=== PATIENT | male | born 1945 | race Caucasian/White ===

== ENCOUNTER 2022-12-17 12:59 | Day surgery (SDC) | payer MEDICARE ==
[2022-12-17 13:38] LABS: Mean Platelet Volume 7.9; Platelet Count 197 k/uL (150-450)
[2022-12-17 13:55] LABS: INR 1.1 (<1.2); Prothrombin Time 11.9 sec (9.0-12.0)
[2022-12-17 13:56] VITALS: RESP 20; TEMP 97.7
[2022-12-17] MEDS: ALBUMIN HUMAN 25% 50 ML in EMPTY BAG 1 BAG IVPB SCH ×4 (15:06→15:55)
[2022-12-17 16:14] VITALS: BP 133/64; PULSE 96
--- NOTE | 2022-12-17 16:33 | US ---
EXAMINATION TYPE: US paracentesis abd w/image DATE OF EXAM: 12/17/2022 CLINICAL HISTORY: Ascites The procedure was discussed with the patient. The risks, complications, benefits, and alternatives we re discussed and any questions were answered. Informed consent was obtained. The patient was placed s upine on the ultrasound table and prepped and draped in the usual sterile fashion. All elements of maximal barrier technique were utilized. Ultrasound was used to kaitlin an appropriate s ite in the right lower quadrant. Access to the ascites was obtained with a paracentesis catheter. Approximately 12 liters of straw-colored fluid was removed. The patient was stable throughout the pro cedure and remained stable upon discharge from Department of Radiology. IMPRESSION: Successful therapeutic paracentesis under ultrasound guidance.
== END 2022-12-17 16:39 | disposition home or self-care (01) ==
LOC: RADPROMAIN 12:59
PROVIDERS: ATTEND Internal Medicine Gastroenterology
DX: R18.8 Other ascites (principal)
CPT/HCPCS: 82565; 85049; 85610; 36415; 49083; P9047

== ENCOUNTER 2023-07-14 15:12 | Inpatient (IN) | payer OTHER, MEDICARE ==
[2023-07-14 16:24] LABS: Basophils % (A) 0 %; Eosinophils # (A) 0.2 k/uL (0-0.7); Eosinophils % (A) 3 %; HCT 38.7 % (39.0-53.0); HGB 12.8 gm/dL (13.0-17.5); Lymphocytes # (A) 0.9 k/uL (1.0-4.8); Lymphocytes % (A) 13 %; MCH 29.4 pg (25.0-35.0); MCV 89.1 fL (80.0-100.0); Mean Platelet Volume 8.1; Monocytes # (A) 0.5 k/uL (0-1.0); Monocytes % (A) 7 %; Neutrophils # (A) 5.5 k/uL (1.3-7.7); Neutrophils % (A) 75 %; Platelet Count 179 k/uL (150-450); RBC 4.35 m/uL (4.30-5.90); RDW 12.9 % (11.5-15.5); WBC 7.3 k/uL (3.8-10.6)
[2023-07-14 16:35] LABS: INR 1.1 (<1.2); Prothrombin Time 11.2 sec (9.0-12.0)
[2023-07-14 16:41] LABS: ALT 14 U/L (4-49); AST 23 U/L (17-59); African American GFR (CKD) 55 (>60 ml/min/1.73 sqM); Albumin 3.7 g/dL (3.5-5.0); Alkaline Phosphatase 107 U/L (38-126); Amylase 62 U/L (30-110); Anion Gap 6 mmol/L; Blood Urea Nitrogen 23 mg/dL (9-20); Calcium 9.9 mg/dL (8.4-10.2); Carbon Dioxide 25 mmol/L (22-30); Chloride 98 mmol/L (98-107); Glucose 109 mg/dL (74-99); Lipase 43 U/L (23-300); Non-African American GFR(CKD) 48 (>60 ml/min/1.73 sqM); Potassium 4.4 mmol/L (3.5-5.1); Sodium 129 mmol/L (137-145); Total Bilirubin 0.9 mg/dL (0.2-1.3); Total Protein 7.7 g/dL (6.3-8.2)
--- NOTE | 2023-07-14 16:51 | XR ---
EXAMINATION TYPE: XR KUB DATE OF EXAM: 07/14/2023 COMPARISON: NONE HISTORY: Pain TECHNIQUE: Single supine KUB image of the abdomen is obtained FINDINGS: Small bowel demonstrates no evidence for dilatation or air fluid levels. Gas and fecal material is seen in non-distended colon. No convincing evidence for pneumoperitoneum. No unusual calcifications. The lung bases are clear. The osseous structures are intact. IMPRESSION: 1. Overall nonobstructive bowel gas pattern.
[2023-07-14 16:56] LABS: Appearance,Urine Clear (Clear); Bilirubin,Urine Negative (Negative); Blood,Urine Small (Negative); Color,Urine Colorless; Glucose,Urine (UA) Negative (Negative); Hyaline Casts,Urine 3 /lpf (0-2); Ketones,Urine Negative (Negative); Leukocyte Esterase,Urine Negative (Negative); Mucus,Urine Rare /hpf; Nitrite,Urine Negative (Negative); Protein,Urine Negative (Negative); Specific Gravity,Urine 1.005 (1.001-1.035); Urobilinogen,Urine <2.0 mg/dL (<2.0)
--- NOTE | 2023-07-14 17:24 | ED ---
General Adult HPI - General Chief complaint: Abdominal Pain Stated complaint: infection in stomach Time Seen by Provider: 07/14/23 17:05 Source: patient, family, RN notes reviewed Mode of arrival: wheelchair Limitations: no limitations - History of Present Illness Initial comments: Patient is a pleasant 78-year-old male presenting to the emergency Department with several complaints. Patient does have some dyspnea on the past couple of days. Patient has had increased abdominal distention over the past one week with some mild discomfort. Patient does have history of cirrhosis with previous paracentesis. Patient is scheduled for paracentesis in 8 days. Patient did notice some redness to the skin of the abdomen today. Patient has a 10 pound we ight gain in the last week. - Related Data Home Medications Medication Instructions Recorded Confirmed Ergocalciferol [Vitamin D2 (1250 1,250 mcg PO WEEKLY 12/05/22 01/19/23 Mcg = 82439 Iu)] Furosemide [Lasix] 40 mg PO DAILY 12/05/22 01/19/23 HYDROcodone/APAP 5-325MG [[place] 1 tab PO Q4HR PRN 12/05/22 01/27/23 5-325] Metoprolol Tartrate [Lopressor] 25 mg PO BID 12/05/22 01/19/23 Rivaroxaban [Xarelto] 20 mg PO DAILY 12/05/22 01/27/23 Spironolactone [Aldactone] 100 mg PO DAILY 12/05/22 01/19/23 Cholecalciferol [Vitamin D3 (25 1,000 mcg PO DAILY 12/17/22 01/19/23 Mcg = 1000 Iu)] Cyanocobalamin [Vitamin B-12] 1 tablet PO DAILY 12/17/22 01/19/23 [place] 500 mg PO DAILY 12/17/22 01/19/23 Multivit-Min/FA/Lycopen/Lutein 1 tablet PO DAILY 12/17/22 01/19/23 [Centrum Silver Men Tablet] Turmeric/Turmeric Root Extract 500 mg PO DAILY 12/17/22 01/19/23 [Turmeric 450-50 mg Capsule] Vitamin E 180 mg PO DAILY 12/17/22 01/19/23 Zinc Gluconate [Zinc] 50 mg PO DAILY 12/17/22 01/19/23 Magnesium Oxide [Magnesium] 500 mg PO DAILY 01/19/23 01/19/23 Allergies Allergy/AdvReac Type Severity Reaction Status Date / Time cephalexin [From Keflex] Allergy Rash/Hives Verified 01/27/23 13:19 Iodinated Contrast Media Allergy Vomiting Verified 01/27/23 13:19 Review of Systems ROS Statement: Those systems with pertinent positive or pertinent negative responses have been documented in the HPI. ROS Other: All systems not noted in ROS Statement are negative. Constitutional: Denies: fever Eyes: Denies: eye pain ENT: Denies: ear pain Respiratory: Reports: as per HPI, dyspnea Cardiovascular: Denies: chest pain Endocrine: Reports: fatigue Gastrointestinal: Reports: as per HPI Musculoskeletal: Denies: back pain Skin: Reports: as per HPI Past Medical History Past Medical History: Atrial Fibrillation, Liver Disease Additional Past Medical History / Comment(s): exposed to agent orange History of Any Multi-Drug Resistant Organisms: None Reported Past Surgical History: Hernia Repair Additional Past Surgical History / Comment(s): paracentesis, hernia, scrotal nix rgery, eye implants Past Anesthesia/Blood Transfusion Reactions: No Reported Reaction Past Psychological History: Anxiety, Panic Disorder, PTSD Smoking Status: Current every day smoker Past Alcohol Use History: None Reported Past Drug Use History: Marijuana - Past Family History Father Family Medical History: Myocardial Infarction ([place]) General Exam Limitations: no limitations General appearance: alert, in no apparent distress Head exam: Present: normocephalic Eye exam: Present: normal appearance Neck exam: Present: normal inspection Respiratory exam: Present: rales Cardiovascular Exam: Present: irregular rhythm GI/Abdominal exam: Present: distended Extremities exam: Present: normal inspection Neurological exam: Present: alert Psychiatric exam: Present: normal affect, normal mood Skin exam: Present: erythema (Mild erythema left lower abdomen) Course Vital Signs 07/14/23 07/14/23 15:29 17:53 Temperature 98 F Pulse Rate 79 83 Respiratory 20 18 Rate Blood Pressure 107/70 138/78 O2 Sat by Pulse 95 98 Oximetry EKG Findings - EKG Results: EKG: interpreted by PATTID (Low QRS voltage), normal axis, normal ST/T EKG shows: atrial fibrillation Medical Decision Making - Medical Decision Making Was pt. sent in by a medical professional or institution (, PA, MUFFLE OPERATOR, urgent care, hospital, or long term...) When possible be specific @ -No Did you speak to anyone other than the patient for history (EMS, parent, family, police, friend...)? What history was obtained from this source @ - is present and helps provide history including history of cirrhosis Did you review nursing and triage notes (agree or disagree)? Why? @ -I reviewed and agree with nursing and triage notes Were old charts reviewed (outside hosp., previous admission, EMS record, old EKG, old radiological studies, urgent care reports/EKG's, long term records)? Report findings @ -No old charts were reviewed Differential Diagnosis (chest pain, altered mental status, abdominal pain women, abdominal pain men, vaginal bleeding, weakness, fever, dyspnea, syncope, headache, dizziness, GI bleed, back pain, seizure, CVA, palpatations, mental health, musculoskeletal)? @ -Differential Dyspnea: Coronary syndrome, arrhythmia, tamponade, asthma, COPD, pulmonary embolism, pneumonia, pneumothorax, pulmonary effusion, anaphylaxis, diabetic ketoacidosis, flailed chest, pulmonary contusion, diaphragmatic rupture, anemia, neuromuscular, this is not meant to be an all-inclusive list. EKG interpreted by me (3pts min.). @ -As above X-rays interpreted by me (1pt min.). @ -Chest x-ray shows possible early infiltrate right lower CT interpreted by me (1pt min.). @ -None done U/S interpreted by me (1pt. min.). @ -None done What testing was considered but not performed or refused? (CT, X-rays, U/S, labs)? Why? @ -None What meds were considered but not given or refused? Why? @ -None Did you discuss the management of the patient with other professionals (professionals i.e. Dr., PA, MUFFLE OPERATOR, lab, RT, psych nurse, transition social worker, sanitary landfill supervisor, teacher, ict help desk officer, caseworker)? Give summary @ -Case was discussed with practitioner Ligia Tyler, who will admit covering for Dr. Hannah, who admits for Dr. Soriano. Was smoking cessation discussed for >3mins.? @ -No Was critical care preformed (if so, how long)? @ -No Were there social determinants of health that impacted care today? How? (Homelessness, low income, unemployed, alcoholism, drug addiction, transpor tation, low edu. Level, literacy, decrease access to med. care, usp, rehab)? @ -No Was there de-escalation of care discussed even if they declined (Discuss DNR or withdrawal of care, Hospice)? DNR status @ -No What co-morbidities impacted this encounter? (DM, HTN, Smoking, COPD, CAD, Cancer, CVA, ARF, Chemo, Hep., AIDS, mental health diagnosis, sleep apnea, morbid obesity)? @ -None Was patient admitted / discharged? Hospital course, mention meds given and route, prescriptions, significant lab abnormalities, going to OR and other pertinent info. @ -Patient reevaluated. Patient and family updated. Patient will be admitted for interventional radiology consult for paracentesis as well as antibiotics for cellulitis and questionable pneumonia Undiagnosed new problem with uncertain prognosis? @ -No Drug Therapy requiring intensive monitoring for toxicity (Heparin, Nitro, Insulin, Cardizem)? @ -No Were any procedures done? @ -No Diagnosis/symptom? @ -Ascites, cellulitis abdomen Acute, or Chronic, or Acute on Chronic? @ -Acute on chronic, acute Uncomplicated (without systemic symptoms) or Complicated (systemic symptoms)? @ -default Side effects of treatment? @ -No Exacerbation, Progression, or Severe Exacerbation? @ -No Poses a threat to life or bodily function? How? (Chest pain, [place], MA, pneumonia, PE, COPD, DKA, ARF, appy, cholecystitis, CVA, Diverticulitis, Homicidal, Suicidal, threat to staff... and all critical care pts) @ -No - Lab Data Result diagrams: 07/14/23 16:03 07/14/23 16:03 Lab Results 07/14/23 07/14/23 07/14/23 Range/Units 15:33 16:03 16:03 WBC 7.3 (3.8-10.6) k/uL RBC 4.35 (4.30-5.90) m/uL Hgb 12.8 L (13.0-17.5) gm/dL Hct 38.7 L (39.0-53.0) % MCV 89.1 (80.0-100.0) fL MCH 29.4 (25.0-35.0) pg MCHC 33.0 (31.0-37.0) g/dL RDW 12.9 (11.5-15.5) % Plt Count 179 (150-450) k/uL MPV 8.1 Neutrophils % 75 % Lymphocytes % 13 % Monocytes % 7 % Eosinophils % 3 % Basophils % 0 % Neutrophils # 5.5 (1.3-7.7) k/uL Lymphocytes # 0.9 L (1.0-4.8) k/uL Monocytes # 0.5 (0-1.0) k/uL Eosinophils # 0.2 (0-0.7) k/uL Basophils # 0.0 (0-0.2) k/uL PT 11.2 (9.0-12.0) sec INR 1.1 (<1.2) APTT 30.0 (22.0-30.0) sec Sodium (137-145) mmol/L Potassium (3.5-5.1) mmol/L Chloride (98-107) mmol/L Carbon Dioxide (22-30) mmol/L Anion Gap mmol/L BUN (9-20) mg/dL Creatinine (0.66-1.25) mg/dL Est GFR (CKD-EPI)AfAm (>60 ml/min/1.73 sqM) Est GFR (CKD-EPI)NonAf (>60 ml/min/1.73 sqM) Glucose (74-99) mg/dL Calcium (8.4-10.2) mg/dL Total Bilirubin (0.2-1.3) mg/dL AST (17-59) U/L ALT (4-49) U/L Alkaline Phosphatase (38-126) U/L Ammonia (<30) umol/L Troponin I (0.000-0.034) ng/mL Total Protein (6.3-8.2) g/dL Albumin (3.5-5.0) g/dL Amylase (30-110) U/L Lipase (23-300) U/L Urine Color Colorless Urine Appearance Clear (Clear) Urine pH 6.0 (5.0-8.0) Ur Specific Arnold 1.005 (1.001-1.035) Urine Protein Negative (Negative) Urine Glucose (UA) Negative (Negative) Urine Ketones Negative (Negative) Urine Blood Small H (Negative) Urine Nitrite Negative (Negative) Urine Bilirubin Negative (Negative) Urine Urobilinogen <2.0 (<2.0) mg/dL Ur Leukocyte Esterase Negative (Negative) Hyaline Casts 3 H (0-2) /lpf Urine Mucus Rare H (None) /hpf 07/14/23 07/14/23 07/14/23 Range/Units 16:03 16:03 16:03 WBC (3.8-10.6) k/uL RBC (4.30-5.90) m/uL Hgb (13.0-17.5) gm/dL Hct (39.0-53.0) % MCV (80.0-100.0) fL MCH (25.0-35.0) pg MCHC (31.0-37.0) g/dL RDW (11.5-15.5) % Plt Count (150-450) k/uL MPV Neutrophils % % Lymphocytes % % Monocytes % % Eosinophils % % Basophils % % Neutrophils # (1.3-7.7) k/uL Lymphocytes # (1.0-4.8) k/uL Monocytes # (0-1.0) k/uL Eosinophils # (0-0.7) k/uL Basophils # (0-0.2) k/uL PT (9.0-12.0) sec INR (<1.2) APTT (22.0-30.0) sec Sodium 129 L (137-145) mmol/L Potassium 4.4 (3.5-5.1) mmol/L Chloride 98 (98-107) mmol/L Carbon Dioxide 25 (22-30) mmol/L Anion Gap 6 mmol/L BUN 23 H (9-20) mg/dL Creatinine 1.42 H (0.66-1.25) mg/dL Est GFR (CKD-EPI)AfAm 55 (>60 ml/min/1.73 sqM) Est GFR (CKD-EPI)NonAf 48 (>60 ml/min/1.73 sqM) Glucose 109 H (74-99) mg/dL Calcium 9.9 (8.4-10.2) mg/dL Total Bilirubin 0.9 (0.2-1.3) mg/dL AST 23 (17-59) U/L ALT 14 (4-49) U/L Alkaline Phosphatase 107 (38-126) U/L Ammonia 22 (<30) umol/L Troponin I <0.012 (0.000-0.034) ng/mL Total Protein 7.7 (6.3-8.2) g/dL Albumin 3.7 (3.5-5.0) g/dL Amylase 62 (30-110) U/L Lipase 43 (23-300) U/L Urine Color Urine Appearance (Clear) Urine pH (5.0-8.0) Ur Specific Arnold (1.001-1.035) Urine Protein (Negative) Urine Glucose (UA) (Negative) Urine Ketones (Negative) Urine Blood (Negative) Urine Nitrite (Negative) Urine Bilirubin (Negative) Urine Urobilinogen (<2.0) mg/dL Ur Leukocyte Esterase (Negative) Hyaline Casts (0-2) /lpf Urine Mucus (None) /hpf Disposition Clinical Impression: Ascites, Abdominal wall cellulitis Disposition: ADMITTED IP TO THIS HOSP Is patient prescribed a controlled substance at d/c from ED?: No Referrals: Kelechi Soriano DO [Primary Care Provider] - 1-2 days Time of Disposition: 19:05
--- NOTE | 2023-07-14 18:26 | XR ---
EXAMINATION TYPE: XR chest 2V DATE OF EXAM: 07/14/2023 COMPARISON: NONE HISTORY: Chest pain TECHNIQUE: Frontal and lateral views of the chest are obtained. FINDINGS: Mildly increased density right lung base may reflect developing infiltrate. Correlate clinically. No evidence for pneumothorax. No pleural effusion. The cardiac silhouette size is within normal limits. The osseous structures are grossly intact. IMPRESSION: 1. Mildly increased density right lung base may reflect developing infiltrate. Correlate clinically.
[2023-07-14] MEDS ORDERED: LEVOFLOXACIN 750MG-D5W PMX 750 MG in DEXTROSE/WATER 1 150ML.BAG IVPB STA (19:07)
[2023-07-14] MEDS ORDERED: PNEUMONIA PROTOCOL UTILIZED 1 EACH MISC PO PRN (19:07)
[2023-07-14] MEDS: METOPROLOL TARTRATE 25 MG TAB PO SCH (21:29)
[2023-07-14] MEDS: HYDROcodone/APAP 10-325MG 1 EACH TAB PO PRN (22:35)
[2023-07-15] MEDS: METOPROLOL TARTRATE 25 MG TAB PO SCH ×2 (08:22→21:10)
[2023-07-15] MEDS: HYDROcodone/APAP 10-325MG 1 EACH TAB PO PRN ×2 (08:22→19:53)
[2023-07-15] MEDS: CYANOCOBALAMIN 500 MCG TAB PO SCH (09:29)
[2023-07-15] MEDS: FUROSEMIDE 40 MG TAB PO SCH (09:29)
[2023-07-15] MEDS: MAGNESIUM OXIDE 400 MG TAB PO SCH (09:29)
[2023-07-15] MEDS: ZINC SULFATE 220 MG CAP PO SCH (09:29)
[2023-07-15] MEDS: CHOLECALCIFEROL 25 MCG (1000 IU) TABLET PO SCH (09:29)
[2023-07-15] MEDS: SPIRONOLACTONE 25 MG TAB PO SCH (09:29)
[2023-07-15] MEDS: MULTIVITAMINS, THERA 1 EACH TAB PO SCH (09:30)
--- NOTE | 2023-07-15 09:56 | XR ---
EXAMINATION TYPE: XR chest 2V DATE OF EXAM: 07/15/2023 COMPARISON: 07/14/2023 INDICATION: Pneumonia TECHNIQUE: Frontal and lateral views of the chest are obtained. FINDINGS: The heart size is normal. The pulmonary vasculature is normal. The lungs are clear. IMPRESSION: 1. No acute pulmonary process.
[2023-07-15] MEDS ORDERED: NALOXONE 0.4 MG/ML 1 ML VIAL IV PRN (12:56)
[2023-07-15] MEDS ORDERED: ACETAMINOPHEN TAB 325 MG TAB PO PRN (12:56)
[2023-07-15] MEDS ORDERED: ONDANSETRON 4 MG/2 ML VIAL IVP PRN (12:56)
--- NOTE | 2023-07-15 13:04 | P.HPIM ---
History of Present Illness H&P Date: 07/15/23 Chief Complaint: Abdominal distention * 78-year-old gentleman with past medical history significant for atrial fibrillation, liver disease with ascites, obesity, presenting to the emergency department with complaints of abdominal distention, erythema on anterior abdominal wall * Workup initiated in ER included serum chemistry which showed sodium of 129, creatinine 1.42. Liver profile within normal limits. Ammonia, troponin, amylase , lipase within normal limits * Urinalysis is obtained negative for urinary tract infection * X-ray abdomen ordered negative for obstruction, normal bowel gas pattern noted * Chest x-ray negative for intrathoracic process * Patient noted to have worsening ascites for which paracentesis is ordered * Patient to be admitted to medical floor for optimization of care and potential discharge within the next 24-48 hours REVIEW OF SYSTEMS: Shortness of breath, abdominal distention, erythema CONSTITUTIONAL: No fever, no malaise, no fatigue. HEENT: No recent visual problems or hearing problems. Denied any sore throat. CARDIOVASCULAR: No chest pain, orthopnea, PND, no palpitations, no syncope. PULMONARY: No shortness of breath, no cough, no hemoptysis. GASTROINTESTINAL: No diarrhea, no nausea, no vomiting, no abdominal pain. NEUROLOGICAL: No headaches, no weakness, no numbness. HEMATOLOGICAL: Denies any bleeding or petechiae. GENITOURINARY: Denies any burning micturition, frequency, or urgency. MUSCULOSKELETAL/RHEUMATOLOGICAL: Denies any joint pain, swelling, or any muscle pain. ENDOCRINE: Denies any polyuria or polydipsia. The rest of the 14-point review of systems is negative. PHYSICAL EXAMINATION: GENERAL: The patient is alert and oriented x3, Well developed, well nourished. Obese HEENT: Pupils are round and equally reacting to light. EOMI. CARDIOVASCULAR: S1 and S2 present. No murmurs, rubs, or gallops. Bilateral lower extremity edema PULMONARY: Chest is clear to auscultation, no wheezing or crackles. ABDOMEN: Soft, distended, MUSCULOSKELETAL: No joint swelling or deformity. EXTREMITIES: No cyanosis, clubbing, or pedal edema. NEUROLOGICAL: Gross neurological examination did not reveal any focal deficits. SKIN: Erythema anterior abdominal wall, skin marked Past Medical History Past Medical History: Atrial Fibrillation, Liver Disease, Pneumonia Additional Past Medical History / Comment(s): exposed to agent orange, ascites. 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 Smoking Status: Current every day smoker Past Alcohol Use History: None Reported Additional Past Alcohol Use History / Comment(s): refused smoking education, quit drinking 8 years ago (2014 approx) Past Drug Use History: Marijuana - Past Family History Father Family Medical History: Myocardial Infarction ([place]) Medications and Allergies Home Medications Medication Instructions Recorded Confirmed Type Ergocalciferol [Vitamin D2 (1250 1,250 mcg PO CELESTIN 12/05/22 07/14/23 History Mcg = 66888 Iu)] Furosemide [Lasix] 40 mg PO DAILY 12/05/22 07/14/23 History Metoprolol Tartrate [Lopressor] 25 mg PO BID 12/05/22 07/14/23 History Rivaroxaban [Xarelto] 20 mg PO HS 12/05/22 07/14/23 History Spironolactone [Aldactone] 100 mg PO DAILY 12/05/22 07/14/23 History Cholecalciferol [Vitamin D3 (25 25 mcg PO DAILY 12/17/22 07/14/23 History Mcg = 1000 Iu)] Cyanocobalamin [Vitamin B-12] 1,000 mcg PO DAILY 12/17/22 07/14/23 History Multivit-Min/FA/Lycopen/Lutein 1 tablet PO DAILY 12/17/22 07/14/23 History [Centrum Silver Men Tablet] Zinc Gluconate [Zinc] 50 mg PO DAILY 12/17/22 07/14/23 History Magnesium Oxide [Magnesium] 500 mg PO DAILY 01/19/23 07/14/23 History HYDROcodone/APAP 10-325MG [[place] 1 tab PO QID@06,12,18,00 07/14/23 07/14/23 History 10-325] Turmeric Root Extract [Turmeric] 500 mg PO DAILY 07/14/23 07/14/23 History Allergies Allergy/AdvReac Type Severity Reaction Status Date / Time cephalexin [From Keflex] Allergy Rash/Hives Verified 07/14/23 19:38 Iodinated Contrast Media Allergy Vomiting Verified 07/14/23 19:38 Physical Exam Vitals: Vital Signs Temp Pulse Pulse Resp BP BP Pulse Ox 07/15/23 08:52 92 L 07/15/23 07:17 98.6 F 71 19 99/67 97 07/15/23 02:00 97.6 F 75 16 106/61 94 L 07/14/23 20:00 98.3 F 81 16 112/70 95 07/14/23 17:53 83 18 138/78 98 07/14/23 15:29 98 F 79 20 107/70 95 FiO2 07/15/23 08:52 21 07/15/23 07:17 07/15/23 02:00 07/14/23 20:00 07/14/23 17:53 07/14/23 15:29 Intake and Output 07/14/23 07/15/23 07/15/23 22:59 06:59 14:59 Other: Voiding Method Toilet # Voids 2 Weight 121.563 kg Results CBC & Chem 7: 07/14/23 16:03 07/14/23 16:03 Labs: Abnormal Lab Results - Last 24 Hours (Table) 07/14/23 07/14/23 07/14/23 Range/Units 15:33 16:03 16:03 Hgb 12.8 L (13.0-17.5) gm/dL Hct 38.7 L (39.0-53.0) % Lymphocytes # 0.9 L (1.0-4.8) k/uL Sodium 129 L (137-145) mmol/L BUN 23 H (9-20) mg/dL Creatinine 1.42 H (0.66-1.25) mg/dL Glucose 109 H (74-99) mg/dL Urine Blood Small H (Negative) Hyaline Casts 3 H (0-2) /lpf Urine Mucus Rare H (None) /hpf Thrombosis Risk Factor Assmnt - DVT/VTE Prophylaxis DVT/VTE Prophylaxis: Mechanical Prophylaxis ordered - Choose All That Apply Any of the Below Risk Factors Present?: Yes Each Factor Represents 1 point: Obesity (BMI >25) Other Risk Factors: Yes Each Risk Factor Represents 3 Points: Age 75 years or older Other congenital or acquired thrombophilia - If yes, enter type in comment: No Thrombosis Risk Factor Assessment Total Risk Factor Score: 4 Thrombosis Risk Factor Assessment Level: Moderate Risk Assessment and Plan Assessment: Assessment and plan * Decompensated liver disease with ascites * Acute panniculitis * History of atrial fibrillation * Chronic kidney disease stage IIIa * In regards to decompensated liver disease continue patient on Lasix and Aldactone. Paracentesis is ordered * In regards to acute panniculitis in the abdominal wall continue patient on doxycycline to complete 5 day course * In regards to history of atrial fibrillation, continue telemetry monitoring, continue metoprolol. Resolved on hold and anticipation of paracentesis * In regards to chronic kidney disease continue to monitor renal profile while on Lasix and Aldactone * CODE STATUS is full code * DVT prophylaxis address. Resume was a lot of post paracentesis, SCDs while in bed
[2023-07-15] MEDS: ALBUMIN HUMAN 25% 50 ML in EMPTY BAG 1 BAG IVPB SCH ×2 (15:27→16:23)
[2023-07-15] MEDS: DOXYCYCLINE 100 MG CAP PO SCH ×2 (16:25→21:10)
[2023-07-16] MEDS: HYDROcodone/APAP 10-325MG 1 EACH TAB PO PRN ×2 (06:51→18:09)
[2023-07-16] MEDS: MULTIVITAMINS, THERA 1 EACH TAB PO SCH (08:04)
[2023-07-16] MEDS: CHOLECALCIFEROL 25 MCG (1000 IU) TABLET PO SCH (08:04)
[2023-07-16] MEDS: METOPROLOL TARTRATE 25 MG TAB PO SCH ×2 (08:04→22:45)
[2023-07-16] MEDS: ZINC SULFATE 220 MG CAP PO SCH (08:04)
[2023-07-16] MEDS: CYANOCOBALAMIN 500 MCG TAB PO SCH (08:04)
[2023-07-16] MEDS: DOXYCYCLINE 100 MG CAP PO SCH (08:04)
[2023-07-16] MEDS: MAGNESIUM OXIDE 400 MG TAB PO SCH (08:04)
--- NOTE | 2023-07-16 08:29 | US ---
Ultrasound-guided paracentesis. DATE OF EXAM: 07/15/2023 CLINICAL HISTORY: Ascites The procedure was discussed with the patient. The risks, complications, benefits, and alternatives we re discussed and any questions were answered. Informed consent was obtained. The patient was placed s upine on the ultrasound table and prepped and draped in the usual sterile fashion. All elements of maximal barrier technique were utilized. Under ultrasound guidance, access into the right lower quadrant was obtained, via the paracentesis catheter system and direct ultrasound guidanc e. Approximately 3.5 liters of straw-colored fluid was removed. The patient was stable throughout the pr ocedure and remained stable upon discharge from Department of Radiology. IMPRESSION: Successful paracentesis under ultrasound guidance.
[2023-07-16] MEDS: FUROSEMIDE 40 MG TAB PO SCH (10:16)
[2023-07-16] MEDS: SPIRONOLACTONE 25 MG TAB PO SCH (10:16)
[2023-07-16 13:01] LABS: INR 1.01 sec (0.93-1.11); Prothrombin Time 11.4 sec (9.9-11.9)
--- NOTE | 2023-07-16 13:26 | P.PN ---
Subjective * 78-year-old gentleman with past medical history significant for atrial fibrillation, liver disease with ascites, obesity, presenting to the emergency department with complaints of abdominal distention, erythema on anterior abdominal wall * Workup initiated in ER included serum chemistry which showed sodium of 129, creatinine 1.42. Liver profile within normal limits. Ammonia, troponin, amylase , lipase within normal limits * Urinalysis is obtained negative for urinary tract infection * X-ray abdomen ordered negative for obstruction, normal bowel gas pattern noted * Chest x-ray negative for intrathoracic process * Patient noted to have worsening ascites for which paracentesis is ordered * Patient to be admitted to medical floor for optimization of care and potential discharge within the next 24-48 hours 07/16/2023 This is a pleasant 78 years old male who presents with redness of his abdominal wall suspicious for cellulitis. Also he has history of scrotal surgery and removal with Dr. Godfrey many years ago and there is a lot of scar tissue, he was instructed to follow up with [facility] but patient could not. Patient was noticed with redness of his abdominal WOUND To the hospital. Also he has history of cirrhosis and he follows up with Dr. Mancuso as an outpatient He status post paracentesis and 3.5 L of yellow fluid was taken out. A shunt today feels better. His WITH NO DIFFICULTY. BLOOD PRESSURE IS LOW NORMAL, CREATININE IS STABLE AT 1.4. SODIUM IS 129. CHEST X-RAYS NEGATIVE FOR ACUTE PROCESS AND KUB SHOWING NON-OBSTRUCTIVE BOWEL PATTERN. PATIENT IS CURRENTLY ON DOXYCYCLINE AND ORAL DOSE Objective - Vital Signs Vital signs: Vital Signs Temp 98.9 F 07/16/23 07:20 Pulse 83 07/16/23 07:35 Resp 17 07/16/23 07:35 BP 99/68 07/16/23 07:20 Pulse Ox 95 07/16/23 07:20 FiO2 21 07/15/23 08:52 Intake & Output 07/15/23 07/16/23 07/16/23 18:59 06:59 18:59 Other: Voiding Method Toilet Toilet # Voids 2 2 - Exam GENERAL: The patient is alert and oriented x3, not in any acute distress. obese HEENT: Pupils are round and equally reacting to light. EOMI. No scleral icterus. No conjunctival pallor. Normocephalic, atraumatic. No pharyngeal erythema. No thyromegaly. CARDIOVASCULAR: S1 and S2 present. No murmurs, rubs, or gallops. PULMONARY: Chest is clear to auscultation, no wheezing , no crackles. -ABDOMEN: Soft, nontender, nondistended, normoactive bowel sounds. No palpable organomegaly. Redness left lower site of the abdomen up to the umbilicus extending into the left groin and left scrotal area, there is a lot of scar tissue with small, no discharge MUSCULOSKELETAL: No joint swelling or deformity. EXTREMITIES: No cyanosis, clubbing, or pedal edema. NEUROLOGICAL: Gross neurological examination did not reveal any focal deficits. SKIN: No rashes. no petechiae. - Labs CBC & Chem 7: 07/14/23 16:03 07/14/23 16:03 Labs: Microbiology - Last 24 Hours (Table) 07/14/23 21:55 Blood Culture - Preliminary Blood 07/14/23 21:55 Blood Culture - Preliminary Blood Assessment and Plan Assessment: * Decompensated liver disease with ascites, status post paracentesis 3.5 L removed ON 07/15 * Acute abdominal wall cellulitis and scrotal cellulitis with evidence of scar tissue and small ulcer was then have inch in diameter with no purulent discharge * Chronic atrial fibrillation * Chronic kidney disease stage IIIa * morbid obesity, BMI is 40.7
[2023-07-16] MEDS ORDERED: VANCOMYCIN IV PER PHARMACY 1 EACH MISC MISCELLANE PRN (13:36)
[2023-07-16 14:37] LABS: Basophils # (A) 0.04 X 10*3/uL (0.00-0.10); Basophils % (A) 0.5 %; Eosinophils # (A) 0.24 X 10*3/uL (0.04-0.35); Eosinophils % (A) 3.3 %; HCT 39.5 % (39.6-50.0); HGB 12.3 d/dL (13.0-17.0); Lymphocytes # (A) 1.15 X 10*3/uL (0.90-5.00); Lymphocytes % (A) 15.8 %; MCH 28.4 pg (27.0-32.0); MCHC 31.1 d/dL (32.0-37.0); MCV 91.2 FL (80.0-97.0); Monocytes # (A) 0.71 X 10*3/uL (0.20-1.00); Monocytes % (A) 9.7 %; NRBC Per 100 WBC 0 X 10*3/uL (0.00-0.01); Neutrophils # (A) 5.06 X 10*3/uL (1.80-7.70); Neutrophils % (A) 69.5 %; Platelet Count 201 X 10*3/uL (140-440); RBC 4.33 X 10*6/uL (4.40-5.60); RDW 12.9 % (11.5-14.5); WBC 7.29 X 10*3/uL (4.50-10.00)
[2023-07-16] MEDS ORDERED: VANCOMYCIN 2,500 MG in SODIUM CHLORIDE 0.9% 500 ML 500 ML IVPB ONE (15:00)
[2023-07-16] MEDS: NICOTINE 21MG/24HR PATCH TRANSDERM SCH (16:32)
--- NOTE | 2023-07-16 17:09 | P.GSCN ---
History of Present Illness Consult date: 07/16/23 Reason for Consult: Scrotal infection Requesting physician: Bo E Sheet History of present illness: The patient is a 78-year-old white male with ascites, which requires periodic paracentesis. Earlier today, he underwent ultrasound-guided paracentesis. 3.5 L of fluid was drained. He is now experiencing minimal drainage from the puncture site. erythema of the abdominal wall has been noted. He is receiving IV antibiotics. The patient has a history of scrotal infections. He has undergone incision and drainage in the past by Dr. Amaral, who advised him to undergo resection of the involved tissue with skin grafting. The patient states that he is unable to travel to [facility] because of PTSD. Review of Systems - Constitutional Denies chills, Denies fever - Respiratory Reports dyspnea Past Medical History Past Medical History: Atrial Fibrillation, Liver Disease, Pneumonia Additional Past Medical History / Comment(s): exposed to agent orange, ascites. 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 Smoking Status: Current every day smoker Past Alcohol Use History: None Reported Additional Past Alcohol Use History / Comment(s): refused smoking education, quit drinking 8 years ago (2014 approx) Past Drug Use History: Marijuana - Past Family History Father Family Medical History: Myocardial Infarction ([place]) Medications and Allergies Home Medications Medication Instructions Recorded Confirmed Type Ergocalciferol [Vitamin D2 (1250 1,250 mcg PO CELESTIN 12/05/22 07/14/23 History Mcg = 26698 Iu)] Furosemide [Lasix] 40 mg PO DAILY 12/05/22 07/14/23 History Metoprolol Tartrate [Lopressor] 25 mg PO BID 12/05/22 07/14/23 History Rivaroxaban [Xarelto] 20 mg PO HS 12/05/22 07/14/23 History Spironolactone [Aldactone] 100 mg PO DAILY 12/05/22 07/14/23 History Cholecalciferol [Vitamin D3 (25 25 mcg PO DAILY 12/17/22 07/14/23 History Mcg = 1000 Iu)] Cyanocobalamin [Vitamin B-12] 1,000 mcg PO DAILY 12/17/22 07/14/23 History Multivit-Min/FA/Lycopen/Lutein 1 tablet PO DAILY 12/17/22 07/14/23 History [Centrum Silver Men Tablet] Zinc Gluconate [Zinc] 50 mg PO DAILY 12/17/22 07/14/23 History Magnesium Oxide [Magnesium] 500 mg PO DAILY 01/19/23 07/14/23 History HYDROcodone/APAP 10-325MG [[place] 1 tab PO QID@06,12,18,00 07/14/23 07/14/23 History 10-325] Turmeric Root Extract [Turmeric] 500 mg PO DAILY 07/14/23 07/14/23 History Allergies Allergy/AdvReac Type Severity Reaction Status Date / Time cephalexin [From Keflex] Allergy Rash/Hives Verified 07/14/23 19:38 Iodinated Contrast Media Allergy Vomiting Verified 07/14/23 19:38 Surgical - Exam Vital Signs Temp Pulse Resp BP Pulse Ox 98 F 79 20 107/70 95 07/14/23 15:29 07/14/23 15:29 07/14/23 15:29 07/14/23 15:29 07/14/23 15:29 - General well developed, well nourished, no distress - Respiratory normal respiratory effort - Abdomen Soft, non-tender, non-distended. Mild erythema of the left lower quadrant abdominal skin is noted, though this is not suspicious for cellulitis. No fluctuance, no crepitus, no drainage. - Genitourinary Normal phallus, normal urethral meatus. The right testicle is palpably normal. 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 Significant scarring of the left hemiscrotum is noted, with what appears to be multiple sinuses. There are no areas of fluc tuance or drainage. There is no evidence of scrotal cellulitis. - Psychiatric oriented to time, oriented to person, oriented to place, speech is normal, memory intact Results - Labs 07/16/23 04:48 07/14/23 16:03 Abnormal Lab Results - Last 24 Hours (Table) 07/16/23 Range/Units 04:48 RBC 4.33 L (4.40-5.60) X 10*6/uL Hgb 12.3 L (13.0-17.0) d/dL Hct 39.5 L (39.6-50.0) % MCHC 31.1 L (32.0-37.0) d/dL Microbiology - Last 24 Hours (Table) 07/14/23 21:55 Blood Culture - Preliminary Blood 07/14/23 21:55 Blood Culture - Preliminary Blood Assessment and Plan (1) Hydradenitis Current Visit: Yes Status: Acute Code(s): L73.2 - HIDRADENITIS SUPPURATIVA SNOMED Code(s): 56987057 Plan: I see no need for intervention at this time. I explained to the patient that resection of the scrotal skin with skin grafting would be the optimal mode of therapy. He states that he does not wish to undergo any surgical procedures. I explained to him that he is at risk of future scrotal infections, which can be managed with antibiotics and/or incision and drainage. Time with Patient: Greater than 30
[2023-07-16] MEDS: PROMETHAZINE 25 MG TAB PO PRN (18:03)
[2023-07-16] MEDS ORDERED: LEVOFLOXACIN 750 MG TAB PO SCH (21:00)
--- NOTE | 2023-07-16 21:32 | P.CONS ---
History of Present Illness - Reason for Consult Consult date: 07/16/23 - History of Present Illness Patient is a 78-year-old male with a past medical history significant for atrial fibrillation pneumonia history of PTSD anxiety panic disorder and cirrhosis of the liver requiring paracentesis patient presented to the hospital with increasing abdominal distention over the last 1 week and noticed to having increasing erythema especially to the left lower abdominal wall area patient d enies significant pain open wound he did have slight drainage from his right lower abdominal wall previous paracentesis site patient denies high-grade fever or any chills and no fever has been recorded during his hospital stay patient did have a normal white count BUN/creatinine has been mildly elevated liver enzymes are normal amylase lipase was normal urine is negative patient did have a chest x-ray mild increased density right lung base reflect developing infiltrate patient did have a thoracentesis with removal of 3.5 L of straw of fluid this morning with increasing erythema to the abdominal wall and patient also noticed to have a some drainage from his scrotal area on previous infectious disease consultation patient also has recurrent cyst formation to the scrotal area from the patient been complaining of some bloodstained drainage and did have multiple resection in the past currently has been complaining of mostly bloodstained drainage no purulent material, patient is currently on doxycycline infectious he was consulted for further management of antibiotic therapy Past Medical History Past Medical History: Atrial Fibrillation, Liver Disease, Pneumonia Additional Past Medical History / Comment(s): exposed to agent orange, ascites. 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 Smoking Status: Current every day smoker Past Alcohol Use History: None Reported Additional Past Alcohol Use History / Comment(s): refused smoking education, quit drinking 8 years ago (2014 approx) Past Drug Use History: Marijuana - Past Family History Father Family Medical History: Myocardial Infarction ([place]) Medications and Allergies Home Medications Medication Instructions Recorded Confirmed Type Ergocalciferol [Vitamin D2 (1250 1,250 mcg PO CELESTIN 12/05/22 07/14/23 History Mcg = 20116 Iu)] Furosemide [Lasix] 40 mg PO DAILY 12/05/22 07/14/23 History Metoprolol Tartrate [Lopressor] 25 mg PO BID 12/05/22 07/14/23 History Rivaroxaban [Xarelto] 20 mg PO HS 12/05/22 07/14/23 History Spironolactone [Aldactone] 100 mg PO DAILY 12/05/22 07/14/23 History Cholecalciferol [Vitamin D3 (25 25 mcg PO DAILY 12/17/22 07/14/23 History Mcg = 1000 Iu)] Cyanocobalamin [Vitamin B-12] 1,000 mcg PO DAILY 12/17/22 07/14/23 History Multivit-Min/FA/Lycopen/Lutein 1 tablet PO DAILY 12/17/22 07/14/23 History [Centrum Silver Men Tablet] Zinc Gluconate [Zinc] 50 mg PO DAILY 12/17/22 07/14/23 History Magnesium Oxide [Magnesium] 500 mg PO DAILY 01/19/23 07/14/23 History HYDROcodone/APAP 10-325MG [[place] 1 tab PO QID@06,12,18,00 07/14/23 07/14/23 History 10-325] Turmeric Root Extract [Turmeric] 500 mg PO DAILY 07/14/23 07/14/23 History Allergies Allergy/AdvReac Type Severity Reaction Status Date / Time cephalexin [From Keflex] Allergy Rash/Hives Verified 07/14/23 19:38 Iodinated Contrast Media Allergy Vomiting Verified 07/14/23 19:38 Physical Exam Vitals: Vital Signs Temp Pulse Resp BP Pulse Ox 07/16/23 07:35 83 17 07/16/23 07:20 98.9 F 83 17 99/68 95 07/16/23 00:49 98.0 F 74 16 115/73 99 07/15/23 19:35 98.5 F 87 16 108/70 97 07/15/23 15:52 71 20 104/81 97 07/15/23 15:37 67 99/46 96 07/15/23 15:22 67 96/46 96 07/15/23 15:07 77 127/64 97 07/15/23 14:45 78 20 122/68 97 07/15/23 14:39 96.7 F L 67 20 106/66 97 Intake and Output 07/15/23 07/16/23 07/16/23 22:59 06:59 14:59 Other: Voiding Method Toilet Toilet # Voids 2 2 Results CBC & Chem 7: 07/16/23 04:48 07/14/23 16:03 Labs: Microbiology - Last 24 Hours (Table) 07/14/23 21:55 Blood Culture - Preliminary Blood 07/14/23 21:55 Blood Culture - Preliminary Blood Assessment and Plan Plan: 1patient presented hospital with increasing abdominal wall erythema concerning for cellulitis likely from gram-positive skin lars in this patient who did have a history of of ascites secondary to his cirrhosis and did have a paracentesis. 2patient did have a multiple areas of drainage from his scrotal area but no significant erythema question of hidradenitis 3-cephalexin advised to limit the number of antibiotics safe to use 4-discontinue doxycycline 5-vancomycin pharmacy to dose with a target trough of 15 while watching kidney function and Vanco trough closely. We will follow on clinical condition and cultures to further adjust medication if needed Thank you for this consultation we will follow the patient along with you Dictation was produced using [employer] dictation software. please excuse any grammatical, word or spelling errors. Time with Patient: Greater than 30
[2023-07-17] MEDS: PROMETHAZINE 25 MG TAB PO PRN (01:48)
[2023-07-17] MEDS: HYDROcodone/APAP 10-325MG 1 EACH TAB PO PRN ×2 (01:49→09:11)
[2023-07-17] MEDS: MULTIVITAMINS, THERA 1 EACH TAB PO SCH (08:56)
[2023-07-17] MEDS: SPIRONOLACTONE 25 MG TAB PO SCH (08:56)
[2023-07-17] MEDS: MAGNESIUM OXIDE 400 MG TAB PO SCH (08:56)
[2023-07-17] MEDS: CYANOCOBALAMIN 500 MCG TAB PO SCH (08:56)
[2023-07-17] MEDS: METOPROLOL TARTRATE 25 MG TAB PO SCH (08:56)
[2023-07-17] MEDS: CHOLECALCIFEROL 25 MCG (1000 IU) TABLET PO SCH (08:56)
[2023-07-17] MEDS: FUROSEMIDE 40 MG TAB PO SCH (08:56)
[2023-07-17] MEDS: ZINC SULFATE 220 MG CAP PO SCH (08:56)
[2023-07-17] MEDS: NICOTINE 21MG/24HR PATCH TRANSDERM SCH (08:56)
[2023-07-17 10:11] LABS: African American GFR (CKD) 46 (>60 ml/min/1.73 sqM); Anion Gap 4 mmol/L; Blood Urea Nitrogen 22 mg/dL (9-20); Calcium 9.5 mg/dL (8.4-10.2); Carbon Dioxide 31 mmol/L (22-30); Chloride 97 mmol/L (98-107); Glucose 98 mg/dL (74-99); Non-African American GFR(CKD) 40 (>60 ml/min/1.73 sqM); Potassium 4.3 mmol/L (3.5-5.1); Sodium 132 mmol/L (137-145)
[2023-07-17] MEDS ORDERED: VANCOMYCIN 2,250 MG in SODIUM CHLORIDE 0.9% 500 ML 500 ML IVPB SCH (12:00)
[2023-07-17 13:34] VITALS: BP 115/68; PULSE 67; RESP 17; TEMP 98.7
--- NOTE | 2023-07-17 14:13 | P.PN ---
Subjective * 78-year-old gentleman with past medical history significant for atrial fibrillation, liver disease with ascites, obesity, presenting to the emergency department with complaints of abdominal distention, erythema on anterior abdominal wall * Workup initiated in ER included serum chemistry which showed sodium of 129, creatinine 1.42. Liver profile within normal limits. Ammonia, troponin, amylase , lipase within normal limits * Urinalysis is obtained negative for urinary tract infection * X-ray abdomen ordered negative for obstruction, normal bowel gas pattern noted * Chest x-ray negative for intrathoracic process * Patient noted to have worsening ascites for which paracentesis is ordered * Patient to be admitted to medical floor for optimization of care and potential discharge within the next 24-48 hours 07/16/2023 This is a pleasant 78 years old male who presents with redness of his abdominal wall suspicious for cellulitis. Also he has history of scrotal surgery and removal with Dr. Godfrey many years ago and there is a lot of scar tissue, he was instructed to follow up with [place] but patient could not. Patient was noticed with redness of his abdominal WOUND To the hospital. Also he has history of cirrhosis and he follows up with Dr. Mancuso as an outpatient He status post paracentesis and 3.5 L of yellow fluid was taken out. A shunt today feels better. His WITH NO DIFFICULTY. BLOOD PRESSURE IS LOW NORMAL, CREATININE IS STABLE AT 1.4. SODIUM IS 129. CHEST X-RAYS NEGATIVE FOR ACUTE PROCESS AND KUB SHOWING NON-OBSTRUCTIVE BOWEL PATTERN. PATIENT IS CURRENTLY ON DOXYCYCLINE AND ORAL DOSE 07/17/2023 Patient cellulitis of the abdominal wall and scrubbed, gloved groin is improving slowly and gradually, still there is purulent discharge Patient still needs IV antibiotics Urology team input is appreciated, no surgical intervention and follow-up as an outpatient, patient like to follow-up with his PCP. Infectious disease team on the case Possible discharge in 24-48 hours if he keeps improving Objective - Vital Signs Vital signs: Vital Signs Temp 98.7 F 07/17/23 13:34 Pulse 67 07/17/23 13:34 Resp 17 07/17/23 13:34 BP 115/68 07/17/23 13:34 Pulse Ox 96 07/17/23 13:34 FiO2 21 07/15/23 08:52 Intake & Output 07/16/23 07/17/23 07/17/23 18:59 06:59 18:59 Other: Voiding Method Toilet Toilet Toilet # Voids 4 2 - Exam GENERAL: The patient is alert and oriented x3, not in any acute distress. obese HEENT: Pupils are round and equally reacting to light. EOMI. No scleral icterus. No conjunctival pallor. Normocephalic, atraumatic. No pharyngeal erythema. No t hyromegaly. CARDIOVASCULAR: S1 and S2 present. No murmurs, rubs, or gallops. PULMONARY: Chest is clear to auscultation, no wheezing , no crackles. -ABDOMEN: Soft, nontender, nondistended, normoactive bowel sounds. No palpable organomegaly. Redness left lower site of the abdomen up to the umbilicus extending into the left groin and left scrotal area, there is a lot of scar tissue with small, no discharge MUSCULOSKELETAL: No joint swelling or deformity. EXTREMITIES: No cyanosis, clubbing, or pedal edema. NEUROLOGICAL: Gross neurological examination did not reveal any focal deficits. SKIN: No rashes. no petechiae. - Labs CBC & Chem 7: 07/16/23 04:48 07/17/23 07:31 Labs: Abnormal Lab Results - Last 24 Hours (Table) 07/16/23 07/17/23 Range/Units 04:48 07:31 RBC 4.33 L (4.40-5.60) X 10*6/uL Hgb 12.3 L (13.0-17.0) d/dL Hct 39.5 L (39.6-50.0) % MCHC 31.1 L (32.0-37.0) d/dL Sodium 132 L (137-145) mmol/L Chloride 97 L (98-107) mmol/L Carbon Dioxide 31 H (22-30) mmol/L BUN 22 H (9-20) mg/dL Creatinine 1.63 H (0.66-1.25) mg/dL Microbiology - Last 24 Hours (Table) 07/14/23 21:55 Blood Culture - Preliminary Blood 07/14/23 21:55 Blood Culture - Preliminary Blood Assessment and Plan Assessment: * Decompensated liver disease with ascites, status post paracentesis 3.5 L removed ON 07/15 * Acute abdominal wall cellulitis and scrotal cellulitis with evidence of scar tissue and small ulcer was then have inch in diameter with no purulent discharge * Chronic atrial fibrillation * Chronic kidney disease stage IIIa * morbid obesity, BMI is 40.7 Plan: Patient has extensive cellulitis of the abdominal wall and still requires intravenous antibiotic with IV vancomycin Is improving slowly and gradually we will reassess tomorrow for possible discharge, we will discuss the case with infectious disease team Urologist recommended no surgical intervention but he is at high risk of infection as this time. Labs and medication were reviewed.. Continue same treatment. Continue with symptomatic treatment. Resume home medication. Monitor labs and vitals. DVT and GI prophylaxis. Further recommendations as per clinical course of the shelbie ent DVT prophylaxis: Subcutaneous heparin GI Prophylaxis: Pepcid Prognosis is guarded
[2023-07-17] MEDS ORDERED: FAMOTIDINE 20 MG/2 ML VIAL IV SCH (21:00)
[2023-07-17] MEDS ORDERED: HEPARIN SODIUM,PORCINE 5,000 UNIT/ML 1 ML VIAL SQ SCH (21:00)
--- NOTE | 2023-07-17 21:45 | P.DS ---
Providers Date of admission: 07/14/23 19:07 Attending physician: Solange Hannah Consults: 07/16/23 08:30 Consult Physician Routine Consulting Provider: Enrique Fairbanks Consult Reason/Comments: scrotal skin infection with scan tissue ( pt) Do you want consulting provider notified?: Yes Consult Physician Routine Consulting Provider: John Ledesma Consult Reason/Comments: abd and scrotal cellulitis Do you want consulting provider notified?: Yes Primary care physician: Kele[facility] Hospital Course: Diagnoses: Decompensated liver disease with ascites, status post paracentesis 3.5 L removed ON 07/15 Acute abdominal wall cellulitis and scrotal cellulitis with evidence of scar tissue and small ulcer was then have inch in diameter with no purulent discharge. Improved with antibiotic Nicotine dependence Chronic atrial fibrillation Chronic kidney disease stage IIIa morbid obesity, BMI is 40.7 Hospital course: 78-year-old gentleman with past medical history significant for atrial fibrillation, liver disease with ascites, obesity, presenting to the emergency department with complaints of abdominal distention, erythema on anterior abdominal wall. Patient is a known case of cirrhosis and he follow-up with Dr. Carl. He had ascites on admission and is status post paracentesis 13.5 L of yellow fluid was removed. Also patient has history of unilateral orchiectomy with a lot of scar tissue in the scrotal area with evidence of open wound about less than inch in diameter with extensive cellulitis on admission extended up from the scrotum to the left groin to the abdominal wall mainly on the left side up to the umbilicus. Infectious disease consult was obtained and patient was started on IV vancomycin. Patient tolerated well and his cellulitis significantly improved to day almost by 50%. Patient denies fever. No other symptoms. Patient was adamant to go home today. Patient stated that if his to be discharged to his going to leave ama. i discussed the case with infectious disease team given his improvement and dr. ledesma recommended to discharge the patient on doxycycline 7 day Patient has no other symptoms. Patient was cleared for discharge by ID team urologist evaluated the patient and recommended no surgical intervention currently and follow-up outpatient for possible excision of scar tissue and the skin graft however patient is not interested understand the treatment as he likes to follow up only locally, urologist recommended the patient to follow-up with tertiary care center like and [place] which patient does not prefer to. Risks and benefits are explained for the patient in details and he verbalized understanding and acceptance Problems and management plan were discussed with the patient and he verbalized understanding and acceptance Patient was found stable and can be discharged home in guarded prognosis however he needs follow-up as an outpatient. Patient was instructed to follow up with PCP Dr. Soriano within one week and patient agrees Patient was instructed to follow up with urologist Dr. Fairbanks and infectious disease doctor site in one week and he agrees. Also patient instructed to follow up with his utilization coordinator Dr. Carl and 3- 4 weeks after discharge and he agrees as well Physical exam -Gen: patient is a AAOx3, no distress. Morbidly obese CVS: S1-S2, RRR, no murmur Lungs: B/L CTA, no wheezing -Abdomen: soft, no distention, no tenderness, positive bowel sounds. Redness left lower site of the abdomen up to the umbilicus extending into the left groin and left scrotal area, there is a lot of scar tissue with small, no discharge, improving Extremity: no leg edema or induration Time spent more than 35 minutes Patient Condition at Discharge: Fair Plan - Discharge Summary Discharge Rx Participant: Yes New Discharge Prescriptions: New Doxycycline [Vibramycin] 100 mg PO BID 7 Days #14 capsule Continue Rivaroxaban [Xarelto] 20 mg PO HS Furosemide [Lasix] 40 mg PO DAILY Multivit-Min/FA/Lycopen/Lutein [Centrum Silver Men Tablet] 1 tablet PO DAILY HYDROcodone/APAP 10-325MG [[place] 10-325] 1 tab PO QID@06,12,18,00 Spironolactone [Aldactone] 100 mg PO DAILY Ergocalciferol [Vitamin D2 (1250 Mcg = 34135 Iu)] 1,250 mcg PO CELESTIN Metoprolol Tartrate [Lopressor] 25 mg PO BID Zinc Gluconate [Zinc] 50 mg PO DAILY Cyanocobalamin [Vitamin B-12] 1,000 mcg PO DAILY Cholecalciferol [Vitamin D3 (25 Mcg = 1000 Iu)] 25 mcg PO DAILY Magnesium Oxide [Magnesium] 500 mg PO DAILY Turmeric Root Extract [Turmeric] 500 mg PO DAILY Discharge Medication List Ergocalciferol [Vitamin D2 (1250 Mcg = 97331 Iu)] 1,250 mcg PO CELESTIN 12/05/22 [History] Furosemide [Lasix] 40 mg PO DAILY 12/05/22 [History] Metoprolol Tartrate [Lopressor] 25 mg PO BID 12/05/22 [History] Rivaroxaban [Xarelto] 20 mg PO HS 12/05/22 [History] Spironolactone [Aldactone] 100 mg PO DAILY 12/05/22 [History] Cholecalciferol [Vitamin D3 (25 Mcg = 1000 Iu)] 25 mcg PO DAILY 12/17/22 [History] Cyanocobalamin [Vitamin B-12] 1,000 mcg PO DAILY 12/17/22 [History] Multivit-Min/FA/Lycopen/Lutein [Centrum Silver Men Tablet] 1 tablet PO DAILY 12/17/22 [History] Zinc Gluconate [Zinc] 50 mg PO DAILY 12/17/22 [History] Magnesium Oxide [Magnesium] 500 mg PO DAILY 01/19/23 [History] HYDROcodone/APAP 10-325MG [[place] 10-325] 1 tab PO QID@06,12,18,00 07/14/23 [History] Turmeric Root Extract [Turmeric] 500 mg PO DAILY 07/14/23 [History] Doxycycline [Vibramycin] 100 mg PO BID 7 Days #14 capsule 07/17/23 [Rx] Follow up Appointment(s)/Referral(s): Enrique Fairbanks MD [STAFF PHYSICIAN] - 07/23/23 10:00 am Ina Mancuso MD [STAFF PHYSICIAN] - 08/18/23 4:45 pm (Patient will be added to the cancelation list.) Kelechi Soriano DO [Primary Care Provider] - 1-2 days (Office stated they will call patient with follow-up appointment time and date. Patient is on a cancelation list.) John Ledesma MD [STAFF PHYSICIAN] - 07/22/23 3:00 pm Patient Instructions/Handouts: Cellulitis (ED), Ascites (DC) Activity/Diet/Wound Care/Special Instructions: heart healthy diet activity is restricted till you see your doctor Discharge Disposition: HOME SELF-CARE
[2023-07-18 16:04] LABS: ALT 11 U/L (10-49); AST 19 U/L (14-35); Albumin 3.4 d/dL (3.8-4.9); Albumin/Globulin Ratio 1.13 Ratio (1.60-3.17); Alkaline Phosphatase 104 U/L (41-126); BUN/Creat Ratio 13.06 Ratio (12.00-20.00); Blood Urea Nitrogen 20.9 mg/dL (9.0-27.0); Calcium 9.6 mg/dL (8.7-10.3); Carbon Dioxide 24.4 mmol/L (21.6-31.8); Chloride 98 mmol/L (96-109); Glucose 93 mg/dL (70-110); Potassium 4.6 mmol/L (3.5-5.5); Sodium 132 mmol/L (135-145); Total Protein 6.4 d/dL (6.2-8.2)
== END 2023-07-17 15:22 | disposition home or self-care (01) | DRG 433 ==
LOC: EC 15:12 → OBSVTOIN 19:07 → 4SSUR 19:07 → UNDODISOB 07-17 15:22
PROVIDERS: ADMIT Internal Medicine; ATTEND Internal Medicine
PROC: 0W9G3ZZ Drainage of Peritoneal Cavity, Percutaneous Approach (ICD-10-PCS; principal; 2023-07-15)
DX: K74.60 Unspecified cirrhosis of liver (principal); I48.20 Chronic atrial fibrillation, unspecified; L03.311 Cellulitis of abdominal wall; R18.8 Other ascites; Z68.41 Body mass index [BMI] 40.0-44.9, adult; E66.01 Morbid (severe) obesity due to excess calories; F41.0 Panic disorder [episodic paroxysmal anxiety]; F43.10 Post-traumatic stress disorder, unspecified; I12.9 Hypertensive chronic kidney disease with stage 1 through stage 4 chronic kidney disease, or unspecified chronic kidney disease; L73.2 Hidradenitis suppurativa; M79.3 Panniculitis, unspecified; N18.31 Chronic kidney disease, stage 3a; N49.2 Inflammatory disorders of scrotum; Z79.01 Long term (current) use of anticoagulants; Z79.899 Other long term (current) drug therapy; Z82.49 Family history of ischemic heart disease and other diseases of the circulatory system; Z28.310 Unvaccinated for COVID-19; Z28.21 Immunization not carried out because of patient refusal; Z60.2 Problems related to living alone; Z88.1 Allergy status to other antibiotic agents; Z91.041 Radiographic dye allergy status; Z53.20 Procedure and treatment not carried out because of patient's decision for unspecified reasons; Z57.4 Occupational exposure to toxic agents in agriculture; Z87.01 Personal history of pneumonia (recurrent)
CPT/HCPCS: 36415; 49083; 71046; 74018; 80048; 80053; 81001; 82140; 82150; 83605; 83690; 84145; 84484; 85025; 85610; 85730; 87040; 87449; 93005; 94760; 96365; 96366; 99285

== ENCOUNTER → 2023-08-13 | Outpatient (CLI) | payer MEDICARE ==
--- NOTE | 2023-08-13 09:31 | US ---
EXAMINATION TYPE: US liver DATE OF EXAM: 08/13/2023 COMPARISON: NONE CLINICAL INDICATION: Male, 78 years old with history of K70.30 ALCOHOLIC CIRRHOSIS; known cirrhosis TECHNIQUE: Multiple sonographic images of the right upper quadrant are obtained. FINDINGS: EXAM MEASUREMENTS: Liver Length: 16.5 cm Gallbladder Wall: 0.5 cm CBD: 0.6 cm Right Kidney: 10.9 x 5.0 x 6.1 cm Pancreas: portions seen appear wnl Liver: heterogeneous and nodular Gallbladder: thickened wall with multiple stones Evidence for sonographic Gonsalez's sign: no CBD: wnl Right Kidney: There appears to be a parapelvic cyst measuring 4.4 x 5.8 x 5.1cm IMPRESSION: 1. Cirrhosis with moderate to large amount of ascites. 2. Cholelithiasis. 3. Right renal cyst.
== END | disposition home or self-care (01) ==
LOC: RADUSWWP 08:46
PROVIDERS: ATTEND Internal Medicine Gastroenterology
DX: K70.30 Alcoholic cirrhosis of liver without ascites (principal)
CPT/HCPCS: 76705

== ENCOUNTER 2023-10-30 14:08 | Emergency (ER) | payer MEDICARE ==
--- NOTE | 2023-10-30 14:51 | ED ---
General Adult HPI - General Chief complaint: Shortness of Breath Stated complaint: swollen legs abnormal weight gain Time Seen by Provider: 10/30/23 14:25 Source: patient, family, RN notes reviewed Mode of arrival: wheelchair Limitations: no limitations - History of Present Illness Initial comments: Patient is a pleasant 78-year-old male presenting to the emergency department concern for abdominal distention. Symptoms have progressed over the past few weeks. Set up paracentesis on Thursday however concerned symptoms are getting worse. Patient does have some associated dyspnea. Patient does have some leg edema as well. Patient has gained approximately 30 pounds in the past 3 weeks. Patient does have history of cirrhosis and previous paracentesis. Patient states he has had some leakage from the abdomen. - Related Data Home Medications Medication Instructions Recorded Confirmed Ergocalciferol [Vitamin D2 (1250 1,250 mcg PO CELESTIN 12/05/22 10/30/23 Mcg = 14665 Iu)] Furosemide [Lasix] 40 mg PO DAILY 12/05/22 10/30/23 Rivaroxaban [Xarelto] 20 mg PO HS 12/05/22 10/30/23 Spironolactone [Aldactone] 100 mg PO DAILY 12/05/22 10/30/23 Cholecalciferol [Vitamin D3 (25 25 mcg PO DAILY 12/17/22 10/30/23 Mcg = 1000 Iu)] Cyanocobalamin [Vitamin B-12] 1,000 mcg PO DAILY 12/17/22 10/30/23 Mv-Min/Folic/K1/Lycopen/Lutein 1 tablet PO DAILY 12/17/22 10/30/23 [Centrum Silver Men Tablet] Zinc Gluconate [Zinc] 50 mg PO DAILY 12/17/22 10/30/23 Magnesium Oxide [Magnesium] 500 mg PO DAILY 01/19/23 10/30/23 HYDROcodone/APAP 10-325MG [[place] 1 tab PO TID 07/14/23 10/30/23 10-325] Turmeric Root Extract [Turmeric] 500 mg PO DAILY 07/14/23 10/30/23 ALPRAZolam [Xanax] 1 mg PO BID PRN 10/30/23 10/30/23 Metoprolol Succinate (ER) [Toprol 25 mg PO DAILY 10/30/23 10/30/23 Xl] traMADol HCL 50 mg PO Q6H PRN 10/30/23 10/30/23 Allergies Allergy/AdvReac Type Severity Reaction Status Date / Time cephalexin [From Keflex] Allergy Rash/Hives Verified 10/30/23 16:25 Iodinated Contrast Media Allergy Vomiting Verified 10/30/23 16:25 Review of Systems ROS Statement: Those systems with pertinent positive or pertinent negative responses have been documented in the HPI. ROS Other: All systems not noted in ROS Statement are negative. Constitutional: Denies: fever Eyes: Denies: eye pain ENT: Denies: ear pain Respiratory: Reports: as per HPI, dyspnea Cardiovascular: Reports: edema. Denies: chest pain Endocrine: Reports: fatigue Gastrointestinal: Reports: as per HPI Past Medical History Past Medical History: Atrial Fibrillation, Liver Disease, Pneumonia Additional Past Medical History / Comment(s): exposed to agent orange, ascites. History of Any Multi-Drug Resistant Organisms: None Reported Past Surgical History: Hernia Repair Additional Past Surgical History / Comment(s): paracentesis, hernia, scrotal surgery, eye implants, liver biopsy Past Anesthesia/Blood Transfusion Reactions: No Reported Reaction Past Psychological History: Anxiety, Panic Disorder, PTSD Smoking Status: Current every day smoker Past Alcohol Use History: None Reported Past Drug Use History: Marijuana - Past Family History Father Family Medical History: Myocardial Infarction ([place]) General Exam Limitations: no limitations General appearance: alert, in no apparent distress Head exam: Present: normocephalic Eye exam: Present: normal appearance Neck exam: Present: normal inspection Respiratory exam: Present: normal lung sounds bilaterally Cardiovascular Exam: Present: regular rate, irregular rhythm GI/Abdominal exam: Present: distended. Absent: tenderness Extremities exam: Present: pedal edema. Absent: calf tenderness Neurological exam: Present: alert Psychiatric exam: Present: normal affect, normal mood Skin exam: Present: normal color Course Vital Signs 10/30/23 10/30/23 10/30/23 14:19 14:37 14:38 Temperature 98.1 F 98.1 F Pulse Rate 90 81 Respiratory 16 18 18 Rate Blood Pressure 126/64 126/72 O2 Sat by Pulse 97 96 Oximetry 10/30/23 10/30/23 10/30/23 15:00 16:00 16:30 Temperature Pulse Rate 79 93 67 Respiratory 16 20 12 Rate Blood Pressure 126/72 89/66 89/66 O2 Sat by Pulse 94 L 97 97 Oximetry EKG Findings - EKG Results: EKG: interpreted by ERMD (Septal Q waves.), normal axis, normal ST/T EKG shows: atrial fibrillation Medical Decision Making - Medical Decision Making Was pt. sent in by a medical professional or institution (, [facility], COLUMNIST/COMMENTATOR, urgent care, hospital, or penitentiary...) When possible be specific @ -No Did you speak to anyone other than the patient for history (EMS, parent, family, police, friend...)? What history was obtained from this source @ -Son is present and helps provide history Did you review nursing and triage notes (agree or disagree)? Why? @ -I reviewed and agree with nursing and triage notes Were old charts reviewed (outside hosp., previous admission, EMS record, old EKG, old radiological studies, urgent care reports/EKG's, penitentiary records)? Report findings @ -No old charts were reviewed Differential Diagnosis (chest pain, altered mental status, abdominal pain women, abdominal pain men, vaginal bleeding, weakness, fever, dyspnea, syncope, headache, dizziness, GI bleed, back pain, seizure, CVA, palpatations, mental health, musculoskeletal)? @ -Differential Abdominal Pain Men: Appendicitis, cholecystitis, diverticulosis, ischemic bowel, pancreatitis, hepatitis, UTI, gastroenteritis, AAA, incarcerated hernia, bowel obstruction, constipation, inflammatory bowel, hepatitis, peptic ulcer disease, splenic infarction, perforated viscus, testicular torsion, this is not meant to be an all-inclusive list EKG interpreted by me (3pts min.). @ -As above X-rays interpreted by me (1pt min.). @ -Chest x-ray shows possible atelectasis versus very early infiltrates CT interpreted by me (1pt min.). @ -None done U/S interpreted by me (1pt. min.). @ -None done What testing was considered but not performed or refused? (CT, X-rays, U/S, labs)? Why? @ -None What meds were considered but not given or refused? Why? @ -None Did you discuss the management of the patient with other professionals (professionals i.e. [facility] Celestin, COLUMNIST/COMMENTATOR, lab, RT, psych nurse, high school social studies teacher, high school auto repair teacher, teacher, animal control officer, outsole caser)? Give summary @ -I did discuss case earlier with interventional radiology nurse who states there is nobody available to perform paracentesis until Thursday. Patient does have Thursday morning paracentesis arty scheduled. Was smoking cessation discussed for >3mins.? @ -No Was critical care preformed (if so, how long)? @ -No Were there social determinants of health that impacted care today? How? (Homelessness, low income, unemployed, alcoholism, drug addiction, transportation, low edu. Level, literacy, decrease access to med. care, residential, rehab)? @ -No Was there de-escalation of care discussed even if they declined (Discuss DNR or withdrawal of care, Hospice)? DNR status @ -No What co-morbidities impacted this encounter? (DM, HTN, Smoking, COPD, CAD, Cancer, CVA, ARF, Chemo, Hep., AIDS, mental health diagnosis, sleep apnea, morbid obesity)? @ -None Was patient admitted / discharged? Hospital course, mention meds given and route, prescriptions, significant lab abnormalities, going to OR and other pertinent info. @ -Patient could benefit from paracentesis however we do not have the ability to do that through either interventional radiology or gastroenterology. Patient will like to be discharge and make his appointment on Thursday. I do feel comfortable with this. Patient will return if worsening symptoms or dyspnea. Patient will be covered with antibiotics for questionable chest x-ray changes. Undiagnosed new problem with uncertain prognosis? @ -No Drug Therapy requiring intensive monitoring for toxicity (Heparin, Nitro, Insulin, Cardizem)? @ -No Were any procedures done? @ -No Diagnosis/symptom? @ -Ascites Acute, or Chronic, or Acute on Chronic? @ -Acute on chronic Uncomplicated (without systemic symptoms) or Complicated (systemic symptoms)? @ -default Side effects of treatment? @ -No Exacerbation, Progression, or Severe Exacerbation? @ -No Poses a threat to life or bodily function? How? (Chest pain, [place], [place], pneumonia, PE, COPD, DKA, ARF, appy, cholecystitis, CVA, Diverticulitis, Homicidal, Suicidal, threat to staff... and all critical care pts) @ -No - Lab Data Result diagrams: 10/30/23 15:10 10/30/23 15:10 Lab Results 10/30/23 10/30/23 10/30/23 Range/Units 15:10 15:10 15:10 WBC 9.9 (3.8-10.6) k/uL RBC 4.20 L (4.30-5.90) m/uL Hgb 11.4 L (13.0-17.5) gm/dL Hct 35.3 L (39.0-53.0) % MCV 84.2 (80.0-100.0) fL MCH 27.3 (25.0-35.0) pg MCHC 32.4 (31.0-37.0) g/dL RDW 13.7 (11.5-15.5) % Plt Count 254 (150-450) k/uL MPV 7.6 Neutrophils % 84 % Lymphocytes % 7 % Monocytes % 6 % Eosinophils % 2 % Basophils % 0 % Neutrophils # 8.3 H (1.3-7.7) k/uL Lymphocytes # 0.7 L (1.0-4.8) k/uL Monocytes # 0.6 (0-1.0) k/uL Eosinophils # 0.2 (0-0.7) k/uL Basophils # 0.0 (0-0.2) k/uL PT 12.2 (10.0-12.5) sec INR 1.1 (<1.2) APTT 29.5 (22.0-30.0) sec Sodium 130 L (137-145) mmol/L Potassium 4.5 (3.5-5.1) mmol/L Chloride 93 L (98-107) mmol/L Carbon Dioxide 27 (22-30) mmol/L Anion Gap 10 mmol/L BUN 29 H (9-20) mg/dL Creatinine 2.13 H (0.66-1.25) mg/dL Est GFR (CKD-EPI)AfAm 34 (>60 ml/min/1.73 sqM) Est GFR (CKD-EPI)NonAf 29 (>60 ml/min/1.73 sqM) Glucose 101 H (74-99) mg/dL Calcium 9.9 (8.4-10.2) mg/dL Total Bilirubin 0.9 (0.2-1.3) mg/dL AST 27 (17-59) U/L ALT 13 (4-49) U/L Alkaline Phosphatase 119 (38-126) U/L Total Protein 6.5 (6.3-8.2) g/dL Albumin 3.1 L (3.5-5.0) g/dL Amylase 48 (30-110) U/L Lipase 47 (23-300) U/L Disposition Clinical Impression: Ascites Disposition: HOME SELF-CARE Condition: Stable Instructions (If sedation given, give patient instructions): Ascites (ED) Additional Instructions: Please follow-up for your paracentesis Thursday as scheduled. Please hold your Xarelto 24 hours prior to this. Return for difficulty in breathing, increased swelling, fever, worsening symptoms or any other concerns. Please also follow- up with your doctor Thursday. Is patient prescribed a controlled substance at d/c from ED?: No Referrals: Kelechi Soriano DO [Primary Care Provider] - 1-2 days Time of Disposition: 17:01
[2023-10-30 15:24] LABS: Basophils % (A) 0 %; Eosinophils # (A) 0.2 k/uL (0-0.7); Eosinophils % (A) 2 %; HCT 35.3 % (39.0-53.0); HGB 11.4 gm/dL (13.0-17.5); Lymphocytes # (A) 0.7 k/uL (1.0-4.8); Lymphocytes % (A) 7 %; MCH 27.3 pg (25.0-35.0); MCHC 32.4 g/dL (31.0-37.0); MCV 84.2 fL (80.0-100.0); Mean Platelet Volume 7.6; Monocytes # (A) 0.6 k/uL (0-1.0); Monocytes % (A) 6 %; Neutrophils # (A) 8.3 k/uL (1.3-7.7); Neutrophils % (A) 84 %; Platelet Count 254 k/uL (150-450); RDW 13.7 % (11.5-15.5); WBC 9.9 k/uL (3.8-10.6)
[2023-10-30 15:34] LABS: INR 1.1 (<1.2); Partial Thromboplastin Time 29.5 sec (22.0-30.0); Prothrombin Time 12.2 sec (10.0-12.5)
[2023-10-30 15:35] LABS: ALT 13 U/L (4-49); AST 27 U/L (17-59); African American GFR (CKD) 34 (>60 ml/min/1.73 sqM); Albumin 3.1 g/dL (3.5-5.0); Alkaline Phosphatase 119 U/L (38-126); Amylase 48 U/L (30-110); Anion Gap 10 mmol/L; Blood Urea Nitrogen 29 mg/dL (9-20); Calcium 9.9 mg/dL (8.4-10.2); Carbon Dioxide 27 mmol/L (22-30); Chloride 93 mmol/L (98-107); Glucose 101 mg/dL (74-99); Lipase 47 U/L (23-300); Non-African American GFR(CKD) 29 (>60 ml/min/1.73 sqM); Potassium 4.5 mmol/L (3.5-5.1); Sodium 130 mmol/L (137-145); Total Bilirubin 0.9 mg/dL (0.2-1.3); Total Protein 6.5 g/dL (6.3-8.2)
--- NOTE | 2023-10-30 16:00 | XR ---
EXAMINATION TYPE: XR chest 2V DATE OF EXAM: 10/30/2023 COMPARISON: 07/15/2023 HISTORY: 78-year-old male swollen legs, abdominal pain TECHNIQUE: PA and lateral views FINDINGS: Heart normal size. Aorta and pulmonary vascularity are within normal limits. There is some mild right basilar and left basilar opacity. No other consolidation or pleural effusion. DISH throughout the mi d and lower thoracic spine. IMPRESSION: Some patchy right and left basilar opacity likely represent atelectasis or early infiltrate. Correlat e with symptoms.
[2023-10-30 17:21] VITALS: BP 107/63; PULSE 81; RESP 24; TEMP 98.3
== END 2023-10-30 17:37 | disposition home or self-care (01) ==
LOC: EC 14:08
DX: R18.8 Other ascites (principal); I48.91 Unspecified atrial fibrillation; F41.9 Anxiety disorder, unspecified; F17.200 Nicotine dependence, unspecified, uncomplicated; F12.90 Cannabis use, unspecified, uncomplicated; Z79.899 Other long term (current) drug therapy; Z91.041 Radiographic dye allergy status; Z88.1 Allergy status to other antibiotic agents; Z79.01 Long term (current) use of anticoagulants
CPT/HCPCS: 36415; 71046; 80053; 82150; 83690; 85025; 85610; 85730; 99285

== ENCOUNTER 2023-11-02 09:10 | Day surgery (SDC) | payer MEDICARE ==
[2023-11-02] MEDS: ALBUMIN HUMAN 25% 50 ML in EMPTY BAG 1 BAG IVPB SCH ×4 (10:15→11:11)
[2023-11-02 11:02] VITALS: RESP 18; TEMP 98.4
--- NOTE | 2023-11-02 11:36 | US ---
Ultrasound-guided paracentesis. DATE OF EXAM: 11/02/2023 CLINICAL HISTORY: Ascites The procedure was discussed with the patient. The risks, complications, benefits, and alternatives we re discussed and any questions were answered. Informed consent was obtained. The patient was placed s upine on the ultrasound table and prepped and draped in the usual sterile fashion. All elements of maximal barrier technique were utilized. Under ultrasound guidance, access into the right lower quadrant was obtained, via the paracentesis catheter system and direct ultrasound guidanc e. Approximately 12 liters of straw-colored fluid was removed. The patient was stable throughout the pro cedure and remained stable upon discharge from Department of Radiology. IMPRESSION: Successful paracentesis under ultrasound guidance.
[2023-11-02 12:43] VITALS: BP 107/56; PULSE 74
== END 2023-11-02 12:20 | disposition home or self-care (01) ==
LOC: RADPROMAIN 09:10
PROVIDERS: ATTEND Internal Medicine Gastroenterology
DX: R18.8 Other ascites (principal)
CPT/HCPCS: 49083; P9047

== ENCOUNTER 2023-11-27 09:01 | Day surgery (SDC) | payer MEDICARE ==
[2023-11-27 09:31] VITALS: RESP 16; TEMP 97.9
[2023-11-27 09:34] LABS: Mean Platelet Volume 7.5; Platelet Count 252 k/uL (150-450)
[2023-11-27 09:45] LABS: Prothrombin Time 11.2 sec (10.0-12.5)
[2023-11-27 09:48] LABS: African American GFR (CKD) 32 (>60 ml/min/1.73 sqM); Non-African American GFR(CKD) 27 (>60 ml/min/1.73 sqM)
[2023-11-27] MEDS: ALBUMIN HUMAN 25% 50 ML in EMPTY BAG 1 BAG IVPB SCH ×4 (10:20→11:04)
[2023-11-27 11:57] VITALS: BP 113/73; PULSE 70
--- NOTE | 2023-11-27 12:51 | US ---
EXAMINATION TYPE: US paracentesis abd w/image DATE OF EXAM: 11/27/2023 10:41 AM CLINICAL INDICATION:Male, 78 years old with history of R18.8 OTHER ASCITES; COMPARISON: 11/02/2023 ATTENDING: Dr. Dante Sharma PROCEDURE: Informed consent was obtained. The risks of the procedure were extensively explained incl uding risk of damage to surrounding bowel with perforation and need for additional procedures. Proced ure was performed in the ultrasound procedure suite. Ultrasound imaging of the abdomen demonstrate as citic fluid. An appropriate access site was localized to the right lower abdomen. Timeout was taken p er protocol. The skin was prepped and draped in the usual sterile fashion and then locally anesthetiz ed with 1% lidocaine. The peritoneal cavity was then accessed via a 5-Faroese one-step needle/cathete r. Approximately 96749 cc of clear straw-colored fluid was obtained. Postprocedural imaging of the abdomen demonstrate a minimal amount of abdominal fluid. Patient tolerated procedure well without immediate complication. Hemostasis at the procedural site w as obtained with a sterile bandage placed. The patient was monitored in the holding area following th e procedure and was subsequently discharged in stable condition. IMPRESSION: Ultrasound guided paracentesis, with approximately 45394 cc of clear straw-colored fluid drained. No immediate complications were evident.
== END 2023-11-27 12:00 | disposition home or self-care (01) ==
LOC: RADPROMAIN 09:01
PROVIDERS: ATTEND Internal Medicine Gastroenterology
DX: R18.8 Other ascites (principal)
CPT/HCPCS: 82565; 85049; 85610; 36415; 49083; P9047

== ENCOUNTER 2023-12-11 09:01 | Day surgery (SDC) | payer MEDICARE ==
[~2023-12-11 09:01] MED LIST: ALBUMIN HUMAN 25% 50 ML in EMPTY BAG 1 BAG IVPB SCH
[2023-12-11 09:53] LABS: Mean Platelet Volume 7.4; Platelet Count 226 k/uL (150-450)
[2023-12-11 10:03] LABS: African American GFR (CKD) 40 (>60 ml/min/1.73 sqM); Non-African American GFR(CKD) 34 (>60 ml/min/1.73 sqM)
[2023-12-11] MEDS: ALBUMIN HUMAN 25% 50 ML in EMPTY BAG 1 BAG IVPB SCH ×4 (10:07→11:00)
[2023-12-11 10:30] VITALS: RESP 16; TEMP 98
--- NOTE | 2023-12-11 11:57 | US ---
Ultrasound-guided paracentesis. DATE OF EXAM: 12/11/2023 CLINICAL HISTORY: Ascites The procedure was discussed with the patient. The risks, complications, benefits, and alternatives we re discussed and any questions were answered. Informed consent was obtained. The patient was placed s upine on the ultrasound table and prepped and draped in the usual sterile fashion. All elements of maximal barrier technique were utilized. Under ultrasound guidance, access into the right lower quadrant was obtained, via the paracentesis catheter system and direct ultrasound guidanc e. Approximately 8 liters of straw-colored fluid was removed. The patient was stable throughout the proc edure and remained stable upon discharge from Department of Radiology. IMPRESSION: Successful paracentesis under ultrasound guidance.
[2023-12-11 12:57] VITALS: BP 141/81; PULSE 77
== END 2023-12-11 12:00 | disposition home or self-care (01) ==
LOC: RADPROMAIN 09:01
PROVIDERS: ATTEND Internal Medicine Gastroenterology
DX: R18.8 Other ascites (principal)
CPT/HCPCS: 82565; 85049; 85610; 36415; 49083; P9047

== ENCOUNTER 2023-12-24 13:01 | Day surgery (SDC) | payer MEDICARE ==
[2023-12-24 13:33] LABS: Mean Platelet Volume 7.4; Platelet Count 247 k/uL (150-450)
[2023-12-24 13:36] VITALS: TEMP 98.2
[2023-12-24 13:42] LABS: Prothrombin Time 11.2 sec (10.0-12.5)
[2023-12-24 13:43] LABS: African American GFR (CKD) 45 (>60 ml/min/1.73 sqM); Non-African American GFR(CKD) 39 (>60 ml/min/1.73 sqM)
[2023-12-24] MEDS: ALBUMIN HUMAN 25% 50 ML in EMPTY BAG 1 BAG IVPB SCH ×3 (14:05→14:43)
[2023-12-24 14:43] VITALS: RESP 18
[2023-12-24 15:49] VITALS: BP 111/70; PULSE 80
--- NOTE | 2023-12-25 13:16 | US ---
EXAMINATION TYPE: US paracentesis abd w/image DATE OF EXAM: 12/24/2023 2:17 PM CLINICAL INDICATION:Male, 78 years old with history of R18.8 OTHER ASCITES; COMPARISON: 12/11/2023 ATTENDING: Dr. Dante Sharma PROCEDURE: Informed consent was obtained. The risks of the procedure were extensively explained incl uding risk of damage to surrounding bowel with perforation and need for additional procedures. Proced ure was performed in the ultrasound procedure suite. Ultrasound imaging of the abdomen demonstrate as citic fluid. An appropriate access site was localized to the right lower abdomen. Timeout was taken p er protocol. The skin was prepped and draped in the usual sterile fashion and then locally anesthetiz ed with 1% lidocaine. The peritoneal cavity was then accessed via a 5-Tamazight one-step needle/cathete r. Approximately 8450 cc fluid was obtained. Postprocedural imaging of the abdomen demonstrate a mi nimal amount of abdominal fluid. Patient tolerated procedure well without immediate complication. Hemostasis at the procedural site w as obtained with a sterile bandage placed. The patient was monitored in the holding area following th e procedure and was subsequently discharged in stable condition. IMPRESSION: Ultrasound guided paracentesis, with approximately 8450 cc fluid drained. No immediate complication s were evident.
== END 2023-12-24 15:00 | disposition home or self-care (01) ==
LOC: RADPROMAIN 13:01
PROVIDERS: ATTEND Internal Medicine Gastroenterology
DX: R18.8 Other ascites (principal)
CPT/HCPCS: 82565; 85049; 85610; 36415; 49083; P9047

== ENCOUNTER 2024-01-07 12:31 | Day surgery (SDC) | payer MEDICARE ==
[2024-01-07 13:06] LABS: INR 1.1 (<1.2); Prothrombin Time 11.7 sec (10.0-12.5)
[2024-01-07 13:09] LABS: Mean Platelet Volume 7.8; Platelet Count 250 k/uL (150-450)
[2024-01-07 13:13] LABS: African American GFR (CKD) 51 (>60 ml/min/1.73 sqM); Non-African American GFR(CKD) 44 (>60 ml/min/1.73 sqM)
[2024-01-07] MEDS: ALBUMIN HUMAN 25% 50 ML in EMPTY BAG 1 BAG IVPB SCH (13:51)
[2024-01-07 14:01] VITALS: TEMP 98
[2024-01-07 15:04] VITALS: RESP 16
[2024-01-07 15:35] VITALS: BP 134/81; PULSE 88
--- NOTE | 2024-01-11 09:14 | US ---
EXAMINATION TYPE: US paracentesis abd w/image DATE OF EXAM: 01/07/2024 2:50 PM CLINICAL INDICATION:Male, 78 years old with history of R18.8 OTHER ASCITES; COMPARISON: 620 ATTENDING: Dr. Dante Sharma PROCEDURE: Informed consent was obtained. The risks of the procedure were extensively explained incl uding risk of damage to surrounding bowel with perforation and need for additional procedures. Proced ure was performed in the ultrasound procedure suite. Ultrasound imaging of the abdomen demonstrate as citic fluid. An appropriate access site was localized to the right lower abdomen. Timeout was taken p er protocol. The skin was prepped and draped in the usual sterile fashion and then locally anesthetiz ed with 1% lidocaine. The peritoneal cavity was then accessed via a 5-Sami one-step needle/cathete r. Approximately 8000 cc of clear straw-colored fluid was obtained. Postprocedural imaging of the ab domen demonstrate a minimal amount of abdominal fluid. Patient tolerated procedure well without immediate complication. Hemostasis at the procedural site w as obtained with a sterile bandage placed. The patient was monitored in the holding area following th e procedure and was subsequently discharged in stable condition. IMPRESSION: Ultrasound guided paracentesis, with approximately 8000 cc of clear straw-colored fluid drained. No immediate complications were evident.
== END 2024-01-07 15:29 | disposition home or self-care (01) ==
LOC: RADPROMAIN 12:31
PROVIDERS: ATTEND Internal Medicine Gastroenterology
DX: R18.8 Other ascites (principal)
CPT/HCPCS: 82565; 85049; 85610; 36415; 49083; P9047

== ENCOUNTER 2024-01-21 12:25 | Day surgery (SDC) | payer MEDICARE ==
[2024-01-21 13:01] LABS: Mean Platelet Volume 7.7; Platelet Count 228 k/uL (150-450)
[2024-01-21 13:19] VITALS: RESP 20; TEMP 97.5
[2024-01-21 13:19] LABS: Prothrombin Time 11.2 sec (10.0-12.5)
[2024-01-21 13:22] LABS: African American GFR (CKD) 46 (>60 ml/min/1.73 sqM); Non-African American GFR(CKD) 40 (>60 ml/min/1.73 sqM)
[2024-01-21] MEDS: ALBUMIN HUMAN 25% 50 ML in EMPTY BAG 1 BAG IVPB SCH (13:53)
[2024-01-21 14:58] VITALS: PULSE 92
[2024-01-21 16:02] VITALS: BP 102/54
--- NOTE | 2024-01-22 11:16 | US ---
EXAMINATION TYPE: US paracentesis abd w/image DATE OF EXAM: 01/21/2024 2:24 PM CLINICAL INDICATION:Male, 78 years old with history of R18.8; COMPARISON: 01/07/2024 ATTENDING: Dr. Dante Sharma PROCEDURE: Informed consent was obtained. The risks of the procedure were extensively explained incl uding risk of damage to surrounding bowel with perforation and need for additional procedures. Proced ure was performed in the ultrasound procedure suite. Ultrasound imaging of the abdomen demonstrate as citic fluid. An appropriate access site was localized to the right lower abdomen. Timeout was taken p er protocol. The skin was prepped and draped in the usual sterile fashion and then locally anesthetiz ed with 1% lidocaine. The peritoneal cavity was then accessed via a 5-Colombian one-step needle/cathete r. Approximately 42960 cc of clear straw-colored fluid was obtained. Postprocedural imaging of the a bdomen demonstrate a minimal amount of abdominal fluid. Patient tolerated procedure well without immediate complication. Hemostasis at the procedural site w as obtained with a sterile bandage placed. The patient was monitored in the holding area following th e procedure and was subsequently discharged in stable condition. IMPRESSION: Ultrasound guided paracentesis, with approximately 54554 cc of clear straw-colored fluid drained. No immediate complications were evident.
== END 2024-01-21 15:15 | disposition home or self-care (01) ==
LOC: RADPROMAIN 12:25
PROVIDERS: ATTEND Internal Medicine Gastroenterology
DX: R18.8 Other ascites (principal); Z91.041 Radiographic dye allergy status; Z88.1 Allergy status to other antibiotic agents; Z79.899 Other long term (current) drug therapy
CPT/HCPCS: 82565; 85049; 85610; 36415; 49083; P9047

== ENCOUNTER 2024-02-04 12:58 | Day surgery (SDC) | payer MEDICARE ==
[2024-02-04 13:28] LABS: Mean Platelet Volume 7.7; Platelet Count 265 k/uL (150-450)
[2024-02-04 13:35] LABS: African American GFR (CKD) 41 (>60 ml/min/1.73 sqM); Non-African American GFR(CKD) 35 (>60 ml/min/1.73 sqM)
[2024-02-04 13:38] LABS: Prothrombin Time 11.2 sec (10.0-12.5)
[2024-02-04] MEDS: ALBUMIN HUMAN 25% 50 ML in EMPTY BAG 1 BAG IVPB SCH (13:50)
[2024-02-04 14:03] VITALS: TEMP 98.8
[2024-02-04 14:40] VITALS: RESP 16
[2024-02-04 15:16] VITALS: BP 120/84; PULSE 85
--- NOTE | 2024-02-05 13:38 | US ---
EXAMINATION TYPE: US paracentesis abd w/image DATE OF EXAM: 02/04/2024 2:05 PM CLINICAL INDICATION:Male, 78 years old with history of R18.8; COMPARISON: 01/21/2024 ATTENDING: Dr. Dante Sharma PROCEDURE: Informed consent was obtained. The risks of the procedure were extensively explained incl uding risk of damage to surrounding bowel with perforation and need for additional procedures. Proced ure was performed in the ultrasound procedure suite. Ultrasound imaging of the abdomen demonstrate as citic fluid. An appropriate access site was localized to the right lower abdomen. Timeout was taken p er protocol. The skin was prepped and draped in the usual sterile fashion and then locally anesthetiz ed with 1% lidocaine. The peritoneal cavity was then accessed via a 5-Egyptian one-step needle/cathete r. Approximately 7500 cc of clear straw-colored fluid was obtained. Postprocedural imaging of the a bdomen demonstrate a minimal amount of abdominal fluid. Patient tolerated procedure well without immediate complication. Hemostasis at the procedural site w as obtained with a sterile bandage placed. The patient was monitored in the holding area following th e procedure and was subsequently discharged in stable condition. IMPRESSION: Ultrasound guided paracentesis, with approximately 7500 cc of clear straw-colored fluid drained. No immediate complications were evident.
== END 2024-02-04 15:00 | disposition home or self-care (01) ==
LOC: RADPROMAIN 12:58
PROVIDERS: ATTEND Internal Medicine Gastroenterology
DX: R18.8 Other ascites (principal)
CPT/HCPCS: 82565; 85049; 85610; 36415; 49083; P9047

== ENCOUNTER 2024-02-16 12:58 | Day surgery (SDC) | payer MEDICARE ==
[2024-02-16 13:31] LABS: HCT 33.4 % (39.0-53.0); HGB 10.5 gm/dL (13.0-17.5); Hypochromasia Slight; MCH 26.7 pg (25.0-35.0); MCHC 31.5 g/dL (31.0-37.0); MCV 84.8 fL (80.0-100.0); Mean Platelet Volume 7.4; Platelet Count 254 k/uL (150-450); RBC 3.94 m/uL (4.30-5.90); RDW 15.1 % (11.5-15.5); WBC 8.4 k/uL (3.8-10.6)
[2024-02-16 13:41] LABS: ALT 14 U/L (4-49); AST 23 U/L (17-59); African American GFR (CKD) 36 (>60 ml/min/1.73 sqM); Albumin 2.9 g/dL (3.5-5.0); Alkaline Phosphatase 127 U/L (38-126); Anion Gap 8 mmol/L; Blood Urea Nitrogen 32 mg/dL (9-20); Calcium 9.8 mg/dL (8.4-10.2); Carbon Dioxide 22 mmol/L (22-30); Chloride 100 mmol/L (98-107); Glucose 117 mg/dL (74-99); INR 0.9 (<1.2); Non-African American GFR(CKD) 31 (>60 ml/min/1.73 sqM); Potassium 4.2 mmol/L (3.5-5.1); Prothrombin Time 10.5 sec (10.0-12.5); Sodium 130 mmol/L (137-145); Total Bilirubin 0.7 mg/dL (0.2-1.3); Total Protein 6.1 g/dL (6.3-8.2)
[2024-02-16] MEDS: ALBUMIN HUMAN 25% 50 ML in EMPTY BAG 1 BAG IVPB SCH (14:07)
[2024-02-16 14:16] VITALS: TEMP 98.5
[2024-02-16 16:03] VITALS: BP 101/43; PULSE 88; RESP 12
--- NOTE | 2024-02-17 08:10 | US ---
Ultrasound-guided paracentesis. DATE OF EXAM: 02/16/2024 CLINICAL HISTORY: Ascites The procedure was discussed with the patient. The risks, complications, benefits, and alternatives we re discussed and any questions were answered. Informed consent was obtained. The patient was placed s upine on the ultrasound table and prepped and draped in the usual sterile fashion. All elements of maximal barrier technique were utilized. Under ultrasound guidance, access into the right lower quadrant was obtained, via the paracentesis catheter system and direct ultrasound guidanc e. Approximately 7.5 liters of straw-colored fluid was removed. The patient was stable throughout the pr ocedure and remained stable upon discharge from Department of Radiology. IMPRESSION: Successful paracentesis under ultrasound guidance.
== END 2024-02-16 15:45 | disposition home or self-care (01) ==
LOC: RADPROMAIN 12:58
PROVIDERS: ATTEND Internal Medicine Gastroenterology
DX: R18.8 Other ascites (principal)
CPT/HCPCS: 80053; 85027; 85610; 82105; 36415; 49083; P9047

== ENCOUNTER 2024-03-03 12:59 | Day surgery (SDC) | payer MEDICARE ==
[2024-03-03 13:25] LABS: Mean Platelet Volume 7.7; Platelet Count 246 k/uL (150-450)
[2024-03-03 13:35] LABS: INR 1.1 (<1.2); Prothrombin Time 11.9 sec (10.0-12.5)
[2024-03-03 13:39] VITALS: TEMP 98.4
[2024-03-03 13:41] LABS: African American GFR (CKD) 29 (>60 ml/min/1.73 sqM); Non-African American GFR(CKD) 26 (>60 ml/min/1.73 sqM)
[2024-03-03] MEDS: ALBUMIN HUMAN 25% 50 ML in EMPTY BAG 1 BAG IVPB SCH (14:05)
[2024-03-03 15:43] VITALS: BP 107/53; PULSE 76; RESP 16
--- NOTE | 2024-03-04 08:11 | US ---
Ultrasound-guided paracentesis. DATE OF EXAM: 03/03/2024 CLINICAL HISTORY: Ascites The procedure was discussed with the patient. The risks, complications, benefits, and alternatives we re discussed and any questions were answered. Informed consent was obtained. The patient was placed s upine on the ultrasound table and prepped and draped in the usual sterile fashion. All elements of maximal barrier technique were utilized. Under ultrasound guidance, access into the right lower quadrant was obtained, via the paracentesis catheter system and direct ultrasound guidanc e. Approximately 13 liters of straw-colored fluid was removed. The patient was stable throughout the pro cedure and remained stable upon discharge from Department of Radiology. IMPRESSION: Successful paracentesis under ultrasound guidance.
== END 2024-03-03 15:31 | disposition home or self-care (01) ==
LOC: RADPROMAIN 12:59
PROVIDERS: ATTEND Internal Medicine Gastroenterology
DX: R18.8 Other ascites (principal)
CPT/HCPCS: 82565; 85049; 85610; 36415; 49083; P9047

== ENCOUNTER 2024-03-17 12:55 | Day surgery (SDC) | payer MEDICARE ==
[2024-03-17 13:31] LABS: African American GFR (CKD) 35 (>60 ml/min/1.73 sqM); Mean Platelet Volume 8.1; Non-African American GFR(CKD) 31 (>60 ml/min/1.73 sqM); Platelet Count 259 k/uL (150-450)
[2024-03-17 13:36] LABS: INR 1.1 (<1.2); Prothrombin Time 11.8 sec (10.0-12.5)
[2024-03-17] MEDS: ALBUMIN HUMAN 25% 50 ML in EMPTY BAG 1 BAG IVPB SCH (14:50)
[2024-03-17 15:29] VITALS: TEMP 98
--- NOTE | 2024-03-17 16:05 | US ---
EXAMINATION TYPE: US paracentesis abd w/image DATE OF EXAM: 03/17/2024 CLINICAL HISTORY: 78-year-old male R18.8, other ascites, routine outpatient paracentesis. The procedure was discussed with the patient. The risks, complications, benefits, and alternatives we re discussed and any questions were answered. Informed consent was obtained. The patient was placed s upine on the ultrasound table and prepped and draped in the usual sterile fashion. All elements of maximal barrier technique were utilized. Ultrasound was utilized to determine the precise skin entry site along the right lower quadrant/left flank. A 6 Greenlandic safety centesis catheter and trocar technique was utilized to access the ascites collectio n. Approximately 11 liters of clear, straw-colored fluid was removed. Catheter was removed, hemostasis obtained, and a dressing placed. The patient was stable throughout the procedure and remained stable upon discharge from Department of Radiology. IMPRESSION: Successful therapeutic paracentesis under ultrasound guidance. 11 L of fluid removed.
[2024-03-17 16:53] VITALS: BP 116/65; PULSE 84; RESP 16
== END 2024-03-17 16:00 | disposition home or self-care (01) ==
LOC: RADPROMAIN 12:55
PROVIDERS: ATTEND Internal Medicine Gastroenterology
DX: R18.8 Other ascites (principal)
CPT/HCPCS: 82565; 85049; 85610; 36415; 49083; P9047

== ENCOUNTER 2024-03-31 13:08 | Day surgery (SDC) | payer MEDICARE ==
[2024-03-31 13:29] LABS: Mean Platelet Volume 7.7; Platelet Count 265 k/uL (150-450)
[2024-03-31 13:35] LABS: INR 1.1 (<1.2); Prothrombin Time 12.1 sec (10.0-12.5)
[2024-03-31 13:46] LABS: African American GFR (CKD) 30 (>60 ml/min/1.73 sqM); Non-African American GFR(CKD) 26 (>60 ml/min/1.73 sqM)
[2024-03-31] MEDS: ALBUMIN HUMAN 25% 50 ML in EMPTY BAG 1 BAG IVPB SCH (14:00)
[2024-03-31 14:26] VITALS: TEMP 98.3
[2024-03-31 15:10] VITALS: BP 116/74; PULSE 72
[2024-03-31 15:11] VITALS: RESP 16
--- NOTE | 2024-04-01 07:52 | US ---
Ultrasound-guided paracentesis. DATE OF EXAM: 03/31/2024 CLINICAL HISTORY: Ascites The procedure was discussed with the patient. The risks, complications, benefits, and alternatives we re discussed and any questions were answered. Informed consent was obtained. The patient was placed s upine on the ultrasound table and prepped and draped in the usual sterile fashion. All elements of maximal barrier technique were utilized. Under ultrasound guidance, access into the right lower quadrant was obtained, via the paracentesis catheter system and direct ultrasound guidanc e. Approximately 11 liters of straw-colored fluid was removed. The patient was stable throughout the pro cedure and remained stable upon discharge from Department of Radiology. IMPRESSION: Successful paracentesis under ultrasound guidance.
== END 2024-03-31 15:15 | disposition home or self-care (01) ==
LOC: RADPROMAIN 13:08
PROVIDERS: ATTEND Internal Medicine Gastroenterology
DX: R18.8 Other ascites (principal)
CPT/HCPCS: 82565; 85049; 85610; 36415; 49083; P9047

== ENCOUNTER 2024-04-28 12:28 | Day surgery (SDC) | payer MEDICARE ==
[2024-04-28 12:59] LABS: Mean Platelet Volume 7.6; Platelet Count 261 k/uL (150-450)
[2024-04-28 13:01] VITALS: TEMP 98.5
[2024-04-28 13:09] LABS: Prothrombin Time 10.7 sec (10.0-12.5)
[2024-04-28 13:15] LABS: African American GFR (CKD) 34 (>60 ml/min/1.73 sqM); Non-African American GFR(CKD) 30 (>60 ml/min/1.73 sqM)
[2024-04-28] MEDS: ALBUMIN HUMAN 25% 50 ML in EMPTY BAG 1 BAG IVPB SCH (13:22)
[2024-04-28 13:53] VITALS: RESP 16
[2024-04-28 15:41] VITALS: BP 139/67; PULSE 90
--- NOTE | 2024-05-03 09:23 | US ---
EXAMINATION TYPE: US paracentesis abd w/image DATE OF EXAM: 04/28/2024 1:45 PM CLINICAL INDICATION:Male, 78 years old with history of R18.8 OTHER ASCITES; COMPARISON: 03/31/2024 ATTENDING: Dr. Dante Sharma PROCEDURE: Informed consent was obtained. The risks of the procedure were extensively explained incl uding risk of damage to surrounding bowel with perforation and need for additional procedures. Proced ure was performed in the ultrasound procedure suite. Ultrasound imaging of the abdomen demonstrate as citic fluid. An appropriate access site was localized to the right lower abdomen. Timeout was taken p er protocol. The skin was prepped and draped in the usual sterile fashion and then locally anesthetiz ed with 1% lidocaine. The peritoneal cavity was then accessed via a 5-Kiswahili one-step needle/cathete r. Approximately 40223 cc of clear straw-colored fluid was obtained. Postprocedural imaging of the abdomen demonstrate a minimal amount of abdominal fluid. Patient tolerated procedure well without immediate complication. Hemostasis at the procedural site w as obtained with a sterile bandage placed. The patient was monitored in the holding area following th e procedure and was subsequently discharged in stable condition. IMPRESSION: Ultrasound guided paracentesis, with approximately 59883 cc of clear straw-colored fluid drained. No immediate complications were evident.
== END 2024-04-28 15:25 | disposition home or self-care (01) ==
LOC: RADPROMAIN 12:28
PROVIDERS: ATTEND Internal Medicine Gastroenterology
DX: R18.8 Other ascites (principal)
CPT/HCPCS: 82565; 85049; 85610; 36415; 49083; P9047

== ENCOUNTER 2024-05-12 12:37 | Day surgery (SDC) | payer MEDICARE ==
[2024-05-12 13:11] LABS: Mean Platelet Volume 7.5; Platelet Count 261 k/uL (150-450)
[2024-05-12 13:14] VITALS: TEMP 98
[2024-05-12 13:34] LABS: INR 1.1 (<1.2); Prothrombin Time 11.5 sec (10.0-12.5)
[2024-05-12] MEDS: ALBUMIN HUMAN 25% 50 ML in EMPTY BAG 1 BAG IVPB SCH (13:37)
[2024-05-12 13:39] LABS: African American GFR (CKD) 47 (>60 ml/min/1.73 sqM); Non-African American GFR(CKD) 40 (>60 ml/min/1.73 sqM)
[2024-05-12 14:35] VITALS: BP 122/58
[2024-05-12 15:54] VITALS: PULSE 82; RESP 16
--- NOTE | 2024-05-13 14:02 | US ---
EXAMINATION TYPE: US paracentesis abd w/image DATE OF EXAM: 05/12/2024 2:09 PM CLINICAL INDICATION:Male, 78 years old with history of R18.8 ascities; COMPARISON: 04/28/2024 ATTENDING: Dr. Dante Sharma PROCEDURE: Informed consent was obtained. The risks of the procedure were extensively explained incl uding risk of damage to surrounding bowel with perforation and need for additional procedures. Proced ure was performed in the ultrasound procedure suite. Ultrasound imaging of the abdomen demonstrate as citic fluid. An appropriate access site was localized to the right lower abdomen. Timeout was taken p er protocol. The skin was prepped and draped in the usual sterile fashion and then locally anesthetiz ed with 1% lidocaine. The peritoneal cavity was then accessed via a 5-Bulgarian one-step needle/cathete r. Approximately 73168 cc of clear straw-colored fluid was obtained. Postprocedural imaging of the abdomen demonstrate a minimal amount of abdominal fluid. Patient tolerated procedure well without immediate complication. Hemostasis at the procedural site w as obtained with a sterile bandage placed. The patient was monitored in the holding area following th e procedure and was subsequently discharged in stable condition. IMPRESSION: Ultrasound guided paracentesis, with approximately 05690 cc of clear straw-colored fluid drained. No immediate complications were evident.
== END 2024-05-12 15:30 | disposition home or self-care (01) ==
LOC: RADPROMAIN 12:37
PROVIDERS: ATTEND Internal Medicine Gastroenterology
DX: R18.8 Other ascites (principal)
CPT/HCPCS: 82565; 85049; 85610; 36415; 49083; P9047

== ENCOUNTER 2024-05-19 12:30 | Day surgery (SDC) | payer MEDICARE ==
[2024-05-19 12:55] VITALS: RESP 12; TEMP 98.2
[2024-05-19 13:03] LABS: Mean Platelet Volume 7.8; Platelet Count 267 k/uL (150-450)
[2024-05-19 13:11] LABS: INR 1.1 (<1.2); Prothrombin Time 11.6 sec (10.0-12.5)
[2024-05-19 13:41] LABS: African American GFR (CKD) 45 (>60 ml/min/1.73 sqM); Non-African American GFR(CKD) 39 (>60 ml/min/1.73 sqM)
[2024-05-19] MEDS: ALBUMIN HUMAN 25% 50 ML in EMPTY BAG 1 BAG IVPB SCH (13:51)
[2024-05-19 14:53] VITALS: BP 132/62; PULSE 85
--- NOTE | 2024-05-20 10:28 | US ---
EXAMINATION TYPE: US paracentesis abd w/image DATE OF EXAM: 05/19/2024 2:11 PM CLINICAL INDICATION:Male, 78 years old with history of R18.8 OTHER ASCITES; COMPARISON: 05/12/2024 ATTENDING: Dr. Dante Sharma PROCEDURE: Informed consent was obtained. The risks of the procedure were extensively explained incl uding risk of damage to surrounding bowel with perforation and need for additional procedures. Proced ure was performed in the ultrasound procedure suite. Ultrasound imaging of the abdomen demonstrate as citic fluid. An appropriate access site was localized to the right lower abdomen. Timeout was taken p er protocol. The skin was prepped and draped in the usual sterile fashion and then locally anesthetiz ed with 1% lidocaine. The peritoneal cavity was then accessed via a 5-Mauritian one-step needle/cathete r. Approximately 28311 cc of clear straw-colored fluid was obtained. Postprocedural imaging of the abdomen demonstrate a minimal amount of abdominal fluid. Patient tolerated procedure well without immediate complication. Hemostasis at the procedural site w as obtained with a sterile bandage placed. The patient was monitored in the holding area following th e procedure and was subsequently discharged in stable condition. IMPRESSION: Ultrasound guided paracentesis, with approximately 40351 cc of clear straw-colored fluid drained. No immediate complications were evident.
== END 2024-05-19 14:54 | disposition home or self-care (01) ==
LOC: RADPROMAIN 12:30
PROVIDERS: ATTEND Internal Medicine Gastroenterology
DX: R18.8 Other ascites (principal)
CPT/HCPCS: 82565; 85049; 85610; 49083; P9047

== ENCOUNTER 2024-05-25 12:26 | Day surgery (SDC) | payer MEDICARE ==
[2024-05-25 13:01] VITALS: RESP 12; TEMP 98.2
[2024-05-25 13:07] LABS: Mean Platelet Volume 7.3; Platelet Count 281 k/uL (150-450)
[2024-05-25 13:12] LABS: INR 1.1 (<1.2); Prothrombin Time 11.5 sec (10.0-12.5)
[2024-05-25 13:21] LABS: African American GFR (CKD) 41 (>60 ml/min/1.73 sqM); Non-African American GFR(CKD) 36 (>60 ml/min/1.73 sqM)
[2024-05-25] MEDS: ALBUMIN HUMAN 25% 50 ML in EMPTY BAG 1 BAG IVPB SCH (13:49)
[2024-05-25 14:57] VITALS: BP 117/56; PULSE 82
--- NOTE | 2024-05-27 07:39 | US ---
Ultrasound-guided paracentesis. DATE OF EXAM: 05/25/2024 CLINICAL HISTORY: Ascites The procedure was discussed with the patient. The risks, complications, benefits, and alternatives we re discussed and any questions were answered. Informed consent was obtained. The patient was placed s upine on the ultrasound table and prepped and draped in the usual sterile fashion. All elements of maximal barrier technique were utilized. Under ultrasound guidance, access into the right lower quadrant was obtained, via the paracentesis catheter system and direct ultrasound guidanc e. Approximately 10.4 liters of straw-colored fluid was removed. The patient was stable throughout the p rocedure and remained stable upon discharge from Department of Radiology. IMPRESSION: Successful paracentesis under ultrasound guidance.
== END 2024-05-25 15:05 | disposition home or self-care (01) ==
LOC: RADPROMAIN 12:26
PROVIDERS: ATTEND Internal Medicine Gastroenterology
DX: R18.8 Other ascites (principal)
CPT/HCPCS: 82565; 85049; 85610; 36415; 49083; P9047

== ENCOUNTER 2024-06-02 12:29 | Day surgery (SDC) | payer MEDICARE ==
[2024-06-02 13:06] VITALS: RESP 12
[2024-06-02] MEDS: ALBUMIN HUMAN 25% 50 ML in EMPTY BAG 1 BAG IVPB SCH (13:36)
[2024-06-02 13:39] LABS: ALT 15 U/L (4-49); African American GFR (CKD) 56 (>60 ml/min/1.73 sqM); Albumin 2.9 g/dL (3.5-5.0); Anion Gap 3 mmol/L; Blood Urea Nitrogen 27 mg/dL (9-20); Calcium 8.7 mg/dL (8.4-10.2); Carbon Dioxide 24 mmol/L (22-30); Chloride 101 mmol/L (98-107); Glucose 98 mg/dL (74-99); Non-African American GFR(CKD) 48 (>60 ml/min/1.73 sqM); Sodium 128 mmol/L (137-145); Total Bilirubin 1.3 mg/dL (0.2-1.3); Total Protein 5.7 g/dL (6.3-8.2)
[2024-06-02 13:41] LABS: AST 39 U/L (17-59); Alkaline Phosphatase 140 U/L (38-126); Potassium 5.1 mmol/L (3.5-5.1)
[2024-06-02 13:46] LABS: Anisocytosis Slight; HCT 30.2 % (39.0-53.0); HGB 9.1 gm/dL (13.0-17.5); Hypochromasia Marked; MCH 23.7 pg (25.0-35.0); Mean Platelet Volume 7.7; Platelet Count 263 k/uL (150-450); RBC 3.82 m/uL (4.30-5.90); RDW 16.2 % (11.5-15.5); WBC 9.6 k/uL (3.8-10.6)
[2024-06-02 14:13] LABS: INR 1.1 (<1.2); Prothrombin Time 11.6 sec (10.0-12.5)
[2024-06-02 14:41] VITALS: BP 129/62; PULSE 93
[2024-06-02 14:50] LABS: Eosinophils # (M) 0.29 k/uL (0-0.7); Lymphocytes # (M) 0.67 k/uL (1.0-4.8); Monocytes # (M) 1.15 k/uL (0-1.0); Neutrophils # (M) 7.49 k/uL (1.3-7.7); Neutrophils % (M) 78 %; Nucleated Red Blood Cells 0 /100 WBC (0-0); Total Cells Counted 100
--- NOTE | 2024-06-02 21:51 | US ---
EXAMINATION TYPE: US liver DATE OF EXAM: 06/02/2024 COMPARISON: US 08/13/2023 CLINICAL INDICATION: Male, 78 years old with history of K70.30ALCOHOLIC CIRRHOSIS OF L; Cirrhosis, hx gallstones, renal cyst. TECHNIQUE: Multiple sonographic images of the right upper quadrant are obtained. FINDINGS: EXAM MEASUREMENTS: Liver Length: 16.2 cm Gallbladder Wall: 0.50 cm CBD: 0.47 cm Right Kidney: 12.1 x 5.2 x 5.9 cm EXHAUSTER NOTES: Limited due to gas and patient body habitus. Pancreas: Not well seen. Liver: Appears very heterogeneous with increased echogenicity. Gallbladder: Hyperechoic foci with posterior shadowing seen within: 2.2 x 2.3 x 1.1 cm. Wall hira ears thickened. Evidence for sonographic Gonsalez's sign: No CBD: Appears wnl Right Kidney: Complex area seen lower pole: 4.0 x 4.2 x 4.8 cm. 2 Anechoic areas seen, larger measures: 4.8 x 5.2 x 4.4 cm. Kidney tissue appears heterogeneous. IMPRESSION: 1. Cholelithiasis. Some gallbladder wall thickening is present. Consider cholecystitis. 2. Complex cysts right kidney. Follow-up recommended.
--- NOTE | 2024-06-03 10:48 | US ---
EXAMINATION TYPE: US paracentesis abd w/image DATE OF EXAM: 06/02/2024 1:36 PM CLINICAL INDICATION:Male, 78 years old with history of R18.8 OTHER ASCITES; COMPARISON: Last paracentesis ATTENDING: Dr. Dante Sharma PROCEDURE: Informed consent was obtained. The risks of the procedure were extensively explained incl uding risk of damage to surrounding bowel with perforation and need for additional procedures. Proced ure was performed in the ultrasound procedure suite. Ultrasound imaging of the abdomen demonstrate as citic fluid. An appropriate access site was localized to the right lower abdomen. Timeout was taken p er protocol. The skin was prepped and draped in the usual sterile fashion and then locally anesthetiz ed with 1% lidocaine. The peritoneal cavity was then accessed via a 5-Faroese one-step needle/cathete r. Approximately 64386 cc of clear straw-colored fluid was obtained. Postprocedural imaging of the a bdomen demonstrate a minimal amount of abdominal fluid. Patient tolerated procedure well without immediate complication. Hemostasis at the procedural site w as obtained with a sterile bandage placed. The patient was monitored in the holding area following th e procedure and was subsequently discharged in stable condition. IMPRESSION: Ultrasound guided paracentesis, with approximately 89525 cc of clear straw-colored fluid drained. No immediate complications were evident.
== END 2024-06-02 15:00 | disposition home or self-care (01) ==
LOC: RADPROMAIN 12:29
PROVIDERS: ATTEND Internal Medicine Gastroenterology
DX: K70.31 Alcoholic cirrhosis of liver with ascites (principal)
CPT/HCPCS: 80053; 85025; 85610; 82105; 36415; 49083; 76705; P9047

== ENCOUNTER 2024-06-09 12:46 | Day surgery (SDC) | payer MEDICARE ==
[2024-06-09] MEDS: ALBUMIN HUMAN 25% 50 ML in EMPTY BAG 1 BAG IVPB SCH (14:06)
[2024-06-09 14:25] VITALS: RESP 24
--- NOTE | 2024-06-09 15:44 | US ---
EXAMINATION TYPE: US paracentesis abd w/image DATE OF EXAM: 06/09/2024 CLINICAL HISTORY: 79-year-old male R18.8, other ascites The procedure was discussed with the patient. The risks, complications, benefits, and alternatives we re discussed and any questions were answered. Informed consent was obtained. The patient was placed s upine on the ultrasound table and prepped and draped in the usual sterile fashion. All elements of maximal barrier technique were utilized. Ultrasound was utilized to determine the precise skin entry site along the right lower quadrant/right flank. A 5 Malawian One-Step catheter and trocar technique was utilized to access the ascites collection under direct ultrasound guidance. Approximately 7.9 liters of clear, straw-colored fluid was removed. Catheter was removed, hemostasis obtained, and a dressing placed. The patient was stable throughout the procedure and remained stable upon discharge from Department of Radiology. IMPRESSION: Successful therapeutic paracentesis under ultrasound guidance. 7.9 L of fluid removed.
[2024-06-09 15:49] VITALS: BP 122/58; PULSE 90
== END 2024-06-09 15:20 | disposition home or self-care (01) ==
LOC: RADPROMAIN 12:46
PROVIDERS: ATTEND Internal Medicine Gastroenterology
DX: R18.8 Other ascites (principal)
CPT/HCPCS: 36415; 49083; P9047

== ENCOUNTER 2024-06-16 12:36 | Day surgery (SDC) | payer MEDICARE ==
[2024-06-16] MEDS: ALBUMIN HUMAN 25% 50 ML in EMPTY BAG 1 BAG IVPB SCH (13:45)
[2024-06-16 13:51] VITALS: RESP 18; TEMP 98
[2024-06-16 14:50] VITALS: BP 124/68; PULSE 88
--- NOTE | 2024-06-16 14:56 | US ---
Ultrasound-guided paracentesis. DATE OF EXAM: 06/16/2024 CLINICAL HISTORY: Ascites The procedure was discussed with the patient. The risks, complications, benefits, and alternatives we re discussed and any questions were answered. Informed consent was obtained. The patient was placed s upine on the ultrasound table and prepped and draped in the usual sterile fashion. All elements of maximal barrier technique were utilized. Under ultrasound guidance, access into the right lower quadrant was obtained, via the paracentesis catheter system and direct ultrasound guidanc e. Approximately 8.9 liters of straw-colored fluid was removed. The patient was stable throughout the pr ocedure and remained stable upon discharge from Department of Radiology. IMPRESSION: Successful paracentesis under ultrasound guidance.
== END 2024-06-16 14:55 | disposition home or self-care (01) ==
LOC: RADPROMAIN 12:36
PROVIDERS: ATTEND Internal Medicine Gastroenterology
DX: R18.8 Other ascites (principal)
CPT/HCPCS: 49083; P9047

== ENCOUNTER 2024-06-23 12:32 | Day surgery (SDC) | payer MEDICARE ==
[2024-06-23 13:05] LABS: Mean Platelet Volume 7.6; Platelet Count 255 k/uL (150-450)
[2024-06-23 13:13] LABS: African American GFR (CKD) 55 (>60 ml/min/1.73 sqM); Non-African American GFR(CKD) 48 (>60 ml/min/1.73 sqM)
[2024-06-23] MEDS: ALBUMIN HUMAN 25% 50 ML in EMPTY BAG 1 BAG IVPB SCH (14:10)
[2024-06-23 14:15] VITALS: RESP 18; TEMP 98.1
[2024-06-23 15:20] VITALS: BP 129/77; PULSE 77
--- NOTE | 2024-06-23 16:02 | US ---
EXAMINATION TYPE: US paracentesis abd w/image DATE OF EXAM: 06/23/2024 2:07 PM CLINICAL INDICATION:Male, 79 years old with history of R18.8 OTHER ASCITES; COMPARISON: 06/16/2024 ATTENDING: Dr. Dante Sharma PROCEDURE: Informed consent was obtained. The risks of the procedure were extensively explained incl uding risk of damage to surrounding bowel with perforation and need for additional procedures. Proced ure was performed in the ultrasound procedure suite. Ultrasound imaging of the abdomen demonstrate as citic fluid. An appropriate access site was localized to the right lower abdomen. Timeout was taken p er protocol. The skin was prepped and draped in the usual sterile fashion and then locally anesthetiz ed with 1% lidocaine. The peritoneal cavity was then accessed via a 5-Serbian one-step needle/cathete r. Approximately 4200 cc of clear straw-colored fluid was obtained. Postprocedural imaging of the a bdomen demonstrate a minimal amount of abdominal fluid. Patient tolerated procedure well without immediate complication. Hemostasis at the procedural site w as obtained with a sterile bandage placed. The patient was monitored in the holding area following th e procedure and was subsequently discharged in stable condition. IMPRESSION: Ultrasound guided paracentesis, with approximately 4200 cc of clear straw-colored fluid drained. No immediate complications were evident.
== END 2024-06-23 15:10 | disposition home or self-care (01) ==
LOC: RADPROMAIN 12:32
PROVIDERS: ATTEND Internal Medicine Gastroenterology
DX: R18.8 Other ascites (principal)
CPT/HCPCS: 82565; 85049; 85610; 49083; P9047

== ENCOUNTER → 2024-06-30 | Day surgery (SDC) | payer MEDICARE ==
[~2024-06-30] MED LIST changes: +ALBUMIN HUMAN 25% (12.5gm) 50 ML VIAL ONE; -ALBUMIN HUMAN 25% 50 ML in EMPTY BAG 1 BAG IVPB SCH
--- NOTE | 2024-08-10 12:22 | US ---
EXAMINATION TYPE: US paracentesis abd w/image DATE OF EXAM: 08/03/2024 CLINICAL HISTORY: 79-year-old male referred for routine paracentesis for ascites The procedure was discussed with the patient. The risks, complications, benefits, and alternatives we re discussed and any questions were answered. Informed consent was obtained. The patient was placed s upine on the ultrasound table and prepped and draped in the usual sterile fashion. All elements of maximal barrier technique were utilized. Under ultrasound guidance, access into the right lower quadrant was obtained, via the 5 Czech one-step catheter system and direct ultrasound gu idance. Approximately 5.6 liters of straw-colored fluid was removed. The patient was stable throughout the pr ocedure and remained stable upon discharge from Department of Radiology. IMPRESSION: Successful therapeutic paracentesis under ultrasound guidance. 5.6 L of fluid removed. [facility], , 08/10/2024 12:19 PM
== END ==
LOC: RADPROMAIN 12:15
PROVIDERS: ATTEND Internal Medicine Gastroenterology
DX: R18.8 Other ascites (principal)
CPT/HCPCS: 49083; 82565; 85049; 85610

== ENCOUNTER → 2024-07-07 | Day surgery (SDC) | payer MEDICARE ==
--- NOTE | 2024-08-09 16:24 | US ---
Patient: Magen Rincon Ordering Physician: Unknown, Unknown ID: [id number] Phone, Pager: Phone: N/A Pager: N/A : [phone] Age/Gender: 79Y, N/A Primary Location: N/A Procedure: US paracentesis abd w/image Study Date: 07/07/2024 1:42:00 PM EXAMINATION TYPE: US paracentesis abd w/image DATE OF EXAM: 07/18/2024 10:13 AM CLINICAL INDICATION: Ascites COMPARISON: 07/07/2024 ATTENDING: Dr. Dante Sharma PROCEDURE: Informed consent was obtained. The risks of the procedure were extensively explained incl uding risk of damage to surrounding bowel with perforation and need for additional procedures. Proced ure was performed in the ultrasound procedure suite. Ultrasound imaging of the abdomen demonstrate as citic fluid. An appropriate access site was localized to the right lower abdomen. Timeout was taken p er protocol. The skin was prepped and draped in the usual sterile fashion and then locally anesthetiz ed with 1% lidocaine. The peritoneal cavity was then accessed via a 5-Sierra Leonean one-step needle/cathete r. Approximately 5600 cc of clear straw-colored fluid was obtained. Postprocedural imaging of the ab domen demonstrate a minimal amount of abdominal fluid. Patient tolerated procedure well without immediate complication. Hemostasis at the procedural site w as obtained with a sterile bandage placed. The patient was monitored in the holding area following th e procedure and was subsequently discharged in stable condition. IMPRESSION: Ultrasound guided paracentesis, with approximately 5600 cc of clear straw-colored fluid drained. No i mmediate complications were evident.
== END ==
LOC: RADPROMAIN 12:00
PROVIDERS: ATTEND Internal Medicine Gastroenterology
DX: R18.8 Other ascites (principal); Z88.1 Allergy status to other antibiotic agents; Z88.8 Allergy status to other drugs, medicaments and biological substances; F17.200 Nicotine dependence, unspecified, uncomplicated; Z79.01 Long term (current) use of anticoagulants; Z79.899 Other long term (current) drug therapy
CPT/HCPCS: 49083

== ENCOUNTER → 2024-07-14 | Day surgery (SDC) | payer MEDICARE ==
[~2024-07-14] MED LIST changes: +GLUCAGON 1 MG/ML VIAL ONE
--- NOTE | 2024-08-10 15:41 | US ---
Patient: Magen Rincon Ordering Physician: Unknown, Unknown ID: [id number] Phone, Pager: Phone: N/A Pager: N/A : [phone] Age/Gender: 79Y, N/A Primary Location: N/A Procedure: US paracentesis abd w/image Study Date: 07/14/2024 1:10:00 PM Order #: N/A Reason: N/A EXAMINATION TYPE: US paracentesis abd w/image DATE OF EXAM: 07/14/2024 CLINICAL HISTORY: 79-year-old male with liver disease, weekly paracentesis. The procedure was discussed with the patient. The risks, complications, benefits, and alternatives we re discussed and any questions were answered. Informed consent was obtained. The patient was placed s upine on the ultrasound table and prepped and draped in the usual sterile fashion. All elements of maximal barrier technique were utilized. Ultrasound was utilized to determine the precise skin entry site along the right lower quadrant/right flank. Utilizing trocar technique and a 6 Serbian safety centesis catheter system, access into the ascites co llection was obtained. Approximately 5.4 liters of clear, straw-colored fluid was removed. Catheter was removed, hemostasis obtained, and a dressing placed. The patient was stable throughout the procedure and remained stable upon discharge from Department of Radiology. IMPRESSION: Successful therapeutic paracentesis under ultrasound guidance. 5.4 L of fluid removed.
== END ==
LOC: RADPROMAIN 11:45
PROVIDERS: ATTEND Internal Medicine Gastroenterology
DX: R18.8 Other ascites (principal)
CPT/HCPCS: 49083

== ENCOUNTER 2024-07-21 11:50 | Day surgery (SDC) | payer MEDICARE ==
[2024-07-21 12:32] LABS: Mean Platelet Volume 7.4; Platelet Count 283 k/uL (150-450)
[2024-07-21 12:45] LABS: Prothrombin Time 11.3 sec (10.0-12.5)
[2024-07-21 12:54] VITALS: RESP 16; TEMP 98
[2024-07-21] MEDS: ALBUMIN HUMAN 25% 50 ML in EMPTY BAG 1 BAG IVPB SCH (13:04)
[2024-07-21 13:21] LABS: African American GFR (CKD) 39 (>60 ml/min/1.73 sqM); Non-African American GFR(CKD) 34 (>60 ml/min/1.73 sqM)
[2024-07-21 14:12] VITALS: BP 121/59; PULSE 76
--- NOTE | 2024-07-21 14:18 | US ---
EXAMINATION TYPE: US paracentesis abd w/image DATE OF EXAM: 07/21/2024 12:59 PM CLINICAL INDICATION:Male, 79 years old with history of R18.8 OTHER ASCITES; COMPARISON: 06/30/2024 ATTENDING: Dr. Dante Sharma PROCEDURE: Informed consent was obtained. The risks of the procedure were extensively explained incl uding risk of damage to surrounding bowel with perforation and need for additional procedures. Proced ure was performed in the ultrasound procedure suite. Ultrasound imaging of the abdomen demonstrate as citic fluid. An appropriate access site was localized to the right lower abdomen. Timeout was taken p er protocol. The skin was prepped and draped in the usual sterile fashion and then locally anesthetiz ed with 1% lidocaine. The peritoneal cavity was then accessed via a 5-Monegasque one-step needle/cathete r. Approximately 5100 cc of clear straw-colored fluid was obtained. Postprocedural imaging of the ab domen demonstrate a minimal amount of abdominal fluid. Patient tolerated procedure well without immediate complication. Hemostasis at the procedural site w as obtained with a sterile bandage placed. The patient was monitored in the holding area following th e procedure and was subsequently discharged in stable condition. IMPRESSION: Ultrasound guided paracentesis, with approximately 5100 cc of clear straw-colored fluid drained. No immediate complications were evident.
== END 2024-07-21 14:17 | disposition home or self-care (01) ==
LOC: RADPROMAIN 11:50
PROVIDERS: ATTEND Internal Medicine Gastroenterology
DX: R18.8 Other ascites (principal)

== ENCOUNTER 2024-07-28 12:28 | Day surgery (SDC) | payer MEDICARE ==
[2024-07-28 13:13] LABS: Mean Platelet Volume 6.7; Platelet Count 292 k/uL (150-450)
[2024-07-28 13:18] VITALS: RESP 16; TEMP 98.3
[2024-07-28 13:23] LABS: Prothrombin Time 11.2 sec (10.0-12.5)
[2024-07-28] MEDS: ALBUMIN HUMAN 25% 50 ML in EMPTY BAG 1 BAG IVPB SCH (13:29)
[2024-07-28 13:34] LABS: African American GFR (CKD) 42 (>60 ml/min/1.73 sqM); Non-African American GFR(CKD) 36 (>60 ml/min/1.73 sqM)
[2024-07-28 14:08] VITALS: PULSE 84
--- NOTE | 2024-07-28 14:47 | US ---
Ultrasound-guided paracentesis. DATE OF EXAM: 07/28/2024 CLINICAL HISTORY: Ascites The procedure was discussed with the patient. The risks, complications, benefits, and alternatives we re discussed and any questions were answered. Informed consent was obtained. The patient was placed s upine on the ultrasound table and prepped and draped in the usual sterile fashion. All elements of maximal barrier technique were utilized. Under ultrasound guidance, access into the right lower quadrant was obtained, via the paracentesis catheter system and direct ultrasound guidanc e. Approximately 7.2 liters of straw-colored fluid was removed. The patient was stable throughout the pr ocedure and remained stable upon discharge from Department of Radiology. IMPRESSION: Successful paracentesis under ultrasound guidance.
[2024-07-28 15:04] VITALS: BP 121/66
== END 2024-07-28 14:45 | disposition home or self-care (01) ==
LOC: RADPROMAIN 12:28
PROVIDERS: ATTEND Internal Medicine Gastroenterology
DX: R18.8 Other ascites (principal)
CPT/HCPCS: 36415; 49083; 82565; 85049; 85610

== ENCOUNTER 2024-08-04 12:41 | Day surgery (SDC) | payer MEDICARE ==
[2024-08-04 13:20] LABS: Mean Platelet Volume 6.5; Platelet Count 303 k/uL (150-450)
[2024-08-04 13:29] LABS: African American GFR (CKD) 42 (>60 ml/min/1.73 sqM); Non-African American GFR(CKD) 36 (>60 ml/min/1.73 sqM)
[2024-08-04 13:32] LABS: Prothrombin Time 10.8 sec (10.0-12.5)
[2024-08-04] MEDS: ALBUMIN HUMAN 25% 50 ML in EMPTY BAG 1 BAG IVPB SCH (13:37)
[2024-08-04 13:41] VITALS: TEMP 97.6
[2024-08-04 14:12] VITALS: RESP 16
[2024-08-04 15:17] VITALS: BP 121/67; PULSE 88
--- NOTE | 2024-08-04 16:41 | US ---
EXAMINATION TYPE: US paracentesis abd w/image DATE OF EXAM: 08/04/2024 CLINICAL HISTORY: 79-year-old male R18.8, other ascites, weekly paracentesis The procedure was discussed with the patient. The risks, complications, benefits, and alternatives we re discussed and any questions were answered. Informed consent was obtained. The patient was placed s upine on the ultrasound table and prepped and draped in the usual sterile fashion. All elements of maximal barrier technique were utilized. Ultrasound was utilized to determine the precise skin entry site along the right lower quadrant. Utilizing trocar technique, a 6 Guyanese safety centesis catheter system was used to access the ascites collection following ultrasound direction. Approximately 7.6 liters of slightly opaque yellow-colored fluid was removed. Catheter was removed, hemostasis obtained, and a dressing placed. The patient was stable throughout the procedure and remained stable upon discharge from Department of Radiology. IMPRESSION: Successful therapeutic paracentesis under ultrasound guidance. 7.6 L of fluid removed.
== END 2024-08-04 15:20 | disposition home or self-care (01) ==
LOC: RADPROMAIN 12:41
PROVIDERS: ATTEND Internal Medicine Gastroenterology
DX: R18.8 Other ascites (principal)
CPT/HCPCS: 36415; 49083; 82565; 85049; 85610

== ENCOUNTER 2024-08-11 12:27 | Day surgery (SDC) | payer MEDICARE ==
[2024-08-11 13:31] LABS: Mean Platelet Volume 6.6; Platelet Count 265 k/uL (150-450)
[2024-08-11] MEDS: ALBUMIN HUMAN 25% 50 ML in EMPTY BAG 1 BAG IVPB SCH (13:40)
[2024-08-11 13:42] LABS: Prothrombin Time 10.6 sec (10.0-12.5)
[2024-08-11 13:56] LABS: African American GFR (CKD) 42 (>60 ml/min/1.73 sqM); Non-African American GFR(CKD) 36 (>60 ml/min/1.73 sqM)
[2024-08-11 13:57] VITALS: RESP 16; TEMP 97.7
[2024-08-11 14:54] VITALS: BP 121/57; PULSE 70
--- NOTE | 2024-08-12 11:06 | US ---
EXAMINATION TYPE: US paracentesis abd w/image DATE OF EXAM: 08/11/2024 1:37 PM CLINICAL INDICATION:Male, 79 years old with history of R18.8 OTHER ASCITES; COMPARISON: 08/04/2024 ATTENDING: Dr. Dante Sharma PROCEDURE: Informed consent was obtained. The risks of the procedure were extensively explained incl uding risk of damage to surrounding bowel with perforation and need for additional procedures. Proced ure was performed in the ultrasound procedure suite. Ultrasound imaging of the abdomen demonstrate as citic fluid. An appropriate access site was localized to the right lower abdomen. Timeout was taken p er protocol. The skin was prepped and draped in the usual sterile fashion and then locally anesthetiz ed with 1% lidocaine. The peritoneal cavity was then accessed via a 5-Czech one-step needle/cathete r. Approximately 6300 cc of clear straw-colored fluid was obtained. Postprocedural imaging of the ab domen demonstrate a minimal amount of abdominal fluid. Patient tolerated procedure well without immediate complication. Hemostasis at the procedural site w as obtained with a sterile bandage placed. The patient was monitored in the holding area following th e procedure and was subsequently discharged in stable condition. IMPRESSION: Ultrasound guided paracentesis, with approximately 6300 cc of clear straw-colored fluid drained. No i mmediate complications were evident. [facility], , 08/12/2024 11:04 AM
== END 2024-08-11 14:49 | disposition home or self-care (01) ==
LOC: RADPROMAIN 12:27
PROVIDERS: ATTEND Internal Medicine Gastroenterology
DX: R18.8 Other ascites
CPT/HCPCS: 36415; 49083; 82565; 85049; 85610

== ENCOUNTER 2024-08-18 12:26 | Day surgery (SDC) | payer MEDICARE ==
[2024-08-18 13:10] LABS: Mean Platelet Volume 6.7; Platelet Count 275 k/uL (150-450)
[2024-08-18 13:14] VITALS: TEMP 98.4
[2024-08-18 13:18] LABS: African American GFR (CKD) 44 (>60 ml/min/1.73 sqM); Non-African American GFR(CKD) 38 (>60 ml/min/1.73 sqM)
[2024-08-18 13:20] LABS: Prothrombin Time 11.4 sec (10.0-12.5)
[2024-08-18] MEDS: ALBUMIN HUMAN 25% 50 ML in EMPTY BAG 1 BAG IVPB SCH (13:45)
[2024-08-18 13:51] VITALS: RESP 16
[2024-08-18] MEDS: ALBUMIN HUMAN 25% 50 ML in EMPTY BAG 1 BAG IVPB ONE (14:20)
[2024-08-18 15:09] VITALS: BP 121/57; PULSE 89
--- NOTE | 2024-08-18 15:19 | US ---
Ultrasound-guided paracentesis. DATE OF EXAM: 08/18/2024 CLINICAL HISTORY: Ascites The procedure was discussed with the patient. The risks, complications, benefits, and alternatives we re discussed and any questions were answered. Informed consent was obtained. The patient was placed s upine on the ultrasound table and prepped and draped in the usual sterile fashion. All elements of maximal barrier technique were utilized. Under ultrasound guidance, access into the right lower quadrant was obtained, via the paracentesis catheter system and direct ultrasound guidanc e. Approximately 7.8 liters of straw-colored fluid was removed. The patient was stable throughout the pr ocedure and remained stable upon discharge from Department of Radiology. IMPRESSION: Successful paracentesis under ultrasound guidance. [facility], , 08/18/2024 3:16 PM
== END 2024-08-18 15:11 | disposition home or self-care (01) ==
LOC: RADPROMAIN 12:26
PROVIDERS: ATTEND Internal Medicine Gastroenterology
DX: R18.8 Other ascites (principal)
CPT/HCPCS: 36415; 49083; 82565; 85049; 85610

== ENCOUNTER → 2024-08-25 | Day surgery (SDC) | payer MEDICARE ==
[2024-08-25 12:49] VITALS: RESP 12; TEMP 98.5
[2024-08-25 13:03] LABS: Mean Platelet Volume 7.3; Platelet Count 278 k/uL (150-450)
[2024-08-25 13:06] LABS: African American GFR (CKD) 42 (>60 ml/min/1.73 sqM); Non-African American GFR(CKD) 36 (>60 ml/min/1.73 sqM)
[2024-08-25 13:16] LABS: Prothrombin Time 10.7 sec (10.0-12.5)
[2024-08-25] MEDS: ALBUMIN HUMAN 25% 50 ML in EMPTY BAG 1 BAG IVPB SCH (13:26)
[2024-08-25 14:05] VITALS: BP 123/60; PULSE 87
--- NOTE | 2024-08-30 09:32 | US ---
EXAMINATION TYPE: US paracentesis abd w/image DATE OF EXAM: 08/25/2024 1:38 PM CLINICAL INDICATION:Male, 79 years old with history of R18.8 OTHER ASCITES; COMPARISON: prior paracentesis. ATTENDING: Dr. Dante Sharma PROCEDURE: Informed consent was obtained. The risks of the procedure were extensively explained incl uding risk of damage to surrounding bowel with perforation and need for additional procedures. Proced ure was performed in the ultrasound procedure suite. Ultrasound imaging of the abdomen demonstrate as citic fluid. An appropriate access site was localized to the right lower abdomen. Timeout was taken p er protocol. The skin was prepped and draped in the usual sterile fashion and then locally anesthetiz ed with 1% lidocaine. The peritoneal cavity was then accessed via a 5-Occitan one-step needle/cathete r. Approximately 7200 cc of clear straw-colored fluid was obtained. Postprocedural imaging of the a bdomen demonstrate a minimal amount of abdominal fluid. Patient tolerated procedure well without immediate complication. Hemostasis at the procedural site w as obtained with a sterile bandage placed. The patient was monitored in the holding area following th e procedure and was subsequently discharged in stable condition. IMPRESSION: Ultrasound guided paracentesis, with approximately 7200 cc of clear straw-colored fluid drained. No immediate complications were evident. [facility], , 08/30/2024 9:30 AM
== END ==
LOC: RADPROMAIN 12:29
PROVIDERS: ATTEND Internal Medicine Gastroenterology
DX: R18.8 Other ascites (principal)
CPT/HCPCS: 49083; 82565; 85049; 85610

== ENCOUNTER 2024-09-01 12:30 | Day surgery (SDC) | payer MEDICARE ==
[2024-09-01 13:11] VITALS: TEMP 98
[2024-09-01 13:12] LABS: Mean Platelet Volume 7.3; Platelet Count 274 k/uL (150-450)
[2024-09-01 13:25] LABS: African American GFR (CKD) 39 (>60 ml/min/1.73 sqM); Non-African American GFR(CKD) 34 (>60 ml/min/1.73 sqM)
[2024-09-01 13:26] LABS: INR 1.1 (<1.2); Prothrombin Time 11.5 sec (10.0-12.5)
[2024-09-01] MEDS: ALBUMIN HUMAN 25% 50 ML in EMPTY BAG 1 BAG IVPB SCH (13:53)
[2024-09-01 14:08] VITALS: RESP 18
[2024-09-01 14:39] VITALS: BP 115/60; PULSE 90
--- NOTE | 2024-09-01 15:59 | US ---
EXAMINATION TYPE: US paracentesis abd w/image DATE OF EXAM: 09/01/2024 CLINICAL HISTORY: 79-year-old male R18.8, other ascites, here for routine weekly paracentesis. The procedure was discussed with the patient. The risks, complications, benefits, and alternatives we re discussed and any questions were answered. Informed consent was obtained. The patient was placed s upine on the ultrasound table and prepped and draped in the usual sterile fashion. All elements of maximal barrier technique were utilized. Ultrasound was utilized to determine the precise skin entry site along the right lower quadrant. Utilizing trocar technique and a 6 Frisian safety Gamma Basicsesis catheter system, access to the ascites flui d was obtained. Approximately 7.1 liters of clear, straw-colored fluid was removed. Catheter was removed, hemostasis obtained, and a dressing placed. The patient was stable throughout the procedure and remained stable upon discharge from Department of Radiology. IMPRESSION: Successful therapeutic paracentesis under ultrasound guidance. 7.1 L of fluid removed. [facility], , 09/01/2024 3:57 PM
== END 2024-09-01 15:00 | disposition home or self-care (01) ==
LOC: RADPROMAIN 12:30
PROVIDERS: ATTEND Internal Medicine Gastroenterology
DX: R18.8 Other ascites (principal)
CPT/HCPCS: 36415; 49083; 82565; 85049; 85610

== ENCOUNTER 2024-09-08 12:29 | Day surgery (SDC) | payer MEDICARE ==
[2024-09-08 13:09] LABS: Mean Platelet Volume 7.4; Platelet Count 223 k/uL (150-450)
[2024-09-08 13:16] LABS: Prothrombin Time 11.1 sec (10.0-12.5)
[2024-09-08 13:21] VITALS: RESP 16; TEMP 98.4
[2024-09-08 13:32] LABS: African American GFR (CKD) 42 (>60 ml/min/1.73 sqM); Non-African American GFR(CKD) 37 (>60 ml/min/1.73 sqM)
[2024-09-08] MEDS: ALBUMIN HUMAN 25% 50 ML in EMPTY BAG 1 BAG IVPB SCH (13:51)
[2024-09-08 14:00] VITALS: PULSE 89
[2024-09-08 14:33] VITALS: BP 120/56
--- NOTE | 2024-09-08 15:09 | US ---
Ultrasound-guided paracentesis. DATE OF EXAM: 09/08/2024 CLINICAL HISTORY: Ascites The procedure was discussed with the patient. The risks, complications, benefits, and alternatives we re discussed and any questions were answered. Informed consent was obtained. The patient was placed s upine on the ultrasound table and prepped and draped in the usual sterile fashion. All elements of maximal barrier technique were utilized. Under ultrasound guidance, access into the right lower quadrant was obtained, via the paracentesis catheter system and direct ultrasound guidanc e. Approximately 6.5 liters of straw-colored fluid was removed. The patient was stable throughout the pr ocedure and remained stable upon discharge from Department of Radiology. IMPRESSION: Successful paracentesis under ultrasound guidance. [facility], , 09/08/2024 3:06 PM
== END 2024-09-08 14:40 | disposition home or self-care (01) ==
LOC: RADPROMAIN 12:29
PROVIDERS: ATTEND Internal Medicine Gastroenterology
DX: R18.8 Other ascites (principal)
CPT/HCPCS: 36415; 49083; 82565; 85049; 85610

== ENCOUNTER 2024-09-12 20:09 | Inpatient (IN) | payer MEDICARE ==
--- NOTE | 2024-09-12 21:43 | ED ---
Skin/Abscess/FB HPI - General Chief complaint: Skin/Abscess/Foreign Body Stated complaint: Throat Swollen Time Seen by Provider: 09/12/24 21:43 Source: patient, RN notes reviewed Mode of arrival: wheelchair Limitations: no limitations - History of Present Illness Initial comments: 79-year-old male presented to the ER with a chief complaint of throat pain and a wound. Patient states for the past 4 days he has been having a sore throat and a burning sensation on a wound to left testicular area. Patient was seen by PCP and started on doxycycline this was approximately 4 days ago. He states there have been a wound there for "a while". Patient also mentions he has noticed bilateral peripheral edema since Thursday or of last week. He does have a history of liver failure and undergoes weekly paracentesis. His last paracentesis was on 09-08-2024. Patient denies any chest pain or shortness of breath. He does report orthopnea as he sleeps in a recliner. No history of heart failure. He does admit to occasionally using home oxygen. Denies any current chest pain, shortness of breath, fevers or chills, nausea, vomiting or urinary complaints. - Related Data Home Medications Medication Instructions Recorded Confirmed Ergocalciferol [Vitamin D2 (1250 1,250 mcg PO WEEKLY 12/05/22 09/08/24 Mcg = 57090 Iu)] Furosemide [Lasix] 40 mg PO PC-LUNCH 12/05/22 09/08/24 Rivaroxaban [Xarelto] 20 mg PO HS 12/05/22 09/08/24 Spironolactone [Aldactone] 100 mg PO DAILY 12/05/22 09/08/24 Cholecalciferol [Vitamin D3 (25 25 mcg PO PC-LUNCH 12/17/22 09/08/24 Mcg = 1000 Iu)] Cyanocobalamin [Vitamin B-12] 1,000 mcg PO DAILY 12/17/22 09/08/24 Mv-Min/Folic/K1/Lycopen/Lutein 1 tablet PO DAILY 12/17/22 09/08/24 [Centrum Silver Men Tablet] Zinc Gluconate [Zinc] 50 mg PO DAILY 12/17/22 09/08/24 Magnesium Oxide [Magnesium] 500 mg PO DAILY 01/19/23 09/08/24 Turmeric Root Extract [Turmeric] 500 mg PO DAILY 07/14/23 09/08/24 Metoprolol Succinate (ER) [Toprol 25 mg PO PC-LUNCH 10/30/23 09/08/24 Xl] HYDROcodone/APAP 10-325MG [[place] 10 - 325 mg PO Q8HR PRN 01/21/24 09/08/24 10-325] Morphine Sulfate [Morphine Sulfate 15 mg PO BID PRN 07/21/24 09/08/24 ER] Potassium Gluconate [Potassium 600 mg PO DAILY 09/08/24 09/08/24 (2.5 MEQ = 600 MG)] Allergies Allergy/AdvReac Type Severity Reaction Status Date / Time cephalexin [From Keflex] Allergy Rash/Hives Verified 09/12/24 20:13 Iodinated Contrast Media Allergy Vomiting Verified 09/12/24 20:13 Review of Systems ROS Statement: Those systems with pertinent positive or pertinent negative responses have been documented in the HPI. ROS Other: All systems not noted in ROS Statement are negative. Past Medical History Past Medical History: Atrial Fibrillation, Liver Disease, Pneumonia Additional Past Medical History / Comment(s): morbid obese, exposed to agent orange, ascites, back pain, large volume pracentesis weekly History of Any Multi-Drug Resistant Organisms: None Reported Past Surgical History: Hernia Repair Additional Past Surgical History / Comment(s): multi large volume paracentesis, hernia, scrotal surgery, eye implants, liver biopsy, rt shoulder injection for pain Past Anesthesia/Blood Transfusion Reactions: No Reported Reaction Past Psychological History: Anxiety, Panic Disorder, PTSD Smoking Status: Current every day smoker Past Alcohol Use History: None Reported Past Drug Use History: Marijuana - Past Family History Father Family Medical History: Myocardial Infarction (SC) General Exam - General Exam Comments Initial Comments: Visual Physical Exam Vital signs reviewed General: Well-appearing, nontoxic, no acute distress. Head: Normocephalic, atraumatic Eyes: PERRLA, EOMI ENT: Airway patent Chest: Nonlabored breathing Skin: No visual rash, normal skin tone Neuro: Alert and oriented 3 Musculoskeletal: No gross abnormalities Limitations: no limitations General appearance: alert, in no apparent distress ENT exam: Present: mucous membranes moist, TM's normal bilaterally, other (White patches to bilateral tonsils. Thick white plaque to tongue) Neck exam: Present: normal inspection. Absent: tenderness, meningismus, lymphadenopathy Respiratory exam: Present: normal lung sounds bilaterally. Absent: respiratory distress, wheezes, rales, rhonchi, stridor Cardiovascular Exam: Present: regular rate, normal rhythm, normal heart sounds. Absent: systolic murmur, diastolic murmur, rubs, gallop, clicks GI/Abdominal exam: Present: soft, distended, normal bowel sounds exam: Present: circumcision, other (Multiple wounds to area of left testicle. There is a white plaque noted as well. No penile discharge or testicular tenderness.) Extremities exam: Present: normal inspection, full ROM, normal capillary refill, other (2+ pretibial pitting edema bilaterally.). Absent: tenderness, pedal edema, joint swelling, calf tenderness Neurological exam: Present: alert, oriented X3, CN II-XII intact Skin exam: Present: warm, dry, intact, normal color. Absent: rash Course Vital Signs 09/12/24 20:11 Temperature 98.8 F Pulse Rate 107 H Respiratory 18 Rate Blood Pressure 161/88 O2 Sat by Pulse 99 Oximetry - Reevaluation(s) Reevaluation #1: 09/12/24 23:49 [facility] Medical Decision Making - Medical Decision Making I performed the quick note portion of this chart. Electronically signed by Cornelia Anderson PA-C Was pt. sent in by a medical professional or institution ([facility], [employer] PAINTER, urgent care, hospital, or assisted...) When possible be specific @ -No Did you speak to anyone other than the patient for history (EMS, parent, family, police, friend...)? What history was obtained from this source @ -No Did you review nursing and triage notes (agree or disagree)? Why? @ -I reviewed and agree with nursing and triage notes Were old charts reviewed (outside hosp., previous admission, EMS record, old EKG, old radiological studies, urgent care reports/EKG's, assisted records)? Report findings @ -No old charts were reviewed Differential Diagnosis (chest pain, altered mental status, abdominal pain women, abdominal pain men, vaginal bleeding, weakness, fever, dyspnea, syncope, hea dache, dizziness, GI bleed, back pain, seizure, CVA, palpatations, mental health, musculoskeletal)? @ -Differential Dyspnea: Coronary syndrome, arrhythmia, tamponade, asthma, COPD, pulmonary embolism, pneumonia, pneumothorax, pulmonary effusion, anaphylaxis, diabetic ketoacidosis, flailed chest, pulmonary contusion, diaphragmatic rupture, anemia, neuromuscular, this is not meant to be an all-inc lusive list. EKG interpreted by me (3pts min.). @ -As above X-rays interpreted by me (1pt min.). @ -CXR interpreted me showing cardiomegaly. No acute pleural effusion, consolidation or pneumothorax. CT interpreted by me (1pt min.). @ -None done U/S interpreted by me (1pt. min.). @ -None done What testing was considered but not performed or refused? (CT, X-rays, U/S, labs)? Why? @ -None What meds were considered but not given or refused? Why? @ -None Did you discuss the management of the patient with other professionals (professionals i.e. , PA, ST[employer]ED GLASS PAINTER, lab, RT, psych nurse, psychiatric social worker supervisor, rv detailer, teacher, geospatial program management officer, shelter case manager)? Give summary @ -Yes, case discussed with [facility] for admission. Was smoking cessation discussed for >3mins.? @ -No Was critical care preformed (if so, how long)? @ -No Were there social determinants of health that impacted care today? How? (Homelessness, low income, unemployed, alcoholism, drug addiction, transportation, low edu. Level, literacy, decrease access to med. care, fdc, rehab)? @ -No Was there de-escalation of care discussed even if they declined (Discuss DNR or withdrawal of care, Hospice)? DNR status @ -No What co-morbidities impacted this encounter? (DM, HTN, Smoking, COPD, CAD, Cancer, CVA, ARF, Chemo, Hep., AIDS, mental health diagnosis, sleep apnea, morbid obesity)? @ -Atrial fibrillation, liver failure, chronic kidney disease. Was patient admitted / discharged? Hospital course, mention meds given and route, prescriptions, significant lab abnormalities, going to OR and other pertinent info. @ -Admitted. 79-year-old male presented to the ER with a chief complaint of scrotal wound and peripheral edema. Patient undergoes paracentesis weekly by Dr. Mancuso due to liver failure. He states since he has noticed increase in swelling to his bilateral lower extremities. History and physical exam completed. Vitals upon examination remarkable for temperature 98.8, heart rate 107, respiratory 18, blood pressure 161/88, oxygen saturation 99% on room air. Exam remarkable for 2+ pretibial pitting edema bilaterally. Throat with white plaque to bilateral tonsils and tongue. There is also a wound to left scrotal area with white drainage present. Findings concerning of ana infection patient given Diflucan. Due to peripheral edema laboratory studies will be obtained, patient is agreeable. Laboratory studies showing a microcytic hypochromic anemia hemoglobin is 7.8. (Hemoglobin 9.1 on 06-02-2024). Hyponatremic at 125, potassium 5.7, chloride 99, carbon dioxide 20. GFR 34 with a creatinine 1.85 BUN of 49. BNP 653. Urinalysis unimpressive. Viral swabs and strep negative. Chest x-ray showing cardiomegaly with no evidence of pulmonary vascular congestion or other abnormality. Admission considered and discussed with [facility], Dr. Schultz due to hyponatremia. Patient is agreeable. Patient admitted in stable condition for further evaluation and treatment. Case discussed with ED attending, Dr. Myers. Undiagnosed new problem with uncertain prognosis? @ -No Drug Therapy requiring intensive monitoring for toxicity (Heparin, Nitro, Insulin, Cardizem)? @ -No Were any procedures done? @ -No Diagnosis/symptom? @ -Hyponatremia/liver failure/thrush Acute, or Chronic, or Acute on Chronic? @ -Acute Uncomplicated (without systemic symptoms) or Complicated (systemic symptoms)? @ -Complicated Side effects of treatment? @ -No Exacerbation, Progression, or Severe Exacerbation? @ -No Poses a threat to life or bodily function? How? (Chest pain, USA, SC, pneumonia, PE, COPD, DKA, ARF, appy, cholecystitis, CVA, Diverticulitis, Homicidal, Suicidal, threat to staff... and all critical care pts) @ -Yes, liver failure - Lab Data Result diagrams: 09/12/24 22:10 09/12/24 22:10 Lab Results 09/12/24 09/12/24 09/12/24 Range/Units 22:10 22:10 22:10 WBC 9.5 (3.8-10.6) k/uL RBC 3.74 L (4.30-5.90) m/uL Hgb 7.8 L (13.0-17.5) gm/dL Hct 26.9 L (39.0-53.0) % MCV 71.9 L (80.0-100.0) fL MCH 20.9 L (25.0-35.0) pg MCHC 29.0 L (31.0-37.0) g/dL RDW 15.3 (11.5-15.5) % Plt Count 244 (150-450) k/uL MPV 6.7 Neutrophils % 82 % Lymphocytes % 6 % Monocytes % 5 % Eosinophils % 3 % Basophils % 0 % Neutrophils # 7.8 H (1.3-7.7) k/uL Lymphocytes # 0.6 L (1.0-4.8) k/uL Monocytes # 0.5 (0-1.0) k/uL Eosinophils # 0.3 (0-0.7) k/uL Basophils # 0.0 (0-0.2) k/uL Hypochromasia Marked Microcytosis Moderate Sodium 125 L (137-145) mmol/L Potassium 5.7 H (3.5-5.1) mmol/L Chloride 99 (98-107) mmol/L Carbon Dioxide 20 L (22-30) mmol/L Anion Gap 6 mmol/L BUN 49 H (9-20) mg/dL Creatinine 1.85 H (0.66-1.25) mg/dL Est GFR (CKD-EPI)AfAm 40 (>60 ml/min/1.73 sqM) Est GFR (CKD-EPI)NonAf 34 (>60 ml/min/1.73 sqM) Glucose 103 H (74-99) mg/dL Calcium 8.6 (8.4-10.2) mg/dL Total Bilirubin 0.9 (0.2-1.3) mg/dL AST 55 (17-59) U/L ALT 16 (4-49) U/L Alkaline Phosphatase 133 H (38-126) U/L NT-Pro-B Natriuret Pep 653 pg/mL Total Protein 6.6 (6.3-8.2) g/dL Albumin 3.6 (3.5-5.0) g/dL Urine Color Urine Appearance (Clear) Urine pH (5.0-8.0) Ur Specific [place] (1.001-1.035) Urine Protein (Negative) Urine Glucose (UA) (Negative) Urine Ketones (Negative) Urine Blood (Negative) Urine Nitrite (Negative) Urine Bilirubin (Negative) Urine Urobilinogen (<2.0) mg/dL Ur Leukocyte Esterase (Negative) Urine RBC (0-5) /hpf Urine WBC (0-5) /hpf Influenza Type A (PCR) (Not Detectd) Influenza Type B (PCR) (Not Detectd) RSV (PCR) (Not Detectd) SARS-CoV-2 (PCR) (Not Detectd) Group A Strep (PCR) NOT DETECTED (Not Detectd) 09/12/24 09/12/24 Range/Units 22:10 22:28 WBC (3.8-10.6) k/uL RBC (4.30-5.90) m/uL Hgb (13.0-17.5) gm/dL Hct (39.0-53.0) % MCV (80.0-100.0) fL MCH (25.0-35.0) pg MCHC (31.0-37.0) g/dL RDW (11.5-15.5) % Plt Count (150-450) k/uL MPV Neutrophils % % Lymphocytes % % Monocytes % % Eosinophils % % Basophils % % Neutrophils # (1.3-7.7) k/uL Lymphocytes # (1.0-4.8) k/uL Monocytes # (0-1.0) k/uL Eosinophils # (0-0.7) k/uL Basophils # (0-0.2) k/uL Hypochromasia Microcytosis Sodium (137-145) mmol/L Potassium (3.5-5.1) mmol/L Chloride (98-107) mmol/L Carbon Dioxide (22-30) mmol/L Anion Gap mmol/L BUN (9-20) mg/dL Creatinine (0.66-1.25) mg/dL Est GFR (CKD-EPI)AfAm (>60 ml/min/1.73 sqM) Est GFR (CKD-EPI)NonAf (>60 ml/min/1.73 sqM) Glucose (74-99) mg/dL Calcium (8.4-10.2) mg/dL Total Bilirubin (0.2-1.3) mg/dL AST (17-59) U/L ALT (4-49) U/L Alkaline Phosphatase (38-126) U/L NT-Pro-B Natriuret Pep pg/mL Total Protein (6.3-8.2) g/dL Albumin (3.5-5.0) g/dL Urine Color Colorless Urine Appearance Clear (Clear) Urine pH 6.5 (5.0-8.0) Ur Specific [place] 1.008 (1.001-1.035) Urine Protein Negative (Negative) Urine Glucose (UA) Negative (Negative) Urine Ketones Negative (Negative) Urine Blood Negative (Negative) Urine Nitrite Negative (Negative) Urine Bilirubin Negative (Negative) Urine Urobilinogen <2.0 (<2.0) mg/dL Ur Leukocyte Esterase Trace H (Negative) Urine RBC 1 (0-5) /hpf Urine WBC 2 (0-5) /hpf Influenza Type A (PCR) Not Detected (Not Detectd) Influenza Type B (PCR) Not Detected (Not Detectd) RSV (PCR) Not Detected (Not Detectd) SARS-CoV-2 (PCR) Not Detected (Not Detectd) Group A Strep (PCR) (Not Detectd) - EKG Data -: EKG Interpreted by Sc EKG Comments: EKG taken at 22: 36 showing atrial fibrillation. No acute ST segment or T wave abnormalities. Ventricular 94, QRS duration 87, QT/QTc 328/379. - Radiology Data Radiology results: report reviewed, image reviewed Disposition Clinical Impression: Hyponatremia, Thrush, Liver failure Disposition: ADMITTED IP TO THIS HOSP Condition: Stable Referrals: Kelechi Soriano DO [Primary Care Provider] - 1-2 days Time of Disposition: 00:05
[2024-09-12 22:47] LABS: Basophils % (A) 0 %; Eosinophils # (A) 0.3 k/uL (0-0.7); Eosinophils % (A) 3 %; HCT 26.9 % (39.0-53.0); HGB 7.8 gm/dL (13.0-17.5); Hypochromasia Marked; Lymphocytes # (A) 0.6 k/uL (1.0-4.8); Lymphocytes % (A) 6 %; MCH 20.9 pg (25.0-35.0); MCV 71.9 fL (80.0-100.0); Mean Platelet Volume 6.7; Microcytosis Moderate; Monocytes # (A) 0.5 k/uL (0-1.0); Monocytes % (A) 5 %; Neutrophils # (A) 7.8 k/uL (1.3-7.7); Neutrophils % (A) 82 %; Platelet Count 244 k/uL (150-450); RBC 3.74 m/uL (4.30-5.90); RDW 15.3 % (11.5-15.5); WBC 9.5 k/uL (3.8-10.6)
[2024-09-12 22:48] LABS: Appearance,Urine Clear (Clear); Bilirubin,Urine Negative (Negative); Blood,Urine Negative (Negative); Color,Urine Colorless; Glucose,Urine (UA) Negative (Negative); Ketones,Urine Negative (Negative); Leukocyte Esterase,Urine Trace (Negative); Nitrite,Urine Negative (Negative); PH, Urine 6.5 (5.0-8.0); Protein,Urine Negative (Negative); RBC,Urine 1 /hpf (0-5); Specific Gravity,Urine 1.008 (1.001-1.035); Urobilinogen,Urine <2.0 mg/dL (<2.0); WBC,Urine 2 /hpf (0-5)
--- NOTE | 2024-09-12 22:50 | XR ---
EXAMINATION TYPE: XR chest 2V DATE OF EXAM: 09/12/2024 COMPARISON: Chest x-ray October 30, 2023 HISTORY: Peripheral edema. Swelling in legs. TECHNIQUE: Frontal and lateral views of the chest are obtained. FINDINGS: There is no focal air space opacity, pleural effusion, or pneumothorax seen. Mild cardiome charles redemonstrated. Chronic Deformity right proximal humerus is noted. IMPRESSION: Mild cardiomegaly without acute pulmonary process. [facility], , 09/12/2024 10:48 PM
[2024-09-12 23:04] LABS: ALT 16 U/L (4-49); AST 55 U/L (17-59); African American GFR (CKD) 40 (>60 ml/min/1.73 sqM); Albumin 3.6 g/dL (3.5-5.0); Alkaline Phosphatase 133 U/L (38-126); Anion Gap 6 mmol/L; Blood Urea Nitrogen 49 mg/dL (9-20); Calcium 8.6 mg/dL (8.4-10.2); Carbon Dioxide 20 mmol/L (22-30); Chloride 99 mmol/L (98-107); Glucose 103 mg/dL (74-99); Non-African American GFR(CKD) 34 (>60 ml/min/1.73 sqM); Potassium 5.7 mmol/L (3.5-5.1); Sodium 125 mmol/L (137-145); Total Bilirubin 0.9 mg/dL (0.2-1.3); Total Protein 6.6 g/dL (6.3-8.2)
[2024-09-12 23:13] LABS: NT-Pro-B-Type Natriuretic Pept 653 pg/mL
[2024-09-13] MEDS ORDERED: NALOXONE 0.4 MG/ML 1 ML VIAL IV PRN (00:01)
[2024-09-13] MEDS: FLUCONAZOLE 150 MG TAB PO STA (00:43)
[2024-09-13] MEDS: HYDROcodone/APAP 10-325MG 1 EACH TAB PO ONE (00:44)
[2024-09-13] MEDS: FUROSEMIDE 10 MG/ML 10 ML VIAL IV STA (02:01)
[2024-09-13 03:37] LABS: Basophils % (A) 0 %; Eosinophils # (A) 0.4 k/uL (0-0.7); Eosinophils % (A) 5 %; HGB 7.6 gm/dL (13.0-17.5); Hypochromasia Marked; Lymphocytes # (A) 0.6 k/uL (1.0-4.8); Lymphocytes % (A) 7 %; MCV 74.9 fL (80.0-100.0); Microcytosis Slight; Monocytes # (A) 0.5 k/uL (0-1.0); Monocytes % (A) 6 %; Neutrophils % (A) 78 %; Platelet Count 232 k/uL (150-450); RBC 3.61 m/uL (4.30-5.90); RDW 15.3 % (11.5-15.5); WBC 8.9 k/uL (3.8-10.6)
[2024-09-13 03:50] LABS: ALT 14 U/L (4-49); AST 34 U/L (17-59); African American GFR (CKD) 35 (>60 ml/min/1.73 sqM); Albumin 3.3 g/dL (3.5-5.0); Albumin/Globulin Ratio 1.2; Alkaline Phosphatase 111 U/L (38-126); Anion Gap 1 mmol/L; Blood Urea Nitrogen 48 mg/dL (9-20); Calcium 8.5 mg/dL (8.4-10.2); Carbon Dioxide 26 mmol/L (22-30); Chloride 99 mmol/L (98-107); Globulin 2.8 g/dL; Glucose 135 mg/dL (74-99); Non-African American GFR(CKD) 30 (>60 ml/min/1.73 sqM); Potassium 5.2 mmol/L (3.5-5.1); Sodium 126 mmol/L (137-145); Total Protein 6.1 g/dL (6.3-8.2)
[2024-09-13] MEDS: HYDROcodone/APAP 5-325MG 1 EACH TAB PO PRN (04:42)
[2024-09-13 07:28] VITALS: RESP 17
[2024-09-13 09:48] LABS: BUN/Creat Ratio 21.76 Ratio (12.00-20.00); Blood Urea Nitrogen 45.7 mg/dL (9.0-27.0); Calcium 8.6 mg/dL (8.7-10.3); Carbon Dioxide 20.8 mmol/L (21.6-31.8); Chloride 92 mmol/L (96-109); Glucose 96 mg/dL (70-110); Potassium 5.4 mmol/L (3.5-5.5); Sodium 126 mmol/L (135-145)
[2024-09-13] MEDS ORDERED: IPRATROPIUM-ALBUTEROL 3 ML NEB INHALATION PRN (11:37)
[2024-09-13] MEDS: SPIRONOLACTONE 25 MG TAB PO SCH (11:51)
[2024-09-13] MEDS: FUROSEMIDE 40 MG TAB PO SCH (11:51)
[2024-09-13] MEDS: MORPHINE SULFATE ER 15 MG TABLET PO SCH (11:51)
[2024-09-13 13:05] VITALS: BP 101/53; PULSE 97; TEMP 98.1
[2024-09-13] MEDS: NYSTATIN 100,000 UNIT/ML SUSP 500,000 UNIT/5 ML CUP PO SCH (17:16)
[2024-09-13] MEDS: RIVAROXABAN 15 MG TAB PO SCH (17:16)
[2024-09-13] MEDS: NYSTATIN 100,000 UNIT/GM POWD 15 GM TOPICAL SCH (17:16)
[2024-09-13] MEDS ORDERED: BUDESONIDE 0.5 MG/2 ML NEBU INHALATION SCH (20:00)
[2024-09-13] MEDS ORDERED: METOPROLOL SUCCINATE (ER) 25 MG TAB.ER.24H PO SCH (21:00)
[2024-09-14] MEDS ORDERED: POTASSIUM CHLORIDE ER 10 MEQ TAB.ER.PRT PO SCH (09:00)
[2024-09-14] MEDS ORDERED: MAGNESIUM OXIDE 400 MG TAB PO SCH (09:00)
[2024-09-14] MEDS ORDERED: CYANOCOBALAMIN 500 MCG TAB PO SCH (09:00)
[2024-09-18] MEDS ORDERED: ERGOCALCIFEROL 1,250 MCG (50,000 IU) CAPSULE PO SCH (09:00)
--- NOTE | 2024-09-23 23:51 | P.HPIM ---
History of Present Illness H&P Date: 09/13/24 Chief Complaint: Throat pain Patient is a 79-year-old male with a past medical history of atrial fibrillation on anticoagulation with Xarelto, alcohol liver cirrhosis and recurrent ascites, currently everyday smoker and marijuana use and also history of anxiety/panic disorder/PTSD presents to ER with complaints of throat pain. Patient states about 4 days ago patient started having sore throat and burning sensation on the wound to the left testicular region. Patient was seen by his primary care physician and started on doxycycline which he has been taking for the past 4 days. Patient states that he also notices bilateral lower extremity edema since last week. Patient undergoes weekly paracentesis due to liver cirrhosis. Last paracentesis was 09/08/2024. Otherwise patient denied any complaints of chest pain or shortness of breath. Patient usually sleeps in an recliner. Does have chronic orthopnea. History of chronic CHF. Currently not on home oxygen at home. Denied any fever or chills. No recent illnesses. Chest x-ray showed mild cardiomegaly without acute pulmonary process. EKG showed atrial fibrillation with low QRS voltage Laboratory data showed WBC 9.1 hemoglobin 7.8 MCV 71.9 platelets 244 sodium 125 potassium 5.7 chloride 99 bicarb is 20 BUN 49 and creatinine 1.85 and blood sugar 103 liver US showed alk phos 133 and proBNP 653 urinalysis is negative for infection Strep throat, influenza AB RSV and COVID-19 PCR not detected. Review of Systems Constitutional: Patient denies any fever or chills . No generalized weakness or weight loss. Throat soreness. Abdomen: Patient denied nausea vomiting and diarrhea and abdominal pain. Cardiovascular: Patient denies any chest pain or short of breath no palpitations . Respiratory: patient denied any cough or sputum production. No shortness of breath Neurologic: Patient denied any numbness or tingling. no headache. Musculoskeletal: Patient denies any complaints of joint swelling or deformity. Skin: Negative Psychiatric: Negative Endocrine: No heat or cold intolerance. No recent weight gain. Genitourinary: No dysuria or hematuria. All other 14 point ROS negative except the above Past Medical History Past Medical History: Atrial Fibrillation, Liver Disease, Pneumonia Additional Past Medical History / Comment(s): morbid obese, exposed to agent orange, ascites, back pain, large volume pracentesis weekly History of Any Multi-Drug Resistant Organisms: None Reported Past Surgical History: Hernia Repair Additional Past Surgical History / Comment(s): multi large volume paracentesis, hernia, scrotal surgery, eye implants, liver biopsy, rt shoulder injection for pain Past Anesthesia/Blood Transfusion Reactions: No Reported Reaction Past Psychological History: Anxiety, Panic Disorder, PTSD Additional Psychological History / Comment(s): war vet Smoking Status: Current every day smoker Past Alcohol Use History: None Reported Additional Past Alcohol Use History / Comment(s): refused smoking education 1ppd, quit drinking 8 years ago (2014 approx) Past Drug Use History: Marijuana Additional Drug Use History / Comment(s): CBD OIL - Past Family History Father Family Medical History: Myocardial Infarction (MA) Medications and Allergies Home Medications Medication Instructions Recorded Confirmed Type Ergocalciferol [Vitamin D2 (1250 1,250 mcg PO CELESTIN 12/05/22 09/22/24 History Mcg = 36875 Iu)] Furosemide [Lasix] 40 mg PO DAILY 12/05/22 09/22/24 History Rivaroxaban [Xarelto] 20 mg PO HS 12/05/22 09/22/24 History Spironolactone [Aldactone] 100 mg PO DAILY 12/05/22 09/22/24 History Cyanocobalamin [Vitamin B-12] 1,000 mcg PO DAILY 12/17/22 09/22/24 History Mv-Min/Folic/K1/Lycopen/Lutein 1 tablet PO DAILY 12/17/22 09/22/24 History [Centrum Silver Men Tablet] Zinc Gluconate [Zinc] 50 mg PO DAILY 12/17/22 09/22/24 History Magnesium Oxide [Magnesium] 500 mg PO DAILY 01/19/23 09/22/24 History Turmeric Root Extract [Turmeric] 500 mg PO DAILY 07/14/23 09/22/24 History Metoprolol Succinate (ER) [Toprol 25 mg PO BID 10/30/23 09/22/24 History Xl] HYDROcodone/APAP 10-325MG [[place] 1 tab PO BID PRN 01/21/24 09/22/24 History 10-325] Morphine Sulfate [Morphine Sulfate 15 mg PO BID 07/21/24 09/22/24 History ER] Allergies Allergy/AdvReac Type Severity Reaction Status Date / Time cephalexin [From Keflex] Allergy Rash/Hives Verified 09/22/24 15:00 Iodinated Contrast Media Allergy Vomiting Verified 09/22/24 15:00 Physical Exam Vitals: Vital Signs Temp Pulse Pulse Resp BP BP Pulse Ox 09/13/24 09:30 93 17 09/13/24 07:01 98.2 F 93 17 107/73 97 09/13/24 05:07 91 20 09/13/24 02:49 97.6 F 91 20 104/66 98 09/13/24 02:00 104 H 20 124/71 98 09/13/24 00:56 114/67 09/12/24 20:11 98.8 F 107 H 18 161/88 99 Intake and Output 09/12/24 09/13/24 09/13/24 22:59 06:59 14:59 Intake Total 540 Balance 540 Intake: Oral 540 Other: # Voids 1 Weight 113.398 kg 113.398 kg PHYSICAL EXAMINATION: Patient is lying in the bed comfortably, no acute distress, awake alert and oriented, obese.. HEENT: Normocephalic. Neck is supple. Pupils reactive. Nostrils clear. Oral cavity is moist. Neck reveals no JVD, carotid bruits, or thyromegaly. CHEST EXAMINATION: Trachea is central. Symmetrical expansion. Bibasilar diminished sounds otherwise lung bone clear to auscultation and percussion. CARDIAC: Normal S1, S2 with no gallops. No murmurs ABDOMEN: Soft. Bowel sounds present. Abdominal is distended with ascites.. No organomegaly. No abdominal bruits. Extremities: Bilateral lower extremity trace edema. No clubbing or cyanosis Neurologically awake, alert, oriented x3 with well-coordinated movements. No focal deficits noted Skin: No rash or skin lesions except as noted.. Psychiatric: Coperative. Nonsuicidal Musculoskeletal: No joint swelling or deformity. Normal range of motion. Results CBC & Chem 7: 09/13/24 02:42 09/13/24 05:54 Labs: Abnormal Lab Results - Last 24 Hours (Table) 09/12/24 09/12/24 09/12/24 Range/Units 22:10 22:10 22:28 RBC 3.74 L (4.30-5.90) m/uL Hgb 7.8 L (13.0-17.5) gm/dL Hct 26.9 L (39.0-53.0) % MCV 71.9 L (80.0-100.0) fL MCH 20.9 L (25.0-35.0) pg MCHC 29.0 L (31.0-37.0) g/dL Neutrophils # 7.8 H (1.3-7.7) k/uL Lymphocytes # 0.6 L (1.0-4.8) k/uL Sodium 125 L (137-145) mmol/L Potassium 5.7 H (3.5-5.1) mmol/L Chloride (96-109) mmol/L Carbon Dioxide 20 L (22-30) mmol/L Anion Gap (4.00-12.00) mmol/L BUN 49 H (9-20) mg/dL Creatinine 1.85 H (0.66-1.25) mg/dL Est GFR (CKD-EPI) (>=60) BUN/Creatinine Ratio (12.00-20.00) Ratio Glucose 103 H (74-99) mg/dL Calcium (8.7-10.3) mg/dL Alkaline Phosphatase 133 H (38-126) U/L Total Protein (6.3-8.2) g/dL Albumin (3.5-5.0) g/dL Ur Leukocyte Esterase Trace H (Negative) 09/13/24 09/13/24 09/13/24 Range/Units 02:42 02:42 05:54 RBC 3.61 L (4.30-5.90) m/uL Hgb 7.6 L (13.0-17.5) gm/dL Hct 27.0 L (39.0-53.0) % MCV 74.9 L (80.0-100.0) fL MCH 21.0 L (25.0-35.0) pg MCHC 28.0 L (31.0-37.0) g/dL Neutrophils # (1.3-7.7) k/uL Lymphocytes # 0.6 L (1.0-4.8) k/uL Sodium 126 L 126 L (137-145) mmol/L Potassium 5.2 H (3.5-5.1) mmol/L Chloride 92 L (96-109) mmol/L Carbon Dioxide 20.8 L (22-30) mmol/L Anion Gap 13.20 H (4.00-12.00) mmol/L BUN 48 H 45.7 H (9-20) mg/dL Creatinine 2.06 H 2.1 H (0.66-1.25) mg/dL Est GFR (CKD-EPI) 32 L (>=60) BUN/Creatinine Ratio 21.76 H (12.00-20.00) Ratio Glucose 135 H (74-99) mg/dL Calcium 8.6 L (8.7-10.3) mg/dL Alkaline Phosphatase (38-126) U/L Total Protein 6.1 L (6.3-8.2) g/dL Albumin 3.3 L (3.5-5.0) g/dL Ur Leukocyte Esterase (Negative) Thrombosis Risk Factor Assmnt - DVT/VTE Prophylaxis DVT/VTE Prophylaxis: Pharmacologic Prophylaxis ordered - Choose All That Apply Any of the Below Risk Factors Present?: Yes Each Factor Represents 1 point: Obesity (BMI >25), Swollen legs (current) Each Risk Factor Represents 3 Points: Age 75 years or older Thrombosis Risk Factor Assessment Total Risk Factor Score: 5 Thrombosis Risk Factor Assessment Level: High Risk Assessment and Plan Assessment: Throat pain respiratory oral thrush. Patient was given a dose of Diflucan in the ER improved now Recurrent ascites due to liver cirrhosis History of alcohol abuse Hyponatremia due to chronic liver disease Hyperkalemia 5.7 admission improved now Chronic kidney disease stage III with baseline creatinine level around 1.7 Ongoing nicotine addiction Chronic atrial fibrillation on anticoagulation with Xarelto Anxiety/panic disorder/PTSD History of alcohol abuse and marijuana use Plan: Patient will be continued on Lasix and spironolactone. Also continue with Xarelto. Ultrasound-guided paracentesis was ordered. Continue with home medications and pain management and follow-up closely. Patient will be continued on Diflucan for possible oral thrush. Prognosis guarded with mult imedical problems and comorbid conditions. Time with Patient: Greater than 30
--- NOTE | 2024-09-23 23:52 | P.DS ---
Providers Date of admission: 09/13/24 00:18 Expected date of discharge: 09/13/24 Attending physician: Bo Schultz MD [facility]: Discharge diagnosis Throat pain respiratory oral thrush. Patient was given a dose of Diflucan in the ER improved now Recurrent ascites due to liver cirrhosis History of alcohol abuse Hyponatremia due to chronic liver disease Hyperkalemia 5.7 admission improved now Chronic kidney disease stage III with baseline creatinine level around 1.7 Ongoing nicotine addiction Chronic atrial fibrillation on anticoagulation with Xarelto Anxiety/panic disorder/PTSD History of alcohol abuse and marijuana use Hospital course Patient is a 79-year-old male with a past medical history of atrial fibrillation on anticoagulation with Xarelto, alcohol liver cirrhosis and recurrent ascites, currently everyday smoker and marijuana use and also history of anxiety/panic disorder/PTSD presents to ER with complaints of throat pain. Patient states about 4 days ago patient started having sore throat and burning sensation on the wound to the left testicular region. Patient was seen by his primary care physician and started on doxycycline which he has been taking for the past 4 days. Patient states that he also notices bilateral lower extremity edema since last week. Patient undergoes weekly paracentesis due to liver cirrhosis. Last paracentesis was 09/08/2024. Otherwise patient denied any complaints of chest pain or shortness of breath. Patient usually sleeps in an recliner. Does have chronic orthopnea. History of chronic CHF. Currently not on home oxygen at home. Denied any fever or chills. No recent illnesses. Chest x-ray showed mild cardiomegaly without acute pulmonary process. EKG showed atrial fibrillation with low QRS voltage Laboratory data showed WBC 9.1 hemoglobin 7.8 MCV 71.9 platelets 244 sodium 125 potassium 5.7 chloride 99 bicarb is 20 BUN 49 and creatinine 1.85 and blood sugar 103 liver US showed alk phos 133 and proBNP 653 urinalysis is negative for infection Strep throat, influenza AB RSV and COVID-19 PCR not detected. Patient was continued on Lasix and spironolactone. Also continue with Xarelto. Ultrasound-guided paracentesis was ordered. Continue with home medications and pain management and follow-up closely. Patient will be continued on Diflucan for possible oral thrush. Prognosis guarded with multimedical problems and comorbid conditions. Patient left AMA. Patient Condition at Discharge: Stable Plan - Discharge Summary New Discharge Prescriptions: No Action Rivaroxaban [Xarelto] 20 mg PO HS Furosemide [Lasix] 40 mg PO DAILY Mv-Min/Folic/K1/Lycopen/Lutein [Centrum Silver Men Tablet] 1 tablet PO DAILY Spironolactone [Aldactone] 100 mg PO DAILY Ergocalciferol [Vitamin D2 (1250 Mcg = 11578 Iu)] 1,250 mcg PO CELESTIN Zinc Gluconate [Zinc] 50 mg PO DAILY Cyanocobalamin [Vitamin B-12] 1,000 mcg PO DAILY Magnesium Oxide [Magnesium] 500 mg PO DAILY Turmeric Root Extract [Turmeric] 500 mg PO DAILY Metoprolol Succinate (ER) [Toprol Xl] 25 mg PO BID HYDROcodone/APAP 10-325MG [[place] 10-325] 1 tab PO BID PRN PRN Reason: Breakthrough Pain Morphine Sulfate [Morphine Sulfate ER] 15 mg PO BID Discharge Medication List Ergocalciferol [Vitamin D2 (1250 Mcg = 81828 Iu)] 1,250 mcg PO CELESTIN 12/05/22 [History] Furosemide [Lasix] 40 mg PO DAILY 12/05/22 [History] Rivaroxaban [Xarelto] 20 mg PO HS 12/05/22 [History] Spironolactone [Aldactone] 100 mg PO DAILY 12/05/22 [History] Cyanocobalamin [Vitamin B-12] 1,000 mcg PO DAILY 12/17/22 [History] Mv-Min/Folic/K1/Lycopen/Lutein [Centrum Silver Men Tablet] 1 tablet PO DAILY 12/17/22 [History] Zinc Gluconate [Zinc] 50 mg PO DAILY 12/17/22 [History] Magnesium Oxide [Magnesium] 500 mg PO DAILY 01/19/23 [History] Turmeric Root Extract [Turmeric] 500 mg PO DAILY 07/14/23 [History] Metoprolol Succinate (ER) [Toprol Xl] 25 mg PO BID 10/30/23 [History] HYDROcodone/APAP 10-325MG [[place] 10-325] 1 tab PO BID PRN 01/21/24 [History] Morphine Sulfate [Morphine Sulfate ER] 15 mg PO BID 07/21/24 [History] Follow up Appointment(s)/Referral(s): Kelechi Soriano DO [Primary Care Provider] - 1-2 days Activity/Diet/Wound Care/Special Instructions: Patient requires a wheelchair to complete his ADLs which cannot be done with a walker or cane due to weakness caused by liver disease. Patient is able to self propel. Discharge Disposition: LEFT AGAINST MEDICAL ADVICE
== END 2024-09-13 17:43 | disposition left against medical advice (07) | DRG 641 ==
LOC: EC 20:09 → 4SSUR 09-13 00:18
PROVIDERS: ADMIT Internal Medicine; ATTEND Internal Medicine
DX: E87.1 Hypo-osmolality and hyponatremia (principal); B37.0 Candidal stomatitis; R18.8 Other ascites; I48.20 Chronic atrial fibrillation, unspecified; K72.90 Hepatic failure, unspecified without coma; K74.60 Unspecified cirrhosis of liver; N18.30 Chronic kidney disease, stage 3 unspecified; I50.9 Heart failure, unspecified; E87.5 Hyperkalemia; F17.200 Nicotine dependence, unspecified, uncomplicated; F41.0 Panic disorder [episodic paroxysmal anxiety]; F43.10 Post-traumatic stress disorder, unspecified; F41.9 Anxiety disorder, unspecified; Z79.01 Long term (current) use of anticoagulants; Z79.899 Other long term (current) drug therapy
CPT/HCPCS: 36415; 71046; 80048; 80053; 81001; 83880; 85025; 87636; 87651; 93005; 96374; 99285

== ENCOUNTER 2024-09-15 12:36 | Day surgery (SDC) | payer MEDICARE ==
[2024-09-15 13:28] VITALS: RESP 16; TEMP 97.8
[2024-09-15 13:36] LABS: Platelet Count 256 k/uL (150-450)
[2024-09-15 13:59] LABS: INR 1.1 (<1.2); Prothrombin Time 12.2 sec (10.0-12.5)
[2024-09-15] MEDS: ALBUMIN HUMAN 25% 50 ML in EMPTY BAG 1 BAG IVPB SCH (13:59)
[2024-09-15 14:34] VITALS: BP 108/67; PULSE 88
[2024-09-15 14:35] LABS: African American GFR (CKD) 34 (>60 ml/min/1.73 sqM); Non-African American GFR(CKD) 29 (>60 ml/min/1.73 sqM)
--- NOTE | 2024-09-15 15:35 | US ---
EXAMINATION TYPE: US paracentesis abd w/image DATE OF EXAM: 09/15/2024 CLINICAL HISTORY: 79-year-old male R18.8, other ascites, referred for routine paracentesis The procedure was discussed with the patient. The risks, complications, benefits, and alternatives we re discussed and any questions were answered. Informed consent was obtained. The patient was placed s upine on the ultrasound table and prepped and draped in the usual sterile fashion. All elements of maximal barrier technique were utilized. Ultrasound was utilized to determine the precise skin entry site along the right lower quadrant. A 5 Maltese One-Step catheter and trocar technique was utilized to access the ascites collection under direct ultrasound guidance. Approximately 4.8 liters of clear, straw-colored fluid was removed. Catheter was removed, hemostasis obtained, and a dressing placed. The patient was stable throughout the procedure and remained stable upon discharge from Department of Radiology. IMPRESSION: Successful therapeutic paracentesis under ultrasound guidance. 4.8 L of fluid removed. [facility], , 09/15/2024 3:22 PM
== END 2024-09-15 14:45 | disposition home or self-care (01) ==
LOC: RADPROMAIN 12:36
PROVIDERS: ATTEND Internal Medicine Gastroenterology
DX: R18.8 Other ascites (principal)
CPT/HCPCS: 82565; 85049; 85610; 36415; 49083; P9047

== ENCOUNTER 2024-09-22 12:31 | Day surgery (SDC) | payer MEDICARE ==
[2024-09-22 13:33] VITALS: RESP 16; TEMP 97.7
[2024-09-22 13:34] LABS: African American GFR (CKD) 39 (>60 ml/min/1.73 sqM); Non-African American GFR(CKD) 34 (>60 ml/min/1.73 sqM)
[2024-09-22 13:37] LABS: INR 1.1 (<1.2); Prothrombin Time 11.9 sec (10.0-12.5)
[2024-09-22 13:38] LABS: Mean Platelet Volume 7.4; Platelet Count 279 k/uL (150-450)
[2024-09-22] MEDS: ALBUMIN HUMAN 25% 50 ML in EMPTY BAG 1 BAG IVPB SCH (13:55)
[2024-09-22 13:58] VITALS: BP 123/54; PULSE 90
--- NOTE | 2024-09-22 15:28 | US ---
EXAMINATION TYPE: US paracentesis abd w/image DATE OF EXAM: 09/22/2024 1:53 PM COMPARISON: prior paracentesis. CLINICAL INDICATION:Male, 79 years old with history of OTHER ASCITES; , ascites ATTENDING: Dr. Dante Sharma PROCEDURE: Informed consent was obtained. The risks of the procedure were extensively explained incl uding risk of damage to surrounding bowel with perforation and need for additional procedures. Proced ure was performed in the ultrasound procedure suite. Ultrasound imaging of the abdomen demonstrate as citic fluid. An appropriate access site was localized to the right lower abdomen. Timeout was taken p er protocol. The skin was prepped and draped in the usual sterile fashion and then locally anesthetiz ed with 1% lidocaine. The peritoneal cavity was then accessed via a 5-Wolof one-step needle/cathete r. Approximately 4000 cc of clear straw-colored fluid was obtained. Postprocedural imaging of the a bdomen demonstrate a minimal amount of abdominal fluid. Patient tolerated procedure well without immediate complication. Hemostasis at the procedural site w as obtained with a sterile bandage placed. The patient was monitored in the holding area following th e procedure and was subsequently discharged in stable condition. IMPRESSION: Ultrasound guided paracentesis, with approximately 4000 cc of clear straw-colored fluid drained. No immediate complications were evident. [facility], , 09/22/2024 3:26 PM
== END 2024-09-22 14:30 | disposition home or self-care (01) ==
LOC: RADPROMAIN 12:31
PROVIDERS: ATTEND Internal Medicine Gastroenterology
DX: R18.8 Other ascites (principal)
CPT/HCPCS: 82565; 85049; 85610; 36415; 49083; P9047

== ENCOUNTER 2024-10-06 13:10 | Day surgery (SDC) | payer MEDICARE ==
[2024-10-06 13:49] LABS: Mean Platelet Volume 6.5; Platelet Count 241 k/uL (150-450)
[2024-10-06 13:56] LABS: Prothrombin Time 11.2 sec (10.0-12.5)
[2024-10-06] MEDS: ALBUMIN HUMAN 25% 50 ML in EMPTY BAG 1 BAG IVPB SCH (14:11)
[2024-10-06 14:17] VITALS: RESP 18; TEMP 98.3
[2024-10-06 14:19] LABS: African American GFR (CKD) 34 (>60 ml/min/1.73 sqM); Non-African American GFR(CKD) 30 (>60 ml/min/1.73 sqM)
[2024-10-06 15:19] VITALS: BP 119/54; PULSE 98
--- NOTE | 2024-10-06 15:30 | US ---
EXAMINATION TYPE: US paracentesis abd w/image DATE OF EXAM: 10/06/2024 1:54 PM COMPARISON: prior paracentesis. CLINICAL INDICATION:Male, 79 years old with history of R18.8; , ascites ATTENDING: Dr. Dante Sharma PROCEDURE: Informed consent was obtained. The risks of the procedure were extensively explained incl uding risk of damage to surrounding bowel with perforation and need for additional procedures. Proced ure was performed in the ultrasound procedure suite. Ultrasound imaging of the abdomen demonstrate as citic fluid. An appropriate access site was localized to the right lower abdomen. Timeout was taken p er protocol. The skin was prepped and draped in the usual sterile fashion and then locally anesthetiz ed with 1% lidocaine. The peritoneal cavity was then accessed via a 5-[place] one-step needle/cathete r. Approximately 7600 mL of clear straw-colored fluid was obtained. Postprocedural imaging of the a bdomen demonstrate a minimal amount of abdominal fluid. Patient tolerated procedure well without immediate complication. Hemostasis at the procedural site w as obtained with a sterile bandage placed. The patient was monitored in the holding area following th e procedure and was subsequently discharged in stable condition. IMPRESSION: Ultrasound guided paracentesis, with approximately 7600 mL of clear straw-colored fluid drained. No immediate complications were evident. [facility], , 10/06/2024 3:27 PM
== END 2024-10-06 15:19 | disposition home or self-care (01) ==
LOC: RADPROMAIN 13:10
PROVIDERS: ATTEND Internal Medicine Gastroenterology
DX: R18.8 Other ascites (principal)
CPT/HCPCS: 82565; 85049; 85610; 49083; P9047

== ENCOUNTER 2024-10-13 13:11 | Day surgery (SDC) | payer MEDICARE ==
[2024-10-13 13:47] LABS: Anisocytosis Slight; Basophils % (A) 0 %; Eosinophils # (A) 0.2 k/uL (0-0.7); Eosinophils % (A) 2 %; HCT 22.3 % (39.0-53.0); Hypochromasia Marked; Lymphocytes # (A) 0.4 k/uL (1.0-4.8); Lymphocytes % (A) 5 %; MCH 20.3 pg (25.0-35.0); MCHC 28.9 g/dL (31.0-37.0); MCV 70.3 fL (80.0-100.0); Mean Platelet Volume 6.7; Microcytosis Moderate; Monocytes # (A) 0.5 k/uL (0-1.0); Monocytes % (A) 6 %; Neutrophils # (A) 6.5 k/uL (1.3-7.7); Neutrophils % (A) 84 %; Platelet Count 251 k/uL (150-450); Poikilocytosis Slight; RBC 3.18 m/uL (4.30-5.90); RDW 16.6 % (11.5-15.5); WBC 7.7 k/uL (3.8-10.6)
[2024-10-13 13:56] LABS: INR 1.1 (<1.2); Prothrombin Time 12.3 sec (10.0-12.5)
[2024-10-13 14:07] LABS: HGB 6.4 gm/dL (13.0-17.5)
[2024-10-13 14:09] LABS: ALT 12 U/L (4-49); AST 20 U/L (17-59); African American GFR (CKD) 33 (>60 ml/min/1.73 sqM); Albumin 3.2 g/dL (3.5-5.0); Alkaline Phosphatase 114 U/L (38-126); Anion Gap 6 mmol/L; Blood Urea Nitrogen 44 mg/dL (9-20); Calcium 8.7 mg/dL (8.4-10.2); Carbon Dioxide 21 mmol/L (22-30); Chloride 98 mmol/L (98-107); Glucose 119 mg/dL (74-99); Non-African American GFR(CKD) 28 (>60 ml/min/1.73 sqM); Potassium 5.7 mmol/L (3.5-5.1); Sodium 125 mmol/L (137-145); Total Protein 6.2 g/dL (6.3-8.2)
[2024-10-13 15:05] VITALS: BP 145/61; PULSE 72; RESP 18; TEMP 98.1
[2024-10-13] MEDS: ALBUMIN HUMAN 25% 50 ML in EMPTY BAG 1 BAG IVPB SCH (15:33)
--- NOTE | 2024-10-13 15:44 | US ---
EXAMINATION TYPE: US abdominal ultrasound for ascites discontinued paracentesis DATE OF EXAM: 10/13/2024 2:21 PM COMPARISON: prior paracentesis. CLINICAL INDICATION:Male, 79 years old with history of R18.8 OTHER ASCITES; , ascites ATTENDING: Dr. Dante Sharma PROCEDURE/findings: Informed consent was obtained. The risks of the procedure were extensively expla ined including risk of damage to surrounding bowel with perforation and need for additional procedure s. Patient's hemoglobin was noted to be low in procedure was canceled. There is moderate amount of as cites throughout the abdomen. IMPRESSION: Canceled paracentesis due to low hemoglobin. Moderate ascites. [facility], , 10/13/2024 3:42 PM
== END 2024-10-13 14:40 ==
LOC: RADPROMAIN 13:11
PROVIDERS: ATTEND Internal Medicine Gastroenterology
DX: Z53.8 Procedure and treatment not carried out for other reasons (principal); R18.8 Other ascites
CPT/HCPCS: 36415; 76705; 80053; 85025; 85610

== ENCOUNTER 2024-10-13 14:34 | Inpatient (IN) | payer MEDICARE ==
--- NOTE | 2024-10-13 14:55 | ED ---
Recheck HPI - General Chief Complaint: Recheck/Abnormal Lab/Rx Stated Complaint: weakness,abn labs Time Seen by Provider: 10/13/24 14:55 Source: patient, RN notes reviewed, old records reviewed Mode of arrival: wheelchair Limitations: no limitations - History of Present Illness Initial Comments: This is a 79-year-old male to the ER for evaluation today. Patient presents today for evaluation regards to abnormal outpatient lab testing low hemoglobin. Patient does have significant ascites and cirrhosis and was sent to the ER after paracentesis for evaluation of low hemoglobin MD Complaint: abnormal lab (Low hemoglobin) -: unknown Returns Today for: Called Because of Abnormal Lab/Test Symptoms Since Prior Visit: no new symptoms Context: called for abnormal lab result Associated Symptoms: none - Related Data Home Medications Medication Instructions Recorded Confirmed Ergocalciferol [Vitamin D2 (1250 1,250 mcg PO WEEKLY 12/05/22 10/13/24 Mcg = [id number] Iu)] Furosemide [Lasix] 40 mg PO DAILY 12/05/22 10/13/24 Rivaroxaban [Xarelto] 20 mg PO HS 12/05/22 10/13/24 Cyanocobalamin [Vitamin B-12] 1,000 mcg PO DAILY 12/17/22 10/13/24 Mv-Min/Folic/K1/Lycopen/Lutein 1 tablet PO DAILY 12/17/22 10/13/24 [Centrum Silver Men Tablet] Zinc Gluconate [Zinc] 50 mg PO DAILY 12/17/22 10/13/24 Magnesium Oxide [Magnesium] 500 mg PO DAILY 01/19/23 10/13/24 Turmeric Root Extract [Turmeric] 500 mg PO DAILY 07/14/23 10/13/24 Metoprolol Succinate (ER) [Toprol 25 mg PO BID 10/30/23 10/13/24 XL] HYDROcodone/APAP 10-325MG [[place] 1 tab PO BID@0000,0600 01/21/24 10/13/24 10-325] Morphine Sulfate [Morphine Sulfate 15 mg PO BID@1200,1800 07/21/24 10/13/24 ER] ALPRAZolam [Xanax] 0.5 - 1 mg PO BID PRN 10/06/24 10/13/24 Albuterol Sulfate [Albuterol 1 - 2 puff PO RT-Q4H PRN 10/13/24 10/13/24 Sulfate Hfa] Budesonide [Pulmicort] 0.5 mg INHALATION RT-BID 10/13/24 10/13/24 Fluticasone/Umeclidin/Vilanter 1 puff INHALATION RT-DAILY 10/13/24 10/13/24 [Trelegy Ellipta 100-62.5-25] Ipratropium-Albuterol Nebulize 3 ml INHALATION RT-TID 10/13/24 10/13/24 [Duoneb 0.5 mg-3 mg/3 ml Soln] Previous Rx's Medication Instructions Recorded Doxycycline [Vibramycin] 100 mg PO BID 7 Days #14 capsule 10/19/24 Allergies Allergy/AdvReac Type Severity Reaction Status Date / Time cephalexin [From Keflex] Allergy Rash/Hives Verified 10/13/24 16:45 Iodinated Contrast Media Allergy Vomiting Verified 10/13/24 16:45 Review of Systems ROS Statement: Those systems with pertinent positive or pertinent negative responses have been documented in the HPI. ROS Other: All systems not noted in ROS Statement are negative. Past Medical History Past Medical History: Atrial Fibrillation, Liver Disease, Pneumonia Additional Past Medical History / Comment(s): morbid obese, exposed to agent orange, ascites, back pain, large volume pracentesis weekly History of Any Multi-Drug Resistant Organisms: None Reported Past Surgical History: Hernia Repair Additional Past Surgical History / Comment(s): multi large volume paracentesis, hernia, scrotal surgery, eye implants, liver biopsy, rt shoulder injection for pain Past Anesthesia/Blood Transfusion Reactions: No Reported Reaction Past Psychological History: Anxiety, Panic Disorder, PTSD Smoking Status: Current every day smoker Past Alcohol Use History: None Reported Past Drug Use History: Marijuana - Past Family History Father Family Medical History: Myocardial Infarction (NC) General Exam Limitations: no limitations General appearance: alert, in no apparent distress Head exam: Present: atraumatic, normocephalic, normal inspection Eye exam: Present: normal appearance, PERRL, EOMI. Absent: scleral icterus, conjunctival injection, periorbital swelling ENT exam: Present: normal exam, mucous membranes moist Neck exam: Present: normal inspection. Absent: tenderness, meningismus, lymphadenopathy Respiratory exam: Present: normal lung sounds bilaterally. Absent: respiratory distress, wheezes, rales, rhonchi, stridor Cardiovascular Exam: Present: regular rate, normal rhythm, normal heart sounds. Absent: systolic murmur, diastolic murmur, rubs, gallop, clicks GI/Abdominal exam: Present: soft, normal bowel sounds. Absent: distended, tenderness, guarding, rebound, rigid Extremities exam: Present: normal inspection, full ROM, normal capillary refill. Absent: tenderness, pedal edema, joint swelling, calf tenderness Back exam: Present: normal inspection Neurological exam: Present: alert, oriented X3, CN II-XII intact Psychiatric exam: Present: normal affect, normal mood Skin exam: Present: warm, dry, intact, normal color. Absent: rash Course Vital Signs 10/13/24 10/13/24 10/13/24 14:45 15:13 18:40 Temperature 98.4 F 98.3 F 97.7 F Pulse Rate 113 H 105 H 112 H Pulse Rate [ Pulse Oximetery ] Respiratory 20 16 18 Rate Blood Pressure 88/46 137/68 111/86 Blood Pressure [Right Arm] O2 Sat by Pulse 100 99 97 Oximetry 10/13/24 10/13/24 10/13/24 18:47 19:01 19:21 Temperature 98.1 F 98.0 F 97.6 F Pulse Rate 106 H 101 H 63 Pulse Rate [ Pulse Oximetery ] Respiratory 18 18 18 Rate Blood Pressure 110/49 103/50 117/61 Blood Pressure [Right Arm] O2 Sat by Pulse 98 99 Oximetry 10/13/24 10/13/24 10/14/24 21:01 22:50 00:36 Temperature Pulse Rate 91 99 86 Pulse Rate [ Pulse Oximetery ] Respiratory 16 16 18 Rate Blood Pressure 120/58 114/59 109/61 Blood Pressure [Right Arm] O2 Sat by Pulse 97 98 97 Oximetry 10/14/24 10/14/24 10/14/24 02:22 03:31 06:38 Temperature Pulse Rate 98 92 103 H Pulse Rate [ Pulse Oximetery ] Respiratory 16 18 16 Rate Blood Pressure 107/65 140/67 110/57 Blood Pressure [Right Arm] O2 Sat by Pulse 99 98 96 Oximetry 10/14/24 10/14/24 10/14/24 07:30 11:25 11:43 Temperature Pulse Rate 98 Pulse Rate [ 93 98 Pulse Oximetery ] Respiratory 20 18 18 Rate Blood Pressure 129/82 Blood Pressure 131/64 125/60 [Right Arm] O2 Sat by Pulse 97 95 93 L Oximetry 10/14/24 10/14/24 10/14/24 12:05 13:37 17:28 Temperature Pulse Rate 99 97 Pulse Rate [ 101 H Pulse Oximetery ] Respiratory 18 18 18 Rate Blood Pressure 129/60 120/54 Blood Pressure 126/64 [Right Arm] O2 Sat by Pulse 93 L 97 98 Oximetry - Reevaluation(s) Reevaluation #1: 10/13/24 17:49 Medical records reviewed Reevaluation #2: 10/13/24 17:49 Patient has no change in symptoms will be given transfusion here in the ER Reevaluation #3: 10/13/24 17:50 Patient informed of results and questions answered Reevaluation #4: Was pt. sent in by a medical professional or institution ([facility] Celestin, RESIDENTIAL SUBCONTRACTOR, urgent care, hospital, or correction...) When possible be specific @ -no Did you speak to anyone other than the patient for history (EMS, parent, family, police, friend...)? What history was obtained from this source @ -no Did you review nursing and triage notes (agree or disagree)? Why? @ -agree Are old charts reviewed (outside hosp., previous admission, EMS record, old EKG, old radiological studies, urgent care reports/EKG's, correction records)? Report findings @ -yes Differential Diagnosis (chest pain, altered mental status, abdominal pain women, abdominal pain men, vaginal bleeding, weakness, fever, dyspnea, syncope, headache, dizziness, GI bleed, back pain, seizure, CVA, palpatations, mental health, musculoskeletal)? @ -prior EKG interpreted by me (3pts min.). @ -yes X-rays interpreted by me (1pt min.). @ -no CT interpreted by me (1pt min.). @ -no U/S interpreted by me (1pt. min.). @ -no What testing was considered but not performed or refused? (CT, X-rays, U/S, labs)? Why? @ -none What meds were considered but not given or refused? Why? @ -none Did you discuss the management of the patient with other professionals (professionals i.e. , [facility], RESIDENTIAL SUBCONTRACTOR, lab, RT, psych nurse, social worker aide, target worker, teacher, investigation officer, caseworker protective services)? Give summary @ -no Was smoking cessation discussed for >3mins.? @ -no Was critical care preformed (if so, how long)? @ -no Were there social determinants of health that impacted care today? How? (Homelessness, low income, unemployed, alcoholism, drug addiction, transportation, low edu. Level, literacy, decrease access to med. care, residential, rehab)? @ -none Was there de-escalation of care discussed even if they declined (Discuss DNR or withdrawal of care, Hospice)? DNR status @ -no What co-morbidities impacted this encounter? (DM, HTN, Smoking, COPD, CAD, Cancer, CVA, ARF, Chemo, Hep., AIDS, mental health diagnosis, sleep apnea, morbid obesity)? @ -none Was patient admitted / discharged? Hospital course, mention meds given and route, prescriptions, significant lab abnormalities, going to OR and other pertinent info. @ - 79 male to ER with likely acute GI bleed causing anemia. Patient will admit for transfusion and evaluation Admit Undiagnosed new problem with uncertain prognosis? @ -no Drug Therapy requiring intensive monitoring for toxicity (Heparin, Nitro, Insulin, Cardizem)? @ -no Were any procedures done? @ -no Diagnosis/symptom? @ -GI bleed anemia significant Acute, or Chronic, or Acute on Chronic? @ -Acute Uncomplicated (without systemic symptoms) or Complicated (systemic symptoms)? @ -Complicated Side effects of treatment? @ -no Exacerbation, Progression, or Severe Exacerbation? @ -exacerbation Poses a threat to life or bodily function? How? (Chest pain, [place], NC, pneumonia, PE, COPD, DKA, ARF, appy, cholecystitis, CVA, Diverticulitis, Homicidal, Suicidal, threat to staff... and all critical care pts) @ -yes extremes of age Reevaluation #5: differential GI Bleed: Esophageal varices, aortoenteric fistula, Viridiana-Villatoro, gastritis, peptic ulcer disease, diverticulosis, inflammatory bowel disease, hemorrhoids, fissure, colitis, malignancy, Meckel's diverticulum, this is not meant to be an all- inclusive list. - Consultations Consultation #1: Spoke with [facility] who agrees to admit this patient Medical Decision Making - Medical Decision Making 79 male to ER with likely acute GI bleed causing anemia. Patient will admit for transfusion and evaluation - Lab Data Result diagrams: 10/19/24 06:06 10/19/24 06:06 Lab Results 10/13/24 10/13/24 10/13/24 Range/Units 15:45 15:54 15:57 WBC 7.7 (3.8-10.6) k/uL RBC 3.17 L (4.30-5.90) m/uL Hgb 6.5 L* (13.0-17.5) gm/dL Hct 22.0 L (39.0-53.0) % MCV 69.4 L (80.0-100.0) fL MCH 20.4 L (25.0-35.0) pg MCHC 29.5 L (31.0-37.0) g/dL RDW 16.6 H (11.5-15.5) % Plt Count 233 (150-450) k/uL MPV 6.4 Neutrophils % 85 % Lymphocytes % 5 % Monocytes % 6 % Eosinophils % 2 % Basophils % 0 % Neutrophils # 6.5 (1.3-7.7) k/uL Lymphocytes # 0.4 L (1.0-4.8) k/uL Monocytes # 0.4 (0-1.0) k/uL Eosinophils # 0.2 (0-0.7) k/uL Basophils # 0.0 (0-0.2) k/uL Manual Slide Review Performed Polychromasia Present Hypochromasia Marked Poikilocytosis Slight Anisocytosis Slight Microcytosis Marked Ovalocytes Present Stomatocytes Present PT (10.0-12.5) sec INR (<1.2) APTT (22.0-30.0) sec Sodium (137-145) mmol/L Potassium (3.5-5.1) mmol/L Chloride (98-107) mmol/L Carbon Dioxide (22-30) mmol/L Anion Gap mmol/L BUN (9-20) mg/dL Creatinine (0.66-1.25) mg/dL Est GFR (CKD-EPI)AfAm (>60 ml/min/1.73 sqM) Est GFR (CKD-EPI)NonAf (>60 ml/min/1.73 sqM) Glucose (74-99) mg/dL Plasma Lactic Acid Lisandro (0.7-2.0) mmol/L Calcium (8.4-10.2) mg/dL Phosphorus (2.5-4.5) mg/dL Magnesium (1.6-2.3) mg/dL Total Bilirubin (0.2-1.3) mg/dL AST (17-59) U/L ALT (4-49) U/L Alkaline Phosphatase (38-126) U/L Ammonia (<30) umol/L Troponin I (0.000-0.034) ng/mL NT-Pro-B Natriuret Pep pg/mL Total Protein (6.3-8.2) g/dL Albumin (3.5-5.0) g/dL Serum Alcohol mg/dL Blood Type A Positive Blood Type Confirm A Positive Blood Type Recheck No Previous Record Bld Type Recheck Status CABO Indicated Antibody Screen NEGATIVE Crossmatch See Detail Spec Expiration Date 10/16/2024 - 234410/13/24 10/13/24 10/13/24 Range/Units 15:57 15:57 15:57 WBC (3.8-10.6) k/uL RBC (4.30-5.90) m/uL Hgb (13.0-17.5) gm/dL Hct (39.0-53.0) % MCV (80.0-100.0) fL MCH (25.0-35.0) pg MCHC (31.0-37.0) g/dL RDW (11.5-15.5) % Plt Count (150-450) k/uL MPV Neutrophils % % Lymphocytes % % Monocytes % % Eosinophils % % Basophils % % Neutrophils # (1.3-7.7) k/uL Lymphocytes # (1.0-4.8) k/uL Monocytes # (0-1.0) k/uL Eosinophils # (0-0.7) k/uL Basophils # (0-0.2) k/uL Manual Slide Review Polychromasia Hypochromasia Poikilocytosis Anisocytosis Microcytosis Ovalocytes Stomatocytes PT 12.2 (10.0-12.5) sec INR 1.1 (<1.2) APTT 23.3 (22.0-30.0) sec Sodium 125 L (137-145) mmol/L Potassium 5.8 H (3.5-5.1) mmol/L Chloride 97 L (98-107) mmol/L Carbon Dioxide 20 L (22-30) mmol/L Anion Gap 8 mmol/L BUN 45 H (9-20) mg/dL Creatinine 2.12 H (0.66-1.25) mg/dL Est GFR (CKD-EPI)AfAm 34 (>60 ml/min/1.73 sqM) Est GFR (CKD-EPI)NonAf 29 (>60 ml/min/1.73 sqM) Glucose 112 H (74-99) mg/dL Plasma Lactic Acid Lisandro 1.2 (0.7-2.0) mmol/L Calcium 8.7 (8.4-10.2) mg/dL Phosphorus 4.4 (2.5-4.5) mg/dL Magnesium 1.9 (1.6-2.3) mg/dL Total Bilirubin 1.1 (0.2-1.3) mg/dL AST 33 (17-59) U/L ALT 13 (4-49) U/L Alkaline Phosphatase 109 (38-126) U/L Ammonia 24 (<30) umol/L Troponin I (0.000-0.034) ng/mL NT-Pro-B Natriuret Pep 828 pg/mL Total Protein 6.1 L (6.3-8.2) g/dL Albumin 3.2 L (3.5-5.0) g/dL Serum Alcohol <10 mg/dL Blood Type Blood Type Confirm Blood Type Recheck Bld Type Recheck Status Antibody Screen Crossmatch Spec Expiration Date 10/13/24 Range/Units 15:57 WBC (3.8-10.6) k/uL RBC (4.30-5.90) m/uL Hgb (13.0-17.5) gm/dL Hct (39.0-53.0) % MCV (80.0-100.0) fL MCH (25.0-35.0) pg MCHC (31.0-37.0) g/dL RDW (11.5-15.5) % Plt Count (150-450) k/uL MPV Neutrophils % % Lymphocytes % % Monocytes % % Eosinophils % % Basophils % % Neutrophils # (1.3-7.7) k/uL Lymphocytes # (1.0-4.8) k/uL Monocytes # (0-1.0) k/uL Eosinophils # (0-0.7) k/uL Basophils # (0-0.2) k/uL Manual Slide Review Polychromasia Hypochromasia Poikilocytosis Anisocytosis Microcytosis Ovalocytes Stomatocytes PT (10.0-12.5) sec INR (<1.2) APTT (22.0-30.0) sec Sodium (137-145) mmol/L Potassium (3.5-5.1) mmol/L Chloride (98-107) mmol/L Carbon Dioxide (22-30) mmol/L Anion Gap mmol/L BUN (9-20) mg/dL Creatinine (0.66-1.25) mg/dL Est GFR (CKD-EPI)AfAm (>60 ml/min/1.73 sqM) Est GFR (CKD-EPI)NonAf (>60 ml/min/1.73 sqM) Glucose (74-99) mg/dL Plasma Lactic Acid Lisandro (0.7-2.0) mmol/L Calcium (8.4-10.2) mg/dL Phosphorus (2.5-4.5) mg/dL Magnesium (1.6-2.3) mg/dL Total Bilirubin (0.2-1.3) mg/dL AST (17-59) U/L ALT (4-49) U/L Alkaline Phosphatase (38-126) U/L Ammonia (<30) umol/L Troponin I <0.012 (0.000-0.034) ng/mL NT-Pro-B Natriuret Pep pg/mL Total Protein (6.3-8.2) g/dL Albumin (3.5-5.0) g/dL Serum Alcohol mg/dL Blood Type Blood Type Confirm Blood Type Recheck Bld Type Recheck Status Antibody Screen Crossmatch Spec Expiration Date - EKG Data -: EKG Interpreted by Me (EKG is A-fib 97 QRS 89 QTc 364) Disposition Clinical Impression: Ascites, Hyponatremia, Weakness, Anemia Disposition: ADMITTED IP TO THIS [facility] Condition: Serious Is patient prescribed a controlled substance at d/c from ED?: No Time of Disposition: 17:00
[2024-10-13] MEDS: SODIUM CHLORIDE 0.9% 1,000 ML IV STA (16:07)
[2024-10-13 16:09] LABS: Anisocytosis Slight; Basophils % (A) 0 %; Eosinophils # (A) 0.2 k/uL (0-0.7); Eosinophils % (A) 2 %; Hypochromasia Marked; Lymphocytes # (A) 0.4 k/uL (1.0-4.8); Lymphocytes % (A) 5 %; MCH 20.4 pg (25.0-35.0); MCHC 29.5 g/dL (31.0-37.0); MCV 69.4 fL (80.0-100.0); Mean Platelet Volume 6.4; Microcytosis Marked; Monocytes # (A) 0.4 k/uL (0-1.0); Monocytes % (A) 6 %; Neutrophils # (A) 6.5 k/uL (1.3-7.7); Neutrophils % (A) 85 %; Platelet Count 233 k/uL (150-450); Poikilocytosis Slight; RBC 3.17 m/uL (4.30-5.90); RDW 16.6 % (11.5-15.5); WBC 7.7 k/uL (3.8-10.6)
[2024-10-13 16:17] LABS: HGB 6.5 gm/dL (13.0-17.5); INR 1.1 (<1.2); Partial Thromboplastin Time 23.3 sec (22.0-30.0); Prothrombin Time 12.2 sec (10.0-12.5)
[2024-10-13 16:42] LABS: Lactic Acid, Venous 1.2 mmol/L (0.7-2.0)
[2024-10-13 16:45] LABS: ALT 13 U/L (4-49); AST 33 U/L (17-59); African American GFR (CKD) 34 (>60 ml/min/1.73 sqM); Albumin 3.2 g/dL (3.5-5.0); Alcohol <10 mg/dL; Alkaline Phosphatase 109 U/L (38-126); Anion Gap 8 mmol/L; Blood Urea Nitrogen 45 mg/dL (9-20); Calcium 8.7 mg/dL (8.4-10.2); Carbon Dioxide 20 mmol/L (22-30); Chloride 97 mmol/L (98-107); Glucose 112 mg/dL (74-99); Magnesium 1.9 mg/dL (1.6-2.3); Non-African American GFR(CKD) 29 (>60 ml/min/1.73 sqM); Phosphorus 4.4 mg/dL (2.5-4.5); Potassium 5.8 mmol/L (3.5-5.1); Sodium 125 mmol/L (137-145); Total Bilirubin 1.1 mg/dL (0.2-1.3); Total Protein 6.1 g/dL (6.3-8.2)
[2024-10-13 16:52] LABS: NT-Pro-B-Type Natriuretic Pept 828 pg/mL
[2024-10-13 17:07] LABS: Polychromasia Present
[2024-10-13] MEDS ORDERED: NALOXONE 0.4 MG/ML 1 ML VIAL IV PRN (17:09)
[2024-10-13] MEDS ORDERED: ONDANSETRON 4 MG/2 ML VIAL IVP PRN (17:09)
[2024-10-13 17:13] LABS: Stomatocytes Present
[2024-10-13 17:14] LABS: Ovalocytes Present
[2024-10-13] MEDS: SODIUM CHLORIDE 0.9% 1,000 ML IV SCH (17:25)
[2024-10-13] MEDS: LORazepam 1 MG TAB PO STA (19:45)
[2024-10-14 07:49] LABS: ALT 12 U/L (4-49); AST 28 U/L (17-59); African American GFR (CKD) 33 (>60 ml/min/1.73 sqM); Albumin 3.3 g/dL (3.5-5.0); Alkaline Phosphatase 102 U/L (38-126); Anion Gap 6 mmol/L; Blood Urea Nitrogen 43 mg/dL (9-20); Calcium 8.8 mg/dL (8.4-10.2); Carbon Dioxide 23 mmol/L (22-30); Chloride 96 mmol/L (98-107); Glucose 94 mg/dL (74-99); Non-African American GFR(CKD) 29 (>60 ml/min/1.73 sqM); Phosphorus 4.5 mg/dL (2.5-4.5); Potassium 5.7 mmol/L (3.5-5.1); Sodium 125 mmol/L (137-145); Total Bilirubin 1.6 mg/dL (0.2-1.3); Total Protein 6.2 g/dL (6.3-8.2)
[2024-10-14 08:16] LABS: Anisocytosis Slight; Basophils % (A) 0 %; Eosinophils # (A) 0.4 k/uL (0-0.7); Eosinophils % (A) 5 %; HCT 24.4 % (39.0-53.0); HGB 7.3 gm/dL (13.0-17.5); Hypochromasia Marked; Lymphocytes # (A) 0.6 k/uL (1.0-4.8); Lymphocytes % (A) 9 %; MCH 21.2 pg (25.0-35.0); MCV 70.6 fL (80.0-100.0); Mean Platelet Volume 7.7; Microcytosis Marked; Monocytes # (A) 0.5 k/uL (0-1.0); Monocytes % (A) 7 %; Neutrophils # (A) 5.5 k/uL (1.3-7.7); Neutrophils % (A) 76 %; Platelet Count 229 k/uL (150-450); Poikilocytosis Moderate; RBC 3.46 m/uL (4.30-5.90); RDW 17.4 % (11.5-15.5); WBC 7.2 k/uL (3.8-10.6)
[2024-10-14] MEDS: PANTOPRAZOLE 40 MG/10 ML VIAL IV SCH (08:51)
--- NOTE | 2024-10-14 10:25 | P.CONS ---
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 Patient also has history of atrial fibrillation on Xarelto last taken 2 to 3 days ago, and morbid obesity. Yesterday he presented for his scheduled out patient paracentesis which he usually gets every 2 weeks and he was noted to have a hemoglobin of 6.5. He was told to come to the emergency department. He is maintained on Aldactone 100 mg daily and Lasix 40 mg daily. States he missed those for 2 to 3 days duration as well and has increased lower extremity swelling. He did have an ultrasound of the abdomen yesterday as an outpatient and did show moderate ascites. He denies any blood in his stool or black stool. He received 1 unit of blood with a repeat hemoglobin today of 7.3. He has a microcytic anemia with elevated BUN and creatinine. Gastroenterology was consulted for anemia. Review of Systems REVIEW OF SYSTEMS: CARDIOPULMONARY: No chest pain or shortness of breath. Gastrointestinal: No abdominal pain. Positive abdominal distention, gets paracentesis every 2 weeks. No nausea or vomiting. No hematemesis, coffee- ground emesis. No rectal bleeding, or melena. GENITOURINARY: No dysuria or hematuria. MUSCULOSKELETAL: Reports normal range of motion. SKIN: No rashes. No jaundice. Lower extremity swelling. ENDOCRINE: No chills, fevers. No excessive weight gain or loss. No polydipsia or polyuria. PSYCHIATRIC: Unremarkable. NEUROLOGY: No change in mental status. Denies dizziness, headache. ENT: Vision unremarkable. CONSTITUTIONAL: No recent weight loss. No fever, chills, night sweats. Past Medical History Past Medical History: Atrial Fibrillation, Liver Disease, Pneumonia Additional Past Medical History / Comment(s): morbid obese, exposed to agent orange, ascites, back pain, large volume pracentesis weekly History of Any Multi-Drug Resistant Organisms: None Reported Past Surgical History: Hernia Repair Additional Past Surgical History / Comment(s): multi large volume paracentesis, hernia, scrotal surgery, eye implants, liver biopsy, rt shoulder injection for pain Past Anesthesia/Blood Transfusion Reactions: No Reported Reaction Past Psychological History: Anxiety, Panic Disorder, PTSD Smoking Status: Current every day smoker Past Alcohol Use History: None Reported Past Drug Use History: Marijuana - Past Family History Father Family Medical History: Myocardial Infarction ([place]) Medications and Allergies Home Medications Medication Instructions Recorded Confirmed Type Ergocalciferol [Vitamin D2 (1250 1,250 mcg PO WEEKLY 12/05/22 10/13/24 History Mcg = 00407 Iu)] Furosemide [Lasix] 40 mg PO DAILY 12/05/22 10/13/24 History Rivaroxaban [Xarelto] 20 mg PO HS 12/05/22 10/13/24 History Spironolactone [Aldactone] 100 mg PO DAILY 12/05/22 10/13/24 History Cyanocobalamin [Vitamin B-12] 1,000 mcg PO DAILY 12/17/22 10/13/24 History Mv-Min/Folic/K1/Lycopen/Lutein 1 tablet PO DAILY 12/17/22 10/13/24 History [Centrum Silver Men Tablet] Zinc Gluconate [Zinc] 50 mg PO DAILY 12/17/22 10/13/24 History Magnesium Oxide [Magnesium] 500 mg PO DAILY 01/19/23 10/13/24 History Turmeric Root Extract [Turmeric] 500 mg PO DAILY 07/14/23 10/13/24 History Metoprolol Succinate (ER) [Toprol 25 mg PO BID 10/30/23 10/13/24 History Xl] HYDROcodone/APAP 10-325MG [[place] 1 tab PO BID@0000,0600 01/21/24 10/13/24 History 10-325] Morphine Sulfate [Morphine Sulfate 15 mg PO BID@1200,1800 07/21/24 10/13/24 History ER] ALPRAZolam [Xanax] 0.5 - 1 mg PO BID PRN 10/06/24 10/13/24 History Albuterol Sulfate [Albuterol 1 - 2 puff PO RT-Q4H PRN 10/13/24 10/13/24 History Sulfate Hfa] Budesonide [Pulmicort] 0.5 mg INHALATION RT-BID 10/13/24 10/13/24 History Fluticasone/Umeclidin/Vilanter 1 puff INHALATION RT-DAILY 10/13/24 10/13/24 History [Trelegy Ellipta 100-62.5-25] Ipratropium-Albuterol Nebulize 3 ml INHALATION RT-TID 10/13/24 10/13/24 History [Duoneb 0.5 mg-3 mg/3 ml Soln] Allergies Allergy/AdvReac Type Severity Reaction Status Date / Time cephalexin [From Keflex] Allergy Rash/Hives Verified 10/13/24 16:45 Iodinated Contrast Media Allergy Vomiting Verified 10/13/24 16:45 Physical Exam Vitals: Vital Signs Temp Pulse Resp BP Pulse Ox 10/14/24 07:30 98 20 129/82 97 10/14/24 06:38 103 H 16 110/57 96 10/14/24 03:31 92 18 140/67 98 10/14/24 02:22 98 16 107/65 99 10/14/24 00:36 86 18 109/61 97 10/13/24 22:50 99 16 114/59 98 10/13/24 21:01 91 16 120/58 97 10/13/24 19:21 97.6 F 63 18 117/61 10/13/24 19:01 98.0 F 101 H 18 103/50 99 10/13/24 18:47 98.1 F 106 H 18 110/49 98 10/13/24 18:40 97.7 F 112 H 18 111/86 97 10/13/24 15:13 98.3 F 105 H 16 137/68 99 10/13/24 14:45 98.4 F 113 H 20 88/46 100 Intake and Output 10/13/24 10/14/24 10/14/24 22:59 06:59 14:59 Intake Total 290 Balance 290 Intake: Blood Product 290 Rc As-1 Unit 290 [id number] General appearance: The patient is alert, oriented, appears in no acute distress. HET: Head is normocephalic and atraumatic. Conjunctiva pink. Sclera anicteric. Neck: Supple without lymphadenopathy. Trachea midline. Heart: Regular. Lungs: Equal expansion, normal respiratory effort. Abdomen: Soft, nontender, nondistended.. Morbidly obese. Skin: No rashes. No jaundice. Extremities: Normal skin color and turgor. Lower extremity edema. Neurological: No focal deficits. Alert and oriented x3. Results CBC & Chem 7: 10/14/24 07:00 10/14/24 07:00 Labs: Abnormal Lab Results - Last 24 Hours (Table) 10/13/24 10/13/24 10/13/24 Range/Units 15:45 15:57 15:57 RBC 3.17 L (4.30-5.90) m/uL Hgb 6.5 L* (13.0-17.5) gm/dL Hct 22.0 L (39.0-53.0) % MCV 69.4 L (80.0-100.0) fL MCH 20.4 L (25.0-35.0) pg MCHC 29.5 L (31.0-37.0) g/dL RDW 16.6 H (11.5-15.5) % Lymphocytes # 0.4 L (1.0-4.8) k/uL Sodium 125 L (137-145) mmol/L Potassium 5.8 H (3.5-5.1) mmol/L Chloride 97 L (98-107) mmol/L Carbon Dioxide 20 L (22-30) mmol/L BUN 45 H (9-20) mg/dL Creatinine 2.12 H (0.66-1.25) mg/dL Glucose 112 H (74-99) mg/dL Total Bilirubin (0.2-1.3) mg/dL Total Protein 6.1 L (6.3-8.2) g/dL Albumin 3.2 L (3.5-5.0) g/dL Crossmatch See Detail 10/14/24 Range/Units 07:00 RBC (4.30-5.90) m/uL Hgb (13.0-17.5) gm/dL Hct (39.0-53.0) % MCV (80.0-100.0) fL MCH (25.0-35.0) pg MCHC (31.0-37.0) g/dL RDW (11.5-15.5) % Lymphocytes # (1.0-4.8) k/uL Sodium 125 L (137-145) mmol/L Potassium 5.7 H (3.5-5.1) mmol/L Chloride 96 L (98-107) mmol/L Carbon Dioxide (22-30) mmol/L BUN 43 H (9-20) mg/dL Creatinine 2.13 H (0.66-1.25) mg/dL Glucose (74-99) mg/dL Total Bilirubin 1.6 H (0.2-1.3) mg/dL Total Protein 6.2 L (6.3-8.2) g/dL Albumin 3.3 L (3.5-5.0) g/dL Crossmatch Assessment and Plan (1) Microcytic anemia Narrative/Plan: 79-year-old male known to gastroenterology diagnosed with 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 Presented for his paracentesis and was found to be anemic. Patient is on Xarelto for atrial fibrillation although he has not taken any of his meds for last 2-3's days duration because he was not feeling well. No history of prior GI bleed. It has been discussed in the office that we recommend upper and lower endoscopy however patient has declined. Recommend at this time to proceed with both upper and lower endoscopy for evaluation of anemia. Possible etiologies include gastritis, esophagitis, peptic ulcer disease, esophageal varices, AVM or other possible etiologies. Patient is hesitant but tentatively agrees at this time. Hold anticoagulation. Current Visit: Yes Status: Acute Code(s): D50.9 - IRON DEFICIENCY ANEMIA, UNSPECIFIED SNOMED Code(s): 450800750 (2) Cirrhosis of liver with ascites Current Visit: Yes Status: Acute Code(s): K74.60 - UNSPECIFIED CIRRHOSIS OF LIVER; R18.8 - OTHER ASCITES SNOMED Code(s): 82931496 (3) Atrial fibrillation Current Visit: Yes Status: Acute Code(s): I48.91 - UNSPECIFIED ATRIAL FIBRILLATION SNOMED Code(s): 25890096 Plan: 1. Continue symptomatic and supportive care 2. Continue diuretics as ordered 3. Hold anticoagulation 4. Protonix 40 mg daily for GI prophylaxis 5. Patient may have clear liquid diet, n.p.o. after midnight 6. Will plan for EGD and colonoscopy tomorrow. Procedure discussed with patient including risks and benefits. Patient is agreeable to proceed. Further recommendations to follow. 7. Rest of medical management per primary medical team Thank you for allowing us to participate in the care of the patient, the GI service will sign off, gastroenterology will not be available at the hospital this weekend and through next week. If further evaluation by gastroenterology is required the patient will need transfer as per the primary team's discretion. Dr. Nava Mancuso I agree with the dictator's note, documented as a scribe by Clarissa Frye.
--- NOTE | 2024-10-14 12:25 | US ---
EXAMINATION TYPE: US paracentesis abd w/image DATE OF EXAM: 10/14/2024 11:35 AM COMPARISON: prior paracentesis. CLINICAL INDICATION:Male, 79 years old with history of see IR consult for ordering information; , asc ites ATTENDING: Dr. Dante Sharma PROCEDURE: Informed consent was obtained. The risks of the procedure were extensively explained incl uding risk of damage to surrounding bowel with perforation and need for additional procedures. Proced ure was performed in the ultrasound procedure suite. Ultrasound imaging of the abdomen demonstrate as citic fluid. An appropriate access site was localized to the right lower abdomen. Timeout was taken p er protocol. The skin was prepped and draped in the usual sterile fashion and then locally anesthetiz ed with 1% lidocaine. The peritoneal cavity was then accessed via a 5-[place] one-step needle/cathete r. Approximately 4300 mL of clear straw-colored fluid was obtained. Postprocedural imaging of the a bdomen demonstrate a minimal amount of abdominal fluid. Patient tolerated procedure well without immediate complication. Hemostasis at the procedural site w as obtained with a sterile bandage placed. The patient was monitored in the holding area following th e procedure. IMPRESSION: Ultrasound guided paracentesis, with approximately 4300 mL of clear straw-colored fluid drained. No immediate complications were evident. [facility], , 10/14/2024 12:22 PM
[2024-10-14] MEDS ORDERED: ALBUTEROL NEBULIZED 2.5 MG/3 ML INHALATION PRN (12:38)
[2024-10-14] MEDS: ALBUMIN HUMAN 25% 50 ML in EMPTY BAG 1 BAG IVPB SCH (13:32)
--- NOTE | 2024-10-14 13:58 | P.HPIM ---
History of Present Illness H&P Date: 10/14/24 Chief Complaint: abnormal labs Patient is a 79 year old male with PMH of ascites, cirrhosis with weekly paracentesis presented to the ED after he was sent here for abnormal labs. He was at his weekly paracentesis session yesterday when his hemoglobin was found to be low. The patient denies any hematochezia, melena, hemoptysis, hematemesis, hematuria. He mentions getting bruises on his extremities that he attributes to liver cirrhosis. Patient mentions of an infection in his groin that started with a couple boils and had to get a surgery, after which he had been recommended plastic surgery but he has not been agreeable to that. He reports intermittently bleeding from his groin and having to use a pad. He reports having shortness of breath while getting up to go to the restroom. Associated with that he has a cough with greenish-yellow sputum production recently. He also complains of edema of bilateral lower extremities with clear discharge for which he was started on furosemide outpatient. He states having palpitations that he attributes to his atrial fibrillation. Denies fever, chest pain, abdominal pain, nausea, vomiting, dysuria. ED documentation reviewed. In the ED patient was treated with lorazepam and 0.9 normal saline as well as 1 unit blood transfusion. Vitals on admission T 98.4 F, [place] 113 bpm, RR 20, BP 88/46, O2 sat 100% on room air EKG independently interpreted as atrial fibrillation with rate 97 bpm, QTc 364 ms Ultrasound shows Labs on admission show hemoglobin 7.3, hematocrit 24.4, MCV 70.6, RDW 17.4, marked hypochromasia, moderate poikilocytosis, slight anisocytosis, mild microcytosis, sodium 125, potassium 5.8, bicarb 20, BUN 45, creatinine 2.12, PT 12.2, INR 1.1, APTT 23.3 Ammonia 24, troponin I <0.012, proBNP 828, serum alcohol < 10 Review of systems: Pertinent positives and negatives as discussed in HPI, a complete review of systems was performed and all other systems are negative. PMH: Ascites, cirrhosis, atrial fibrillation on anticoagulation, PTSD, CKD stage III PSH: Hernia repair Social history: Tobacco: Current smoker, pack a day for 60 years Alcohol: Quit drinking, used in the past Recreational drugs: Denies use Travel: No recent travel history Sick contacts: None Physical examination: Vital signs reviewed General: nontoxic, no distress, appears at stated age Derm: warm, dry, intact Head: atraumatic, normocephalic, symmetric Eyes: EOMI, anicteric sclera Mouth: no lip lesion, mucus membranes moist Cardiovascular: S1 S2 reg, no murmur Lungs: CTA bilateral, no rhonchi, no rales, no accessory muscle use Abdominal: soft, non-tender to palpation Extremities: pitting edema of the lower extremities bilaterally with discharge Neuro: Alert, Oriented, Gross neurological examination did not reveal any focal deficits. Psych: well appearing, appropriate affect Assessment/Plan: Patient is a 79-year-old male with past medical history of ascites, cirrhosis with weekly paracentesis presented to the ED with anemia that was found when he was at his weekly paracentesis session. He has been admitted for further workup of the same. Active: #. Microcytic anemia Hemoglobin 6.5, MCV 69.4 Received 1 unit PRBC in the ED Iron profile ordered Continue [facility] for bowel prep for bowel cleanse Xarelto held EGD and colonoscopy tomorrow per GI #. Hypervolemic Hyponatremia Na 125 IV lasix 40 mg Q12HR #. Cellulitis of groin Consult ID #. Nausea and vomiting Continue Ondansetron 4 mg IVP Q8HR PRN #. Pain management Continue Dilaudid 1 mg IVP Q3HR PRN Chronic: #. Cirrhosis of the liver with ascites Paracentesis ultrasound done Paracentesis today, 4300 ml removed Albumin 50 ml IVPB Q1H 2 bags ordered #. Atrial fibrillation on anticoagulation Continue home med Metoprolol 25 mg pO BID Xarelto held for procedure tomorrow #. Chronic obstructive pulmonary disease Continue home inhalers albuterol 2.5 mg Q4H PRN, Symbicort 2 puff BID, Duoneb 3 ml TID F: 0.9 normal saline 20 mL/h E: N: Clear liquid diet A: Ambulatory DVT prophylaxis: Xarelto 20 mg PO HS GI prophylaxis: Pantoprazole 40 mg IV Daily The patient is admitted with an anticipated more than 2 midnight stay for evaluation of anemia CODE STATUS: Full code Discussed with: Patient Anticipated discharge place: Home Past Medical History Past Medical History: Atrial Fibrillation, Liver Disease, Pneumonia Additional Past Medical History / Comment(s): morbid obese, exposed to agent orange, ascites, back pain, large volume pracentesis weekly History of Any Multi-Drug Resistant Organisms: None Reported Past Surgical History: Hernia Repair Additional Past Surgical History / Comment(s): multi large volume paracentesis, hernia, scrotal surgery, eye implants, liver biopsy, rt shoulder injection for pain Past Anesthesia/Blood Transfusion Reactions: No Reported Reaction Past Psychological History: Anxiety, Panic Disorder, PTSD Smoking Status: Current every day smoker Past Alcohol Use History: None Reported Past Drug Use History: Marijuana - Past Family History Father Family Medical History: Myocardial Infarction ([place]) Medications and Allergies Home Medications Medication Instructions Recorded Confirmed Type Ergocalciferol [Vitamin D2 (1250 1,250 mcg PO WEEKLY 12/05/22 10/13/24 History Mcg = 64450 Iu)] Furosemide [Lasix] 40 mg PO DAILY 12/05/22 10/13/24 History Rivaroxaban [Xarelto] 20 mg PO HS 12/05/22 10/13/24 History Spironolactone [Aldactone] 100 mg PO DAILY 12/05/22 10/13/24 History Cyanocobalamin [Vitamin B-12] 1,000 mcg PO DAILY 12/17/22 10/13/24 History Mv-Min/Folic/K1/Lycopen/Lutein 1 tablet PO DAILY 12/17/22 10/13/24 History [Centrum Silver Men Tablet] Zinc Gluconate [Zinc] 50 mg PO DAILY 12/17/22 10/13/24 History Magnesium Oxide [Magnesium] 500 mg PO DAILY 01/19/23 10/13/24 History Turmeric Root Extract [Turmeric] 500 mg PO DAILY 07/14/23 10/13/24 History Metoprolol Succinate (ER) [Toprol 25 mg PO BID 10/30/23 10/13/24 History Xl] HYDROcodone/APAP 10-325MG [[place] 1 tab PO BID@0000,0600 01/21/24 10/13/24 History 10-325] Morphine Sulfate [Morphine Sulfate 15 mg PO BID@1200,1800 07/21/24 10/13/24 History ER] ALPRAZolam [Xanax] 0.5 - 1 mg PO BID PRN 10/06/24 10/13/24 History Albuterol Sulfate [Albuterol 1 - 2 puff PO RT-Q4H PRN 10/13/24 10/13/24 History Sulfate Hfa] Budesonide [Pulmicort] 0.5 mg INHALATION RT-BID 10/13/24 10/13/24 History Fluticasone/Umeclidin/Vilanter 1 puff INHALATION RT-DAILY 10/13/24 10/13/24 History [Trelegy Ellipta 100-62.5-25] Ipratropium-Albuterol Nebulize 3 ml INHALATION RT-TID 10/13/24 10/13/24 History [Duoneb 0.5 mg-3 mg/3 ml Soln] Allergies Allergy/AdvReac Type Severity Reaction Status Date / Time cephalexin [From [email or web address]] Allergy Rash/Hives Verified 10/13/24 16:45 Iodinated Contrast Media Allergy Vomiting Verified 10/13/24 16:45 Physical Exam Vitals: Vital Signs Temp Pulse Resp BP Pulse Ox 10/14/24 07:30 98 20 129/82 97 10/14/24 06:38 103 H 16 110/57 96 10/14/24 03:31 92 18 140/67 98 10/14/24 02:22 98 16 107/65 99 10/14/24 00:36 86 18 109/61 97 10/13/24 22:50 99 16 114/59 98 10/13/24 21:01 91 16 120/58 97 10/13/24 19:21 97.6 F 63 18 117/61 10/13/24 19:01 98.0 F 101 H 18 103/50 99 10/13/24 18:47 98.1 F 106 H 18 110/49 98 10/13/24 18:40 97.7 F 112 H 18 111/86 97 10/13/24 15:13 98.3 F 105 H 16 137/68 99 10/13/24 14:45 98.4 F 113 H 20 88/46 100 Intake and Output 10/13/24 10/14/24 10/14/24 22:59 06:59 14:59 Intake Total 290 Balance 290 Intake: Blood Product 290 Rc As-1 Unit 290 [id number] Results CBC & Chem 7: 10/14/24 07:00 10/14/24 07:00 Labs: Abnormal Lab Results - Last 24 Hours (Table) 1110/13/24 10/13/24 Range/Units 15:45 15:57 15:57 RBC 3.17 L (4.30-5.90) m/uL Hgb 6.5 L* (13.0-17.5) gm/dL Hct 22.0 L (39.0-53.0) % MCV 69.4 L (80.0-100.0) fL MCH 20.4 L (25.0-35.0) pg MCHC 29.5 L (31.0-37.0) g/dL RDW 16.6 H (11.5-15.5) % Lymphocytes # 0.4 L (1.0-4.8) k/uL Sodium 125 L (137-145) mmol/L Potassium 5.8 H (3.5-5.1) mmol/L Chloride 97 L (98-107) mmol/L Carbon Dioxide 20 L (22-30) mmol/L BUN 45 H (9-20) mg/dL Creatinine 2.12 H (0.66-1.25) mg/dL Glucose 112 H (74-99) mg/dL Total Bilirubin (0.2-1.3) mg/dL Total Protein 6.1 L (6.3-8.2) g/dL Albumin 3.2 L (3.5-5.0) g/dL Crossmatch See Detail 10/14/24 10/14/24 Range/Units 07:00 07:00 RBC 3.46 L (4.30-5.90) m/uL Hgb 7.3 L (13.0-17.5) gm/dL Hct 24.4 L (39.0-53.0) % MCV 70.6 L (80.0-100.0) fL MCH 21.2 L (25.0-35.0) pg MCHC 30.0 L (31.0-37.0) g/dL RDW 17.4 H (11.5-15.5) % Lymphocytes # 0.6 L (1.0-4.8) k/uL Sodium 125 L (137-145) mmol/L Potassium 5.7 H (3.5-5.1) mmol/L Chloride 96 L (98-107) mmol/L Carbon Dioxide (22-30) mmol/L BUN 43 H (9-20) mg/dL Creatinine 2.13 H (0.66-1.25) mg/dL Glucose (74-99) mg/dL Total Bilirubin 1.6 H (0.2-1.3) mg/dL Total Protein 6.2 L (6.3-8.2) g/dL Albumin 3.3 L (3.5-5.0) g/dL Crossmatch
[2024-10-14] MEDS: IPRATROPIUM-ALBUTEROL 3 ML NEB INHALATION SCH (16:04)
[2024-10-14] MEDS: PEG 3350 (236 GM/BTL) + LYTES 4,000 ML BOTTLE PO ONE (18:34)
[2024-10-14] MEDS ORDERED: BUDESONIDE 0.5 MG/2 ML NEBU INHALATION SCH (20:00)
[2024-10-14] MEDS: FUROSEMIDE 10 MG/ML 4 ML VIAL IV SCH (20:22)
[2024-10-14] MEDS: METOPROLOL SUCCINATE (ER) 25 MG TAB.ER.24H PO SCH (20:22)
[2024-10-14 20:52] LABS: % Iron Saturation 4.9 (15.00-50.00)
--- NOTE | 2024-10-14 22:24 | P.CONS ---
History of Present Illness - Reason for Consult Consult date: 10/14/24 Left groin cellulitis Requesting physician: Ras Blas - Chief Complaint Weakness and low hemoglobin x 1 day - History of Present Illness Patient is a 79-year-old male with a past medical history significant for atrial fibrillation pneumonia alcoholic cirrhosis of the liver morbid obesity in this patient apparently was scheduled for an outpatient paracentesis patient did have blood work done noticed a hemoglobin of 6.5 for the patient has been sent to the ER for further evaluation patient been complaining of feeling weak and no energy denies having any high-grade fever or any chills no chest pain shortness of breath or cough patient also has been dealing with a wound to the left groin area with the patient has for a couple of weeks to months and apparently has been lanced in the past is complaining of a dull aching pain to the left groin area mild to moderate intensity without any radiation and did have associated swelling and redness to the left lower extremity patient presented to the hospital was afebrile patient did have white count of 7.7 he did have elevated BUN and creatinine with a creatinine 2.13 liver enzymes are normal serum alcohol was less than 10 patient has been admitted to hospital infectious disease was consulted because of the left groin cellulitis and antibiotic therapy he minimized his elevated creatinine and allergy to Keflex Review of Systems Positive point and negatives has been mentioned in the HPI, complete review of systems was performed and all other systems are negative Past Medical History Past Medical History: Atrial Fibrillation, Liver Disease, Pneumonia Additional Past Medical History / Comment(s): morbid obese, exposed to agent orange, ascites, back pain, large volume pracentesis weekly History of Any Multi-Drug Resistant Organisms: None Reported Past Surgical History: Hernia Repair Additional Past Surgical History / Comment(s): multi large volume paracentesis, hernia, scrotal surgery, eye implants, liver biopsy, rt shoulder injection for pain Past Anesthesia/Blood Transfusion Reactions: No Reported Reaction Past Psychological History: Anxiety, Panic Disorder, PTSD Smoking Status: Current every day smoker Past Alcohol Use History: None Reported Past Drug Use History: Marijuana - Past Family History Father Family Medical History: Myocardial Infarction ([place]) Medications and Allergies Home Medications Medication Instructions Recorded Confirmed Type Ergocalciferol [Vitamin D2 (1250 1,250 mcg PO WEEKLY 12/05/22 10/13/24 History Mcg = 70911 Iu)] Furosemide [Lasix] 40 mg PO DAILY 12/05/22 10/13/24 History Rivaroxaban [Xarelto] 20 mg PO HS 12/05/22 10/13/24 History Spironolactone [Aldactone] 100 mg PO DAILY 12/05/22 10/13/24 History Cyanocobalamin [Vitamin B-12] 1,000 mcg PO DAILY 12/17/22 10/13/24 History Mv-Min/Folic/K1/Lycopen/Lutein 1 tablet PO DAILY 12/17/22 10/13/24 History [Centrum Silver Men Tablet] Zinc Gluconate [Zinc] 50 mg PO DAILY 12/17/22 10/13/24 History Magnesium Oxide [Magnesium] 500 mg PO DAILY 01/19/23 10/13/24 History Turmeric Root Extract [Turmeric] 500 mg PO DAILY 07/14/23 10/13/24 History Metoprolol Succinate (ER) [Toprol 25 mg PO BID 10/30/23 10/13/24 History Xl] HYDROcodone/APAP 10-325MG [Moran 1 tab PO BID@0000,0600 01/21/24 10/13/24 History 10-325] Morphine Sulfate [Morphine Sulfate 15 mg PO BID@1200,1800 07/21/24 10/13/24 History ER] ALPRAZolam [Xanax] 0.5 - 1 mg PO BID PRN 10/06/24 10/13/24 History Albuterol Sulfate [Albuterol 1 - 2 puff PO RT-Q4H PRN 10/13/24 10/13/24 History Sulfate Hfa] Budesonide [Pulmicort] 0.5 mg INHALATION RT-BID 10/13/24 10/13/24 History Fluticasone/Umeclidin/Vilanter 1 puff INHALATION RT-DAILY 10/13/24 10/13/24 History [Trelegy Ellipta 100-62.5-25] Ipratropium-Albuterol Nebulize 3 ml INHALATION RT-TID 10/13/24 10/13/24 History [Duoneb 0.5 mg-3 mg/3 ml Soln] Allergies Allergy/AdvReac Type Severity Reaction Status Date / Time cephalexin [From Keflex] Allergy Rash/Hives Verified 10/13/24 16:45 Iodinated Contrast Media Allergy Vomiting Verified 10/13/24 16:45 Physical Exam Vitals: Vital Signs Temp Pulse Pulse Resp BP BP Pulse Ox 10/14/24 13:37 99 18 129/60 97 10/14/24 12:05 101 H 18 126/64 93 L 10/14/24 11:43 98 18 125/60 93 L 10/14/24 11:25 93 18 131/64 95 10/14/24 07:30 98 20 129/82 97 10/14/24 06:38 103 H 16 110/57 96 10/14/24 03:31 92 18 140/67 98 10/14/24 02:22 98 16 107/65 99 10/14/24 00:36 86 18 109/61 97 10/13/24 22:50 99 16 114/59 98 10/13/24 21:01 91 16 120/58 97 10/13/24 19:21 97.6 F 63 18 117/61 10/13/24 19:01 98.0 F 101 H 18 103/50 99 10/13/24 18:47 98.1 F 106 H 18 110/49 98 10/13/24 18:40 97.7 F 112 H 18 111/86 97 10/13/24 15:13 98.3 F 105 H 16 137/68 99 10/13/24 14:45 98.4 F 113 H 20 88/46 100 Intake and Output 10/13/24 10/14/24 10/14/24 22:59 06:59 14:59 Intake Total 290 Balance 290 Intake: Blood Product 290 Rc As-1 Unit 290 [id number] GENERAL DESCRIPTION: Elderly male lying in bed, no distress. No tachypnea or accessory muscle of respiration use. HEENT: Shows Pallor , no scleral icterus. Oral mucous membrane is dry. No pharyngeal erythema or thrush NECK: Trachea central, no thyromegaly. LUNGS: Unlabored breathing. Decreased breath sound the base HEART: S1, S2, regular rate and rhythm. No loud murmur ABDOMEN: Soft, mild distention but no significant tenderness EXTREMITIES: Left groin did have a wound with some slough tissue surrounding swelling and redness SKIN: No rash, no masses palpable. NEUROLOGICAL: The patient is awake, alert, oriented x3, mood and affect normal. Results CBC & Chem 7: 10/14/24 07:00 10/14/24 07:00 Labs: Abnormal Lab Results - Last 24 Hours (Table) 10/13/24 10/13/24 10/13/24 Range/Units 15:45 15:57 15:57 RBC 3.17 L (4.30-5.90) m/uL Hgb 6.5 L* (13.0-17.5) gm/dL Hct 22.0 L (39.0-53.0) % MCV 69.4 L (80.0-100.0) fL MCH 20.4 L (25.0-35.0) pg MCHC 29.5 L (31.0-37.0) g/dL RDW 16.6 H (11.5-15.5) % Lymphocytes # 0.4 L (1.0-4.8) k/uL Sodium 125 L (137-145) mmol/L Potassium 5.8 H (3.5-5.1) mmol/L Chloride 97 L (98-107) mmol/L Carbon Dioxide 20 L (22-30) mmol/L BUN 45 H (9-20) mg/dL Creatinine 2.12 H (0.66-1.25) mg/dL Glucose 112 H (74-99) mg/dL Total Bilirubin (0.2-1.3) mg/dL Total Protein 6.1 L (6.3-8.2) g/dL Albumin 3.2 L (3.5-5.0) g/dL Crossmatch See Detail 10/14/24 10/14/24 Range/Units 07:00 07:00 RBC 3.46 L (4.30-5.90) m/uL Hgb 7.3 L (13.0-17.5) gm/dL Hct 24.4 L (39.0-53.0) % MCV 70.6 L (80.0-100.0) fL MCH 21.2 L (25.0-35.0) pg MCHC 30.0 L (31.0-37.0) g/dL RDW 17.4 H (11.5-15.5) % Lymphocytes # 0.6 L (1.0-4.8) k/uL Sodium 125 L (137-145) mmol/L Potassium 5.7 H (3.5-5.1) mmol/L Chloride 96 L (98-107) mmol/L Carbon Dioxide (22-30) mmol/L BUN 43 H (9-20) mg/dL Creatinine 2.13 H (0.66-1.25) mg/dL Glucose (74-99) mg/dL Total Bilirubin 1.6 H (0.2-1.3) mg/dL Total Protein 6.2 L (6.3-8.2) g/dL Albumin 3.3 L (3.5-5.0) g/dL Crossmatch Assessment and Plan (1) Cellulitis of groin, left Current Visit: Yes Status: Acute Code(s): L03.314 - CELLULITIS OF GROIN SNOMED Code(s): 78495216 (2) Allergy to cephalosporin Current Visit: Yes Status: Acute Code(s): Z88.1 - ALLERGY STATUS TO OTHER ANTIBIOTIC AGENTS SNOMED Code(s): 280817700 Plan: 1patient with a 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 please excuse any grammatical, word or spelling errors. Time with Patient: Greater than 30
[2024-10-14] MEDS ORDERED: DAPTOmycin 350 MG in SODIUM CHLORIDE 0.9% 50 ML IVPB SCH (23:00)
[2024-10-15] MEDS: DAPTOmycin 350 MG in SODIUM CHLORIDE 0.9% 50 ML IVPB SCH (00:48)
[2024-10-15] MEDS ORDERED: PROPOFOL 10 MG/ML 20 ML VIAL IV ONE (06:46)
[2024-10-15] MEDS ORDERED: LIDOCAINE 1% INJ 10MG/ML (20 ML MDV) ONE (06:46)
[2024-10-15] MEDS: SODIUM CHLORIDE 0.9% 500 ML 500 ML IV ONE (07:06)
--- NOTE | 2024-10-15 07:27 | P.PCN ---
Date of Procedure: 10/15/24 Procedure(s) Performed: Brief history: Patient is a pleasant 79-year-old white male scheduled for an elective upper endoscopy as well as colonoscopy as a part of evaluation of severe symptomatic anemia and hemoglobin of 6 g/dL. History of alcoholic liver cirrhosis diagnosed 2 years ago. He has history of A-fib and has been on Xarelto for 2 years. This is on hold. He received 2 years of PRBC transfusion. He denies any active GI bleed. Procedure performed: Esophagogastroduodenoscopy with biopsy Colonoscopy with snare polypectomy Preoperative diagnosis: Severe symptomatic anemia with a hemoglobin of 6 g/dL History of liver cirrhosis. Anesthesia: MAC Procedure: After informed consent was obtained from the patient was brought into the endoscopy unit and IV sedation was administered by anesthesia under continuous monitoring. Initially upper endoscopy was done. The Olympus GF 160 video end oscope was inserted inserted into the mouth and esophagus intubated without any difficulty and was gradually advanced into the stomach and duodenum and carefully examined. The bulb had mild duodenitis and second part of the duodenum appeared normal. Biopsies were done from the duodenum to rule out celiac disease. The scope was then withdrawn into the stomach adequately insufflated with air and upon careful examination the antrum and body, cardia and fundus appeared normal. The scope was then withdrawn into the esophagus. The GE junction was located at 40 cm to the incisors. It appeared regular with no erythema erosions or ulcerations. Rest of the esophagus appeared normal. Patient tolerated the procedure well. At this time the patient continued to remain sedation. Initial digital rectal examination was normal. Olympus CF 160 video colonoscope was then inserted into the rectum and gradually advanced to the cecum without any difficulty. Careful examination was performed as the scope was gradually being withdrawn. The prep was excellent. The cecum, ascending colon, transverse colon, descending colon, sigmoid colon and rectum appeared normal. In the distal rectum there was a 5 mm polyp that was removed by snare polypectomy. Retroflexion was performed in the rectum and small internal s were noted. Patient tolerated the procedure well. Impression: 1. Upper endoscopy revealed mild duodenitis but no evidence of esophagitis, peptic ulcer disease or esophageal varices 2. Colonoscopy revealed 5 mm distal rectal polyp status post snare polypectomy and small internal hemorrhoids Recommendations: Findings of this examination were discussed with the patient as well as his family. He was advised to follow with the biopsy results. Advance diet as tolerated. Start iron supplements twice daily.. If hemoglobin remains stable anticoagulation can be resumed. He can be discharged to home with outpatient follow-up in 2 weeks. Will consider small bowel capsule endoscopy on outpatient basis if he continues to have recurrent anemia.
[2024-10-15] MEDS: SYMBICORT 80-4.5 MCG INHALER INHALATION SCH (08:17)
[2024-10-15] MEDS: FERROUS SULFATE 325 MG TAB PO SCH (08:45)
[2024-10-15] MEDS: HYDROmorphone 1 MG/ML 1 ML SYRINGE IVP PRN (08:54)
[2024-10-15 10:02] LABS: Anisocytosis Slight; HCT 24.9 % (39.0-53.0); HGB 7.3 gm/dL (13.0-17.5); Hypochromasia Marked; MCHC 29.1 g/dL (31.0-37.0); MCV 72.1 fL (80.0-100.0); Mean Platelet Volume 6.7; Microcytosis Moderate; Platelet Count 206 k/uL (150-450); Poikilocytosis Slight; RBC 3.45 m/uL (4.30-5.90); RDW 18.4 % (11.5-15.5); WBC 6.9 k/uL (3.8-10.6)
[2024-10-15 10:18] LABS: African American GFR (CKD) 41 (>60 ml/min/1.73 sqM); Anion Gap 7 mmol/L; Blood Urea Nitrogen 35 mg/dL (9-20); Calcium 8.6 mg/dL (8.4-10.2); Carbon Dioxide 20 mmol/L (22-30); Chloride 100 mmol/L (98-107); Glucose 112 mg/dL (74-99); Non-African American GFR(CKD) 35 (>60 ml/min/1.73 sqM); Potassium 4.2 mmol/L (3.5-5.1); Sodium 127 mmol/L (137-145)
[2024-10-15] MEDS ORDERED: polyethylene glycoL 3350 17 GM POWD.PACK PO PRN (10:41)
[2024-10-15] MEDS: SODIUM FERRIC GLUCONAT-SUCROSE 125 MG in SODIUM CHLORIDE 0.9% 100 ML IVPB SCH (10:43)
--- NOTE | 2024-10-15 10:45 | P.PN ---
Subjective Progress Note Date: 10/15/24 Principal diagnosis: Hospital course: Patient is a 79 year old male with PMH of ascites, cirrhosis with weekly paracentesis presented to the ED after he was sent here for abnormal labs. He was at his weekly paracentesis session yesterday when his hemoglobin was found to be low. The patient denies any hematochezia, melena, hemoptysis, hematemesis, hematuria. He mentions getting bruises on his extremities that he attributes to liver cirrhosis. Patient mentions of an infection in his groin that started with a couple boils and had to get a surgery, after which he had been recommended plastic surgery but he has not been agreeable to that. He rep orts intermittently bleeding from his groin and having to use a pad. He reports having shortness of breath while getting up to go to the restroom. Associated with that he has a cough with greenish-yellow sputum production recently. He also complains of edema of bilateral lower extremities with clear discharge for which he was started on furosemide outpatient. He states having palpitations that he attributes to his atrial fibrillation. Denies fever, chest pain, abdominal pain, nausea, vomiting, dysuria. ED documentation reviewed. In the ED patient was treated with lorazepam and 0.9 normal saline as well as 1 unit blood transfusion. Vitals on admission T 98.4 F, TX 113 bpm, RR 20, BP 88/46, O2 sat 100% on room air EKG independently interpreted as atrial fibrillation with rate 97 bpm, QTc 364 ms Ultrasound shows Labs on admission show hemoglobin 7.3, hematocrit 24.4, MCV 70.6, RDW 17.4, m arked hypochromasia, moderate poikilocytosis, slight anisocytosis, mild microcytosis, sodium 125, potassium 5.8, bicarb 20, BUN 45, creatinine 2.12, PT 12.2, INR 1.1, APTT 23.3 Ammonia 24, troponin I <0.012, proBNP 828, serum alcohol < 10 10/15/24: Patient seen and examined at bedside today. No new complaints today. EGD and colonoscopy performed today. Upper endoscopy revealed mild duodenitis but no evidence of esophagitis, peptic ulcer disease or esophageal varices. C olonoscopy revealed 5 mm distal rectal polyp status post snare polypectomy and small internal hemorrhoids. Labs today show hemoglobin 7.3, hematocrit 24.9, MCV 72.1, RDW 18.4, mild hypochromasia. Sodium today is 127, BUN 35, creatinine 1.80. Iron profile shows iron 24, TIBC 490, percent saturation 4.9, transferrin 348, ferritin 11. Review of systems: Pertinent positives and negatives as discussed in HPI, a complete review of systems was performed and all other systems are negative. Vitals: Signs Reviewed Physical examination: General: nontoxic, no distress, appears at stated age Derm: warm, dry, intact Head: atraumatic, normocephalic, symmetric Eyes: EOMI, anicteric sclera Mouth: no lip lesion, mucus membranes moist Cardiovascular: S1 S2 reg, no murmur Lungs: CTA bilateral, no rhonchi, no rales, no accessory muscle use Abdominal: soft, non-tender to palpation Extremities: pitting edema of the lower extremities bilaterally with discharge Neuro: Alert, Oriented, Gross neurological examination did not reveal any focal deficits. Psych: well appearing, appropriate affect Assessment/Plan: Patient is a 79-year-old male with past medical history of ascites, cirrhosis with weekly paracentesis presented to the ED with anemia that was found when he was at his weekly paracentesis session. He received 1 unit PRBC in the ED. He had EGD and colonoscopy 10/15/24 that showed small internal hemorrhoids and no evidence of esophagitis/PUD/esophageal varices. He has been started on ferrous sulfate and Ferrlecit. He is also started on Daptomycin for cellulitis of the groin. Active: #. Microcytic anemia Hemoglobin 6.5, MCV 69.4 Received 1 unit PRBC in the ED EGD and colonoscopy on 10/15/24 showed small internal hemorrhoids and no evidence of esophagitis/PUD/esophageal varices Iron 24, TIBC 490, % saturation 4.9, Transferrin 348, ferritin 11 Started on Ferrous sulphate 325 mg PO BID Ferrlecit 125 mg IVPB Daily for 3 days added #. Hypervolemic Hyponatremia Na 125 on admission IV lasix 40 mg Q12HR #. Cellulitis of groin Continue Daptomycin 350 mg IVPB Q24H empirically Consult ID #. Nausea and vomiting Continue Ondansetron 4 mg IVP Q8HR PRN #. Pain management Continue home meds [place] and Morphine Contimue Dilaudid 1 mg IVP Q3HR PRN Chronic: #. Cirrhosis of the liver with ascites Paracentesis ultrasound done Paracentesis today, 4300 ml removed Albumin 50 ml IVPB Q1H 2 bags ordered #. Atrial fibrillation on anticoagulation Continue home med Metoprolol 25 mg pO BID Continue home med Xarelto 20 mg PO HS #. Chronic obstructive pulmonary disease Continue home inhalers albuterol 2.5 mg Q4H PRN, Symbicort 2 puff BID, Duoneb 3 ml TID F: 0.9 normal saline 20 mL/h E: Replete as required N: Clear liquid diet A: Ambulatory DVT prophylaxis: Xarelto 20 mg PO HS GI prophylaxis: Pantoprazole 40 mg IV Daily Objective - Vital Signs Vital signs: Vital Signs Temp 97.5 F L 10/15/24 03:10 Pulse 107 H 10/15/24 03:10 Resp 18 10/15/24 03:10 BP 138/59 10/15/24 03:10 Pulse Ox 98 10/15/24 03:10 FiO2 Intake & Output 10/14/24 10/15/24 10/15/24 18:59 06:59 18:59 Intake Total 300 Balance 300 Weight 115.7 kg Intake: IV 300 Other: Voiding Method Toilet Bedside Commode # Voids 3 # Bowel Movements 3 - Labs CBC & Chem 7: 10/15/24 09:42 10/15/24 09:42 Labs: Abnormal Lab Results - Last 24 Hours (Table) 10/14/24 10/14/24 10/14/24 Range/Units 07:00 07:00 12:58 RBC 3.46 L (4.30-5.90) m/uL Hgb 7.3 L (13.0-17.5) gm/dL Hct 24.4 L (39.0-53.0) % MCV 70.6 L (80.0-100.0) fL MCH 21.2 L (25.0-35.0) pg MCHC 30.0 L (31.0-37.0) g/dL RDW 17.4 H (11.5-15.5) % Lymphocytes # 0.6 L (1.0-4.8) k/uL Sodium 125 L (137-145) mmol/L Potassium 5.7 H (3.5-5.1) mmol/L Chloride 96 L (98-107) mmol/L BUN 43 H (9-20) mg/dL Creatinine 2.13 H (0.66-1.25) mg/dL Iron 24 L (65-175) UG/DL TIBC 490 H (228-460) UG/DL % Saturation 4.90 L (15.00-50.00) Ferritin 11.0 L (22.0-322.0) ng/mL Total Bilirubin 1.6 H (0.2-1.3) mg/dL Total Protein 6.2 L (6.3-8.2) g/dL Albumin 3.3 L (3.5-5.0) g/dL
[2024-10-15] MEDS: MORPHINE SULFATE ER 15 MG TABLET PO SCH (11:43)
[2024-10-15] MEDS: RIVAROXABAN 15 MG TAB PO SCH (20:26)
[2024-10-15] MEDS: HYDROcodone/APAP 10-325MG 1 EACH TAB PO PRN (20:26)
[2024-10-16] MEDS ORDERED: HYDROcodone/APAP 10-325MG 1 EACH TAB PO SCH
[2024-10-16 08:36] LABS: Anisocytosis Slight; HCT 24.7 % (39.0-53.0); HGB 7.3 gm/dL (13.0-17.5); Hypochromasia Marked; MCH 21.3 pg (25.0-35.0); MCHC 29.6 g/dL (31.0-37.0); MCV 71.8 fL (80.0-100.0); Mean Platelet Volume 6.9; Microcytosis Marked; Platelet Count 152 k/uL (150-450); Poikilocytosis Slight; RBC 3.43 m/uL (4.30-5.90); RDW 19.2 % (11.5-15.5)
[2024-10-16 08:48] LABS: African American GFR (CKD) 36 (>60 ml/min/1.73 sqM); Anion Gap 11 mmol/L; Blood Urea Nitrogen 39 mg/dL (9-20); Calcium 8.3 mg/dL (8.4-10.2); Carbon Dioxide 21 mmol/L (22-30); Chloride 93 mmol/L (98-107); Glucose 119 mg/dL (74-99); Non-African American GFR(CKD) 31 (>60 ml/min/1.73 sqM); Potassium 4.3 mmol/L (3.5-5.1); Sodium 125 mmol/L (137-145)
--- NOTE | 2024-10-16 10:48 | P.PN ---
Subjective Progress Note Date: 10/15/24 Principal diagnosis: Reason for follow-up is left groin wound cellulitis Patient is a 79-year-old male with a past medical history significant for atrial fibrillation pneumonia alcoholic cirrhosis of the liver morbid obesity, also dealing with the chronic wound to the left groin area admitted to hospital with anemia ID consulted because of left groin and thigh cellulitis. On today's evaluation that is 10/15/2024,the patient remains to be afebrile, patient is on room air not requiring supplemental oxygen and denies any shortness of breath no chest pain or cough.Patient denies having any nausea or vomiting, no abdominal pain and no diarrhea or any worsening pain to the left groin area. Patient white count 6.8, creatinine is 1.80 Objective - Vital Signs Vital signs: Vital Signs Temp 97.2 F L 10/15/24 11:37 Pulse 85 10/15/24 11:37 Resp 16 10/15/24 11:37 BP 92/50 10/15/24 11:37 Pulse Ox 94 L 10/15/24 11:37 FiO2 Intake & Output 10/14/24 10/15/24 10/15/24 18:59 06:59 18:59 Intake Total 418 Balance 418 Weight 115.7 kg Intake: IV 300 Oral 118 Other: Voiding Method Toilet Toilet Bedside Commode Bedside Commode # Voids 3 2 # Bowel Movements 3 2 - Exam GENERAL DESCRIPTION: An elderly male up in the chair in no distress RESPIRATORY SYSTEM: Unlabored breathing , decreased breath sounds at bases HEART: S1 S2 regular rate and rhythm , ABDOMEN: Soft , no tenderness EXTREMITIES: L groin with some swelling , redness decreased , no drainage - Labs CBC & Chem 7: 10/16/24 08:11 10/16/24 08:11 Labs: Abnormal Lab Results - Last 24 Hours (Table) 10/14/24 10/15/24 10/15/24 Range/Units 12:58 09:42 09:42 RBC 3.45 L (4.30-5.90) m/uL Hgb 7.3 L (13.0-17.5) gm/dL Hct 24.9 L (39.0-53.0) % MCV 72.1 L (80.0-100.0) fL MCH 21.0 L (25.0-35.0) pg MCHC 29.1 L (31.0-37.0) g/dL RDW 18.4 H (11.5-15.5) % Sodium 127 L (137-145) mmol/L Carbon Dioxide 20 L (22-30) mmol/L BUN 35 H (9-20) mg/dL Creatinine 1.80 H (0.66-1.25) mg/dL Glucose 112 H (74-99) mg/dL Iron 24 L (65-175) UG/DL TIBC 490 H (228-460) UG/DL % Saturation 4.90 L (15.00-50.00) Ferritin 11.0 L (22.0-322.0) ng/mL Assessment and Plan (1) Cellulitis of groin, left Current Visit: Yes Status: Acute Code(s): L03.314 - CELLULITIS OF GROIN SNOMED Code(s): 86971389 (2) Allergy to cephalosporin Current Visit: Yes Status: Acute Code(s): Z88.1 - ALLERGY STATUS TO OTHER ANTIBIOTIC AGENTS SNOMED Code(s): 833884500 Plan: 1patient with a 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 please excuse any grammatical, word or spelling errors. Time with Patient: Less than 30
--- NOTE | 2024-10-16 13:44 | P.PN ---
Subjective Progress Note Date: 10/16/24 Patient is evaluated in follow-up in the medical floor. He was hoping to be discharged home today however his sodium is down to 125 BUN of 39 creatinine of 2.01. Hemoglobin remained stable at 7.3. He has been resumed on Xarelto post EGD. No signs of acute bleeding at this time. Patient remains on IV iron on day 2 of 3. He also continues on IV daptomycin for cellulitis of the left groin there is no open or draining wound for culture and we will discontinue the daptomycin for now. Patient will be taken off IV Lasix secondary to decreased blood pressures and hyponatremia. Recommend to VON wrap the lower extremities, as he does have extensive pitting edema. Review of Systems Constitutional: Denied any fatigue denied any fever. Cardio vascular: denied any chest pain, palpitations Gastrointestinal: denied any nausea, vomiting, diarrhea Pulmonary: Denied any shortness of breath cough Neurologic denied any new focal deficits All inpatient medications were reviewed and appropriate changes in these medications as dictated in the interval history and assessment and plan. PHYSICAL EXAMINATION: GENERAL: The patient is alert and oriented x3, not in any acute distress. Well developed, well nourished. Obese. HEENT: Pupils are round and equally reacting to light. EOMI. No scleral icterus. No conjunctival pallor. Normocephalic, atraumatic. No pharyngeal erythema. No thyromegaly. CARDIOVASCULAR: S1 and S2 present. No murmurs, rubs, or gallops. PULMONARY: Chest is clear to auscultation, no wheezing or crackles. ABDOMEN: Soft, nontender, nondistended, normoactive bowel sounds. No palpable organomegaly. MUSCULOSKELETAL: No joint swelling or deformity. EXTREMITIES: No cyanosis, clubbing, or pedal edema. NEUROLOGICAL: Gross neurological examination did not reveal any focal deficits. SKIN: No rashes. +2 pitting lower extremity edema weeping. Assessment and plan Symptomatic anemia, iron deficient status post 1 units of PRBC hemoglobin remains stable at 7.3 EGD colonoscopy revealed small internal hemorrhoids no evidence of esophagitis PUD or radiological varices. Continues on IV for left foot Hypervolemic hyponatremia continued on IV Lasix however his sodium is beginning to decrease if creatinine remains stable we will consult follow-up recommendations and hold off on Lasix at this time. Left groin cellulitis present on admission without sepsis continues on daptomycin IV with ID consultation following closely Nausea vomiting has resolved at this time supportive care with Zofran as needed Cirrhosis of the liver with ascites status post paracentesis with 4.3 L removed patient received albumin Chronic kidney disease stage III baseline creatinine around 1.7 COPD with no acute exacerbations or continue on home inhalers Chronic Atrial fibrillation rate controlled continues on Xarelto metoprolol Anxiety/panic disorder/ PTSD Chronic and ongoing nicotine use Morbid obesity Hx of alcohol abuse GI Prophylaxis Protonix DVT prophylaxis with Xarelto Full code Pending nephrology consultation. Hold off on lasix for now. Repeat blood work tomorrow. Continue IV daptomycin. Von wrap lower extremities bilaterally. Add 1500 CC fluid restriction. Patient hoping for discharge in the next 24 hours. The impression and plan of care has been dictated by Valeria Kulkarni, Nurse Practitioner as directed. Dr. Jes MD I have performed a history and physical examination and medical decision making of this patient, discussed the same with the dictator, and agree with the dictators assessment and plan as written, documented as a scribe. Based on total visit time, I have performed more than 50% of this visit. Objective - Vital Signs Vital signs: Vital Signs Temp 98.1 F 10/16/24 07:33 Pulse 93 10/16/24 13:17 Resp 22 10/16/24 13:17 BP 92/42 10/16/24 11:18 Pulse Ox 96 10/16/24 11:18 FiO2 Intake & Output 10/15/24 10/16/24 10/16/24 18:59 06:59 18:59 Intake Total 776 800 Balance 776 800 Weight 119.5 kg Intake: IV 300 20 Invasive Line 3 20 Oral 476 780 Other: Voiding Method Toilet Toilet Toilet Bedside Commode Urinal Urinal # Voids 2 1 # Bowel Movements 2 1 - Labs CBC & Chem 7: 10/16/24 08:11 10/16/24 08:11 Labs: Abnormal Lab Results - Last 24 Hours (Table) 10/16/24 10/16/24 Range/Units 08:11 08:11 RBC 3.43 L (4.30-5.90) m/uL Hgb 7.3 L (13.0-17.5) gm/dL Hct 24.7 L (39.0-53.0) % MCV 71.8 L (80.0-100.0) fL MCH 21.3 L (25.0-35.0) pg MCHC 29.6 L (31.0-37.0) g/dL RDW 19.2 H (11.5-15.5) % Sodium 125 L (137-145) mmol/L Chloride 93 L (98-107) mmol/L Carbon Dioxide 21 L (22-30) mmol/L BUN 39 H (9-20) mg/dL Creatinine 2.01 H (0.66-1.25) mg/dL Glucose 119 H (74-99) mg/dL Calcium 8.3 L (8.4-10.2) mg/dL Assessment and Plan Time with Patient: Less than 30
[2024-10-16] MEDS: NICOTINE 14MG/24HR PATCH TRANSDERM SCH (15:55)
--- NOTE | 2024-10-16 20:59 | P.PN ---
Subjective Progress Note Date: 10/16/24 Principal diagnosis: Reason for follow-up is left groin wound cellulitis This is a telehealth visit Patient is a 79-year-old male with a past medical history significant for atrial fibrillation pneumonia alcoholic cirrhosis of the liver morbid obesity, also dealing with the chronic wound to the left groin area admitted to hospital with anemia ID consulted because of left groin and thigh cellulitis. On today's evaluation that is 10/16/2024, the patient continues to be afebrile, the patient is on room air and breathing comfortably, the Pt denies having any chest pain or cough, the patient denies having any abdominal pain no vomiting or any diarrhea and denies pain to the left groin thigh area. Patient white count is 4.0, creatinine is 2.01 sodium is 125 Objective - Vital Signs Vital signs: Vital Signs Temp 98.1 F 10/16/24 07:33 Pulse 84 10/16/24 08:38 Resp 20 10/16/24 07:34 BP 92/53 10/16/24 07:33 Pulse Ox 98 10/16/24 08:25 FiO2 Intake & Output 10/15/24 10/16/24 10/16/24 18:59 06:59 18:59 Intake Total 776 790 Balance 776 790 Weight 119.5 kg Intake: IV 300 10 Invasive Line 3 10 Oral 476 780 Other: Voiding Method Toilet Toilet Toilet Bedside Commode Urinal Urinal # Voids 2 1 # Bowel Movements 2 1 - Exam Elderly male up in the bed in no distress No tachypnea or accessory muscle respiration use Unlabored breathing Patient is awake alert oriented x 3 - Labs CBC & Chem 7: 10/16/24 08:11 10/16/24 08:11 Labs: Abnormal Lab Results - Last 24 Hours (Table) 10/16/24 10/16/24 Range/Units 08:11 08:11 RBC 3.43 L (4.30-5.90) m/uL Hgb 7.3 L (13.0-17.5) gm/dL Hct 24.7 L (39.0-53.0) % MCV 71.8 L (80.0-100.0) fL MCH 21.3 L (25.0-35.0) pg MCHC 29.6 L (31.0-37.0) g/dL RDW 19.2 H (11.5-15.5) % Sodium 125 L (137-145) mmol/L Chloride 93 L (98-107) mmol/L Carbon Dioxide 21 L (22-30) mmol/L BUN 39 H (9-20) mg/dL Creatinine 2.01 H (0.66-1.25) mg/dL Glucose 119 H (74-99) mg/dL Calcium 8.3 L (8.4-10.2) mg/dL Assessment and Plan (1) Cellulitis of groin, left Current Visit: Yes Status: Acute Code(s): L03.314 - CELLULITIS OF GROIN SNOMED Code(s): 55310400 (2) Allergy to cephalosporin Current Visit: Yes Status: Acute Code(s): Z88.1 - ALLERGY STATUS TO OTHER ANTIBIOTIC AGENTS SNOMED Code(s): 101824122 Plan: 1patient with a chronic nonhealing wound to the left groin area now with evidence of cellulitis involving the left groin and thigh area likely from gram- positive skin lars 2-patient did have cephalexin allergy therapy limit the number of antibiotics safe to use 3-patient with renal insufficiency and high risk of nephrotoxicity from vancomycin 4patient to continue with daptomycin while inpatient will transition to oral doxycycline on discharge discussed with C[facility] FILLER for admitting team Dictation was produced using [employer] dictation software. please excuse any grammatical, word or spelling errors.
[2024-10-17 07:41] LABS: Anisocytosis Moderate; HCT 25.1 % (39.0-53.0); HGB 7.3 gm/dL (13.0-17.5); Hypochromasia Marked; MCH 21.4 pg (25.0-35.0); MCHC 29.3 g/dL (31.0-37.0); MCV 72.9 fL (80.0-100.0); Mean Platelet Volume 6.8; Microcytosis Moderate; Platelet Count 169 k/uL (150-450); Poikilocytosis Slight; RBC 3.44 m/uL (4.30-5.90); RDW 20.2 % (11.5-15.5)
[2024-10-17 07:53] LABS: African American GFR (CKD) 36 (>60 ml/min/1.73 sqM); Anion Gap 8 mmol/L; Blood Urea Nitrogen 41 mg/dL (9-20); Calcium 8.3 mg/dL (8.4-10.2); Carbon Dioxide 23 mmol/L (22-30); Chloride 93 mmol/L (98-107); Glucose 110 mg/dL (74-99); Non-African American GFR(CKD) 31 (>60 ml/min/1.73 sqM); Potassium 4.5 mmol/L (3.5-5.1); Sodium 124 mmol/L (137-145)
[2024-10-17] MEDS: ALPRAZolam 0.5 MG TAB PO PRN (11:12)
--- NOTE | 2024-10-17 11:13 | P.CONS ---
History of Present Illness - Reason for Consult Consult date: 10/17/24 - Chief Complaint Hyponatremia - History of Present Illness Patient is a 79-year-old male who is has alcoholic liver cirrhosis with weekly paracentesis, atrial fibrillation on Xarelto, CKD stage IIIb, COPD and PTSD was evaluated in the ER on 10/13/2024 for abnormal labs. Patient gets his paracentesis every and he came in on 10/13/2024 for his scheduled session which is when he found to have low hemoglobin level of 6.5. His hemoglobin improved to 7.3 after he received a unit of blood. Nephrology consulted for hyponatremia. Sodium level at admission was 125 which has not improved despite being on IV Lasix 40 mg twice daily. Lasix was discontinued on 10/16/2024. Na level today is 124. Patient continued to be hyponatremic with volume overload status. He has noticed decrease in his urine output since discontinuation of Lasix. His creatinine level is ranging between 1.8 - 2.15. Currently it is 1.98. Patient otherwise denies shortness of breath, abdominal pain, dysuria, hematuria, hematochezia and or melena. However he is concerned about swelling in his legs is continued to be worsened. Past Medical History Past Medical History: Atrial Fibrillation, Liver Disease, Pneumonia Additional Past Medical History / Comment(s): morbid obese, exposed to agent orange, ascites, back pain, large volume pracentesis weekly History of Any Multi-Drug Resistant Organisms: None Reported Past Surgical History: Hernia Repair Additional Past Surgical History / Comment(s): multi large volume paracentesis, hernia, scrotal surgery, eye implants, liver biopsy, rt shoulder injection for pain Past Anesthesia/Blood Transfusion Reactions: No Reported Reaction Past Psychological History: Anxiety, Panic Disorder, PTSD Smoking Status: Current every day smoker Past Alcohol Use History: None Reported Past Drug Use History: Marijuana - Past Family History Father Family Medical History: Myocardial Infarction ([place]) Medications and Allergies Home Medications Medication Instructions Recorded Confirmed Type Ergocalciferol [Vitamin D2 (1250 1,250 mcg PO WEEKLY 12/05/22 10/13/24 History Mcg = 33293 Iu)] Furosemide [Lasix] 40 mg PO DAILY 12/05/22 10/13/24 History Rivaroxaban [Xarelto] 20 mg PO HS 12/05/22 10/13/24 History Spironolactone [Aldactone] 100 mg PO DAILY 12/05/22 10/13/24 History Cyanocobalamin [Vitamin B-12] 1,000 mcg PO DAILY 12/17/22 10/13/24 History Mv-Min/Folic/K1/Lycopen/Lutein 1 tablet PO DAILY 12/17/22 10/13/24 History [Centrum Silver Men Tablet] Zinc Gluconate [Zinc] 50 mg PO DAILY 12/17/22 10/13/24 History Magnesium Oxide [Magnesium] 500 mg PO DAILY 01/19/23 10/13/24 History Turmeric Root Extract [Turmeric] 500 mg PO DAILY 07/14/23 10/13/24 History Metoprolol Succinate (ER) [Toprol 25 mg PO BID 10/30/23 10/13/24 History Xl] HYDROcodone/APAP 10-325MG [[place] 1 tab PO BID@0000,0600 01/21/24 10/13/24 History 10-325] Morphine Sulfate [Morphine Sulfate 15 mg PO BID@1200,1800 07/21/24 10/13/24 History ER] ALPRAZolam [Xanax] 0.5 - 1 mg PO BID PRN 10/06/24 10/13/24 History Albuterol Sulfate [Albuterol 1 - 2 puff PO RT-Q4H PRN 10/13/24 10/13/24 History Sulfate Hfa] Budesonide [Pulmicort] 0.5 mg INHALATION RT-BID 10/13/24 10/13/24 History Fluticasone/Umeclidin/Vilanter 1 puff INHALATION RT-DAILY 10/13/24 10/13/24 History [Trelealison Ellipta 100-62.5-25] Ipratropium-Albuterol Nebulize 3 ml INHALATION RT-TID 10/13/24 10/13/24 History [Duoneb 0.5 mg-3 mg/3 ml Soln] Allergies Allergy/AdvReac Type Severity Reaction Status Date / Time cephalexin [From Keflex] Allergy Rash/Hives Verified 10/13/24 16:45 Iodinated Contrast Media Allergy Vomiting Verified 10/13/24 16:45 Physical Exam Vitals: Vital Signs Temp Pulse Pulse Resp BP Pulse Ox 10/17/24 09:44 80 10/17/24 09:32 74 99 10/17/24 08:00 97.8 F 86 20 94/57 98 10/17/24 03:40 97.8 F 82 14 117/57 98 10/16/24 23:30 90 20 111/68 96 10/16/24 20:58 84 10/16/24 20:49 80 10/16/24 20:35 98.7 F 108 H 18 98/59 96 10/16/24 15:55 82 10/16/24 15:42 84 10/16/24 15:41 97.6 F 87 20 90/53 96 10/16/24 13:17 93 22 10/16/24 11:18 93 22 92/42 96 Intake and Output 10/16/24 10/17/24 10/17/24 22:59 06:59 14:59 Intake Total 130 480 Balance 130 480 Intake: IV 10 Invasive Line 3 10 Oral 120 480 Other: Voiding Method Toilet Toilet Toilet Urinal # Voids 2 1 1 # Bowel Movements 0 Weight 123 kg Gen: In NAD, non-toxic, morbidly obese HEENT: N/C and A/T, PERRLA, EOMI, hearing acuity is intant, mucous membranes moist CVS: perfusing all extremities well, bilateral 3+ pitting edema Respiratory: CTAB, symmetric chest expansion, no accessory muscle use, no wheezing or rales GI: soft, Ascitis, NTTP, ND, BS+ : no suprapubic tenderness, no CVA tenderness MSK/Derm: no rashes, cyanosis Neuro: CN II-XII intact, no motor weakness, Psych: cooperative, euthymic mood, judgment and insight is intact Results CBC & Chem 7: 10/18/24 06:38 10/18/24 06:38 Labs: Abnormal Lab Results - Last 24 Hours (Table) 10/13/24 10/17/24 10/17/24 Range/Units 15:45 06:49 06:49 RBC 3.44 L (4.30-5.90) m/uL Hgb 7.3 L (13.0-17.5) gm/dL Hct 25.1 L (39.0-53.0) % MCV 72.9 L (80.0-100.0) fL MCH 21.4 L (25.0-35.0) pg MCHC 29.3 L (31.0-37.0) g/dL RDW 20.2 H (11.5-15.5) % Sodium 124 L (137-145) mmol/L Chloride 93 L (98-107) mmol/L BUN 41 H (9-20) mg/dL Creatinine 1.98 H (0.66-1.25) mg/dL Glucose 110 H (74-99) mg/dL Calcium 8.3 L (8.4-10.2) mg/dL Crossmatch See Detail Assessment and Plan Assessment: 1. Hypervolemic hyponatremia associated with liver cirrhosis. H/o chronic hyponatremia with sodium around 125-128 previously. 2. Iron deficiency anemia status post 1 unit of packed RBC. Hemoglobin improved from 6.5 to 7.3. Currently stable. 3. Status post EGD and colonoscopy on 10/15/2024. No active bleeding noted. Biopsy result pending. 4. Chronic nonhealing left groin wound cellulitis. ID following. Currently on IV daptomycin 5. Alcoholic liver disease with scheduled paracentesis. Status post paracentesis on 10/14/2024 with 4.3 L fluid drainage 6. COPD, not in exacerbation. 7. PTSD 8. Atrial fibrillation contolled on metoprolol and maintained on Xarelto 9. CKD stage IIIb 10. SHEA secondary to hypotension and paracentesis on 10/14/2024 11. Hyperkalemia on initial admission. Aldactone is discontinued. Plan: Resume IV diuretics Fluid restriction of 1.5 L/day and sodium restriction of less than 2 g/day Repeat Na at 6 PM today Repeat BMP in a.m. tomorrow Monitor electrolytes Avoid nephrotoxic drugs Strict I/0 and daily weight Consider midodrine if bp remains low Chest xray today Chronic hyponatremia noted ranging 128 to 130 between January and May of 2024 Order urine osm, urine na. Patient is seen with the resident. Agree with findings, assessment and plan. Time with Patient: Less than 30
--- NOTE | 2024-10-17 12:16 | P.PN ---
Subjective Progress Note Date: 10/17/24 Principal diagnosis: Hospital course: Patient is a 79 year old male with PMH of ascites, cirrhosis with weekly paracentesis presented to the ED after he was sent here for abnormal labs. He was at his weekly paracentesis session yesterday when his hemoglobin was found to be low. The patient denies any hematochezia, melena, hemoptysis, hematemesis, hematuria. He mentions getting bruises on his extremities that he attributes to liver cirrhosis. Patient mentions of an infection in his groin that started with a couple boils and had to get a surgery, after which he had been recommended plastic surgery but he has not been agreeable to that. He rep orts intermittently bleeding from his groin and having to use a pad. He reports having shortness of breath while getting up to go to the restroom. Associated with that he has a cough with greenish-yellow sputum production recently. He also complains of edema of bilateral lower extremities with clear discharge for which he was started on furosemide outpatient. He states having palpitations that he attributes to his atrial fibrillation. Denies fever, chest pain, abdominal pain, nausea, vomiting, dysuria. ED documentation reviewed. In the ED patient was treated with lorazepam and 0.9 normal saline as well as 1 unit blood transfusion. Vitals on admission T 98.4 F, TX 113 bpm, RR 20, BP 88/46, O2 sat 100% on room air EKG independently interpreted as atrial fibrillation with rate 97 bpm, QTc 364 ms Ultrasound shows Labs on admission show hemoglobin 7.3, hematocrit 24.4, MCV 70.6, RDW 17.4, m arked hypochromasia, moderate poikilocytosis, slight anisocytosis, mild microcytosis, sodium 125, potassium 5.8, bicarb 20, BUN 45, creatinine 2.12, PT 12.2, INR 1.1, APTT 23.3 Ammonia 24, troponin I <0.012, proBNP 828, serum alcohol < 10 10/15/24: Patient seen and examined at bedside today. No new complaints today. EGD and colonoscopy performed today. Upper endoscopy revealed mild duodenitis but no evidence of esophagitis, peptic ulcer disease or esophageal varices. C olonoscopy revealed 5 mm distal rectal polyp status post snare polypectomy and small internal hemorrhoids. Labs today show hemoglobin 7.3, hematocrit 24.9, MCV 72.1, RDW 18.4, mild hypochromasia. Sodium today is 127, BUN 35, creatinine 1.80. Iron profile shows iron 24, TIBC 490, percent saturation 4.9, transferrin 348, ferritin 11. 10/16/24: Patient is evaluated in follow-up in the medical floor. He was hoping to be discharged home today however his sodium is down to 125 BUN of 39 creatinine of 2.01. Hemoglobin remained stable at 7.3. He has been resumed on Xarelto post EGD. No signs of acute bleeding at this time. Patient remains on IV iron on day 2 of 3. He also continues on IV daptomycin for cellulitis of the left groin there is no open or draining wound for culture and we will discontinue the daptomycin for now. Patient will be taken off IV Lasix secondary to decreased blood pressures and hyponatremia. Recommend to ROHAN wrap the lower extremities, as he does have extensive pitting edema. 10/17/24: Patient seen and evaluated today. Patient reports shakiness and feeling anxious today. Labs show hemoglobin 7.3, hematocrit 25.1, RDW 20.2, MCV 72.9, sodium 124, BUN 41, creatinine 1.98. Review of systems: Pertinent positives and negatives as discussed in HPI, a complete review of systems was performed and all other systems are negative. Vitals: Signs Reviewed Physical examination: General: nontoxic, no distress, appears at stated age Derm: warm, dry, intact Head: atraumatic, normocephalic, symmetric Eyes: EOMI, anicteric sclera Mouth: no lip lesion, mucus membranes moist Cardiovascular: S1 S2 reg, no murmur Lungs: CTA bilateral, no rhonchi, no rales, no accessory muscle use Abdominal: soft, non-tender to palpation Extremities: rohan wrap LE b/l, pitting edema of the LE b/l Neuro: Alert, Oriented, Gross neurological examination did not reveal any focal deficits. Psych: well appearing, appropriate affect Assessment/Plan: Patient is a 79-year-old male with past medical history of ascites, cirrhosis with weekly paracentesis presented to the ED with anemia that was found when he was at his weekly paracentesis session. He received 1 unit PRBC in the ED. He had EGD and colonoscopy 10/15/24 that showed small internal hemorrhoids and no evidence of esophagitis/PUD/esophageal varices. He continues to be on Feosol and Ferrlecit for symptomatic anemia and Daptomycin for cellulitis of the groin. IV Diuretics resumed for hypervolemic hyponatremia. Active: #. Microcytic anemia Hemoglobin 6.5, MCV 69.4 S/p 1 unit PRBC in the ED EGD and colonoscopy on 10/15/24 showed small internal hemorrhoids and no evidence of esophagitis/PUD/esophageal varices Iron 24, TIBC 490, % saturation 4.9, Transferrin 348, ferritin 11 Continue Ferrous sulphate 325 mg PO BID and Ferrlecit 125 mg IVPB Daily for 3 days #. Hypervolemic Hyponatremia Na 125 on admission Furosemide 40 mg IV Q12HR Repeat Na later today Urine osmolality and Urine sodium ordered Chest x-ray ordered Strict I/Os Consider midodrine drip if BP remains low Nephrology is following #. Cellulitis of groin Continue Daptomycin 350 mg IVPB Q24H empirically ID is following #. Nausea and vomiting Continue Ondansetron 4 mg IVP Q8HR PRN #. Pain management Continue home meds Sibley and Morphine Continue Dilaudid 1 mg IVP Q3HR PRN Chronic: #. Cirrhosis of the liver with ascites Paracentesis ultrasound Paracentesis 10/14/24, 4300 ml removed Albumin 50 ml IVPB Q1H 2 bags #. Atrial fibrillation, rate controlled, on anticoagulation Continue home med Metoprolol 25 mg pO BID and Xarelto 20 mg PO HS #. Chronic obstructive pulmonary disease, not in exacerbation Continue home inhalers albuterol 2.5 mg Q4H PRN, Symbicort 2 puff BID, Duoneb 3 ml TID #. Tobacco dependence Continue nicotine 21 mg/24 Hr patch transdermal daily #. Anxiety/Depression Continue home med Xanax 0.5 mg PO BID PRN F: 0.9 normal saline 20 mL/h E: Replete as required N: Heart healthy diet with 1500 ml fluid restriction and 2g sodium restriction A: Ambulatory DVT prophylaxis: Xarelto 20 mg PO HS GI prophylaxis: Pantoprazole 40 mg IV Daily Objective - Vital Signs Vital signs: Vital Signs Temp 97.8 F 10/17/24 03:40 Pulse 82 10/17/24 03:40 Resp 14 10/17/24 03:40 BP 117/57 10/17/24 03:40 Pulse Ox 98 10/17/24 03:40 FiO2 Intake & Output 10/16/24 10/17/24 10/17/24 18:59 06:59 18:59 Intake Total 1038 10 Balance 1038 10 Weight 123 kg Intake: IV 20 10 Invasive Line 3 20 10 Oral 1018 Other: Voiding Method Toilet Toilet Urinal # Voids 5 1 # Bowel Movements 0 0 - Labs CBC & Chem 7: 10/17/24 06:49 10/17/24 06:49 Labs: Abnormal Lab Results - Last 24 Hours (Table) 10/13/24 10/16/24 10/16/24 Range/Units 15:45 08:11 08:11 RBC 3.43 L (4.30-5.90) m/uL Hgb 7.3 L (13.0-17.5) gm/dL Hct 24.7 L (39.0-53.0) % MCV 71.8 L (80.0-100.0) fL MCH 21.3 L (25.0-35.0) pg MCHC 29.6 L (31.0-37.0) g/dL RDW 19.2 H (11.5-15.5) % Sodium 125 L (137-145) mmol/L Chloride 93 L (98-107) mmol/L Carbon Dioxide 21 L (22-30) mmol/L BUN 39 H (9-20) mg/dL Creatinine 2.01 H (0.66-1.25) mg/dL Glucose 119 H (74-99) mg/dL Calcium 8.3 L (8.4-10.2) mg/dL Crossmatch See Detail
--- NOTE | 2024-10-17 12:49 | P.PN ---
Subjective Progress Note Date: 10/17/24 Principal diagnosis: Reason for follow-up is left groin wound cellulitis Patient is a 79-year-old male with a past medical history significant for atrial fibrillation pneumonia alcoholic cirrhosis of the liver morbid obesity, also dealing with the chronic wound to the left groin area admitted to hospital with anemia ID consulted because of left groin and thigh cellulitis. On today's evaluation that is 10/17/2024, Patient is afebrile patient is currently on room air and denies having any shortness of breath, the patient denies any chest pain or cough, the patient denies any nausea vomiting did not have any abdominal pain and no diarrhea and denies pain to the left groin thigh area. Patient white count 7.0 grade is 1.98 Objective - Vital Signs Vital signs: Vital Signs Temp 97.8 F 10/17/24 08:00 Pulse 80 10/17/24 09:44 Resp 20 10/17/24 08:00 BP 94/57 10/17/24 08:00 Pulse Ox 99 10/17/24 09:32 FiO2 Intake & Output 10/16/24 10/17/24 10/17/24 18:59 06:59 18:59 Intake Total 1038 10 480 Balance 1038 10 480 Weight 123 kg Intake: IV 20 10 Invasive Line 3 20 10 Oral 1018 480 Other: Voiding Method Toilet Toilet Toilet Urinal # Voids 5 1 1 # Bowel Movements 0 0 - Exam GENERAL DESCRIPTION: An elderly male lying in bed in no distress RESPIRATORY SYSTEM: Unlabored breathing , decreased breath sounds at bases HEART: S1 S2 regular rate and rhythm , ABDOMEN: Soft , no tenderness EXTREMITIES: Did have swelling to lower extremity exam erythema to the left thigh no drainage - Labs CBC & Chem 7: 10/17/24 06:49 10/17/24 06:49 Labs: Abnormal Lab Results - Last 24 Hours (Table) 10/13/24 10/17/24 10/17/24 Range/Units 15:45 06:49 06:49 RBC 3.44 L (4.30-5.90) m/uL Hgb 7.3 L (13.0-17.5) gm/dL Hct 25.1 L (39.0-53.0) % MCV 72.9 L (80.0-100.0) fL MCH 21.4 L (25.0-35.0) pg MCHC 29.3 L (31.0-37.0) g/dL RDW 20.2 H (11.5-15.5) % Sodium 124 L (137-145) mmol/L Chloride 93 L (98-107) mmol/L BUN 41 H (9-20) mg/dL Creatinine 1.98 H (0.66-1.25) mg/dL Glucose 110 H (74-99) mg/dL Calcium 8.3 L (8.4-10.2) mg/dL Crossmatch See Detail Assessment and Plan (1) Cellulitis of groin, left Current Visit: Yes Status: Acute Code(s): L03.314 - CELLULITIS OF GROIN SNOMED Code(s): 49883607 (2) Allergy to cephalosporin Current Visit: Yes Status: Acute Code(s): Z88.1 - ALLERGY STATUS TO OTHER ANTIBIOTIC AGENTS SNOMED Code(s): 723160731 Plan: 1patient with a chronic nonhealing wound to the left groin area now with evidence of cellulitis involving the left groin and thigh area likely from gram- positive skin lars 2-patient did have cephalexin allergy therapy limit the number of antibiotics safe to use 3-patient with renal insufficiency and high risk of nephrotoxicity from vancomycin 4patient did have improvement to cellulitis of the left thigh, 2 to continue with daptomycin while inpatient however plan to finish therapy with oral doxycycline x 7 days on discharge discussed with resident physician for admitting team Dictation was produced using [employer] dictation software. please excuse any grammatical, word or spelling errors.
--- NOTE | 2024-10-17 14:15 | XR ---
EXAMINATION TYPE: XR chest 1V DATE OF EXAM: 10/17/2024 COMPARISON: 09/12/2024 HISTORY: 79-year-old male CHF TECHNIQUE: Single frontal view of the chest is obtained. FINDINGS: Heart upper limits of normal in size. Patient rotated towards the left altering the normal cardiomediastinal contours. Some possible blunting of the left costophrenic angle. IMPRESSION: Rotated exam. Possible trace left pleural effusion. No scott edema. [facility], , 10/17/2024 2:13 PM
[2024-10-17] MEDS: FUROSEMIDE 10 MG/ML 4 ML VIAL IV SCH (20:15)
[2024-10-18 07:04] LABS: Anisocytosis Moderate; HCT 25.9 % (39.0-53.0); HGB 7.7 gm/dL (13.0-17.5); Hypochromasia Marked; MCH 21.8 pg (25.0-35.0); MCHC 29.7 g/dL (31.0-37.0); MCV 73.4 fL (80.0-100.0); Mean Platelet Volume 7.1; Microcytosis Moderate; Platelet Count 173 k/uL (150-450); Poikilocytosis Slight; RBC 3.53 m/uL (4.30-5.90); RDW 20.6 % (11.5-15.5); WBC 7.5 k/uL (3.8-10.6)
[2024-10-18 07:19] LABS: African American GFR (CKD) 37 (>60 ml/min/1.73 sqM); Anion Gap 5 mmol/L; Blood Urea Nitrogen 43 mg/dL (9-20); Calcium 8.4 mg/dL (8.4-10.2); Carbon Dioxide 24 mmol/L (22-30); Chloride 95 mmol/L (98-107); Glucose 110 mg/dL (74-99); Non-African American GFR(CKD) 32 (>60 ml/min/1.73 sqM); Potassium 4.4 mmol/L (3.5-5.1); Sodium 124 mmol/L (137-145)
--- NOTE | 2024-10-18 13:18 | P.PN ---
Subjective Progress Note Date: 10/18/24 Principal diagnosis: Hospital course: Patient is a 79 year old male with PMH of ascites, cirrhosis with weekly paracentesis presented to the ED after he was sent here for abnormal labs. He was at his weekly paracentesis session yesterday when his hemoglobin was found to be low. The patient denies any hematochezia, melena, hemoptysis, hematemesis, hematuria. He mentions getting bruises on his extremities that he attributes to liver cirrhosis. Patient mentions of an infection in his groin that started with a couple boils and had to get a surgery, after which he had been recommended plastic surgery but he has not been agreeable to that. He rep orts intermittently bleeding from his groin and having to use a pad. He reports having shortness of breath while getting up to go to the restroom. Associated with that he has a cough with greenish-yellow sputum production recently. He also complains of edema of bilateral lower extremities with clear discharge for which he was started on furosemide outpatient. He states having palpitations that he attributes to his atrial fibrillation. Denies fever, chest pain, abdominal pain, nausea, vomiting, dysuria. ED documentation reviewed. In the ED patient was treated with lorazepam and 0.9 normal saline as well as 1 unit blood transfusion. Vitals on admission T 98.4 F, DC 113 bpm, RR 20, BP 88/46, O2 sat 100% on room air EKG independently interpreted as atrial fibrillation with rate 97 bpm, QTc 364 ms Ultrasound shows Labs on admission show hemoglobin 7.3, hematocrit 24.4, MCV 70.6, RDW 17.4, m arked hypochromasia, moderate poikilocytosis, slight anisocytosis, mild microcytosis, sodium 125, potassium 5.8, bicarb 20, BUN 45, creatinine 2.12, PT 12.2, INR 1.1, APTT 23.3 Ammonia 24, troponin I <0.012, proBNP 828, serum alcohol < 10 10/15/24: Patient seen and examined at bedside today. No new complaints today. EGD and colonoscopy performed today. Upper endoscopy revealed mild duodenitis but no evidence of esophagitis, peptic ulcer disease or esophageal varices. C olonoscopy revealed 5 mm distal rectal polyp status post snare polypectomy and small internal hemorrhoids. Labs today show hemoglobin 7.3, hematocrit 24.9, MCV 72.1, RDW 18.4, mild hypochromasia. Sodium today is 127, BUN 35, creatinine 1.80. Iron profile shows iron 24, TIBC 490, percent saturation 4.9, transferrin 348, ferritin 11. 10/16/24: Patient is evaluated in follow-up in the medical floor. He was hoping to be discharged home today however his sodium is down to 125 BUN of 39 creatinine of 2.01. Hemoglobin remained stable at 7.3. He has been resumed on Xarelto post EGD. No signs of acute bleeding at this time. Patient remains on IV iron on day 2 of 3. He also continues on IV daptomycin for cellulitis of the left groin there is no open or draining wound for culture and we will discontinue the daptomycin for now. Patient will be taken off IV Lasix secondary to decreased blood pressures and hyponatremia. Recommend to ROHAN wrap the lower extremities, as he does have extensive pitting edema. 10/17/24: Patient seen and evaluated today. Patient reports shakiness and feeling anxious today. Labs show hemoglobin 7.3, hematocrit 25.1, RDW 20.2, MCV 72.9, sodium 124, BUN 41, creatinine 1.98. 10/18/24: Patient evaluated at bedside today. No acute events overnight. No new complaints today. Labs today show hemoglobin 7.7, hematocrit 25.9, RDW 20.6, MCV 73.4, sodium 124, BUN 43, creatinine 1.97. Urine osmolality 290, urine sodium less than 20. Chest x-ray shows possible trace left pleural effusion, no scott edema. Review of systems: Pertinent positives and negatives as discussed in HPI, a complete review of systems was performed and all other systems are negative. Vitals: Signs Reviewed Physical examination: General: nontoxic, no distress, appears at stated age Derm: warm, dry, intact Head: atraumatic, normocephalic, symmetric Eyes: EOMI, anicteric sclera Mouth: no lip lesion, mucus membranes moist Cardiovascular: S1 S2 reg, no murmur Lungs: CTA bilateral, no rhonchi, no rales, no accessory muscle use Abdominal: soft, non-tender to palpation Extremities: pitting edema of the LE b/l Neuro: Alert, Oriented, Gross neurological examination did not reveal any focal deficits. Psych: well appearing, appropriate affect Assessment/Plan: Patient is a 79-year-old male with past medical history of ascites, cirrhosis with weekly paracentesis presented to the ED with anemia that was found when he was at his weekly paracentesis session. He had EGD and colonoscopy 10/15/24 that showed small internal hemorrhoids and no evidence of esophagitis/PUD/esophageal varices. S/p 1 unit PRBC and Ferrlecit 125 mg IVPB Daily for 3 days and he continues to be on Feosol for anemia as well as Daptomycin for cellulitis of the groin. IV Diuretics resumed for hypervolemic hyponatremia. Active: #. Microcytic anemia Hemoglobin 6.5, MCV 69.4 S/p 1 unit PRBC and Ferrlecit 125 mg IVPB Daily for 3 days EGD and colonoscopy on 10/15/24 showed small internal hemorrhoids and no evidence of esophagitis/PUD/esophageal varices Iron 24, TIBC 490, % saturation 4.9, Transferrin 348, ferritin 11 Continue Ferrous sulphate 325 mg PO BID #. Hypervolemic Hyponatremia Na 125 on admission Urine osmolality 290, urine sodium less than 20 Continue Furosemide 40 mg IV Q12HR Strict I/Os Nephrology is following #. Cellulitis of groin Continue Daptomycin 350 mg IVPB Q24H empirically ID is following #. Nausea and vomiting Continue Ondansetron 4 mg IVP Q8HR PRN #. Pain management Continue home meds [place] and Morphine Continue Dilaudid 1 mg IVP Q3HR PRN Chronic: #. Cirrhosis of the liver with ascites Paracentesis ultrasound Paracentesis 10/14/24, 4300 ml removed Albumin 50 ml IVPB Q1H 2 bags #. Atrial fibrillation, rate controlled, on anticoagulation Continue home med Metoprolol 25 mg PO BID and Xarelto 20 mg PO HS #. Chronic obstructive pulmonary disease, not in exacerbation Continue home inhalers albuterol 2.5 mg Q4H PRN, Symbicort 2 puff BID, Duoneb 3 ml TID #. Tobacco dependence Continue nicotine 21 mg/24 Hr patch transdermal daily #. Anxiety/Depression Continue home med Xanax 0.5 mg PO BID PRN F: 0.9 normal saline 20 mL/h E: Replete as required N: Heart healthy diet with 1500 ml fluid restriction and 2g sodium restriction A: Ambulatory DVT prophylaxis: Xarelto 20 mg PO HS GI prophylaxis: Pantoprazole 40 mg IV Daily Objective - Vital Signs Vital signs: Vital Signs Temp 97.9 F 10/18/24 04:00 Pulse 74 10/18/24 04:00 Resp 18 10/18/24 04:00 BP 95/59 10/18/24 04:00 Pulse Ox 97 10/18/24 04:00 FiO2 Intake & Output 10/17/24 10/18/24 10/18/24 18:59 06:59 18:59 Intake Total 1678 222 Output Total 200 700 Balance 1478 -478 Weight 123.7 kg Intake: Oral 1678 222 Output: Urine 200 700 Other: Voiding Method Toilet Toilet # Voids 1 - Labs CBC & Chem 7: 10/18/24 06:38 10/18/24 06:38 Labs: Abnormal Lab Results - Last 24 Hours (Table) 10/17/24 10/17/24 10/17/24 Range/Units 06:49 06:49 14:52 RBC 3.44 L (4.30-5.90) m/uL Hgb 7.3 L (13.0-17.5) gm/dL Hct 25.1 L (39.0-53.0) % MCV 72.9 L (80.0-100.0) fL MCH 21.4 L (25.0-35.0) pg MCHC 29.3 L (31.0-37.0) g/dL RDW 20.2 H (11.5-15.5) % Sodium 124 L (137-145) mmol/L Chloride 93 L (98-107) mmol/L BUN 41 H (9-20) mg/dL Creatinine 1.98 H (0.66-1.25) mg/dL Glucose 110 H (74-99) mg/dL Calcium 8.3 L (8.4-10.2) mg/dL Urine Osmolality 290 L (400-1100) mOsm/kg Ur Random Sodium (40-220) mmol/L 10/17/24 10/17/24 10/18/24 Range/Units 14:52 23:48 06:38 RBC (4.30-5.90) m/uL Hgb (13.0-17.5) gm/dL Hct (39.0-53.0) % MCV (80.0-100.0) fL MCH (25.0-35.0) pg MCHC (31.0-37.0) g/dL RDW (11.5-15.5) % Sodium 124 L 124 L (137-145) mmol/L Chloride 95 L (98-107) mmol/L BUN 43 H (9-20) mg/dL Creatinine 1.97 H (0.66-1.25) mg/dL Glucose 110 H (74-99) mg/dL Calcium (8.4-10.2) mg/dL Urine Osmolality (400-1100) mOsm/kg Ur Random Sodium <20 L (40-220) mmol/L 10/18/24 Range/Units 06:38 RBC 3.53 L (4.30-5.90) m/uL Hgb 7.7 L (13.0-17.5) gm/dL Hct 25.9 L (39.0-53.0) % MCV 73.4 L (80.0-100.0) fL MCH 21.8 L (25.0-35.0) pg MCHC 29.7 L (31.0-37.0) g/dL RDW 20.6 H (11.5-15.5) % Sodium (137-145) mmol/L Chloride (98-107) mmol/L BUN (9-20) mg/dL Creatinine (0.66-1.25) mg/dL Glucose (74-99) mg/dL Calcium (8.4-10.2) mg/dL Urine Osmolality (400-1100) mOsm/kg Ur Random Sodium (40-220) mmol/L
--- NOTE | 2024-10-18 13:20 | P.PN ---
Subjective Progress Note Date: 10/18/24 Patient seen and examined at bedside. Patient is being followed up for hyponatremia with volume overload and SHEA. Patient concerned about swelling of the legs which continued get worse. Otherwise denies shortness of breath, abdominal pain, dysuria, hematuria, hematochezia and or melena. Objective - Vital Signs Vital signs: Vital Signs Temp 97.8 F 10/18/24 09:06 Pulse 76 10/18/24 11:36 Resp 18 10/18/24 11:36 BP 102/63 10/18/24 11:45 Pulse Ox 98 10/18/24 11:36 FiO2 Intake & Output 10/17/24 10/18/24 10/18/24 18:59 06:59 18:59 Intake Total 1678 222 240 Output Total 200 700 Balance 1478 -478 240 Weight 123.7 kg Intake: Oral 1678 222 240 Output: Urine 200 700 Other: Voiding Method Toilet Toilet Toilet # Voids 1 - Exam Gen: In NAD, non-toxic, morbidly obese HEENT: N/C and A/T, PERRLA, EOMI, hearing acuity is intant, mucous membranes moist CVS: perfusing all extremities well, bilateral 3+ pitting edema Respiratory: CTAB, symmetric chest expansion, no accessory muscle use, no wheezing or rales GI: soft, Ascitis, NTTP, ND, BS+ : no suprapubic tenderness, no CVA tenderness MSK/Derm: no rashes, cyanosis Neuro: CN II-XII intact, no motor weakness, Psych: cooperative, euthymic mood, judgment and insight is intact - Labs CBC & Chem 7: 10/19/24 06:06 10/19/24 06:06 Labs: Abnormal Lab Results - Last 24 Hours (Table) 10/17/24 10/17/24 10/17/24 Range/Units 14:52 14:52 23:48 RBC (4.30-5.90) m/uL Hgb (13.0-17.5) gm/dL Hct (39.0-53.0) % MCV (80.0-100.0) fL MCH (25.0-35.0) pg MCHC (31.0-37.0) g/dL RDW (11.5-15.5) % Sodium 124 L (137-145) mmol/L Chloride (98-107) mmol/L BUN (9-20) mg/dL Creatinine (0.66-1.25) mg/dL Glucose (74-99) mg/dL Urine Osmolality 290 L (400-1100) mOsm/kg Ur Random Sodium <20 L (40-220) mmol/L 10/18/24 10/18/24 Range/Units 06:38 06:38 RBC 3.53 L (4.30-5.90) m/uL Hgb 7.7 L (13.0-17.5) gm/dL Hct 25.9 L (39.0-53.0) % MCV 73.4 L (80.0-100.0) fL MCH 21.8 L (25.0-35.0) pg MCHC 29.7 L (31.0-37.0) g/dL RDW 20.6 H (11.5-15.5) % Sodium 124 L (137-145) mmol/L Chloride 95 L (98-107) mmol/L BUN 43 H (9-20) mg/dL Creatinine 1.97 H (0.66-1.25) mg/dL Glucose 110 H (74-99) mg/dL Urine Osmolality (400-1100) mOsm/kg Ur Random Sodium (40-220) mmol/L Assessment and Plan Assessment: 1. Hypervolemic hyponatremia associated with liver cirrhosis. H/o chronic hyponatremia with sodium around 125-128 previously. Urine osmolality 290 and urine sodium <20 2. Iron deficiency anemia status post 1 unit of packed RBC. Hemoglobin improved from 6.5 to 7.3. Currently stable at 7.7. 3. Status post EGD and colonoscopy on 10/15/2024. No active bleeding noted. Biopsy result pending. 4. Chronic nonhealing left groin wound cellulitis. ID following. Currently on IV daptomycin 5. Alcoholic liver disease with scheduled paracentesis. Status post paracentesis on 10/14/2024 with 4.3 L fluid drainage 6. COPD, not in exacerbation. 7. PTSD 8. Atrial fibrillation contolled on metoprolol and maintained on Xarelto 9. CKD stage IIIb 10. SHEA secondary to hypotension and paracentesis on 10/14/2024 11. Hyperkalemia on initial admission. Aldactone is discontinued. Plan: c/w IV diuretics Fluid restriction of 1.5 L/day and sodium restriction of less than 2 g/day Repeat BMP in a.m. tomorrow Monitor electrolytes Avoid nephrotoxic drugs Strict I/0 and daily weight Consider midodrine if bp remains low Chronic hyponatremia noted ranging 128 to 130 between January and May of 2024 Agree with jean paul's findings, A/Plan. Time with Patient: Less than 30
--- NOTE | 2024-10-18 13:25 | P.PN ---
Subjective Progress Note Date: 10/18/24 Principal diagnosis: Reason for follow-up is left groin wound cellulitis Patient is a 79-year-old male with a past medical history significant for atrial fibrillation pneumonia alcoholic cirrhosis of the liver morbid obesity, also dealing with the chronic wound to the left groin area admitted to hospital with anemia ID consulted because of left groin and thigh cellulitis. On today's evaluation that is 10/18/2024, patient has been afebrile, patient is breathing comfortably and is currently on room air, patient denies having any significant cough no chest pain, patient denies nausea vomiting or diarrhea and no abdominal pain or pain to the left groin area. Patient white count 7.5 Creatinine is 1.97 chest x-ray no scott edema Objective - Vital Signs Vital signs: Vital Signs Temp 97.8 F 10/18/24 09:06 Pulse 76 10/18/24 13:11 Resp 18 10/18/24 13:11 BP 102/63 10/18/24 11:45 Pulse Ox 98 10/18/24 11:36 FiO2 Intake & Output 10/17/24 10/18/24 10/18/24 18:59 06:59 18:59 Intake Total 1678 222 240 Output Total 200 700 Balance 1478 -478 240 Weight 123.7 kg Intake: Oral 1678 222 240 Output: Urine 200 700 Other: Voiding Method Toilet Toilet Toilet # Voids 1 - Exam GENERAL DESCRIPTION: An elderly male lying in bed in no distress RESPIRATORY SYSTEM: Unlabored breathing , decreased breath sounds at bases HEART: S1 S2 regular rate and rhythm , ABDOMEN: Soft , no tenderness EXTREMITIES: Did have swelling to lower extremity exam erythema to the left thigh no drainage - Labs CBC & Chem 7: 10/18/24 06:38 10/18/24 06:38 Labs: Abnormal Lab Results - Last 24 Hours (Table) 10/17/24 10/17/24 10/17/24 Range/Units 14:52 14:52 23:48 RBC (4.30-5.90) m/uL Hgb (13.0-17.5) gm/dL Hct (39.0-53.0) % MCV (80.0-100.0) fL MCH (25.0-35.0) pg MCHC (31.0-37.0) g/dL RDW (11.5-15.5) % Sodium 124 L (137-145) mmol/L Chloride (98-107) mmol/L BUN (9-20) mg/dL Creatinine (0.66-1.25) mg/dL Glucose (74-99) mg/dL Urine Osmolality 290 L (400-1100) mOsm/kg Ur Random Sodium <20 L (40-220) mmol/L 10/18/24 10/18/24 Range/Units 06:38 06:38 RBC 3.53 L (4.30-5.90) m/uL Hgb 7.7 L (13.0-17.5) gm/dL Hct 25.9 L (39.0-53.0) % MCV 73.4 L (80.0-100.0) fL MCH 21.8 L (25.0-35.0) pg MCHC 29.7 L (31.0-37.0) g/dL RDW 20.6 H (11.5-15.5) % Sodium 124 L (137-145) mmol/L Chloride 95 L (98-107) mmol/L BUN 43 H (9-20) mg/dL Creatinine 1.97 H (0.66-1.25) mg/dL Glucose 110 H (74-99) mg/dL Urine Osmolality (400-1100) mOsm/kg Ur Random Sodium (40-220) mmol/L Assessment and Plan (1) Cellulitis of groin, left Current Visit: Yes Status: Acute Code(s): L03.314 - CELLULITIS OF GROIN SNOMED Code(s): 27513015 (2) Allergy to cephalosporin Current Visit: Yes Status: Acute Code(s): Z88.1 - ALLERGY STATUS TO OTHER ANTIBIOTIC AGENTS SNOMED Code(s): 358676640 Plan: 1patient with a chronic nonhealing wound to the left groin area now with evidence of cellulitis involving the left groin and thigh area likely from gram- positive skin lars 2-patient did have cephalexin allergy therapy limit the number of antibiotics safe to use 3-patient with renal insufficiency and high risk of nephrotoxicity from vancomycin 4patient did have improvement to cellulitis of the left thigh, 5we will keep the patient on daptomycin while inpatient transition to oral doxycycline on discharge Dictation was produced using [employer] dictation software. please excuse any grammatical, word or spelling errors. Time with Patient: Less than 30
[2024-10-18 14:53] VITALS: BMI 41.4
[2024-10-19 06:52] LABS: Anisocytosis Moderate; HCT 28.4 % (39.0-53.0); HGB 8.4 gm/dL (13.0-17.5); Hypochromasia Marked; MCHC 29.6 g/dL (31.0-37.0); MCV 74.4 fL (80.0-100.0); Mean Platelet Volume 6.6; Microcytosis Moderate; Platelet Count 215 k/uL (150-450); Poikilocytosis Slight; RBC 3.81 m/uL (4.30-5.90); RDW 21.8 % (11.5-15.5)
[2024-10-19 07:39] LABS: African American GFR (CKD) 32 (>60 ml/min/1.73 sqM); Anion Gap 5 mmol/L; Blood Urea Nitrogen 51 mg/dL (9-20); Calcium 8.5 mg/dL (8.4-10.2); Carbon Dioxide 22 mmol/L (22-30); Chloride 96 mmol/L (98-107); Glucose 108 mg/dL (74-99); Non-African American GFR(CKD) 28 (>60 ml/min/1.73 sqM); Potassium 4.7 mmol/L (3.5-5.1); Sodium 123 mmol/L (137-145)
[2024-10-19 08:52] VITALS: BP 93/45; PULSE 84; RESP 17; TEMP 97.6
[2024-10-19] MEDS: MIDODRINE 5 MG TAB PO SCH (09:49)
[2024-10-19] MEDS: TOLVAPTAN 15 MG TABLET PO ONE (10:07)
[2024-10-19] MEDS: SODIUM CHLORIDE TAB 1 GM TAB PO STA (10:08)
--- NOTE | 2024-10-19 10:57 | P.PN ---
Subjective Progress Note Date: 10/19/24 Patient seen and examined at bedside. Patient is being followed up for hyponatremia with volume overload and SHEA. Patient concerned about swelling of the legs which continued get worse. Otherwise denies shortness of breath, abdominal pain, dysuria, hematuria, hematochezia and or melena. Objective - Vital Signs Vital signs: Vital Signs Temp 97.6 F 10/19/24 08:52 Pulse 84 10/19/24 08:52 Resp 17 10/19/24 08:52 BP 93/45 10/19/24 08:52 Pulse Ox 98 10/19/24 08:52 FiO2 Intake & Output 10/18/24 10/19/24 10/19/24 18:59 06:59 18:59 Intake Total 358 240 Balance 358 240 Weight 123.7 kg 124.3 kg Intake: Oral 358 240 Other: Voiding Method Toilet Toilet Toilet # Bowel Movements 1 - Exam Gen: In NAD, non-toxic, morbidly obese HEENT: N/C and A/T, PERRLA, EOMI, hearing acuity is intant, mucous membranes moist CVS: perfusing all extremities well, bilateral 3+ pitting edema Respiratory: CTAB, symmetric chest expansion, no accessory muscle use, no wheezing or rales GI: soft, Ascitis, NTTP, ND, BS+ : no suprapubic tenderness, no CVA tenderness MSK/Derm: no rashes, cyanosis Neuro: CN II-XII intact, no motor weakness, Psych: cooperative, euthymic mood, judgment and insight is intact - Labs CBC & Chem 7: 10/19/24 06:06 10/19/24 06:06 Labs: Abnormal Lab Results - Last 24 Hours (Table) 10/19/24 10/19/24 Range/Units 06:06 06:06 WBC 12.0 H (3.8-10.6) k/uL RBC 3.81 L (4.30-5.90) m/uL Hgb 8.4 L (13.0-17.5) gm/dL Hct 28.4 L (39.0-53.0) % MCV 74.4 L (80.0-100.0) fL MCH 22.0 L (25.0-35.0) pg MCHC 29.6 L (31.0-37.0) g/dL RDW 21.8 H (11.5-15.5) % Sodium 123 L (137-145) mmol/L Chloride 96 L (98-107) mmol/L BUN 51 H (9-20) mg/dL Creatinine 2.21 H (0.66-1.25) mg/dL Glucose 108 H (74-99) mg/dL Assessment and Plan Assessment: 1. Hypervolemic hyponatremia associated with liver cirrhosis. H/o chronic hyponatremia with sodium around 125-128 previously. Urine osmolality 290 and urine sodium <20 2. Iron deficiency anemia status post 1 unit of packed RBC. Hemoglobin improved from 6.5 to 7.3. Currently stable at 8.4. 3. Status post EGD and colonoscopy on 10/15/2024. No active bleeding noted. Biopsy result pending. 4. Chronic nonhealing left groin wound cellulitis. ID following. Currently on IV daptomycin 5. Alcoholic liver disease with scheduled paracentesis. Status post paracentesis on 10/14/2024 with 4.3 L fluid drainage 6. COPD, not in exacerbation. 7. PTSD 8. Atrial fibrillation contolled on metoprolol and maintained on Xarelto 9. CKD stage IIIb 10. SHEA secondary to hypotension and paracentesis on 10/14/2024 11. Hyperkalemia on initial admission. Aldactone is discontinued. Plan: c/w IV diuretics Fluid restriction of 1.5 L/day and sodium restriction of less than 2 g/day Repeat BMP in a.m. tomorrow Monitor electrolytes Avoid nephrotoxic drugs Strict I/0 and daily weight Midodrine 5 mg p.o. twice daily Samsca 15 mg p.o. once Sodium chloride tab 1 g p.o. once Chronic hyponatremia noted ranging 128 to 130 between January and May of 2024 Agree with resident's findings assessment and plan. Time with Patient: Less than 30
--- NOTE | 2024-10-19 15:15 | P.PN ---
Subjective Progress Note Date: 10/19/24 Principal diagnosis: Hospital course: Patient is a 79 year old male with PMH of ascites, cirrhosis with weekly paracentesis presented to the ED after he was sent here for abnormal labs. He was at his weekly paracentesis session yesterday when his hemoglobin was found to be low. The patient denies any hematochezia, melena, hemoptysis, hematemesis, hematuria. He mentions getting bruises on his extremities that he attributes to liver cirrhosis. Patient mentions of an infection in his groin that started with a couple boils and had to get a surgery, after which he had been recommended plastic surgery but he has not been agreeable to that. He rep orts intermittently bleeding from his groin and having to use a pad. He reports having shortness of breath while getting up to go to the restroom. Associated with that he has a cough with greenish-yellow sputum production recently. He also complains of edema of bilateral lower extremities with clear discharge for which he was started on furosemide outpatient. He states having palpitations that he attributes to his atrial fibrillation. Denies fever, chest pain, abdominal pain, nausea, vomiting, dysuria. ED documentation reviewed. In the ED patient was treated with lorazepam and 0.9 normal saline as well as 1 unit blood transfusion. Vitals on admission T 98.4 F, [place] 113 bpm, RR 20, BP 88/46, O2 sat 100% on room air EKG independently interpreted as atrial fibrillation with rate 97 bpm, QTc 364 ms Ultrasound shows Labs on admission show hemoglobin 7.3, hematocrit 24.4, MCV 70.6, RDW 17.4, m arked hypochromasia, moderate poikilocytosis, slight anisocytosis, mild microcytosis, sodium 125, potassium 5.8, bicarb 20, BUN 45, creatinine 2.12, PT 12.2, INR 1.1, APTT 23.3 Ammonia 24, troponin I <0.012, proBNP 828, serum alcohol < 10 10/15/24: Patient seen and examined at bedside today. No new complaints today. EGD and colonoscopy performed today. Upper endoscopy revealed mild duodenitis but no evidence of esophagitis, peptic ulcer disease or esophageal varices. C olonoscopy revealed 5 mm distal rectal polyp status post snare polypectomy and small internal hemorrhoids. Labs today show hemoglobin 7.3, hematocrit 24.9, MCV 72.1, RDW 18.4, mild hypochromasia. Sodium today is 127, BUN 35, creatinine 1.80. Iron profile shows iron 24, TIBC 490, percent saturation 4.9, transferrin 348, ferritin 11. 10/16/24: Patient is evaluated in follow-up in the medical floor. He was hoping to be discharged home today however his sodium is down to 125 BUN of 39 creatinine of 2.01. Hemoglobin remained stable at 7.3. He has been resumed on Xarelto post EGD. No signs of acute bleeding at this time. Patient remains on IV iron on day 2 of 3. He also continues on IV daptomycin for cellulitis of the left groin there is no open or draining wound for culture and we will discontinue the daptomycin for now. Patient will be taken off IV Lasix secondary to decreased blood pressures and hyponatremia. Recommend to ROHAN wrap the lower extremities, as he does have extensive pitting edema. 10/17/24: Patient seen and evaluated today. Patient reports shakiness and feeling anxious today. Labs show hemoglobin 7.3, hematocrit 25.1, RDW 20.2, MCV 72.9, sodium 124, BUN 41, creatinine 1.98. 10/18/24: Patient evaluated at bedside today. No acute events overnight. No new complaints today. Labs today show hemoglobin 7.7, hematocrit 25.9, RDW 20.6, MCV 73.4, sodium 124, BUN 43, creatinine 1.97. Urine osmolality 290, urine sodium less than 20. Chest x-ray shows possible trace left pleural effusion, no scott edema. 10/19/24: Patient examined at bedside. No acute events overnight. BP today is 89/52. Labs today show WBC 12, hemoglobin 8.4, hematocrit 28.4, MCV 74.4, RDW 21.8, sodium 123, BUN 51, creatinine 2.01. Patient left against medical advice today. Review of systems: Pertinent positives and negatives as discussed in HPI, a complete review of systems was performed and all other systems are negative. Vitals: Signs Reviewed Physical examination: General: nontoxic, no distress, appears at stated age Derm: warm, dry, intact Head: atraumatic, normocephalic, symmetric Eyes: EOMI, anicteric sclera Mouth: no lip lesion, mucus membranes moist Cardiovascular: S1 S2 reg, no murmur Lungs: CTA bilateral, no rhonchi, no rales, no accessory muscle use Abdominal: soft, non-tender to palpation Extremities: pitting edema of the LE b/l Neuro: Alert, Oriented, Gross neurological examination did not reveal any focal deficits. Psych: well appearing, appropriate affect Assessment/Plan: Patient is a 79-year-old male with past medical history of ascites, cirrhosis with weekly paracentesis presented to the ED with anemia that was found when he was at his weekly paracentesis session. He had EGD and colonoscopy 10/15/24 that showed small internal hemorrhoids and no evidence of esophagitis/PUD/esophageal varices. S/p 1 unit PRBC and Ferrlecit 125 mg IVPB Daily for 3 days and he continues to be on Feosol for anemia as well as Daptomycin for cellulitis of the groin. IV Diuretics resumed for hypervolemic hyponatremia. Patient left AMA today 10/19/24. Active: #. Microcytic anemia Hemoglobin 6.5, MCV 69.4 S/p 1 unit PRBC and Ferrlecit 125 mg IVPB Daily for 3 days EGD and colonoscopy on 10/15/24 showed small internal hemorrhoids and no evidence of esophagitis/PUD/esophageal varices Iron 24, TIBC 490, % saturation 4.9, Transferrin 348, ferritin 11 Continue Ferrous sulphate 325 mg PO BID #. Hypervolemic Hyponatremia Chonic Hyponatremia Na 125 on admission Urine osmolality 290, urine sodium less than 20 Continue Furosemide 40 mg IV Q12HR Samsca 15 mg PO once Sodium chloride 1 gm PO once Strict I/Os Nephrology is following #. Cellulitis of groin Continue Daptomycin 350 mg IVPB Q24H empirically ID is following #. Hypotension Midodrine 5 mg PO BID #. Nausea and vomiting Continue Ondansetron 4 mg IVP Q8HR PRN #. Pain management Continue home meds [place] and Morphine Continue Dilaudid 1 mg IVP Q3HR PRN Chronic: #. Cirrhosis of the liver with ascites Paracentesis ultrasound Paracentesis 10/14/24, 4300 ml removed Albumin 50 ml IVPB Q1H 2 bags #. Atrial fibrillation, rate controlled, on anticoagulation Continue home med Metoprolol 25 mg PO BID and Xarelto 20 mg PO HS #. Chronic obstructive pulmonary disease, not in exacerbation Continue home inhalers albuterol 2.5 mg Q4H PRN, Symbicort 2 puff BID, Duoneb 3 ml TID #. Tobacco dependence Continue nicotine 21 mg/24 Hr patch transdermal daily #. Anxiety/Depression Continue home med Xanax 0.5 mg PO BID PRN F: 0.9 normal saline 20 mL/h E: Replete as required N: Heart healthy diet with 1500 ml fluid restriction and 2g sodium restriction A: Ambulatory DVT prophylaxis: Xarelto 20 mg PO HS GI prophylaxis: Pantoprazole 40 mg IV Daily Patient left AGAINST MEDICAL ADVICE today 10/19/24. He is given a prescription for Doxycycline. Objective - Vital Signs Vital signs: Vital Signs Temp 98.1 F 10/19/24 03:45 Pulse 78 10/19/24 03:45 Resp 18 10/19/24 03:45 BP 89/52 10/19/24 03:45 Pulse Ox 99 10/19/24 03:45 FiO2 Intake & Output 10/18/24 10/19/24 10/19/24 18:59 06:59 18:59 Intake Total 358 Balance 358 Weight 123.7 kg 124.3 kg Intake: Oral 358 Other: Voiding Method Toilet Toilet # Bowel Movements 1 - Labs CBC & Chem 7: 10/19/24 06:06 10/19/24 06:06 Labs: Abnormal Lab Results - Last 24 Hours (Table) 10/19/24 10/19/24 Range/Units 06:06 06:06 WBC 12.0 H (3.8-10.6) k/uL RBC 3.81 L (4.30-5.90) m/uL Hgb 8.4 L (13.0-17.5) gm/dL Hct 28.4 L (39.0-53.0) % MCV 74.4 L (80.0-100.0) fL MCH 22.0 L (25.0-35.0) pg MCHC 29.6 L (31.0-37.0) g/dL RDW 21.8 H (11.5-15.5) % Sodium 123 L (137-145) mmol/L Chloride 96 L (98-107) mmol/L BUN 51 H (9-20) mg/dL Creatinine 2.21 H (0.66-1.25) mg/dL Glucose 108 H (74-99) mg/dL
--- NOTE | 2024-10-19 16:21 | P.DS ---
Providers Date of admission: 10/13/24 17:10 Expected date of discharge: 10/19/24 Attending physician: Jeremie Goodwin Consults: 10/13/24 17:09 Consult Physician Routine Consulting Provider: Ina Mancuso Consult Reason/Comments: known Do you want consulting provider notified?: Yes 10/14/24 13:56 Consult Physician Routine Consulting Provider: John Powell Consult Reason/Comments: cellulitis of groin Do you want consulting provider notified?: Yes 10/16/24 09:44 Consult Physician Routine Consulting Provider: Bree Resendez Consult Reason/Comments: Hyponatremia Do you want consulting provider notified?: Yes Primary care physician: [facility] Course: Hospital course: Patient is a 79 year old male with PMH of ascites, cirrhosis with weekly paracentesis presented to the ED after he was sent here for abnormal labs. He was at his weekly paracentesis session yesterday when his hemoglobin was found to be low. The patient denies any hematochezia, melena, hemoptysis, hematemesis, hematuria. He mentions getting bruises on his extremities that he attributes to liver cirrhosis. Patient mentions of an infection in his groin that started with a couple boils and had to get a surgery, after which he had been recommended plastic surgery but he has not been agreeable to that. He reports intermittently bleeding from his groin and having to use a pad. He reports having shortness of breath while getting up to go to the restroom. Associated with that he has a cough with greenish-yellow sputum production recently. He also complains of edema of bilateral lower extremities with clear discharge for which he was started on furosemide outpatient. He states having palpitations that he attributes to his atrial fibrillation. Denies fever, chest pain, abdominal pain, nausea, vomiting, dysuria. ED documentation reviewed. In the ED patient was treated with lorazepam and 0.9 normal saline as well as 1 unit blood transfusion. Vitals on admission T 98.4 F, [place] 113 bpm, RR 20, BP 88/46, O2 sat 100% on room air EKG independently interpreted as atrial fibrillation with rate 97 bpm, QTc 364 ms Ultrasound shows Labs on admission show hemoglobin 7.3, hematocrit 24.4, MCV 70.6, RDW 17.4, marked hypochromasia, moderate poikilocytosis, slight anisocytosis, mild microcytosis, sodium 125, potassium 5.8, bicarb 20, BUN 45, creatinine 2.12, PT 12.2, INR 1.1, APTT 23.3 Ammonia 24, troponin I <0.012, proBNP 828, serum alcohol < 10 10/15/24: Patient seen and examined at bedside today. No new complaints today. EGD and colonoscopy performed today. Upper endoscopy revealed mild duodenitis but no evidence of esophagitis, peptic ulcer disease or esophageal varices. Colonoscopy revealed 5 mm distal rectal polyp status post snare polypectomy and small internal hemorrhoids. Labs today show hemoglobin 7.3, hematocrit 24.9, MCV 72.1, RDW 18.4, mild hypochromasia. Sodium today is 127, BUN 35, creatinine 1.80. Iron profile shows iron 24, TIBC 490, percent saturation 4.9, transferrin 348, ferritin 11. 10/16/24: Patient is evaluated in follow-up in the medical floor. He was hoping to be discharged home today however his sodium is down to 125 BUN of 39 creatinine of 2.01. Hemoglobin remained stable at 7.3. He has been resumed on Xarelto post EGD. No signs of acute bleeding at this time. Patient remains on IV iron on day 2 of 3. He also continues on IV daptomycin for cellulitis of the left groin there is no open or draining wound for culture and we will discontinue the daptomycin for now. Patient will be taken off IV Lasix secondary to decreased blood pressures and hyponatremia. Recommend to ROHAN wrap the lower extremities, as he does have extensive pitting edema. 10/17/24: Patient seen and evaluated today. Patient reports shakiness and feeling anxious today. Labs show hemoglobin 7.3, hematocrit 25.1, RDW 20.2, MCV 72.9, sodium 124, BUN 41, creatinine 1.98. 10/18/24: Patient evaluated at bedside today. No acute events overnight. No new complaints today. Labs today show hemoglobin 7.7, hematocrit 25.9, RDW 20.6, MCV 73.4, sodium 124, BUN 43, creatinine 1.97. Urine osmolality 290, urine sodium less than 20. Chest x-ray shows possible trace left pleural effusion, no scott edema. 10/19/24: Patient examined at bedside. No acute events overnight. BP today is 89/52. Labs today show WBC 12, hemoglobin 8.4, hematocrit 28.4, MCV 74.4, RDW 21.8, sodium 123, BUN 51, creatinine 2.01. Patient left against medical advice today. Review of systems: Pertinent positives and negatives as discussed in HPI, a complete review of systems was performed and all other systems are negative. Vitals: Signs Reviewed Physical examination: General: nontoxic, no distress, appears at stated age Derm: warm, dry, intact Head: atraumatic, normocephalic, symmetric Eyes: EOMI, anicteric sclera Mouth: no lip lesion, mucus membranes moist Cardiovascular: S1 S2 reg, no murmur Lungs: CTA bilateral, no rhonchi, no rales, no accessory muscle use Abdominal: soft, non-tender to palpation Extremities: pitting edema of the LE b/l Neuro: Alert, Oriented, Gross neurological examination did not reveal any focal deficits. Psych: well appearing, appropriate affect Assessment/Plan: Patient is a 79-year-old male with past medical history of ascites, cirrhosis with weekly paracentesis presented to the ED with anemia that was found when he was at his weekly paracentesis session. He had EGD and colonoscopy 10/15/24 that showed small internal hemorrhoids and no evidence of esophagitis/PUD/esophageal varices. S/p 1 unit PRBC and Ferrlecit 125 mg IVPB Daily for 3 days and he continues to be on Feosol for anemia as well as Daptomycin for cellulitis of the groin. IV Diuretics resumed for hypervolemic hyponatremia. Patient left AMA today 10/19/24. Active: #. Microcytic anemia Hemoglobin 6.5, MCV 69.4 S/p 1 unit PRBC and Ferrlecit 125 mg IVPB Daily for 3 days EGD and colonoscopy on 10/15/24 showed small internal hemorrhoids and no evidence of esophagitis/PUD/esophageal varices Iron 24, TIBC 490, % saturation 4.9, Transferrin 348, ferritin 11 Continue Ferrous sulphate 325 mg PO BID #. Hypervolemic Hyponatremia Chonic Hyponatremia Na 125 on admission Urine osmolality 290, urine sodium less than 20 Continue Furosemide 40 mg IV Q12HR Samsca 15 mg PO once Sodium chloride 1 gm PO once Strict I/Os Nephrology is following #. Cellulitis of groin Continue Daptomycin 350 mg IVPB Q24H empirically ID is following #. Hypotension Midodrine 5 mg PO BID #. Nausea and vomiting Continue Ondansetron 4 mg IVP Q8HR PRN #. Pain management Continue home meds [place] and Morphine Continue Dilaudid 1 mg IVP Q3HR PRN Chronic: #. Cirrhosis of the liver with ascites Paracentesis ultrasound Paracentesis 10/14/24, 4300 ml removed Albumin 50 ml IVPB Q1H 2 bags #. Atrial fibrillation, rate controlled, on anticoagulation Continue home med Metoprolol 25 mg PO BID and Xarelto 20 mg PO HS #. Chronic obstructive pulmonary disease, not in exacerbation Continue home inhalers albuterol 2.5 mg Q4H PRN, Symbicort 2 puff BID, Duoneb 3 ml TID #. Tobacco dependence Continue nicotine 21 mg/24 Hr patch transdermal daily #. Anxiety/Depression Continue home med Xanax 0.5 mg PO BID PRN F: 0.9 normal saline 20 mL/h E: Replete as required N: Heart healthy diet with 1500 ml fluid restriction and 2g sodium restriction A: Ambulatory DVT prophylaxis: Xarelto 20 mg PO HS GI prophylaxis: Pantoprazole 40 mg IV Daily Patient left AGAINST MEDICAL ADVICE today 10/19/24. He is given a prescription for Doxycycline. Patient Condition at Discharge: Serious Plan - Discharge Summary New Discharge Prescriptions: New Doxycycline [Vibramycin] 100 mg PO BID 7 Days #14 capsule Continue Rivaroxaban [Xarelto] 20 mg PO HS Furosemide [Lasix] 40 mg PO DAILY Mv-Min/Folic/K1/Lycopen/Lutein [Centrum Silver Men Tablet] 1 tablet PO DAILY Ergocalciferol [Vitamin D2 (1250 Mcg = 81202 Iu)] 1,250 mcg PO WEEKLY Zinc Gluconate [Zinc] 50 mg PO DAILY Cyanocobalamin [Vitamin B-12] 1,000 mcg PO DAILY Magnesium Oxide [Magnesium] 500 mg PO DAILY Turmeric Root Extract [Turmeric] 500 mg PO DAILY Metoprolol Succinate (ER) [Toprol XL] 25 mg PO BID HYDROcodone/APAP 10-325MG [[place] 10-325] 1 tab PO BID@0000,0600 Morphine Sulfate [Morphine Sulfate ER] 15 mg PO BID@1200,1800 ALPRAZolam [Xanax] 0.5 - 1 mg PO BID PRN PRN Reason: Anxiety Ipratropium-Albuterol Nebulize [Duoneb 0.5 mg-3 mg/3 ml Soln] 3 ml INHALATION RT-TID Budesonide [Pulmicort] 0.5 mg INHALATION RT-BID Albuterol Sulfate [Albuterol Sulfate Hfa] 1 - 2 puff PO RT-Q4H PRN PRN Reason: Shortness Of Breath Fluticasone/Umeclidin/Vilanter [Trelegy Ellipta 100-62.5-25] 1 puff INHALATION RT-DAILY Discontinued Spironolactone [Aldactone] 100 mg PO DAILY Discharge Medication List Ergocalciferol [Vitamin D2 (1250 Mcg = 25477 Iu)] 1,250 mcg PO WEEKLY 12/05/22 [History] Furosemide [Lasix] 40 mg PO DAILY 12/05/22 [History] Rivaroxaban [Xarelto] 20 mg PO HS 12/05/22 [History] Cyanocobalamin [Vitamin B-12] 1,000 mcg PO DAILY 12/17/22 [History] Mv-Min/Folic/K1/Lycopen/Lutein [Centrum Silver Men Tablet] 1 tablet PO DAILY 12/17/22 [History] Zinc Gluconate [Zinc] 50 mg PO DAILY 12/17/22 [History] Magnesium Oxide [Magnesium] 500 mg PO DAILY 01/19/23 [History] Turmeric Root Extract [Turmeric] 500 mg PO DAILY 07/14/23 [History] Metoprolol Succinate (ER) [Toprol XL] 25 mg PO BID 10/30/23 [History] HYDROcodone/APAP 10-325MG [[place] 10-325] 1 tab PO BID@0000,0600 01/21/24 [History] Morphine Sulfate [Morphine Sulfate ER] 15 mg PO BID@1200,1800 07/21/24 [History] ALPRAZolam [Xanax] 0.5 - 1 mg PO BID PRN 10/06/24 [History] Albuterol Sulfate [Albuterol Sulfate Hfa] 1 - 2 puff PO RT-Q4H PRN 10/13/24 [History] Budesonide [Pulmicort] 0.5 mg INHALATION RT-BID 10/13/24 [History] Fluticasone/Umeclidin/Vilanter [Trelegy Ellipta 100-62.5-25] 1 puff INHALATION RT-DAILY 10/13/24 [History] Ipratropium-Albuterol Nebulize [Duoneb 0.5 mg-3 mg/3 ml Soln] 3 ml INHALATION RT-TID 10/13/24 [History] Doxycycline [Vibramycin] 100 mg PO BID 7 Days #14 capsule 10/19/24 [Rx] Follow up Appointment(s)/Referral(s): Kelechi Soriano DO [Primary Care Provider] - 1-2 days Patient Instructions/Handouts: Heart Failure (DC), Hyponatremia (DC) Discharge Disposition: LEFT AGAINST MEDICAL ADVICE
== END 2024-10-19 10:42 | disposition left against medical advice (07) | DRG 812 ==
LOC: EC 14:34 → 3SCARD 17:10
PROVIDERS: ADMIT Hospitalist; ATTEND Hospitalist
PROC: 30233N1 Transfusion of Nonautologous Red Blood Cells into Peripheral Vein, Percutaneous Approach (ICD-10-PCS; 2024-10-13)
PROC: 0W9G3ZZ Drainage of Peritoneal Cavity, Percutaneous Approach (ICD-10-PCS; 2024-10-14)
PROC: 0DB98ZX Excision of Duodenum, Via Natural or Artificial Opening Endoscopic, Diagnostic (ICD-10-PCS; principal; 2024-10-15 07:45)
PROC: 0DBP8ZX Excision of Rectum, Via Natural or Artificial Opening Endoscopic, Diagnostic (ICD-10-PCS; principal; 2024-10-15 07:45)
DX: D50.9 Iron deficiency anemia, unspecified (principal); E87.1 Hypo-osmolality and hyponatremia; N17.9 Acute kidney failure, unspecified; L03.116 Cellulitis of left lower limb; L03.314 Cellulitis of groin; Z68.41 Body mass index [BMI] 40.0-44.9, adult; K64.8 Other hemorrhoids; K29.80 Duodenitis without bleeding; K70.31 Alcoholic cirrhosis of liver with ascites; Z79.01 Long term (current) use of anticoagulants; J44.9 Chronic obstructive pulmonary disease, unspecified; Z88.1 Allergy status to other antibiotic agents; E87.70 Fluid overload, unspecified; N18.32 Chronic kidney disease, stage 3b; I95.9 Hypotension, unspecified; E87.5 Hyperkalemia; F43.10 Post-traumatic stress disorder, unspecified; K62.1 Rectal polyp; E66.01 Morbid (severe) obesity due to excess calories; Z79.899 Other long term (current) drug therapy; F32.A Depression, unspecified; F41.0 Panic disorder [episodic paroxysmal anxiety]; Z91.041 Radiographic dye allergy status; E86.1 Hypovolemia; F17.210 Nicotine dependence, cigarettes, uncomplicated; Z86.59 Personal history of other mental and behavioral disorders; Z53.29 Procedure and treatment not carried out because of patient's decision for other reasons; Z79.51 Long term (current) use of inhaled steroids; Z87.19 Personal history of other diseases of the digestive system; Z87.01 Personal history of pneumonia (recurrent); Z77.098 Contact with and (suspected) exposure to other hazardous, chiefly nonmedicinal, chemicals; Z82.49 Family history of ischemic heart disease and other diseases of the circulatory system
CPT/HCPCS: 36415; 36430; 43239; 45385; 49083; 71045; 80048; 80053; 80320; 82140; 82728; 83540; 83550; 83605; 83735; 83880; 83935; 84100; 84295; 84300; 84466; 84484; 85025; 85027; 85610; 85730; 86850; 86900; 86901; 86920; 88305; 93005; 94640; 94760; 96361; 96365; 96366; 96375; 99285

== ENCOUNTER 2024-10-27 12:36 | Day surgery (SDC) | payer MEDICARE ==
[2024-10-27 13:44] LABS: Mean Platelet Volume 7.4; Platelet Count 212 k/uL (150-450)
[2024-10-27 13:50] LABS: INR 1.1 (<1.2)
[2024-10-27 13:52] LABS: African American GFR (CKD) 48 (>60 ml/min/1.73 sqM); Anion Gap 4 mmol/L; Blood Urea Nitrogen 36 mg/dL (9-20); Calcium 8.8 mg/dL (8.4-10.2); Carbon Dioxide 26 mmol/L (22-30); Chloride 99 mmol/L (98-107); Glucose 101 mg/dL (74-99); Non-African American GFR(CKD) 41 (>60 ml/min/1.73 sqM); Potassium 4.9 mmol/L (3.5-5.1); Sodium 129 mmol/L (137-145)
[2024-10-27] MEDS: ALBUMIN HUMAN 25% 50 ML in EMPTY BAG 1 BAG IVPB SCH (14:12)
[2024-10-27 14:19] VITALS: TEMP 98.7
[2024-10-27 15:35] VITALS: BP 119/56; PULSE 91; RESP 16
--- NOTE | 2024-10-27 15:51 | US ---
EXAMINATION TYPE: US paracentesis abd w/image DATE OF EXAM: 10/27/2024 3:14 PM COMPARISON: prior paracentesis. CLINICAL INDICATION:Male, 79 years old with history of R18.8 OTHER ASCITES; , ascites ATTENDING: Dr. Dante Sharma PROCEDURE: Informed consent was obtained. The risks of the procedure were extensively explained incl uding risk of damage to surrounding bowel with perforation and need for additional procedures. Proced ure was performed in the ultrasound procedure suite. Ultrasound imaging of the abdomen demonstrate as citic fluid. An appropriate access site was localized to the right lower abdomen. Timeout was taken p er protocol. The skin was prepped and draped in the usual sterile fashion and then locally anesthetiz ed with 1% lidocaine. The peritoneal cavity was then accessed via a 5-Iranian one-step needle/cathete r. Approximately 2500 mL of clear straw-colored fluid was obtained. Postprocedural imaging of the ab domen demonstrate a minimal amount of abdominal fluid. Patient tolerated procedure well without immediate complication. Hemostasis at the procedural site w as obtained with a sterile bandage placed. The patient was monitored in the holding area following th e procedure and was subsequently discharged in stable condition. IMPRESSION: Ultrasound guided paracentesis, with approximately 2500 mL of clear straw-colored fluid drained. No immediate complications were evident. [facility], , 10/27/2024 3:49 PM
== END 2024-10-27 15:35 | disposition home or self-care (01) ==
LOC: RADPROMAIN 12:36
PROVIDERS: ATTEND Internal Medicine Gastroenterology
DX: R18.8 Other ascites (principal)
CPT/HCPCS: 80048; 85049; 85610; 36415; 49083; P9047

== ENCOUNTER 2024-11-10 12:29 | Day surgery (SDC) | payer MEDICARE ==
[2024-11-10 13:06] LABS: Mean Platelet Volume 7.1; Platelet Count 248 k/uL (150-450)
[2024-11-10 13:23] LABS: African American GFR (CKD) 37 (>60 ml/min/1.73 sqM); Non-African American GFR(CKD) 32 (>60 ml/min/1.73 sqM)
[2024-11-10] MEDS: ALBUMIN HUMAN 25% 50 ML in EMPTY BAG 1 BAG IVPB SCH (13:37)
[2024-11-10 13:49] VITALS: RESP 16; TEMP 98.2
[2024-11-10 14:45] VITALS: BP 120/71; PULSE 78
--- NOTE | 2024-11-10 15:57 | US ---
EXAMINATION TYPE: US paracentesis abd w/image DATE OF EXAM: 11/10/2024 2:51 PM COMPARISON: prior paracentesis. CLINICAL INDICATION:Male, 79 years old with history of R18.8 OTHER ASCITES; , ascites ATTENDING: Dr. Dante Sharma PROCEDURE: Informed consent was obtained. The risks of the procedure were extensively explained incl uding risk of damage to surrounding bowel with perforation and need for additional procedures. Proced ure was performed in the ultrasound procedure suite. Ultrasound imaging of the abdomen demonstrate as citic fluid. An appropriate access site was localized to the right lower abdomen. Timeout was taken p er protocol. The skin was prepped and draped in the usual sterile fashion and then locally anesthetiz ed with 1% lidocaine. The peritoneal cavity was then accessed via a 5-Urdu one-step needle/cathete r. Approximately 6200 mL of clear straw-colored fluid was obtained. Postprocedural imaging of the ab domen demonstrate a minimal amount of abdominal fluid. Patient tolerated procedure well without immediate complication. Hemostasis at the procedural site w as obtained with a sterile bandage placed. The patient was monitored in the holding area following th e procedure and was subsequently discharged in stable condition. IMPRESSION: Ultrasound guided paracentesis, with approximately 6200 mL of clear straw-colored fluid drained. No immediate complications were evident. [facility], , 11/10/2024 3:54 PM
== END 2024-11-10 14:45 | disposition home or self-care (01) ==
LOC: RADPROMAIN 12:29
PROVIDERS: ATTEND Internal Medicine Gastroenterology
DX: R18.8 Other ascites (principal)
CPT/HCPCS: 82565; 85049; 85610; 36415; 49083; P9047

== ENCOUNTER 2024-11-17 12:35 | Day surgery (SDC) | payer MEDICARE ==
[2024-11-17 13:39] LABS: Mean Platelet Volume 7.1; Platelet Count 264 k/uL (150-450)
[2024-11-17 13:45] LABS: INR 1.1 (<1.2); Prothrombin Time 11.6 sec (10.0-12.5)
[2024-11-17 13:47] LABS: African American GFR (CKD) 41 (>60 ml/min/1.73 sqM); Non-African American GFR(CKD) 35 (>60 ml/min/1.73 sqM)
[2024-11-17] MEDS: ALBUMIN HUMAN 25% 50 ML in EMPTY BAG 1 BAG IVPB SCH (13:58)
[2024-11-17 14:33] VITALS: TEMP 97.5
--- NOTE | 2024-11-17 15:14 | US ---
EXAMINATION TYPE: US paracentesis abd w/image DATE OF EXAM: 11/17/2024 1:59 PM COMPARISON: None. Previous Paracentesis CLINICAL INDICATION: Male, 79 years old with history of R18.8; , ascites TECHNIQUE/FINDINGS: The procedure was discussed with the patient. The risks, complications, benefits, and alternatives we re discussed and any questions were answered. Informed consent was obtained. The patient was placed s upine on the ultrasound table and prepped and draped in the usual sterile fashion. All elements of maximal barrier technique were utilized. Under ultrasound guidance, access into the right lower quadrant was obtained, via the paracentesis catheter system and direct ultrasound guidanc e. Approximately 6 liters of straw-colored fluid was removed. The patient was stable throughout the proc edure and remained stable upon discharge from Department of Radiology. IMPRESSION: Successful paracentesis under ultrasound guidance. [facility], , 11/17/2024 3:12 PM
[2024-11-17 15:24] VITALS: BP 112/56; PULSE 90; RESP 20
== END 2024-11-17 14:55 | disposition home or self-care (01) ==
LOC: RADPROMAIN 12:35
PROVIDERS: ATTEND Internal Medicine Gastroenterology
DX: R18.8 Other ascites (principal)
CPT/HCPCS: 82565; 85049; 85610; 36415; 49083; P9047

== ENCOUNTER 2024-11-24 13:12 | Day surgery (SDC) | payer MEDICARE ==
[2024-11-24 13:40] LABS: Mean Platelet Volume 7.2; Platelet Count 230 k/uL (150-450)
[2024-11-24 13:48] LABS: INR 1.1 (<1.2); Prothrombin Time 11.7 sec (10.0-12.5)
[2024-11-24 14:00] LABS: African American GFR (CKD) 42 (>60 ml/min/1.73 sqM); Non-African American GFR(CKD) 37 (>60 ml/min/1.73 sqM)
[2024-11-24 14:11] VITALS: RESP 18; TEMP 98.2
[2024-11-24] MEDS: ALBUMIN HUMAN 25% 50 ML in EMPTY BAG 1 BAG IVPB SCH (14:15)
[2024-11-24 15:13] VITALS: BP 104/54; PULSE 100
--- NOTE | 2024-11-24 16:12 | US ---
EXAMINATION TYPE: US paracentesis abd w/image DATE OF EXAM: 11/24/2024 CLINICAL HISTORY: 79-year-old male R18.8, other ascites, referred for routine outpatient paracentesi s The procedure was discussed with the patient. The risks, complications, benefits, and alternatives we re discussed and any questions were answered. Informed consent was obtained. The patient was placed s upine on the ultrasound table and prepped and draped in the usual sterile fashion. All elements of maximal barrier technique were utilized. Ultrasound was utilized to determine the precise skin entry site along the left right lower quadrant. A 5 [place] One-Step catheter and trocar technique was utilized to access the ascites collection under direct ultrasound guidance. Approximately 6.6 liters of clear, straw-colored fluid was removed. Catheter was removed, hemostasis obtained, and a dressing placed. The patient was stable throughout the procedure and remained stable upon discharge from Department of Radiology. IMPRESSION: Successful therapeutic paracentesis under ultrasound guidance. 6.6 L of fluid removed. [facility], , 11/24/2024 4:09 PM
== END 2024-11-24 15:40 | disposition home or self-care (01) ==
LOC: RADPROMAIN 13:12
PROVIDERS: ATTEND Internal Medicine Gastroenterology
DX: R18.8 Other ascites (principal)
CPT/HCPCS: 82565; 85049; 85610; 36415; 49083; P9047

== ENCOUNTER 2024-12-01 12:30 | Day surgery (SDC) | payer MEDICARE ==
[2024-12-01 13:04] LABS: Mean Platelet Volume 8.1; Platelet Count 265 k/uL (150-450)
[2024-12-01 13:09] VITALS: TEMP 98.5
[2024-12-01 13:10] LABS: INR 1.1 (<1.2); Prothrombin Time 12.3 sec (10.0-12.5)
[2024-12-01 13:14] LABS: African American GFR (CKD) 40 (>60 ml/min/1.73 sqM); Non-African American GFR(CKD) 35 (>60 ml/min/1.73 sqM)
[2024-12-01] MEDS: ALBUMIN HUMAN 25% 50 ML in EMPTY BAG 1 BAG IVPB SCH (14:11)
[2024-12-01 14:48] VITALS: BP 124/59; PULSE 67; RESP 15
--- NOTE | 2024-12-02 12:35 | US ---
EXAMINATION TYPE: US paracentesis abd w/image DATE OF EXAM: 12/01/2024 2:31 PM COMPARISON: prior paracentesis. CLINICAL INDICATION:Male, 79 years old with history of R18.8 OTHER ASCITES; , ascites ATTENDING: Dr. Dante Sharma PROCEDURE: Informed consent was obtained. The risks of the procedure were extensively explained incl uding risk of damage to surrounding bowel with perforation and need for additional procedures. Proced ure was performed in the ultrasound procedure suite. Ultrasound imaging of the abdomen demonstrate as citic fluid. An appropriate access site was localized to the right lower abdomen. Timeout was taken p er protocol. The skin was prepped and draped in the usual sterile fashion and then locally anesthetiz ed with 1% lidocaine. The peritoneal cavity was then accessed via a 5-Mongolian one-step needle/cathete r. Approximately 3600 mL of clear straw-colored fluid was obtained. Postprocedural imaging of the a bdomen demonstrate a minimal amount of abdominal fluid. Patient tolerated procedure well without immediate complication. Hemostasis at the procedural site w as obtained with a sterile bandage placed. The patient was monitored in the holding area following th e procedure and was subsequently discharged in stable condition. IMPRESSION: Ultrasound guided paracentesis, with approximately 3600 mL of clear straw-colored fluid drained. No immediate complications were evident. [facility], , 12/02/2024 12:33 PM
== END 2024-12-01 14:51 | disposition home or self-care (01) ==
LOC: RADPROMAIN 12:30
PROVIDERS: ATTEND Internal Medicine Gastroenterology
DX: R18.8 Other ascites (principal)
CPT/HCPCS: 82565; 85049; 85610; 36415; 49083; P9047

== ENCOUNTER 2024-12-08 13:08 | Day surgery (SDC) | payer MEDICARE ==
[2024-12-08] MEDS: HYDROcodone/APAP 5-325MG 1 EACH TAB PO STA (13:37)
[2024-12-08 13:46] LABS: Mean Platelet Volume 8.4; Platelet Count 283 k/uL (150-450)
[2024-12-08 13:54] LABS: INR 1.1 (<1.2)
[2024-12-08 14:00] LABS: African American GFR (CKD) 44 (>60 ml/min/1.73 sqM); Non-African American GFR(CKD) 38 (>60 ml/min/1.73 sqM)
[2024-12-08 14:04] VITALS: RESP 18; TEMP 98.1
[2024-12-08] MEDS: ALBUMIN HUMAN 25% 50 ML in EMPTY BAG 1 BAG IVPB SCH (14:35)
[2024-12-08 15:41] VITALS: BP 112/64; PULSE 90
--- NOTE | 2024-12-09 06:56 | US ---
EXAMINATION TYPE: US paracentesis abd w/image DATE OF EXAM: December 08, 2024 COMPARISON: December 01, 2024 prior paracentesis. CLINICAL INDICATION:Male, 79 years old with history of R18.8 OTHER ASCITES; , ascites ATTENDING: Dr. Zarate PROCEDURE: Informed consent was obtained. The risks of the procedure were extensively explained incl uding risk of damage to surrounding bowel with perforation and need for additional procedures. Proced ure was performed in the ultrasound procedure suite. Ultrasound imaging of the abdomen demonstrate ascitic fluid. An appropriate access site was localized to the right lower abdomen. Timeout was taken per protocol. The skin was prepped and draped in the u sual sterile fashion and then locally anesthetized with 1% lidocaine. The peritoneal cavity was then accessed via a 5-Bruneian one-step needle/catheter. Approximately 5800 mL of clear straw-colored flui d was obtained. Patient tolerated procedure well without immediate complication. Hemostasis at the procedural site w as obtained with a sterile bandage placed. The patient was monitored in the holding area following th e procedure and was subsequently discharged in stable condition. IMPRESSION: Ultrasound guided paracentesis, with approximately 5800 mL of clear straw-colored fluid drained. No immediate complications were evident. [facility], , 12/09/2024 6:54 AM
== END 2024-12-08 15:44 | disposition home or self-care (01) ==
LOC: RADPROMAIN 13:08
PROVIDERS: ATTEND Internal Medicine Gastroenterology
DX: R18.8 Other ascites (principal)
CPT/HCPCS: 82565; 85049; 85610; 36415; 49083; P9047

== ENCOUNTER 2024-12-15 13:07 | Day surgery (SDC) | payer MEDICARE ==
[2024-12-15 13:32] VITALS: RESP 12; TEMP 98.1
[2024-12-15 13:37] LABS: Mean Platelet Volume 7.4; Platelet Count 233 k/uL (150-450)
[2024-12-15 13:46] LABS: African American GFR (CKD) 42 (>60 ml/min/1.73 sqM); Non-African American GFR(CKD) 36 (>60 ml/min/1.73 sqM)
[2024-12-15 14:02] LABS: INR 1.1 (<1.2); Prothrombin Time 11.9 sec (10.0-12.5)
[2024-12-15] MEDS: ALBUMIN HUMAN 25% 50 ML in EMPTY BAG 1 BAG IVPB SCH (14:10)
[2024-12-15 14:38] VITALS: BP 135/72; PULSE 103
--- NOTE | 2024-12-15 16:09 | US ---
EXAMINATION TYPE: US paracentesis abd w/image DATE OF EXAM: 12/15/2024 CLINICAL HISTORY: 79-year-old male R18.8, other ascites, here for routine outpatient weekly paracent esis. The procedure was discussed with the patient. The risks, complications, benefits, and alternatives we re discussed and any questions were answered. Informed consent was obtained. The patient was placed s upine on the ultrasound table and prepped and draped in the usual sterile fashion. All elements of maximal barrier technique were utilized. Ultrasound was utilized to determine the precise skin entry site along the right lower quadrant. A 5 Georgian One-Step catheter and trocar technique was utilized to access the ascites collection under direct ultrasound guidance. Approximately 4.6 liters of clear, straw-colored fluid was removed. Catheter was removed, hemostasis obtained, and a dressing placed. The patient was stable throughout the procedure and remained stable upon discharge from Department of Radiology. IMPRESSION: Successful therapeutic paracentesis under ultrasound guidance. 4.6 L of fluid removed. [facility], , 12/15/2024 4:07 PM
== END 2024-12-15 15:00 | disposition home or self-care (01) ==
LOC: RADPROMAIN 13:07
PROVIDERS: ATTEND Internal Medicine Gastroenterology
DX: R18.8 Other ascites (principal)
CPT/HCPCS: 82565; 85049; 85610; 49083; P9047

== ENCOUNTER 2024-12-22 13:02 | Day surgery (SDC) | payer MEDICARE ==
[2024-12-22 14:01] LABS: Mean Platelet Volume 7.3; Platelet Count 242 k/uL (150-450)
[2024-12-22 14:13] LABS: Prothrombin Time 11.3 sec (10.0-12.5)
[2024-12-22] MEDS: ALBUMIN HUMAN 25% 50 ML in EMPTY BAG 1 BAG IVPB SCH (14:27)
[2024-12-22 14:33] VITALS: RESP 18; TEMP 97.8
[2024-12-22 14:34] LABS: African American GFR (CKD) 40 (>60 ml/min/1.73 sqM); Non-African American GFR(CKD) 34 (>60 ml/min/1.73 sqM)
[2024-12-22 15:24] VITALS: BP 102/53; PULSE 65
--- NOTE | 2024-12-23 10:06 | US ---
EXAMINATION TYPE: US paracentesis abd w/image DATE OF EXAM: 12/22/2024 2:10 PM COMPARISON: prior paracentesis. CLINICAL INDICATION:Male, 79 years old with history of R18.8 OTHER ASCITES; , ascites ATTENDING: Dr. Dante Sharma PROCEDURE: Informed consent was obtained. The risks of the procedure were extensively explained incl uding risk of damage to surrounding bowel with perforation and need for additional procedures. Proced ure was performed in the ultrasound procedure suite. Ultrasound imaging of the abdomen demonstrate as citic fluid. An appropriate access site was localized to the right lower abdomen. Timeout was taken p er protocol. The skin was prepped and draped in the usual sterile fashion and then locally anesthetiz ed with 1% lidocaine. The peritoneal cavity was then accessed via a 5-Austrian one-step needle/cathete r. Approximately 5100 mL of clear straw-colored fluid was obtained. Postprocedural imaging of the a bdomen demonstrate a minimal amount of abdominal fluid. Patient tolerated procedure well without immediate complication. Hemostasis at the procedural site w as obtained with a sterile bandage placed. The patient was monitored in the holding area following th e procedure and was subsequently discharged in stable condition. IMPRESSION: Ultrasound guided paracentesis, with approximately 5100 mL of clear straw-colored fluid drained. No immediate complications were evident. [facility], , 12/23/2024 10:04 AM
== END 2024-12-22 15:15 | disposition home or self-care (01) ==
LOC: RADPROMAIN 13:02
PROVIDERS: ATTEND Internal Medicine Gastroenterology
DX: R18.8 Other ascites (principal)
CPT/HCPCS: 82565; 85049; 85610; 49083; P9047

== ENCOUNTER 2025-01-17 08:09 | Day surgery (SDC) | payer MEDICARE ==
[2025-01-17 08:38] LABS: Mean Platelet Volume 7.3; Platelet Count 258 k/uL (150-450)
[2025-01-17 08:44] LABS: INR 1.1 (<1.2); Prothrombin Time 12.1 sec (10.0-12.5)
[2025-01-17 08:46] LABS: African American GFR (CKD) 38 (>60 ml/min/1.73 sqM); Non-African American GFR(CKD) 33 (>60 ml/min/1.73 sqM)
[2025-01-17 08:53] VITALS: RESP 16; TEMP 97.9
[2025-01-17] MEDS: ALBUMIN HUMAN 25% 50 ML in EMPTY BAG 1 BAG IVPB SCH (09:19)
[2025-01-17 09:57] VITALS: BP 121/73; PULSE 86
--- NOTE | 2025-01-17 10:50 | US ---
EXAMINATION TYPE: US paracentesis abd w/image DATE OF EXAM: 01/17/2025 9:39 AM COMPARISON: prior paracentesis. CLINICAL INDICATION:Male, 79 years old with history of R18.8 OTHER ASCITES; , ascites ATTENDING: Dr. Dante Sharma PROCEDURE: Informed consent was obtained. The risks of the procedure were extensively explained incl uding risk of damage to surrounding bowel with perforation and need for additional procedures. Proced ure was performed in the ultrasound procedure suite. Ultrasound imaging of the abdomen demonstrate as citic fluid. An appropriate access site was localized to the right lower abdomen. Timeout was taken p er protocol. The skin was prepped and draped in the usual sterile fashion and then locally anesthetiz ed with 1% lidocaine. The peritoneal cavity was then accessed via a 5-Citizen [place] one-step needle/cathete r. Approximately 6900 mL of clear straw-colored fluid was obtained. Postprocedural imaging of the ab domen demonstrate a minimal amount of abdominal fluid. Patient tolerated procedure well without immediate complication. Hemostasis at the procedural site w as obtained with a sterile bandage placed. The patient was monitored in the holding area following th e procedure and was subsequently discharged in stable condition. IMPRESSION: Ultrasound guided paracentesis, with approximately 6900 mL of clear straw-colored fluid drained. No immediate complications were evident. [facility], , 01/17/2025 10:48 AM
== END 2025-01-17 10:20 | disposition home or self-care (01) ==
LOC: RADPROMAIN 08:09
PROVIDERS: ATTEND Internal Medicine Gastroenterology
DX: R18.8 Other ascites (principal)
CPT/HCPCS: 82565; 85049; 85610; 36415; 49083; P9047

== ENCOUNTER 2025-02-02 12:59 | Day surgery (SDC) | payer MEDICARE ==
[2025-02-02 13:35] VITALS: TEMP 98.1
[2025-02-02 13:37] LABS: Platelet Count 276 k/uL (150-450)
[2025-02-02 13:44] LABS: Prothrombin Time 11.5 sec (10.0-12.5)
[2025-02-02 14:00] LABS: African American GFR (CKD) 37 (>60 ml/min/1.73 sqM); Non-African American GFR(CKD) 32 (>60 ml/min/1.73 sqM)
[2025-02-02] MEDS: ALBUMIN HUMAN 25% 50 ML in EMPTY BAG 1 BAG IVPB SCH (14:10)
[2025-02-02 14:33] VITALS: RESP 18
[2025-02-02 15:24] VITALS: BP 117/56; PULSE 95
--- NOTE | 2025-02-03 08:31 | US ---
EXAMINATION TYPE: US paracentesis abd w/image DATE OF EXAM: 02/02/2025 CLINICAL HISTORY: Ascites The procedure was discussed with the patient. The risks, complications, benefits, and alternatives we re discussed and any questions were answered. Informed consent was obtained. The patient was placed s upine on the ultrasound table and prepped and draped in the usual sterile fashion. All elements of maximal barrier technique were utilized. Under ultrasound guidance, access into the right lower quadrant was obtained, via the paracentesis catheter system and direct ultrasound guidanc e. Approximately 6.1 liters of straw-colored fluid was removed. The patient was stable throughout the pr ocedure and remained stable upon discharge from Department of Radiology. IMPRESSION: Successful therapeutic paracentesis under ultrasound guidance. [facility], , 02/03/2025 8:29 AM
== END 2025-02-02 15:10 | disposition home or self-care (01) ==
LOC: RADPROMAIN 12:59
PROVIDERS: ATTEND Internal Medicine Gastroenterology
DX: R18.8 Other ascites (principal)
CPT/HCPCS: 82565; 85049; 85610; 36415; 49083; P9047

== ENCOUNTER 2025-02-09 10:35 | Inpatient (IN) | payer MEDICARE ==
[2025-02-09 11:57] LABS: Anisocytosis Slight; Basophils % (A) 0 %; Eosinophils # (A) 0.1 k/uL (0-0.7); Eosinophils % (A) 2 %; HCT 27.5 % (39.0-53.0); HGB 8.2 gm/dL (13.0-17.5); Hypochromasia Marked; Lymphocytes # (A) 0.4 k/uL (1.0-4.8); Lymphocytes % (A) 5 %; MCH 21.7 pg (25.0-35.0); MCHC 29.8 g/dL (31.0-37.0); Mean Platelet Volume 6.3; Microcytosis Moderate; Monocytes # (A) 0.5 k/uL (0-1.0); Monocytes % (A) 6 %; Neutrophils % (A) 84 %; Platelet Count 304 k/uL (150-450); RBC 3.77 m/uL (4.30-5.90); RDW 17.9 % (11.5-15.5); WBC 8.4 k/uL (3.8-10.6)
--- NOTE | 2025-02-09 12:12 | CT ---
EXAMINATION TYPE: CT brain cspine wo con DATE OF EXAM: 02/09/2025 COMPARISON: CLINICAL INDICATION: Male, 79 years old with history of fall; [facility], Fall TECHNIQUE: CT scan of the head and cervical spine are performed without contrast. CT DLP: 1511.[address] CTDI: mGy Automated exposure control for dose reduction was used. FINDINGS: There is no acute intracranial hemorrhage, mass effect, or midline shift identified. The ventricles and sulci are within normal limits in size. The globes are intact and the visualized sinuses are osmani ar. Cervical spine is visualized in its entirety from C1 through upper thoracic levels and demonstrates s atisfactory alignment without evidence of acute fracture or dislocation. Prevertebral soft tissue ap pears within normal limits. The C1-C2 articulation is unremarkable. IMPRESSION: 1 There is no acute fracture or dislocation evident in the cervical spine. 2. No acute intracranial hemorrhage, mass effect, or midline shift is seen. [facility], , 02/09/2025 12:10 PM
[2025-02-09 12:13] LABS: ALT 18 U/L (4-49); AST 34 U/L (17-59); African American GFR (CKD) 19 (>60 ml/min/1.73 sqM); Albumin 3.5 g/dL (3.5-5.0); Alkaline Phosphatase 157 U/L (38-126); Anion Gap 10 mmol/L; Blood Urea Nitrogen 48 mg/dL (9-20); Calcium 8.4 mg/dL (8.4-10.2); Carbon Dioxide 21 mmol/L (22-30); Chloride 89 mmol/L (98-107); Glucose 89 mg/dL (74-99); Non-African American GFR(CKD) 16 (>60 ml/min/1.73 sqM); Sodium 120 mmol/L (137-145); Total Bilirubin 1.2 mg/dL (0.2-1.3); Total Protein 6.6 g/dL (6.3-8.2)
--- NOTE | 2025-02-09 12:15 | ED ---
Fall HPI - General Chief Complaint: Fall Stated Complaint: Fall on thinners Time Seen by Provider: 02/09/25 10:40 Source: patient, EMS, RN notes reviewed Mode of arrival: EMS Limitations: no limitations - History of Present Illness Initial Comments: 79-year-old male presents emergency department chief complaint of bilateral leg drainage, redness infection along with a fall. Patient states he had a fall because he lost his balance he states he did not strike his head but he is unknown blood thinners. Patient complains of left hip pain no chest pain no shortness of breath. Patient is unsure if he has congestive heart failure does have a history of A-fib. - Related Data Home Medications Medication Instructions Recorded Confirmed Ergocalciferol [Vitamin D2 (1250 1,250 mcg PO WEEKLY 12/05/22 02/02/25 Mcg = 80646 Iu)] Furosemide [Lasix] 40 mg PO BID 12/05/22 02/02/25 Rivaroxaban [Xarelto] 20 mg PO HS 12/05/22 02/02/25 Cyanocobalamin [Vitamin B-12] 1,000 mcg PO DAILY 12/17/22 02/02/25 Mv-Min/Folic/K1/Lycopen/Lutein 1 tablet PO DAILY 12/17/22 02/02/25 [Centrum Silver Men Tablet] Zinc Gluconate [Zinc] 50 mg PO DAILY 12/17/22 02/02/25 Magnesium Oxide [Magnesium] 500 mg PO DAILY 01/19/23 02/02/25 Metoprolol Succinate (ER) [Toprol 25 mg PO DAILY 10/30/23 02/02/25 XL] HYDROcodone/APAP 10-325MG [Caliente 1 tab PO BID@0000,0600 01/21/24 02/02/25 10-325] Morphine Sulfate [Morphine Sulfate 15 mg PO BID@1200,1800 07/21/24 02/02/25 ER] Albuterol Sulfate [Albuterol 1 - 2 puff PO RT-Q4H PRN 10/13/24 02/02/25 Sulfate Hfa] Ipratropium-Albuterol Nebulize 3 ml INHALATION RT-TID 10/13/24 02/02/25 [Duoneb 0.5 mg-3 mg/3 ml Soln] ALPRAZolam [Xanax] 0.25 mg PO BID PRN 10/27/24 02/02/25 Cholecalciferol [Vitamin D3 (25 25 mcg PO DAILY 10/27/24 02/02/25 Mcg = 1000 Iu)] Lactulose 5 gm PO BID 10/27/24 02/02/25 Spironolactone 50 mg PO DAILY 10/27/24 02/02/25 Allergies Allergy/AdvReac Type Severity Reaction Status Date / Time cephalexin [From Keflex] Allergy Rash/Hives Verified 02/09/25 10:56 Iodinated Contrast Media Allergy Vomiting Verified 02/09/25 10:56 Review of Systems ROS Statement: Those systems with pertinent positive or pertinent negative responses have been documented in the HPI. ROS Other: All systems not noted in ROS Statement are negative. Past Medical History Past Medical History: Atrial Fibrillation, Liver Disease, Pneumonia Additional Past Medical History / Comment(s): morbid obese, exposed to agent orange, ascites, back pain, large volume pracentesis weekly History of Any Multi-Drug Resistant Organisms: None Reported Past Surgical History: Hernia Repair Additional Past Surgical History / Comment(s): multi large volume paracentesis, hernia, scrotal surgery, eye implants, liver biopsy, rt shoulder injection for pain Past Anesthesia/Blood Transfusion Reactions: No Reported Reaction Past Psychological History: Anxiety, Panic Disorder, PTSD Smoking Status: Current every day smoker Past Alcohol Use History: None Reported, Occasional Past Drug Use History: Marijuana - Past Family History Father Family Medical History: Myocardial Infarction ([place]) General Exam Limitations: no limitations General appearance: alert, in no apparent distress Head exam: Present: atraumatic, normocephalic, normal inspection Eye exam: Present: normal appearance, PERRL, EOMI. Absent: scleral icterus, conjunctival injection, periorbital swelling ENT exam: Present: normal exam, normal oropharynx, mucous membranes moist Neck exam: Present: normal inspection, full ROM. Absent: tenderness, meningismus, lymphadenopathy Respiratory exam: Present: normal lung sounds bilaterally. Absent: respiratory distress, wheezes, rales, rhonchi, stridor Cardiovascular Exam: Present: normal rhythm, irregular rhythm, normal heart sounds. Absent: systolic murmur, diastolic murmur, rubs, gallop, clicks Extremities exam: Present: other (Bilateral lower extremity ulcerations, erythema diffuse swelling with drainage noted) Course Vital Signs 02/09/25 02/09/25 02/09/25 10:52 11:41 13:05 Temperature 98.1 F Pulse Rate 94 85 101 H Respiratory 18 22 18 Rate Blood Pressure 114/55 92/73 115/69 O2 Sat by Pulse 96 96 96 Oximetry Medical Decision Making - Medical Decision Making Was pt. sent in by a medical professional or institution ([facility] Celestin, [employer], urgent care, hospital, or assisted...) When possible be specific @ -No Did you speak to anyone other than the patient for history (EMS, parent, family, police, friend...)? What history was obtained from this source @ -No Did you review nursing and triage notes (agree or disagree)? Why? @ -I reviewed and agree with nursing and triage notes Were old charts reviewed (outside hosp., previous admission, EMS record, old EKG, old radiological studies, urgent care reports/EKG's, assisted records)? Report findings @ -No old charts were reviewed Differential Diagnosis (chest pain, altered mental status, abdominal pain women, abdominal pain men, vaginal bleeding, weakness, fever, dyspnea, syncope, headache, dizziness, GI bleed, back pain, seizure, CVA, palpatations, mental health, musculoskeletal)? @ -Cellulitis, CHF, anemia, renal failure, hyperkalemia, weakness, chest pain EKG interpreted by me (3pts min.). @ -As above X-rays interpreted by me (1pt min.). @ -Chest x-ray shows no acute cardiopulmonary process X-ray left hip with pelvis no acute fracture CT interpreted by me (1pt min.). @ -None done U/S interpreted by me (1pt. min.). @ -None done What testing was considered but not performed or refused? (CT, X-rays, U/S, labs)? Why? @ -None What meds were considered but not given or refused? Why? @ -None Did you discuss the management of the patient with other professionals (professionals i.e. [facility]AH[facility] Celestin, [employer], lab, RT, psych nurse, social and political studies professor, concierge, teacher, immigration services officer, onsite case manager)? Give summary @ -[facility] for admission Was smoking cessation discussed for >3mins.? @ -No Was critical care preformed (if so, how long)? @ -35 minutes Were there social determinants of health that impacted care today? How? (Homelessness, low income, unemployed, alcoholism, drug addiction, transportation, low edu. Level, literacy, decrease access to med. care, senior care, rehab)? @ -No Was there de-escalation of care discussed even if they declined (Discuss DNR or withdrawal of care, Hospice)? DNR status @ -No What co-morbidities impacted this encounter? (DM, HTN, Smoking, COPD, CAD, Cancer, CVA, ARF, Chemo, Hep., AIDS, mental health diagnosis, sleep apnea, morbid obesity)? @ -None Was patient admitted / discharged? Hospital course, mention meds given and route, prescriptions, significant lab abnormalities, going to OR and other pertinent info. @ -[Admitted patient presented for increasing weakness, leg swelling and cellulitic changes. Patient was started on Zosyn based on prior wound culture outpatient. Patient does have hyperkalemia repeat potassium 6.5 patient ordered hyperkalemia medications including insulin dextrose bicarb and Lokelma. Patient will have repeat laboratory studies, infectious disease consult, patient has acute on chronic kidney injury will require nephrology evaluation along with IV fluids for hyponatremia Undiagnosed new problem with uncertain prognosis? @ -No Drug Therapy requiring intensive monitoring for toxicity (Heparin, Nitro, Insulin, Cardizem)? @ -No Were any procedures done? @ -No Diagnosis/symptom? @ -Cellulitis, hyponatremia, hyperkalemia, acute on chronic renal failure, anemia, Acute, or Chronic, or Acute on Chronic? @ -Acute Uncomplicated (without systemic symptoms) or Complicated (systemic symptoms)? @ -Complicated Side effects of treatment? @ -No Exacerbation, Progression, or Severe Exacerbation? @ -No Poses a threat to life or bodily function? How? (Chest pain, [place], [place], pneumonia, PE, COPD, DKA, ARF, appy, cholecystitis, CVA, Diverticulitis, Homicidal, Suicidal, threat to staff... and all critical care pts) @ -Yes hyperkalemia, cardiac dysrhythmia - Lab Data Result diagrams: 02/09/25 11:44 02/09/25 13:05 Lab Results 02/09/25 02/09/25 02/09/25 Range/Units 11:44 11:44 11:44 WBC 8.4 (3.8-10.6) k/uL RBC 3.77 L (4.30-5.90) m/uL Hgb 8.2 L (13.0-17.5) gm/dL Hct 27.5 L (39.0-53.0) % MCV 73.0 L (80.0-100.0) fL MCH 21.7 L (25.0-35.0) pg MCHC 29.8 L (31.0-37.0) g/dL RDW 17.9 H (11.5-15.5) % Plt Count 304 (150-450) k/uL MPV 6.3 Neutrophils % 84 % Lymphocytes % 5 % Monocytes % 6 % Eosinophils % 2 % Basophils % 0 % Neutrophils # 7.0 (1.3-7.7) k/uL Lymphocytes # 0.4 L (1.0-4.8) k/uL Monocytes # 0.5 (0-1.0) k/uL Eosinophils # 0.1 (0-0.7) k/uL Basophils # 0.0 (0-0.2) k/uL Hypochromasia Marked Anisocytosis Slight Microcytosis Moderate Sodium 120 L (137-145) mmol/L Potassium 6.8 H* (3.5-5.1) mmol/L Chloride 89 L (98-107) mmol/L Carbon Dioxide 21 L (22-30) mmol/L Anion Gap 10 mmol/L BUN 48 H (9-20) mg/dL Creatinine 3.43 H (0.66-1.25) mg/dL Est GFR (CKD-EPI)AfAm 19 (>60 ml/min/1.73 sqM) Est GFR (CKD-EPI)NonAf 16 (>60 ml/min/1.73 sqM) Glucose 89 (74-99) mg/dL Plasma Lactic Acid Lisandro 1.0 (0.7-2.0) mmol/L Calcium 8.4 (8.4-10.2) mg/dL Total Bilirubin 1.2 (0.2-1.3) mg/dL AST 34 (17-59) U/L ALT 18 (4-49) U/L Alkaline Phosphatase 157 H (38-126) U/L Troponin I (0.000-0.034) ng/mL NT-Pro-B Natriuret Pep 1460 pg/mL Total Protein 6.6 (6.3-8.2) g/dL Albumin 3.5 (3.5-5.0) g/dL 02/09/25 02/09/25 Range/Units 11:48 13:05 WBC (3.8-10.6) k/uL RBC (4.30-5.90) m/uL Hgb (13.0-17.5) gm/dL Hct (39.0-53.0) % MCV (80.0-100.0) fL MCH (25.0-35.0) pg MCHC (31.0-37.0) g/dL RDW (11.5-15.5) % Plt Count (150-450) k/uL MPV Neutrophils % % Lymphocytes % % Monocytes % % Eosinophils % % Basophils % % Neutrophils # (1.3-7.7) k/uL Lymphocytes # (1.0-4.8) k/uL Monocytes # (0-1.0) k/uL Eosinophils # (0-0.7) k/uL Basophils # (0-0.2) k/uL Hypochromasia Anisocytosis Microcytosis Sodium (137-145) mmol/L Potassium 6.5 H* (3.5-5.1) mmol/L Chloride (98-107) mmol/L Carbon Dioxide (22-30) mmol/L Anion Gap mmol/L BUN (9-20) mg/dL Creatinine (0.66-1.25) mg/dL Est GFR (CKD-EPI)AfAm (>60 ml/min/1.73 sqM) Est GFR (CKD-EPI)NonAf (>60 ml/min/1.73 sqM) Glucose (74-99) mg/dL Plasma Lactic Acid Lisandro (0.7-2.0) mmol/L Calcium (8.4-10.2) mg/dL Total Bilirubin (0.2-1.3) mg/dL AST (17-59) U/L ALT (4-49) U/L Alkaline Phosphatase (38-126) U/L Troponin I 0.022 (0.000-0.034) ng/mL NT-Pro-B Natriuret Pep pg/mL Total Protein (6.3-8.2) g/dL Albumin (3.5-5.0) g/dL - EKG Data -: EKG Interpreted by Me EKG Comments: EKG performed at 11: 22 A-fib with a rate of 85 QRS 109 QT/QTc 370/412 Critical Care Time Critical Care Time: Yes Total Critical Care Time: 35 Disposition Clinical Impression: Fall, Anemia, Cellulitis, leg, Hyponatremia, Acute on chronic renal failure, Hyperkalemia Disposition: ADMITTED IP TO THIS [facility] Condition: Poor Referrals: Kelechi Soriano DO [Primary Care Provider] - 1-2 days Time of Disposition: 13:43
[2025-02-09 12:21] LABS: NT-Pro-B-Type Natriuretic Pept 1460 pg/mL
--- NOTE | 2025-02-09 12:32 | XR ---
EXAMINATION TYPE: XR chest 1V DATE OF EXAM: 02/09/2025 12:18 PM COMPARISON: 10/17/2024 CLINICAL INDICATION: Male, 79 years old with history of weakness, TECHNIQUE: XR chest 1V views of the chest are obtained. FINDINGS: Demonstrated are scattered senescent parenchymal change. There is no evidence for focal infiltrate. The heart is stable. Hilar and mediastinal structures are within normal limits. Degenerative changes are seen of the dorsal spine. IMPRESSION: 1. Chronic changes without evidence for acute pulmonary disease. [facility], , 02/09/2025 12:30 PM
--- NOTE | 2025-02-09 12:34 | XR ---
EXAMINATION TYPE: XR Hip LT and AP Pelvis DATE OF EXAM: 02/09/2025 12:18 PM COMPARISON: None. CLINICAL INDICATION: Male, 79 years old with history of pain, pain TECHNIQUE: XR Hip LT and AP Pelvis views were obtained. AP Pelvis also obtained. FINDINGS: There is no acute fracture/dislocation evident. The joint space appears within normal li mits. The overlying soft tissue appears unremarkable. IMPRESSION: No acute fracture or dislocation. [facility], , 02/09/2025 12:31 PM
[2025-02-09 13:02] LABS: Potassium 6.8 mmol/L (3.5-5.1)
[2025-02-09] MEDS: HYDROcodone/APAP 5-325MG 1 EACH TAB PO STA (13:13)
[2025-02-09] MEDS: SODIUM CHLORIDE 0.9% 1,000 ML IV SCH (13:22)
[2025-02-09] MEDS: SODIUM CHLORIDE 0.9% 500 ML 500 ML IV ONE (13:22)
[2025-02-09] MEDS ORDERED: NALOXONE 0.4 MG/ML 1 ML VIAL IV PRN (13:44)
[2025-02-09 14:09] LABS: Glucose,Whole Blood 105 mg/dL (70-110)
[2025-02-09] MEDS: DEXTROSE 50% SYRINGE 50 ML IVP ONE (14:11)
[2025-02-09] MEDS: INSULIN REGULAR 100 UNIT/ML VIAL (IV) IV ONE ×2 (14:16→20:54)
[2025-02-09] MEDS: SODIUM BICARB 8.4% 50 ML SYR (1 MEQ/ML) IV ONE (14:21)
[2025-02-09] MEDS: PIPERACILLIN-TAZOBACTAM 3.375 GM in SODIUM CHLORIDE 0.9% 100 ML IVPB SCH (14:23)
[2025-02-09] MEDS: SODIUM ZIRCONIUM CYCLOSILICATE 10 GM PACKET PO ONE (14:24)
[2025-02-09] MEDS: IPRATROPIUM-ALBUTEROL 3 ML NEB INHALATION SCH (15:31)
[2025-02-09] MEDS: SODIUM BICARB 8.4% 50 ML SYR (1 MEQ/ML) IV STA (20:42)
[2025-02-09] MEDS: CALCIUM GLUCONATE IN NACL 1 GM in SALINE 1 100ML.BAG IVPB ONE (20:53)
[2025-02-09] MEDS: DEXTROSE 50% SYRINGE 50 ML IVP STA (20:53)
[2025-02-09] MEDS: HYDROmorphone 0.5 MG/0.5 ML SYRINGE IVP PRN (21:02)
--- NOTE | 2025-02-09 22:58 | HP ---
HISTORY AND PHYSICAL CHIEF COMPLAINT: Fall and acute renal failure. HISTORY OF PRESENT ILLNESS: This is a 79-year-old gentleman with a past medical history of atrial fibrillation, history of liver disease, history of morbid obesity, apparently had a fall last night. The patient unable to get up for some time. The patient was last admitted in September with cirrhosis of liver and ascites. The patient currently presented with significant ulcerations and as well as severe hyperkalemia and worsening renal failure. There is no history of any fever, rigors, or chills at this time. The patient has multiple excoriations of both legs also. PAST MEDICAL HISTORY: History of cirrhosis of liver, history of atrial fibrillation. Rest of the history and rest of the chart are also reviewed. HOME MEDICATIONS: Reviewed include zinc gluconate. Dose and rest of medications reviewed. They are not confirmed yet. ALLERGIES: Cephalexin. FAMILY HISTORY: History of myocardial infarction. SOCIAL HISTORY: History of smoking. REVIEW OF SYSTEMS: A 14-point review of systems is negative except as mentioned earlier. PHYSICAL EXAMINATION: VITAL SIGNS: Pulse is 101, blood pressure 115/69, respirations 18, temperature 98.1. HEENT: Conjunctivae normal. NECK: Obese. CARDIOVASCULAR: S1, S2. RESPIRATIONS: A few scattered rhonchi. No crackles. ABDOMEN: Obese, soft, nontender. No mass palpable. LEGS: Bilateral leg edema with weeping areas present. NERVOUS SYSTEM: Diffusely weak. SKIN: As mentioned earlier. JOINTS: No active deforming arthropathy. LABORATORY DATA: Hemoglobin 8.2, potassium 6.8 to 6.5. ASSESSMENT: 1. Acute on chronic renal failure with possibly prerenal factors and acute tubular necrosis. 2. Hyperkalemia, severe. 3. Bilateral leg cellulitis. 4. Fall and gait dysfunction. 5. Microcytic anemia. 6. History of chronic liver disease. 7. Cirrhosis of liver and ascites. 8. History of atrial fibrillation. 9. History of anxiety, postraumatic stress disorder, panic disorder. 10.History of nicotine dependence. RECOMMENDATIONS AND DISCUSSION: This is a 79-year-old gentleman, who presented with multiple complex medical issues, we will monitor the patient closely. Continue the current management and continue symptomatic treatment. Otherwise, at this time, I would recommend broad-spectrum IV antibiotics and Infectious Disease evaluation and glucose insulin regimen for hyperkalemia. Nephrology consultation. Monitor creatinine closely. The chest x-ray which was reviewed showed some increased bronchovascular markings. Overall prognosis guarded because of multiple complex medical issues. Further recommendations to follow. See orders for further details. EKG showed non-progression of the R-waves. I would also recommend a 2D echo with Doppler. MMODL / IJN: [id number] /
--- NOTE | 2025-02-09 23:08 | P.CONS ---
History of Present Illness - Reason for Consult Consult date: 02/09/25 Leg cellulitis, sepsis Requesting physician: Martin Waters - Chief Complaint Swelling redness to the leg x days - History of Present Illness Patient is a 79-year-old male with a past medical history significant for morbid obesity atrial fibrillation liver disease pneumonia anxiety depression PTSD and did have a history of lower extremity venous stasis ulcer sascha villa has been brought into the hospital complaining of bilateral lower extremity swelling redness drainage and also the patient did have a fall patient denies any history of loss of consciousness to the ER physician on arrival to the ER patient was afebrile and no fever have been called subsequently patient was not tachycardic mildly hypotensive currently on 2 L nasal cannula oxygen did have white count of 8.4 BUN and creatinine has been elevated with a creatinine of 3.43 potassium was also elevated liver enzymes are normal patient did have a chest x-ray that was reported chronic change without evidence for acute cardiopulmonary disease patient has been started on Zosyn infectious disease was consulted for further management of antibiotic therapy patient is currently lethargic not a very good historian nonspecific denies any chest pain or cough, has been complaining of pain lower extremity main but not able to quantify any further Review of Systems Positive points has been mentioned in HPI complete review could not be obtained because of his underlying mental status Past Medical History Past Medical History: Atrial Fibrillation, Liver Disease, Pneumonia Additional Past Medical History / Comment(s): morbid obese, exposed to agent orange, ascites, back pain, large volume pracentesis weekly History of Any Multi-Drug Resistant Organisms: None Reported Past Surgical History: Hernia Repair Additional Past Surgical History / Comment(s): multi large volume paracentesis, hernia, scrotal surgery, eye implants, liver biopsy, rt shoulder injection for pain Past Anesthesia/Blood Transfusion Reactions: No Reported Reaction Past Psychological History: Anxiety, Panic Disorder, PTSD Smoking Status: Current every day smoker Past Alcohol Use History: None Reported, Occasional Past Drug Use History: Marijuana - Past Family History Father Family Medical History: Myocardial Infarction (SD) Medications and Allergies Home Medications Medication Instructions Recorded Confirmed Type Furosemide [Lasix] 40 mg PO DAILY 12/05/22 02/09/25 History Rivaroxaban [Xarelto] 20 mg PO DAILY 12/05/22 02/09/25 History Metoprolol Succinate (ER) [Toprol 25 mg PO DAILY 10/30/23 02/09/25 History XL] HYDROcodone/APAP 10-325MG [[place] 1 tab PO BID 01/21/24 02/09/25 History 10-325] Morphine Sulfate [Morphine Sulfate 15 mg PO BID 07/21/24 02/09/25 History ER] Albuterol Sulfate [Albuterol 2 puff PO RT-Q4H PRN 10/13/24 02/09/25 History Sulfate Hfa] ALPRAZolam [Xanax] 1 mg PO BID PRN 02/09/25 02/09/25 History Famotidine [Pepcid] 20 mg PO BID 02/09/25 02/09/25 History Mupirocin 2% Oint [Bactroban 2% 1 applic TOPICAL BID PRN 02/09/25 02/09/25 History Oint] Mupirocin Calcium 2% Cream 1 applic TOPICAL BID 02/09/25 02/09/25 History [Bactroban 2% Cream] Ondansetron Odt [Zofran Odt] 4 mg PO Q8HR PRN 02/09/25 02/09/25 History SILVER sulfADIAZINE Cream 1 applic TOPICAL DAILY 02/09/25 02/09/25 History [Silvadene 1% Cream] Spironolactone [Aldactone] 100 mg PO DAILY 02/09/25 02/09/25 History Sulfamethox-Tmp 800-160Mg [Bactrim 1 tab PO BID 02/09/25 02/09/25 History DS 800-160 mg] Allergies Allergy/AdvReac Type Severity Reaction Status Date / Time cephalexin [[facility]] Allergy Rash/Hives Verified 02/09/25 15:45 Iodinated Contrast Media Allergy Vomiting Verified 02/09/25 15:45 Physical Exam Vitals: Vital Signs Temp Pulse Resp BP Pulse Ox 02/09/25 14:25 80 22 93/66 96 02/09/25 13:05 101 H 18 115/69 96 02/09/25 11:41 85 22 92/73 96 02/09/25 10:52 98.1 F 94 18 114/55 96 Intake and Output 02/08/25 02/09/25 02/09/25 22:59 06:59 14:59 Other: Weight 110.677 kg GENERAL DESCRIPTION: Elderly male l up in the chair. No tachypnea or accessory muscle of respiration use. HEENT: Shows Pallor , no scleral icterus. Oral mucous membrane is dry. NECK: Trachea central, no thyromegaly. LUNGS: Unlabored breathing. Decreased breath sound at the base HEART: S1, S2, regular rate and rhythm. No loud murmur ABDOMEN: Soft, no tenderness , guarding or rigidity, no organomegaly EXTREMITIES: Diffuse swelling to bilateral lower extremity with superficial ulceration to the left leg and weeping edema SKIN: No rash, no masses palpable. NEUROLOGICAL: The patient is toxic but arousable, mood and affect normal. Results CBC & Chem 7: 02/10/25 06:48 02/10/25 06:48 Labs: Abnormal Lab Results - Last 24 Hours (Table) 02/09/25 02/09/25 02/09/25 Range/Units 11:44 11:44 13:05 RBC 3.77 L (4.30-5.90) m/uL Hgb 8.2 L (13.0-17.5) gm/dL Hct 27.5 L (39.0-53.0) % MCV 73.0 L (80.0-100.0) fL MCH 21.7 L (25.0-35.0) pg MCHC 29.8 L (31.0-37.0) g/dL RDW 17.9 H (11.5-15.5) % Lymphocytes # 0.4 L (1.0-4.8) k/uL Sodium 120 L (137-145) mmol/L Potassium 6.8 H* 6.5 H* (3.5-5.1) mmol/L Chloride 89 L (98-107) mmol/L Carbon Dioxide 21 L (22-30) mmol/L BUN 48 H (9-20) mg/dL Creatinine 3.43 H (0.66-1.25) mg/dL Alkaline Phosphatase 157 H (38-126) U/L Assessment and Plan (1) Bilateral lower leg cellulitis Current Visit: Yes Status: Acute Code(s): L03.116 - CELLULITIS OF LEFT LOWER LIMB; L03.115 - CELLULITIS OF RIGHT LOWER LIMB SNOMED Code(s): 972043691 (2) Allergy to cephalosporin Current Visit: No Status: Acute Code(s): Z88.1 - ALLERGY STATUS TO OTHER ANTIBIOTIC AGENTS SNOMED Code(s): 868316141 Plan: 1patient presented hospital with weakness swelling to bilateral lower extremity with weeping edema especially to the left lower extremity in this patient who did have evidence of fluid overload possible left leg redness as well as ulceration and secondary cellulitis likely from gram-positive skin lars less likely gram-negative infection 2-cephalosporin allergy that will limit the number of antibiotic safe to use 3-did have elevated creatinine high risk of nephrotoxicity from certain antibiotics 4discontinue Zosyn 5we will start the patient on Unasyn 3 g every 12 hours 6local care with dry Aquacel silver dressing and will check lower extremity Doppler if negative for DVT he will apply Von wrap to keep the swelling down We will follow on clinical condition and cultures to further adjust medication if needed Thank you for this consultation we will follow the patient along with you Dictation was produced using [employer] dictation software. please excuse any grammatical, word or spelling errors. Time with Patient: Greater than 30
[2025-02-10] MEDS ORDERED: PIPERACILLIN-TAZOBACTAM 3.375 GM in SODIUM CHLORIDE 0.9% 100 ML IVPB SCH
[2025-02-10 07:19] LABS: Anisocytosis Slight; Basophils % (A) 0 %; Eosinophils # (A) 0.3 k/uL (0-0.7); Eosinophils % (A) 4 %; HCT 26.2 % (39.0-53.0); HGB 7.7 gm/dL (13.0-17.5); Hypochromasia Marked; Lymphocytes # (A) 0.6 k/uL (1.0-4.8); Lymphocytes % (A) 9 %; MCH 22.2 pg (25.0-35.0); MCHC 29.6 g/dL (31.0-37.0); Mean Platelet Volume 6.5; Microcytosis Slight; Monocytes # (A) 0.5 k/uL (0-1.0); Monocytes % (A) 8 %; Neutrophils # (A) 5.2 k/uL (1.3-7.7); Neutrophils % (A) 75 %; Platelet Count 272 k/uL (150-450); RBC 3.49 m/uL (4.30-5.90); RDW 18.5 % (11.5-15.5); WBC 6.9 k/uL (3.8-10.6)
[2025-02-10 07:43] LABS: ALT 17 U/L (4-49); AST 37 U/L (17-59); African American GFR (CKD) 22 (>60 ml/min/1.73 sqM); Albumin 3.2 g/dL (3.5-5.0); Alkaline Phosphatase 150 U/L (38-126); Anion Gap 8 mmol/L; Blood Urea Nitrogen 45 mg/dL (9-20); Calcium 8.3 mg/dL (8.4-10.2); Carbon Dioxide 21 mmol/L (22-30); Chloride 93 mmol/L (98-107); Creatine Kinase 127 U/L (55-170); Glucose 73 mg/dL (74-99); Non-African American GFR(CKD) 19 (>60 ml/min/1.73 sqM); Sodium 122 mmol/L (137-145); Total Bilirubin 1.2 mg/dL (0.2-1.3); Total Protein 6.2 g/dL (6.3-8.2)
[2025-02-10 07:47] LABS: Potassium 6.2 mmol/L (3.5-5.1)
[2025-02-10] MEDS: SODIUM ZIRCONIUM CYCLOSILICATE 10 GM PACKET PO ONE (09:38)
[2025-02-10] MEDS: AMPICILLIN-SULBACTAM 3 GM in SODIUM CHLORIDE 0.9% 100 ML IVPB SCH (09:38)
--- NOTE | 2025-02-10 10:24 | US ---
EXAMINATION TYPE: US venous doppler duplex LE BI DATE OF EXAM: 02/09/2025 11:10 PM COMPARISON: NONE CLINICAL INDICATION: Male, 79 years old with history of Swelling to lower extremity left greater than righ; bilateral leg swelling. No hx of DVT. On blood thinners, Pain TECHNIQUE: The lower extremity deep venous system is examined utilizing real time linear array sonog miguel with graded compression, color doppler sonography, and spectral doppler. SIDE PERFORMED: Bilateral FINDINGS: VESSELS IMAGED: Common Femoral Vein Deep Femoral Vein Greater Saphenous Vein * Femoral Vein Popliteal Vein Small Saphenous Vein * Proximal Calf Veins (* superficial vessels) Limited exam due to exam done in a chair, pt unable to move legs, and body habitus Right Leg: No evidence for DVT in vessels seen, Color Doppler imaging shows patency of the vessels. Spectral waveforms are within normal limits. Left Leg: No evidence for DVT in vessels seen. Hypoechoic vascular area seen in groin measuring , Co mary Doppler imaging shows patency of the vessels. Spectral waveforms are within normal limits. IMPRESSION: No ultrasound evidence for deep venous thrombosis. [facility], , 02/10/2025 10:22 AM
[2025-02-10] MEDS: INSULIN REGULAR 100 UNIT/ML VIAL (IV) IV ONE (10:54)
[2025-02-10] MEDS: DEXTROSE 50% SYRINGE 50 ML IVP STA (10:54)
--- NOTE | 2025-02-10 10:57 | P.NPCON ---
History of Present Illness - Reason for Consult acute renal failure - History of Present Illness Patient is a 79-year-old man with history of chronic A-fib, liver cirrhosis, obesity who is admitted to the hospital with complaints of increased swelling in his lower extremities along with redness. Patient has had significant pain in his back and his shoulders as well. He also stated that he fell because he had been unsteady. Serum creatinine was 3.4 on admission. It is down to 3.0 previous creatinine was 1.9 on 02/02/2025. Potassium was elevated at 6.5. Patient has an external catheter Blood pressure has been low with systolic noted in the 80s Home med list shows patient was on Bactrim. He is not sure why he was on it. Patient was also on Aldactone. Patient has underlying chronic kidney disease with baseline creatinine about 1.4 to 1.8 mg/dL since 2022 Past Medical History Past Medical History: Atrial Fibrillation, Liver Disease, Pneumonia Additional Past Medical History / Comment(s): morbid obese, exposed to agent orange, ascites, back pain, large volume pracentesis weekly History of Any Multi-Drug Resistant Organisms: None Reported Past Surgical History: Hernia Repair Additional Past Surgical History / Comment(s): multi large volume paracentesis, hernia, scrotal surgery, eye implants, liver biopsy, rt shoulder injection for pain Past Anesthesia/Blood Transfusion Reactions: No Reported Reaction Past Psychological History: Anxiety, Panic Disorder, PTSD Smoking Status: Current every day smoker Past Alcohol Use History: None Reported, Occasional Past Drug Use History: Marijuana - Past Family History Father Family Medical History: Myocardial Infarction (OR) Medications and Allergies Home Medications Medication Instructions Recorded Confirmed Type Furosemide [Lasix] 40 mg PO DAILY 12/05/22 02/09/25 History Rivaroxaban [Xarelto] 20 mg PO DAILY 12/05/22 02/09/25 History Metoprolol Succinate (ER) [Toprol 25 mg PO DAILY 10/30/23 02/09/25 History XL] HYDROcodone/APAP 10-325MG [[place] 1 tab PO BID 01/21/24 02/09/25 History 10-325] Morphine Sulfate [Morphine Sulfate 15 mg PO BID 07/21/24 02/09/25 History ER] Albuterol Sulfate [Albuterol 2 puff PO RT-Q4H PRN 10/13/24 02/09/25 History Sulfate Hfa] ALPRAZolam [Xanax] 1 mg PO BID PRN 02/09/25 02/09/25 History Famotidine [Pepcid] 20 mg PO BID 02/09/25 02/09/25 History Mupirocin 2% Oint [Bactroban 2% 1 applic TOPICAL BID PRN 02/09/25 02/09/25 History Oint] Mupirocin Calcium 2% Cream 1 applic TOPICAL BID 02/09/25 02/09/25 History [Bactroban 2% Cream] Ondansetron Odt [Zofran Odt] 4 mg PO Q8HR PRN 02/09/25 02/09/25 History SILVER sulfADIAZINE Cream 1 applic TOPICAL DAILY 02/09/25 02/09/25 History [Silvadene 1% Cream] Spironolactone [Aldactone] 100 mg PO DAILY 02/09/25 02/09/25 History Sulfamethox-Tmp 800-160Mg [Bactrim 1 tab PO BID 02/09/25 02/09/25 History DS 800-160 mg] Allergies Allergy/AdvReac Type Severity Reaction Status Date / Time cephalexin [From [facility]] Allergy Rash/Hives Verified 02/09/25 15:45 Iodinated Contrast Media Allergy Vomiting Verified 02/09/25 15:45 Physical Exam Vitals: Vital Signs Temp Pulse Resp BP Pulse Ox FiO2 02/10/25 07:40 88 02/10/25 07:28 84 02/10/25 06:55 92 18 109/60 95 02/10/25 03:58 85 18 114/46 96 02/10/25 02:50 98.0 F 84 17 88/66 95 02/09/25 20:47 88 02/09/25 20:36 89 02/09/25 20:00 98.1 F 96 19 119/59 95 02/09/25 18:37 107/47 02/09/25 18:25 97.5 F L 81 18 89/70 99 02/09/25 16:01 81 20 109/63 92 L 02/09/25 15:40 88 02/09/25 15:35 87 L 21 02/09/25 15:32 86 02/09/25 14:25 80 22 93/66 96 02/09/25 13:05 101 H 18 115/69 96 03/20/25 11:41 85 22 92/73 96 02/09/25 10:52 98.1 F 94 18 114/55 96 Patient is awake, comfortable, no acute distress Examination of the heart S1 and S2 Examination of the lungs shows decreased breath sounds at the bases Abdomen is soft obese Examination of lower extremity shows edema 2-3+ bilaterally [employer] INBOARD/OUTBOARD exam grossly intact Results - Lab Results Most recent lab results Calcium 8.3 mg/dL (8.4-10.2) L 02/10/25 06:48 02/10/25 06:48 02/10/25 06:48 Assessment and Plan Assessment: 1. Acute kidney injury, ATN secondary to hypotension. Patient was also maintained on Bactrim which can elevate serum creatinine. Rule out urine retention. Check UA. Check ultrasound of the kidneys 2. Hyponatremia, hypervolemic with history of chronic hyponatremia with serum sodium previously around 1 25-1 28 3. Hyperkalemia associated with acute kidney injury and use of Bactrim and Aldactone 4. CKD stage IIIb with baseline creatinine 1.4 to 1.8 mg/dL 5. Alcoholic liver disease with previous paracentesis 6. COPD Plan: Treat hyperkalemia with IV medications IV Lasix x 1 Add midodrine DC IV fluids Continue empiric antibiotics Avoid Bactrim Avoid nephrotoxic agents Check UA Check ultrasound of the kidneys Thank you for the consultation. We will continue to follow the patient with you during his hospitalization.
[2025-02-10] MEDS: FUROSEMIDE 10 MG/ML 4 ML VIAL IV SCH (11:14)
[2025-02-10] MEDS: MIDODRINE 5 MG TAB PO SCH (12:14)
[2025-02-10] MEDS: HYDROmorphone 0.5 MG/0.5 ML SYRINGE IVP PRN (12:48)
[2025-02-10] MEDS: HYDROcodone/APAP 5-325MG 1 EACH TAB PO PRN (14:41)
--- NOTE | 2025-02-10 15:07 | P.PN ---
Subjective Progress Note Date: 02/10/25 Principal diagnosis: Reason for follow his bilateral lower extremity ulcer and cellulitis Patient is a 79-year-old male with a past medical history significant for morbid obesity atrial fibrillation liver disease pneumonia anxiety depression PTSD and did have a history of lower extremity venous stasis ulcer patient has been brought into the hospital complaining of bilateral lower extremity swelling redness drainage and concern for cellulitis prompted this consultation. On today's evaluation that is 02/10/2025, the patient continues to be afebrile, the patient is on room air and breathing comfortably, the Pt is more awake and alert seem to be upset as still starting the ER still having swelling to the lower extremity is complaining of pain asking for more pain medication. Patient white count 6.8, creatinine 3.05 dorsum with Doppler was negative for DVT Objective - Vital Signs Vital signs: Vital Signs Temp 98.0 F 02/10/25 02:50 Pulse 86 02/10/25 11:17 Resp 16 02/10/25 10:00 BP 98/69 02/10/25 10:00 Pulse Ox 97 02/10/25 10:00 FiO2 21 02/09/25 15:35 Intake & Output 02/09/25 02/10/25 02/10/25 18:59 06:59 18:59 Weight 110.677 kg - Exam GENERAL DESCRIPTION: An elderly male up in the chair in no distress RESPIRATORY SYSTEM: Unlabored breathing , decreased breath sounds at bases HEART: S1 S2 regular rate and rhythm , ABDOMEN: Soft , no tenderness EXTREMITIES: Bilateral lower extremity with swelling some superficial solution of the left leg and drainage - Labs CBC & Chem 7: 02/10/25 06:48 02/10/25 06:48 Labs: Abnormal Lab Results - Last 24 Hours (Table) 02/09/25 02/09/25 02/09/25 Range/Units 11:44 11:44 13:05 RBC 3.77 L (4.30-5.90) m/uL Hgb 8.2 L (13.0-17.5) gm/dL Hct 27.5 L (39.0-53.0) % MCV 73.0 L (80.0-100.0) fL MCH 21.7 L (25.0-35.0) pg MCHC 29.8 L (31.0-37.0) g/dL RDW 17.9 H (11.5-15.5) % Lymphocytes # 0.4 L (1.0-4.8) k/uL Sodium 120 L (137-145) mmol/L Potassium 6.8 H* 6.5 H* (3.5-5.1) mmol/L Chloride 89 L (98-107) mmol/L Carbon Dioxide 21 L (22-30) mmol/L BUN 48 H (9-20) mg/dL Creatinine 3.43 H (0.66-1.25) mg/dL Glucose (74-99) mg/dL Calcium (8.4-10.2) mg/dL Alkaline Phosphatase 157 H (38-126) U/L Total Protein (6.3-8.2) g/dL Albumin (3.5-5.0) g/dL 02/09/25 02/10/25 02/10/25 Range/Units 17:44 06:48 06:48 RBC 3.49 L (4.30-5.90) m/uL Hgb 7.7 L (13.0-17.5) gm/dL Hct 26.2 L (39.0-53.0) % MCV 75.0 L (80.0-100.0) fL MCH 22.2 L (25.0-35.0) pg MCHC 29.6 L (31.0-37.0) g/dL RDW 18.5 H (11.5-15.5) % Lymphocytes # 0.6 L (1.0-4.8) k/uL Sodium 122 L (137-145) mmol/L Potassium 5.9 H 6.2 H* (3.5-5.1) mmol/L Chloride 93 L (98-107) mmol/L Carbon Dioxide 21 L (22-30) mmol/L BUN 45 H (9-20) mg/dL Creatinine 3.05 H (0.66-1.25) mg/dL Glucose 73 L (74-99) mg/dL Calcium 8.3 L (8.4-10.2) mg/dL Alkaline Phosphatase 150 H (38-126) U/L Total Protein 6.2 L (6.3-8.2) g/dL Albumin 3.2 L (3.5-5.0) g/dL Assessment and Plan (1) Bilateral lower leg cellulitis Current Visit: Yes Status: Acute Code(s): L03.116 - CELLULITIS OF LEFT LOWER LIMB; L03.115 - CELLULITIS OF RIGHT LOWER LIMB SNOMED Code(s): 797895635 (2) Allergy to cephalosporin Current Visit: No Status: Acute Code(s): Z88.1 - ALLERGY STATUS TO OTHER ANTIBIOTIC AGENTS SNOMED Code(s): 116872319 Plan: 1patient presented hospital with weakness swelling to bilateral lower extremity with weeping edema especially to the left lower extremity in this patient who did have evidence of fluid overload possible left leg redness ulceration and secondary cellulitis likely from gram-positive skin lars less likely gram- negative infection 2-cephalosporin allergy that will limit the number of antibiotic safe to use 3-lower extremity Doppler was negative for DVT 4patient to continue with Unasyn 3 g every 12 hours and had local wound care with dry Aquacel silver dressing followed by Von wrap to keep the swelling down Dictation was produced using [employer] dictation software. please excuse any grammatical, word or spelling errors.
[2025-02-10] MEDS ORDERED: ONDANSETRON ODT 4 MG TAB PO PRN (15:14)
[2025-02-10] MEDS ORDERED: ALBUTEROL HFA INHALER INHALATION PRN (15:14)
--- NOTE | 2025-02-10 18:35 | XR ---
EXAMINATION TYPE: XR pelvis AP view DATE OF EXAM: 02/10/2025 6:27 PM INDICATION: Patient age:Male; 79 years old; Reason for study: fall with severe b/l hip and lower back pain; PHH. pain COMPARISON: Left hip and pelvic radiograph 02/09/2025 TECHNIQUE: The pelvis was examined in a single projection. FINDINGS: Limited examination due to underpenetration. There is no evidence of fracture or dislocatio n. Superior joint space narrowing with acetabular sclerosis and marginal osteophytosis of both hips. There is no soft tissue abnormality. No abnormal calcifications are present. Multilevel degenerative changes of the lower spine. Vascular sclerosis. IMPRESSION: 1. No acute osseous pathology. 2. Mild osteoarthritic changes of both hips. [facility], , 02/10/2025 6:32 PM
--- NOTE | 2025-02-10 18:39 | XR ---
EXAMINATION TYPE: XR lumbar spine 2 or 3V DATE OF EXAM: 02/10/2025 CLINICAL HISTORY: pain, fall TECHNIQUE: Three views of the lumbar spine are submitted. COMPARISON: Pelvic radiograph 02/10/2025, 02/09/2025 FINDINGS: Significantly limited examination due to underpenetration related to patient's body habitus . No gross evidence of fracture. Grossly normal alignment. Multilevel degenerative disc disease with disc space narrowing, vacuum disc disease, endplate sclerosis, and anterior osteophytosis. The overly ing soft tissue appears unremarkable. Atherosclerotic calcification of the aorta. IMPRESSION: 1. Significantly limited examination due to underpenetration related to patient body habitus. No muna ss evidence of fracture. Consider further evaluation with CT if there is continued clinical concern. 2. At least moderate multilevel degenerative disc disease of the lumbar spine. [facility], , 02/10/2025 6:36 PM
[2025-02-10] MEDS: MORPHINE SULFATE ER 15 MG TABLET PO SCH (20:29)
[2025-02-10] MEDS: MUPIROCIN 2% OINT 22 GM TUBE TOPICAL SCH (22:07)
[2025-02-11] MEDS ORDERED: ZINC OXIDE PASTE (Z-GUARD) 1 APPLIC TOPICAL PRN (02:00)
--- NOTE | 2025-02-11 02:33 | PN ---
PROGRESS NOTE DATE OF SERVICE: 02/10/2025 SUBJECTIVE: This is a 79-year-old gentleman admitted with significant renal failure as well as severe hyperkalemia, also had bilateral leg cellulitis, also complaining of severe back pain. At this time, I recommended chest x-rays and x-ray of the back and does not show any abnormality and even the CT scan subsequently. Otherwise, creatinine is 3.0. Multiple consultants are following the patient closely. Hemoglobin 7.7. PAST MEDICAL HISTORY: Reviewed. REVIEW OF SYSTEMS: Fourteen-point review of systems is negative except as mentioned earlier. PHYSICAL EXAMINATION: Pulse is 100, blood pressure 113/56, respirations 18. HEENT: Conjunctivae normal. NECK: No JVD. CARDIOVASCULAR: S1, S2. RESPIRATIONS: Breath sounds diminished at the bases. A few scattered rhonchi. ABDOMEN: Soft. BACK: Tenderness. LABORATORY DATA: Reviewed. ASSESSMENT: 1. Acute on chronic renal failure with possibly prerenal factors and acute tubular necrosis. 2. Severe hyperkalemia. 3. Severe back pain. 4. Bilateral leg cellulitis. 5. Fall and gait dysfunction. 6. Microcytic anemia. 7. History of chronic liver disease. 8. Cirrhosis of liver and ascites. 9. History of atrial fibrillation. 10.Anxiety, posttraumatic stress disorder. 11.Panic disorder. 12.History of nicotine dependence. RECOMMENDATIONS AND DISCUSSION: I recommend to continue current management and continue symptomatic treatment. Closely follow with Nephrology. Insulin glucose regimen, [facility]. Infectious Disease evaluation. X-ray of the lumbar spine as mentioned earlier. I would also recommend 2D echo with Doppler. If the x-rays are normal, I would recommend CT scan. The patient is on IV Unasyn. Repeat labs will be ordered. Further recommendations to follow. Avoid nephrotoxic medications. MMODL / IJN: [id number] /
--- NOTE | 2025-02-11 06:31 | US ---
EXAMINATION TYPE: US kidneys/renal and bladder DATE OF EXAM: 02/10/2025 COMPARISON: None CLINICAL INDICATION: Male, 79 years old with history of rolando; Recent fall, back pain TECHNIQUE: Grayscale imaging of the bilateral kidneys and urinary bladder: FINDINGS: EXAM MEASUREMENTS: Right Kidney: 11.4 x 5.3 x 5.5 cm Left Kidney: 10.6 x 5.5 x 5.4 cm Post Void Residual Volume: NA mL Right Kidney: 5.1 cm Cyst noted, ?Atrophic appearance Left Kidney: ?Atrophic appearance Bladder: wnl Bilateral Jets seen: Yes Normal Post Void Residual: NA The urinary bladder is anechoic. Poor corticomedullary differentiation is seen bilaterally. IMPRESSION: Evidence of chronic medical renal disease. No hydronephrosis seen bilaterally. [facility], , 02/11/2025 6:28 AM
[2025-02-11 07:24] LABS: Anisocytosis Slight; Basophils % (A) 0 %; Eosinophils # (A) 0.3 k/uL (0-0.7); Eosinophils % (A) 4 %; HCT 27.9 % (39.0-53.0); HGB 7.9 gm/dL (13.0-17.5); Hypochromasia Marked; Lymphocytes # (A) 0.9 k/uL (1.0-4.8); Lymphocytes % (A) 12 %; MCHC 28.3 g/dL (31.0-37.0); MCV 77.6 fL (80.0-100.0); Mean Platelet Volume 6.9; Microcytosis Slight; Monocytes # (A) 0.6 k/uL (0-1.0); Monocytes % (A) 8 %; Neutrophils % (A) 72 %; Platelet Count 299 k/uL (150-450); RBC 3.59 m/uL (4.30-5.90); RDW 18.9 % (11.5-15.5)
[2025-02-11 07:35] LABS: ALT 19 U/L (4-49); AST 34 U/L (17-59); African American GFR (CKD) 25 (>60 ml/min/1.73 sqM); Albumin 3.3 g/dL (3.5-5.0); Alkaline Phosphatase 145 U/L (38-126); Anion Gap 9 mmol/L; Blood Urea Nitrogen 42 mg/dL (9-20); Calcium 8.5 mg/dL (8.4-10.2); Carbon Dioxide 22 mmol/L (22-30); Chloride 92 mmol/L (98-107); Glucose 90 mg/dL (74-99); Non-African American GFR(CKD) 22 (>60 ml/min/1.73 sqM); Potassium 5.8 mmol/L (3.5-5.1); Sodium 123 mmol/L (137-145); Total Bilirubin 0.9 mg/dL (0.2-1.3); Total Protein 6.3 g/dL (6.3-8.2)
[2025-02-11] MEDS: METOPROLOL SUCCINATE (ER) 25 MG TAB.ER.24H PO SCH (09:39)
[2025-02-11] MEDS: RIVAROXABAN 15 MG TAB PO SCH (09:39)
--- NOTE | 2025-02-11 11:52 | P.PN ---
Subjective Patient is seen for follow-up for acute kidney injury, hyponatremia and hyperkalemia. Status post IV Lasix yesterday. Serum creatinine improved to 2.6 along with improvement in serum potassium. Sodium at 123. It was 120 on admission. Complaining of burning sensation in legs and asking for her legs to be wrapped. No shortness of breath today. Objective - Vital Signs Vital signs: Vital Signs Temp 97.2 F L 02/11/25 08:00 Pulse 105 H 02/11/25 08:00 Resp 16 02/11/25 08:00 BP 105/61 02/11/25 08:00 Pulse Ox 97 02/11/25 08:00 FiO2 21 02/09/25 15:35 Intake & Output 02/10/25 02/11/25 02/11/25 18:59 06:59 18:59 Intake Total 780 Balance 780 Weight 110.5 kg Intake: Oral 780 Other: Voiding Method Toilet Toilet # Voids 2 - Exam Patient is awake, comfortable, no acute distress Examination of the heart S1 and S2 Examination of the lungs shows decreased breath sounds at the bases Abdomen is soft obese Examination of lower extremity shows edema 2-3+ bilaterally with erythema in the legs noted bilaterally AQUARIST exam grossly intact - Labs CBC & Chem 7: 02/11/25 06:24 02/11/25 06:24 Labs: Abnormal Lab Results - Last 24 Hours (Table) 02/11/25 02/11/25 Range/Units 06:24 06:24 RBC 3.59 L (4.30-5.90) m/uL Hgb 7.9 L (13.0-17.5) gm/dL Hct 27.9 L (39.0-53.0) % MCV 77.6 L (80.0-100.0) fL MCH 22.0 L (25.0-35.0) pg MCHC 28.3 L (31.0-37.0) g/dL RDW 18.9 H (11.5-15.5) % Lymphocytes # 0.9 L (1.0-4.8) k/uL Sodium 123 L (137-145) mmol/L Potassium 5.8 H (3.5-5.1) mmol/L Chloride 92 L (98-107) mmol/L BUN 42 H (9-20) mg/dL Creatinine 2.68 H (0.66-1.25) mg/dL Alkaline Phosphatase 145 H (38-126) U/L Albumin 3.3 L (3.5-5.0) g/dL Microbiology - Last 24 Hours (Table) 02/09/25 11:44 Blood Culture - Preliminary Blood Assessment and Plan Assessment: 1. Acute kidney injury, ATN secondary to hypotension. Patient was also maintained on Bactrim which can elevate serum creatinine. Rule out urine retention. Check UA. Ultrasound does not show any evidence of obstruction 2. Hyponatremia, hypervolemic with history of chronic hyponatremia with serum sodium previously around 125-1 28 3. Hyperkalemia associated with acute kidney injury and use of Bactrim and Aldactone 4. CKD stage IIIb with baseline creatinine 1.4 to 1.8 mg/dL 5. Alcoholic liver disease with previous paracentesis 6. COPD Plan: Increase Lasix Check iron profile Check UA Add Aranesp Check bladder scan rule out urine retention Changed to low potassium diet Continue to hold potassium supplementation
[2025-02-11 12:32] LABS: Appearance,Urine Clear (Clear); Bilirubin,Urine Negative (Negative); Blood,Urine Negative (Negative); Color,Urine Colorless; Glucose,Urine (UA) Negative (Negative); Ketones,Urine Negative (Negative); Leukocyte Esterase,Urine Negative (Negative); Nitrite,Urine Negative (Negative); PH, Urine 6.5 (5.0-8.0); Protein,Urine Negative (Negative); Specific Gravity,Urine 1.005 (1.001-1.035); Urobilinogen,Urine <2.0 mg/dL (<2.0)
--- NOTE | 2025-02-11 14:51 | P.PN ---
Subjective Progress Note Date: 02/11/25 Principal diagnosis: Reason for follow his bilateral lower extremity ulcer and cellulitis Patient is a 79-year-old male with a past medical history significant for morbid obesity atrial fibrillation liver disease pneumonia anxiety depression PTSD and did have a history of lower extremity venous stasis ulcer patient has been brought into the hospital complaining of bilateral lower extremity swelling redness drainage and concern for cellulitis prompted this consultation. On today's evaluation that is 02/11/2025, patient did not have any fever and denies any chills, patient is breathing comfortably on room air, patient with no chest pain or cough patient did not have any abdominal pain nausea vomiting or any loose stools pain is on the lower extremity has decreased in intensity. Patient white count is 7.0, creatinine is 2.68 blood cultures so far pending Objective - Vital Signs Vital signs: Vital Signs Temp 97.2 F L 02/11/25 08:00 Pulse 80 02/11/25 12:25 Resp 16 02/11/25 11:58 BP 113/54 02/11/25 11:58 Pulse Ox 93 L 02/11/25 11:58 FiO2 21 02/09/25 15:35 Intake & Output 02/10/25 02/11/25 02/11/25 18:59 06:59 18:59 Intake Total 780 240 Balance 780 240 Weight 110.5 kg Intake: Oral 780 240 Other: Voiding Method Toilet Toilet # Voids 2 4 - Exam GENERAL DESCRIPTION: An elderly male up in the chair in no distress RESPIRATORY SYSTEM: Unlabored breathing , decreased breath sounds at bases HEART: S1 S2 regular rate and rhythm , ABDOMEN: Soft , no tenderness EXTREMITIES: Bilateral lower extremity currently wrapped with Von wrap no drainage - Labs CBC & Chem 7: 02/11/25 06:24 02/11/25 06:24 Labs: Abnormal Lab Results - Last 24 Hours (Table) 02/11/25 02/11/25 Range/Units 06:24 06:24 RBC 3.59 L (4.30-5.90) m/uL Hgb 7.9 L (13.0-17.5) gm/dL Hct 27.9 L (39.0-53.0) % MCV 77.6 L (80.0-100.0) fL MCH 22.0 L (25.0-35.0) pg MCHC 28.3 L (31.0-37.0) g/dL RDW 18.9 H (11.5-15.5) % Lymphocytes # 0.9 L (1.0-4.8) k/uL Sodium 123 L (137-145) mmol/L Potassium 5.8 H (3.5-5.1) mmol/L Chloride 92 L (98-107) mmol/L BUN 42 H (9-20) mg/dL Creatinine 2.68 H (0.66-1.25) mg/dL Alkaline Phosphatase 145 H (38-126) U/L Albumin 3.3 L (3.5-5.0) g/dL Microbiology - Last 24 Hours (Table) 02/09/25 11:44 Blood Culture - Preliminary Blood Assessment and Plan (1) Bilateral lower leg cellulitis Current Visit: Yes Status: Acute Code(s): L03.116 - CELLULITIS OF LEFT LOWER LIMB; L03.115 - CELLULITIS OF RIGHT LOWER LIMB SNOMED Code(s): 407591732 (2) Allergy to cephalosporin Current Visit: No Status: Acute Code(s): Z88.1 - ALLERGY STATUS TO OTHER ANTIBIOTIC AGENTS SNOMED Code(s): 902223190 Plan: 1patient presented hospital with weakness swelling to bilateral lower extremity with weeping edema especially to the left lower extremity in this patient who did have evidence of fluid overload possible left leg redness ulceration and secondary cellulitis likely from gram-positive skin lars less likely gram-negative infection 2-cephalosporin allergy that will limit the number of antibiotic safe to use 3-lower extremity Doppler was negative for DVT 4patient will be advised local wound care with dry Aquacel silver dressing followed by Von wrap to keep the swelling down, no need for Silvadene cream and continue Unasyn Dictation was produced using [employer] dictation software. please excuse any grammatical, word or spelling errors. Time with Patient: Less than 30
--- NOTE | 2025-02-11 15:04 | CA ---
Transthoracic Echo Report Name: Magen Rincon Age: 79 Gender: M : 1945 Exam Date: 02/10/2025 16:39 Exam Location: [facility] Ht (in): 68 Wt (lb): 244 Ordering Physician: Jeremie Goodwin MD Attending/Referring Phys: [facility] Kesha Argueta RDCS Procedure CPT: Indications: chf Cardiac Hx: Technical Quality: Technically difficult study Contrast 1: Total Dose (mL): Contrast 2: Total Dose (mL): MEASUREMENTS (Male / Female) Normal Values 2D ECHO LV Diastolic Diameter PLAX 4.1 cm 4.2 - 5.9 / 3.9 - 5.3 cm LV Systolic Diameter PLAX 2.5 cm IVS Diastolic Thickness 1.2 cm 0.6 - 1.0 / 0.6 - 0.9 cm LVPW Diastolic Thickness 1.1 cm 0.6 - 1.0 / 0.6 - 0.9 cm LV Relative Wall Thickness 0.6 LVOT Diameter 1.9 cm FINDINGS Left Ventricle Mildly increased left ventricular wall thickness. Left ventricular cavity size normal. Normal left ventricular systolic function with no obvious regional wall motion abnormalities. Left ventricular ejection fraction is estimated at 55 %. Right Ventricle Mild right ventricular dilatation. Right ventricular systolic pressure within normal limits. Right Atrium Right atrial dilatation. Left Atrium Left atrial dilatation. Mitral Valve Structurally normal mitral valve. Mitral valve thickened. Mild mitral annular calcification. Moderate mitral regurgitation. Aortic Valve Mild aortic stenosis with a peak gradient of 25 mmHg and a mean gradient of 12 mmHg. No aortic regurgitation. Tricuspid Valve Structurally normal tricuspid valve. Mild tricuspid regurgitation. Pulmonic Valve Pulmonic valve not well visualized. Pericardium No pericardial effusion. Aorta Normal size aortic root and proximal ascending aorta. CONCLUSIONS Indication: Congestive heart failure LVH with preserved systolic function Mild RV enlargement mitral annular calcification with moderate MR Previewed by: Dr. Lenny Swartz MD (Electronically Signed) Final Date: 11 February 2025 15:04
[2025-02-11] MEDS: DARBEPOETIN ALFA 60 MCG/0.3 ML SYRINGE SQ SCH (16:04)
--- NOTE | 2025-02-11 18:29 | PN ---
PROGRESS NOTE DATE OF SERVICE: 02/11/2025 SUBJECTIVE: This is a 79-year-old gentleman admitted with acute on chronic renal failure, also had multiple issues including hyperkalemia. No chest pain. No palpitation. PHYSICAL EXAMINATION: VITAL SIGNS: Pulse is 113, blood pressure n, respirations 16. CHEST: Few scattered rhonchi and crackles. ABDOMEN: Soft. NERVOUS SYSTEM: Nonfocal. LABORATORY DATA: Potassium 5.8. Hemoglobin 7.9. ASSESSMENT: 1. [id number] renal failure with possible prerenal factors and acute tubular necrosis and hyperkalemia. 2. Back pain. 3. Multiple complex medical issues, refer to previous chart. RECOMMENDATIONS: Recommend to continue current management and continue symptomatic treatment. Repeat labs. Prognosis guarded. Further recommendations to follow. We will monitor creatinine and assess potassium closely. MMODL / IJN: [id number] / MTDD
[2025-02-11] MEDS: FUROSEMIDE 10 MG/ML 4 ML VIAL IV SCH (20:57)
[2025-02-12] MEDS: IPRATROPIUM-ALBUTEROL 3 ML NEB INHALATION PRN (03:21)
[2025-02-12 06:53] LABS: Anisocytosis Slight; Basophils % (A) 0 %; Eosinophils # (A) 0.3 k/uL (0-0.7); Eosinophils % (A) 4 %; HCT 26.1 % (39.0-53.0); HGB 7.7 gm/dL (13.0-17.5); Hypochromasia Marked; Lymphocytes # (A) 0.7 k/uL (1.0-4.8); Lymphocytes % (A) 9 %; MCH 22.5 pg (25.0-35.0); MCHC 29.7 g/dL (31.0-37.0); MCV 75.9 fL (80.0-100.0); Mean Platelet Volume 6.7; Microcytosis Slight; Monocytes # (A) 0.5 k/uL (0-1.0); Monocytes % (A) 7 %; Neutrophils # (A) 5.6 k/uL (1.3-7.7); Neutrophils % (A) 76 %; Platelet Count 258 k/uL (150-450); RBC 3.44 m/uL (4.30-5.90); RDW 18.5 % (11.5-15.5); WBC 7.3 k/uL (3.8-10.6)
[2025-02-12 07:14] LABS: African American GFR (CKD) 26 (>60 ml/min/1.73 sqM); Anion Gap 9 mmol/L; Blood Urea Nitrogen 45 mg/dL (9-20); Calcium 8.4 mg/dL (8.4-10.2); Carbon Dioxide 22 mmol/L (22-30); Chloride 93 mmol/L (98-107); Glucose 99 mg/dL (74-99); Non-African American GFR(CKD) 23 (>60 ml/min/1.73 sqM); Potassium 5.2 mmol/L (3.5-5.1); Sodium 124 mmol/L (137-145)
[2025-02-12 08:42] LABS: % Iron Saturation 2.46 (15.00-50.00)
--- NOTE | 2025-02-12 11:48 | P.PN ---
Subjective Patient is seen for follow-up for acute kidney injury, hyponatremia and hyperkalemia. Maintained on IV Lasix Serum sodium slowly improving. Patient has history of chronic hyponatremia Serum creatinine improved to 2.6 along with improvement in serum potassium. Sodium at 124. It was 120 on admission. No shortness of breath today. Objective - Vital Signs Vital signs: Vital Signs Temp 98.2 F 02/12/25 08:00 Pulse 90 02/12/25 11:27 Resp 16 02/12/25 08:00 BP 120/56 02/12/25 08:00 Pulse Ox 94 L 02/12/25 08:00 FiO2 21 02/09/25 15:35 Intake & Output 02/11/25 02/12/25 02/12/25 18:59 06:59 18:59 Intake Total 720 1350 Balance 720 1350 Weight 109.9 kg Intake: Oral 720 1350 Other: Voiding Method Toilet Toilet Toilet # Voids 4 2 - Exam Patient is awake, comfortable, no acute distress Examination of the heart S1 and S2 Examination of the lungs shows decreased breath sounds at the bases Abdomen is soft obese Examination of lower extremity shows edema 2-3+ bilaterally with erythema in the legs noted bilaterally [employer] exam grossly intact - Labs CBC & Chem 7: 02/12/25 06:21 02/12/25 06:21 Labs: Abnormal Lab Results - Last 24 Hours (Table) 02/11/25 02/12/25 02/12/25 Range/Units 06:24 06:21 06:21 RBC 3.44 L (4.30-5.90) m/uL Hgb 7.7 L (13.0-17.5) gm/dL Hct 26.1 L (39.0-53.0) % MCV 75.9 L (80.0-100.0) fL MCH 22.5 L (25.0-35.0) pg MCHC 29.7 L (31.0-37.0) g/dL RDW 18.5 H (11.5-15.5) % Lymphocytes # 0.7 L (1.0-4.8) k/uL Sodium 124 L (137-145) mmol/L Potassium 5.2 H (3.5-5.1) mmol/L Chloride 93 L (98-107) mmol/L BUN 45 H (9-20) mg/dL Creatinine 2.61 H (0.66-1.25) mg/dL Iron 10 L (65-175) UG/DL % Saturation 2.46 L (15.00-50.00) Microbiology - Last 24 Hours (Table) 02/09/25 11:44 Blood Culture - Preliminary Blood Assessment and Plan Assessment: 1. Acute kidney injury, ATN secondary to hypotension. Patient was also maintained on Bactrim which can elevate serum creatinine. No significant urine retention. UA is benign. Ultrasound does not show any evidence of obstruction 2. Hyponatremia, hypervolemic with history of chronic hyponatremia with serum sodium previously around 125-1 28 3. Hyperkalemia associated with acute kidney injury and use of Bactrim and Aldactone 4. CKD stage IIIb with baseline creatinine 1.4 to 1.8 mg/dL 5. Alcoholic liver disease with previous paracentesis 6. COPD Plan: Continue with IV Lasix Continue Aranesp Repeat labs in a.m. Continue to maintain on low potassium diet Continue to hold potassium supplementation
[2025-02-12] MEDS ORDERED: CALCIUM CARBONATE 500 MG CHEWABLE PO PRN (14:47)
--- NOTE | 2025-02-12 15:14 | P.PN ---
Subjective Progress Note Date: 02/12/25 Principal diagnosis: Reason for follow his bilateral lower extremity ulcer and cellulitis Patient is a 79-year-old male with a past medical history significant for morbid obesity atrial fibrillation liver disease pneumonia anxiety depression PTSD and did have a history of lower extremity venous stasis ulcer patient has been brought into the hospital complaining of bilateral lower extremity swelling redness drainage and concern for cellulitis prompted this consultation. On today's evaluation that is 02/12/2025, Patient is afebrile patient is currently on room air and denies having any shortness of breath, the patient denies any chest pain or cough, the patient denies any nausea vomiting did not have any abdominal pain and no diarrhea pain to lower extremities currently controlled feeling better. Patient white count 7.3, creatinine is 2.61 blood culture has been negative so far Objective - Vital Signs Vital signs: Vital Signs Temp 98.2 F 02/12/25 08:00 Pulse 90 02/12/25 12:00 Resp 16 02/12/25 12:00 BP 102/52 02/12/25 12:00 Pulse Ox 94 L 02/12/25 12:00 FiO2 21 02/09/25 15:35 Intake & Output 02/11/25 02/12/25 02/12/25 18:59 06:59 18:59 Intake Total 720 1350 100 Balance 720 1350 100 Weight 109.9 kg Intake: Intake, IV Titration 100 Amount Ampicillin-Sulbactam 3 gm 100 In Sodium Chloride 0.9% 100 ml @ 200 mls/hr IVPB Q12HR [facility] Rx#:[id number] Oral 720 1350 Other: Voiding Method Toilet Toilet Toilet # Voids 4 2 - Exam GENERAL DESCRIPTION: An elderly male up in the chair in no distress RESPIRATORY SYSTEM: Unlabored breathing , decreased breath sounds at bases HEART: S1 S2 regular rate and rhythm , ABDOMEN: Soft , no tenderness EXTREMITIES: Bilateral lower extremity currently wrapped with Von wrap no drainage - Labs CBC & Chem 7: 02/12/25 06:21 02/12/25 06:21 Labs: Abnormal Lab Results - Last 24 Hours (Table) 02/11/25 02/12/25 02/12/25 Range/Units 06:24 06:21 06:21 RBC 3.44 L (4.30-5.90) m/uL Hgb 7.7 L (13.0-17.5) gm/dL Hct 26.1 L (39.0-53.0) % MCV 75.9 L (80.0-100.0) fL MCH 22.5 L (25.0-35.0) pg MCHC 29.7 L (31.0-37.0) g/dL RDW 18.5 H (11.5-15.5) % Lymphocytes # 0.7 L (1.0-4.8) k/uL Sodium 124 L (137-145) mmol/L Potassium 5.2 H (3.5-5.1) mmol/L Chloride 93 L (98-107) mmol/L BUN 45 H (9-20) mg/dL Creatinine 2.61 H (0.66-1.25) mg/dL Iron 10 L (65-175) UG/DL % Saturation 2.46 L (15.00-50.00) Microbiology - Last 24 Hours (Table) 02/09/25 11:44 Blood Culture - Preliminary Blood Assessment and Plan (1) Bilateral lower leg cellulitis Current Visit: Yes Status: Acute Code(s): L03.116 - CELLULITIS OF LEFT LOWER LIMB; L03.115 - CELLULITIS OF RIGHT LOWER LIMB SNOMED Code(s): 846730634 (2) Allergy to cephalosporin Current Visit: No Status: Acute Code(s): Z88.1 - ALLERGY STATUS TO OTHER ANTIBIOTIC AGENTS SNOMED Code(s): 096337614 Plan: 1patient presented hospital with weakness swelling to bilateral lower extremity with weeping edema especially to the left lower extremity in this patient who did have evidence of fluid overload possible left leg redness ulceration and secondary cellulitis likely from gram-positive skin lars less likely gram- negative infection 2-cephalosporin allergy that will limit the number of antibiotic safe to use 3-lower extremity Doppler was negative for DVT 4patient to continue local wound care with dry Aquacel silver dressing followed by Von wrap to keep the swelling down, 5we will keep the patient on Unasyn while inpatient finishing therapy with Augmentin Dictation was produced using [employer] dictation software. please excuse any grammatical, word or spelling errors. Time with Patient: Less than 30
[2025-02-12] MEDS ORDERED: MAG HYDROX/AL HYDROX/SIMETH 30 ML CUP PO PRN (15:16)
[2025-02-12] MEDS: PANTOPRAZOLE 40 MG TABLET PO SCH (16:01)
--- NOTE | 2025-02-12 23:45 | PN ---
PROGRESS NOTE DATE OF SERVICE: 02/12/2025 SUBJECTIVE: This is a 79-year-old gentleman admitted with acute on chronic renal failure, hyperkalemia, is being closely monitored. No chest pain. No palpitation. Mildly confused. OBJECTIVE: VITAL SIGNS: Pulse is 90, blood pressure 102/52, respirations 16. CHEST: A few scattered rhonchi and crackles. ABDOMEN: Soft. NERVOUS SYSTEM: Nonfocal. LABORATORY DATA: Hemoglobin 7.7, potassium 5.2, creatinine 2.61. ASSESSMENT: 1. Acute on chronic renal failure with possibly prerenal factors and acute tubular necrosis with hyperkalemia present on admission. 2. Back pain. 3. Multiple complex medical issues, refer to previous chart. RECOMMENDATIONS: Recommend to continue current management and continue symptomatic treatment. Repeat labs. Possible discharge within 24 to 48 hours. Continue the Unasyn. MMSOCOL / TOREYN: [id number] /
[2025-02-13 05:44] LABS: Anisocytosis Slight; Basophils % (A) 0 %; Eosinophils # (A) 0.5 k/uL (0-0.7); Eosinophils % (A) 8 %; HCT 26.8 % (39.0-53.0); HGB 7.5 gm/dL (13.0-17.5); Hypochromasia Marked; Lymphocytes # (A) 0.7 k/uL (1.0-4.8); Lymphocytes % (A) 11 %; MCHC 27.9 g/dL (31.0-37.0); MCV 78.7 fL (80.0-100.0); Mean Platelet Volume 7.2; Microcytosis Slight; Monocytes # (A) 0.3 k/uL (0-1.0); Monocytes % (A) 5 %; Neutrophils # (A) 4.3 k/uL (1.3-7.7); Neutrophils % (A) 71 %; Platelet Count 239 k/uL (150-450); RBC 3.41 m/uL (4.30-5.90); RDW 18.5 % (11.5-15.5); WBC 6.1 k/uL (3.8-10.6)
[2025-02-13 06:18] LABS: African American GFR (CKD) 26 (>60 ml/min/1.73 sqM); Anion Gap 9 mmol/L; Blood Urea Nitrogen 47 mg/dL (9-20); Calcium 8.1 mg/dL (8.4-10.2); Carbon Dioxide 22 mmol/L (22-30); Chloride 93 mmol/L (98-107); Glucose 124 mg/dL (74-99); Non-African American GFR(CKD) 22 (>60 ml/min/1.73 sqM); Sodium 124 mmol/L (137-145)
--- NOTE | 2025-02-13 10:51 | P.PN ---
Subjective Patient is seen in follow-up for acute kidney injury on chronic kidney disease. Renal function stable. Sodium 124. Admits to good urine output. Vital signs are stable. General: No acute distress. HEENT: Head exam is unremarkable. LUNGS: No audible rhonchi or wheezes. HEART: Rate and Rhythm are regular. ABDOMEN: Nontender. Distention noted. EXTREMITITES: Lower extremities wrapped. 2+ edema. Objective - Vital Signs Vital signs: Vital Signs Temp 98 F 02/13/25 08:00 Pulse 92 02/13/25 09:21 Resp 22 02/13/25 08:00 BP 141/60 02/13/25 08:00 Pulse Ox 95 02/13/25 08:00 FiO2 21 02/09/25 15:35 Intake & Output 02/12/25 02/13/25 02/13/25 18:59 06:59 18:59 Intake Total 100 150 Balance 100 150 Weight 110.8 kg Intake: Intake, IV Titration 100 Amount Ampicillin-Sulbactam 3 gm 100 In Sodium Chloride 0.9% 100 ml @ 200 mls/hr IVPB Q12HR [facility] Rx#:[id number] Oral 150 Other: Voiding Method Toilet Toilet Toilet # Voids 3 - Labs CBC & Chem 7: 02/13/25 05:02 02/13/25 05:02 Labs: Abnormal Lab Results - Last 24 Hours (Table) 02/13/25 02/13/25 Range/Units 05:02 05:02 RBC 3.41 L (4.30-5.90) m/uL Hgb 7.5 L (13.0-17.5) gm/dL Hct 26.8 L (39.0-53.0) % MCV 78.7 L (80.0-100.0) fL MCH 22.0 L (25.0-35.0) pg MCHC 27.9 L (31.0-37.0) g/dL RDW 18.5 H (11.5-15.5) % Lymphocytes # 0.7 L (1.0-4.8) k/uL Sodium 124 L (137-145) mmol/L Chloride 93 L (98-107) mmol/L BUN 47 H (9-20) mg/dL Creatinine 2.62 H (0.66-1.25) mg/dL Glucose 124 H (74-99) mg/dL Calcium 8.1 L (8.4-10.2) mg/dL Microbiology - Last 24 Hours (Table) 02/09/25 11:44 Blood Culture - Preliminary Blood Assessment and Plan Plan: Assessment: 1. Acute kidney injury secondary to ATN secondary to hypotension. Also concern for hepatorenal syndrome. Was also on Bactrim prior. UA benign. No hydronephrosis noted on imaging. Creatinine 3.43 on admission and stable at 2. 62 today. 2. Chronic kidney disease stage IIIb with baseline creatinine 1.4-1.8 secondary to nephrosclerosis. 3. Volume overload. 4. Hypervolemic hyponatremia. 5. Alcohol induced liver disease. 6. Moderate mitral regurgitation. 7. Hyperkalemia secondary to acute kidney injury, Bactrim and Aldactone. Improved. 8. Anemia of chronic kidney disease maintained on Aranesp. Plan: Maintain IV Lasix. Transition to oral Lasix 40 mg twice daily upon discharge. Check abdominal ultrasound. Scheduled for paracentesis if ascites present. 25 g IV albumin pre and post paracentesis. Add fluid restriction.
[2025-02-13] MEDS ORDERED: ALBUMIN HUMAN 25% 50 ML in EMPTY BAG 1 BAG IVPB SCH ×2 (11:00→15:00)
--- NOTE | 2025-02-13 11:16 | US ---
EXAMINATION TYPE: US abdomen limited DATE OF EXAM: 02/13/2025 Exam done portable COMPARISON: Most recent paracentesis ultrasound February 02, 2025 CLINICAL INDICATION: Male, 79 years old with history of ascites; swelling TECHNIQUE: Grayscale imaging of the abdomen for ascites. FINDINGS: Abdominal ascites moderate in amount greatest in the left abdomen on images obtained. IMPRESSION: As above. [facility], Workstation: [employer], 02/13/2025 11:14 AM
[2025-02-13 13:24] LABS: INR 1.4 (<1.2); Prothrombin Time 14.4 sec (10.0-12.5)
--- NOTE | 2025-02-13 13:36 | P.PN ---
Subjective Progress Note Date: 02/13/25 Principal diagnosis: Reason for follow his bilateral lower extremity ulcer and cellulitis Patient is a 79-year-old male with a past medical history significant for morbid obesity atrial fibrillation liver disease pneumonia anxiety depression PTSD and did have a history of lower extremity venous stasis ulcer patient has been brought into the hospital complaining of bilateral lower extremity swelling redness drainage and concern for cellulitis prompted this consultation. On today's evaluation that is 02/13/2025, patient has been afebrile, patient is breathing comfortably and is currently on room air, patient denies having any significant cough no chest pain, patient denies nausea vomiting or diarrhea and no abdominal pain overall feeling better wants to go home. Patient white count 6.1, creatinine is 2.62 blood culture has been negative Objective - Vital Signs Vital signs: Vital Signs Temp 97.9 F 02/13/25 11:56 Pulse 92 02/13/25 13:30 Resp 22 02/13/25 13:30 BP 112/53 02/13/25 11:56 Pulse Ox 95 02/13/25 11:56 FiO2 21 02/09/25 15:35 Intake & Output 02/12/25 02/13/25 02/13/25 18:59 06:59 18:59 Intake Total 100 250 Balance 100 250 Weight 110.8 kg Intake: Intake, IV Titration 100 Amount Ampicillin-Sulbactam 3 gm 100 In Sodium Chloride 0.9% 100 ml @ 200 mls/hr IVPB Q12HR [facility] Rx#:[id number] Oral 250 Other: Voiding Method Toilet Toilet Toilet # Voids 3 - Exam GENERAL DESCRIPTION: An elderly male up in the chair in no distress RESPIRATORY SYSTEM: Unlabored breathing , decreased breath sounds at bases HEART: S1 S2 regular rate and rhythm , ABDOMEN: Soft , no tenderness EXTREMITIES: Bilateral lower extremity currently wrapped with Von wrap no drainage - Labs CBC & Chem 7: 02/13/25 05:02 02/13/25 05:02 Labs: Abnormal Lab Results - Last 24 Hours (Table) 02/13/25 02/13/25 02/13/25 Range/Units 05:02 05:02 12:47 RBC 3.41 L (4.30-5.90) m/uL Hgb 7.5 L (13.0-17.5) gm/dL Hct 26.8 L (39.0-53.0) % MCV 78.7 L (80.0-100.0) fL MCH 22.0 L (25.0-35.0) pg MCHC 27.9 L (31.0-37.0) g/dL RDW 18.5 H (11.5-15.5) % Lymphocytes # 0.7 L (1.0-4.8) k/uL PT 14.4 H (10.0-12.5) sec INR 1.4 H (<1.2) Sodium 124 L (137-145) mmol/L Chloride 93 L (98-107) mmol/L BUN 47 H (9-20) mg/dL Creatinine 2.62 H (0.66-1.25) mg/dL Glucose 124 H (74-99) mg/dL Calcium 8.1 L (8.4-10.2) mg/dL Microbiology - Last 24 Hours (Table) 02/09/25 11:44 Blood Culture - Preliminary Blood Assessment and Plan (1) Bilateral lower leg cellulitis Current Visit: Yes Status: Acute Code(s): L03.116 - CELLULITIS OF LEFT LOWER LIMB; L03.115 - CELLULITIS OF RIGHT LOWER LIMB SNOMED Code(s): 719675874 (2) Allergy to cephalosporin Current Visit: No Status: Acute Code(s): Z88.1 - ALLERGY STATUS TO OTHER ANTIBIOTIC AGENTS SNOMED Code(s): 479917238 Plan: 1patient presented hospital with weakness swelling to bilateral lower extremity with weeping edema especially to the left lower extremity in this patient who did have evidence of fluid overload possible left leg redness ulceration and secondary cellulitis likely from gram-positive skin lars less likely gram-negative infection 2-cephalosporin allergy that will limit the number of antibiotic safe to use 3-lower extremity Doppler was negative for DVT 4patient to continue local wound care with dry Aquacel silver dressing followed by Vno wrap to keep the swelling down, 5patient has shown clinical improvement on Unasyn to continue while inpatient finishing therapy with a 7-day course of Augmentin on discharge Dictation was produced using [employer] dictation software. please excuse any grammatical, word or spelling errors. Time with Patient: Less than 30
[2025-02-13] MEDS: ALPRAZolam 1 MG TAB PO PRN (14:58)
--- NOTE | 2025-02-13 22:06 | P.PN ---
Subjective Progress Note Date: 02/13/25 Principal diagnosis: Cellulitis and SHEA Mr. Rincon is a 79-year-old male with with a past medical history of atrial fibrillation, liver disease, pneumonia, PTSD coming in with bilateral lower extremity swelling and drainage. Patient is being treated for bilateral lower extremity cellulitis and SHEA. Today the patient is sitting up in a chair by the bedside appears to be in no acute distress. Patient states that his abdominal distention is increasing gradually. He states that the redness and swelling in the lower extremities is getting better. He denies having any fevers chills or rigors. No complaints of chest pain or difficulty breathing. Patient's vitals reviewed and afebrile for the past 24 hours Patient labs hemoglobin at 7.5 and creatinine at 2.62 albumin of 3.3 Objective - Vital Signs Vital signs: Vital Signs Temp 97.9 F 02/13/25 20:00 Pulse 81 02/13/25 20:00 Resp 20 02/13/25 20:00 BP 107/55 02/13/25 20:00 Pulse Ox 93 L 02/13/25 20:00 FiO2 21 02/09/25 15:35 Intake & Output 02/13/25 02/13/25 02/14/25 06:59 18:59 06:59 Intake Total 250 Balance 250 Weight 110.8 kg Intake: Oral 250 Other: Voiding Method Toilet Toilet Toilet # Voids 3 - Exam General Impression: Alert and oriented x3, not in acute distress HEENT: pupils equal and reactive to light bilaterally, mucous membranes moist. Cardiovascular: Heart regular rate and rhythm Abdomen: Distended and ascites Neurological: no focal motor or sensory deficits noted Skin: Bilateral LE in crepe bandages which are moist to touch. Psych: Normal affect and mood - Labs CBC & Chem 7: 02/13/25 05:02 02/13/25 05:02 Labs: Abnormal Lab Results - Last 24 Hours (Table) 02/13/25 02/13/25 02/13/25 Range/Units 05:02 05:02 12:47 RBC 3.41 L (4.30-5.90) m/uL Hgb 7.5 L (13.0-17.5) gm/dL Hct 26.8 L (39.0-53.0) % MCV 78.7 L (80.0-100.0) fL MCH 22.0 L (25.0-35.0) pg MCHC 27.9 L (31.0-37.0) g/dL RDW 18.5 H (11.5-15.5) % Lymphocytes # 0.7 L (1.0-4.8) k/uL PT 14.4 H (10.0-12.5) sec INR 1.4 H (<1.2) Sodium 124 L (137-145) mmol/L Chloride 93 L (98-107) mmol/L BUN 47 H (9-20) mg/dL Creatinine 2.62 H (0.66-1.25) mg/dL Glucose 124 H (74-99) mg/dL Calcium 8.1 L (8.4-10.2) mg/dL Assessment and Plan Assessment: ASSESSMENT Bilateral lower extremity cellulitis SHEA on CKD Hyperkalemia secondary to SHEA Hyponatremia -hypervolemic Ascites secondary to cirrhosis of the liver Anemia most likely due to CKD Mild protein calorie malnutrition Mitral regurgitation Morbid obesity PLAN Continue with the biotics in the form of Unasyn Plan for ultrasound-guided paracentesis scheduled for tomorrow morning As there is a concern for hepatorenal syndrome patient is on Lasix Continue with fluid restriction of 1.2 L Repeat BMP and CBC for tomorrow morning Continue with the rest of his medication regimen overall prognosis is guarded Further recommendations depending on the progress of the patient
[2025-02-14 08:05] LABS: Anisocytosis Slight; Basophils % (A) 0 %; Eosinophils # (A) 0.5 k/uL (0-0.7); Eosinophils % (A) 7 %; HCT 26.5 % (39.0-53.0); HGB 7.5 gm/dL (13.0-17.5); Hypochromasia Marked; Lymphocytes # (A) 0.6 k/uL (1.0-4.8); Lymphocytes % (A) 9 %; MCH 22.3 pg (25.0-35.0); MCHC 28.3 g/dL (31.0-37.0); MCV 78.6 fL (80.0-100.0); Mean Platelet Volume 7.5; Microcytosis Slight; Monocytes # (A) 0.4 k/uL (0-1.0); Monocytes % (A) 5 %; Neutrophils # (A) 5.1 k/uL (1.3-7.7); Neutrophils % (A) 75 %; Platelet Count 238 k/uL (150-450); RBC 3.37 m/uL (4.30-5.90); RDW 18.3 % (11.5-15.5); WBC 6.8 k/uL (3.8-10.6)
[2025-02-14 08:19] LABS: African American GFR (CKD) 28 (>60 ml/min/1.73 sqM); Anion Gap 6 mmol/L; Blood Urea Nitrogen 50 mg/dL (9-20); Calcium 8.3 mg/dL (8.4-10.2); Carbon Dioxide 24 mmol/L (22-30); Chloride 95 mmol/L (98-107); Glucose 104 mg/dL (74-99); Non-African American GFR(CKD) 24 (>60 ml/min/1.73 sqM); Sodium 125 mmol/L (137-145)
[2025-02-14] MEDS: ALBUMIN HUMAN 25% 50 ML in EMPTY BAG 1 BAG IVPB SCH (08:45)
--- NOTE | 2025-02-14 10:27 | US ---
EXAMINATION TYPE: US paracentesis abd w/image DATE OF EXAM: 02/14/2025 9:33 AM COMPARISON: None. Previous Paracentesis CLINICAL INDICATION: Male, 79 years old with history of see IR consult for ordering information; , as cites TECHNIQUE/FINDINGS: The procedure was discussed with the patient. The risks, complications, benefits, and alternatives we re discussed and any questions were answered. Informed consent was obtained. The patient was placed s upine on the ultrasound table and prepped and draped in the usual sterile fashion. All elements of maximal barrier technique were utilized. Under ultrasound guidance, access into the right lower quadrant was obtained, via the paracentesis catheter system and direct ultrasound guidanc e. Approximately 3.7 liters of straw-colored fluid was removed. The patient was stable throughout the pr ocedure and remained stable upon discharge from Department of Radiology. IMPRESSION: Successful paracentesis under ultrasound guidance. [facility], , 02/14/2025 10:24 AM
--- NOTE | 2025-02-14 11:39 | P.PN ---
Subjective Patient is seen in follow-up for acute kidney injury on chronic kidney disease. Renal function stable. Sodium 125. Admits to good urine output. Underwent paracentesis this morning with 3.7 L drained. Wants to go home. Vital signs are stable. General: No acute distress. HEENT: Head exam is unremarkable. LUNGS: No audible rhonchi or wheezes. HEART: Rate and Rhythm are regular. ABDOMEN: Nontender. Distention noted. EXTREMITITES: Lower extremities wrapped. 2+ edema. Objective - Vital Signs Vital signs: Vital Signs Temp 97.3 F L 02/14/25 08:00 Pulse 95 02/14/25 10:10 Resp 16 02/14/25 10:10 BP 125/78 02/14/25 10:10 Pulse Ox 96 02/14/25 10:10 FiO2 21 02/09/25 15:35 Intake & Output 02/13/25 02/14/25 02/14/25 18:59 06:59 18:59 Intake Total 250 1200 Balance 250 1200 Weight 110.1 kg Intake: Oral 250 1200 Other: Voiding Method Toilet Toilet Toilet - Labs CBC & Chem 7: 02/14/25 07:42 02/14/25 07:42 Labs: Abnormal Lab Results - Last 24 Hours (Table) 02/13/25 02/14/25 02/14/25 Range/Units 12:47 07:42 07:42 RBC 3.37 L (4.30-5.90) m/uL Hgb 7.5 L (13.0-17.5) gm/dL Hct 26.5 L (39.0-53.0) % MCV 78.6 L (80.0-100.0) fL MCH 22.3 L (25.0-35.0) pg MCHC 28.3 L (31.0-37.0) g/dL RDW 18.3 H (11.5-15.5) % Lymphocytes # 0.6 L (1.0-4.8) k/uL PT 14.4 H (10.0-12.5) sec INR 1.4 H (<1.2) Sodium 125 L (137-145) mmol/L Chloride 95 L (98-107) mmol/L BUN 50 H (9-20) mg/dL Creatinine 2.44 H (0.66-1.25) mg/dL Glucose 104 H (74-99) mg/dL Calcium 8.3 L (8.4-10.2) mg/dL Assessment and Plan Plan: Assessment: 1. Acute kidney injury secondary to ATN secondary to hypotension. Also concern for hepatorenal syndrome. Was also on Bactrim prior. UA benign. No hydronephrosis noted on imaging. Creatinine 3.43 on admission and stable at 2.44 today. 2. Chronic kidney disease stage IIIb with baseline creatinine 1.4-1.8 secondary to nephrosclerosis. 3. Volume overload. Status post paracentesis this morning with 3.7 L drained. 4. Hypervolemic hyponatremia. 5. Alcohol induced liver disease. 6. Moderate mitral regurgitation. 7. Hyperkalemia secondary to acute kidney injury, Bactrim and Aldactone. Improved. 8. Anemia of chronic kidney disease maintained on Aranesp. Plan: Maintain IV Lasix. Transition to oral Lasix 40 mg twice daily upon discharge. Maintain fluid restriction. Hold off on Aldactone as potassium was on the higher end. Advised patient to maintain low-salt diet and fluid restriction of less than 50 ounces per day upon discharge. Repeat BMP and magnesium level 2 to 3 days postdischarge. Follow-up outpatient 1 week postdischarge.
[2025-02-14 12:14] VITALS: BP 116/50; RESP 20; TEMP 97.4
[2025-02-14] MEDS ORDERED: ALBUMIN HUMAN 25% 50 ML in EMPTY BAG 1 BAG IVPB SCH (14:00)
--- NOTE | 2025-02-14 14:57 | P.PN ---
Subjective Progress Note Date: 02/14/25 Principal diagnosis: Reason for follow his bilateral lower extremity ulcer and cellulitis Patient is a 79-year-old male with a past medical history significant for morbid obesity atrial fibrillation liver disease pneumonia anxiety depression PTSD and did have a history of lower extremity venous stasis ulcer patient has been brought into the hospital complaining of bilateral lower extremity swelling redness drainage and concern for cellulitis prompted this consultation. On today's evaluation that is 02/14/2025, Patient is afebrile this morning patient denies having any chest pain shortness of breath or cough, the patient is currently on room air, patient denies any abdominal pain no diarrhea no nausea no vomiting, did have paracentesis done today. Patient white count 6.8, creatinine is 2.44 blood culture has been negative Objective - Vital Signs Vital signs: Vital Signs Temp 97.4 F L 02/14/25 12:12 Pulse 113 H 02/14/25 12:12 Resp 20 02/14/25 12:12 BP 116/50 02/14/25 12:12 Pulse Ox 95 02/14/25 12:12 FiO2 21 02/09/25 15:35 Intake & Output 02/13/25 02/14/25 02/14/25 18:59 06:59 18:59 Intake Total 250 1200 240 Balance 250 1200 240 Weight 110.1 kg Intake: Oral 250 1200 240 Other: Voiding Method Toilet Toilet Toilet - Exam GENERAL DESCRIPTION: An elderly male up in the chair in no distress RESPIRATORY SYSTEM: Unlabored breathing , decreased breath sounds at bases HEART: S1 S2 regular rate and rhythm , ABDOMEN: Soft , no tenderness EXTREMITIES: Bilateral lower extremity currently wrapped with Von wrap no drainage - Labs CBC & Chem 7: 02/14/25 07:42 02/14/25 07:42 Labs: Abnormal Lab Results - Last 24 Hours (Table) 02/14/25 02/14/25 Range/Units 07:42 07:42 RBC 3.37 L (4.30-5.90) m/uL Hgb 7.5 L (13.0-17.5) gm/dL Hct 26.5 L (39.0-53.0) % MCV 78.6 L (80.0-100.0) fL MCH 22.3 L (25.0-35.0) pg MCHC 28.3 L (31.0-37.0) g/dL RDW 18.3 H (11.5-15.5) % Lymphocytes # 0.6 L (1.0-4.8) k/uL Sodium 125 L (137-145) mmol/L Chloride 95 L (98-107) mmol/L BUN 50 H (9-20) mg/dL Creatinine 2.44 H (0.66-1.25) mg/dL Glucose 104 H (74-99) mg/dL Calcium 8.3 L (8.4-10.2) mg/dL Assessment and Plan (1) Bilateral lower leg cellulitis Current Visit: Yes Status: Acute Code(s): L03.116 - CELLULITIS OF LEFT LOWER LIMB; L03.115 - CELLULITIS OF RIGHT LOWER LIMB SNOMED Code(s): 810278729 (2) Allergy to cephalosporin Current Visit: No Status: Acute Code(s): Z88.1 - ALLERGY STATUS TO OTHER ANTIBIOTIC AGENTS SNOMED Code(s): 195866320 Plan: 1patient presented hospital with weakness swelling to bilateral lower extremity with weeping edema especially to the left lower extremity in this patient who did have evidence of fluid overload possible left leg redness ulceration and secondary cellulitis likely from gram-positive skin lars less likely gram-negat josselyn infection 2-cephalosporin allergy that will limit the number of antibiotic safe to use 3-lower extremity Doppler was negative for DVT 4patient to continue local wound care with dry Aquacel silver dressing followed by Von wrap to keep the swelling down, 5patient currently being treated with Unasyn with the plan to finish therapy with a 7-day course of Augmentin on discharge. Discussed with [employer] for admitting team Dictation was produced using [employer] dictation software. please excuse any gram matical, word or spelling errors.
[2025-02-14 15:42] VITALS: PULSE 92
== END 2025-02-14 16:36 | disposition home or self-care (01) | DRG 602 ==
LOC: EC 10:35 → 3SCARD 13:42
PROVIDERS: ADMIT Hospitalist; ATTEND Hospitalist
PROC: 0W9G3ZZ Drainage of Peritoneal Cavity, Percutaneous Approach (ICD-10-PCS; principal; 2025-02-14)
DX: L03.115 Cellulitis of right lower limb (principal); N17.0 Acute kidney failure with tubular necrosis; K70.31 Alcoholic cirrhosis of liver with ascites; E44.1 Mild protein-calorie malnutrition; L97.919 Non-pressure chronic ulcer of unspecified part of right lower leg with unspecified severity; E87.1 Hypo-osmolality and hyponatremia; D63.1 Anemia in chronic kidney disease; J44.9 Chronic obstructive pulmonary disease, unspecified; E66.01 Morbid (severe) obesity due to excess calories; N18.32 Chronic kidney disease, stage 3b; I12.9 Hypertensive chronic kidney disease with stage 1 through stage 4 chronic kidney disease, or unspecified chronic kidney disease; F32.A Depression, unspecified; I34.0 Nonrheumatic mitral (valve) insufficiency; L97.929 Non-pressure chronic ulcer of unspecified part of left lower leg with unspecified severity; I48.20 Chronic atrial fibrillation, unspecified; I95.9 Hypotension, unspecified; R26.9 Unspecified abnormalities of gait and mobility; L03.116 Cellulitis of left lower limb; K70.9 Alcoholic liver disease, unspecified; D50.9 Iron deficiency anemia, unspecified; Z68.36 Body mass index [BMI] 36.0-36.9, adult; E87.5 Hyperkalemia; F17.200 Nicotine dependence, unspecified, uncomplicated; E87.70 Fluid overload, unspecified; F41.0 Panic disorder [episodic paroxysmal anxiety]; F43.10 Post-traumatic stress disorder, unspecified; Z91.81 History of falling; Z79.01 Long term (current) use of anticoagulants; Z79.899 Other long term (current) drug therapy; Z88.1 Allergy status to other antibiotic agents; Z91.041 Radiographic dye allergy status; Z57.4 Occupational exposure to toxic agents in agriculture; Z87.01 Personal history of pneumonia (recurrent)
CPT/HCPCS: 36415; 49083; 70450; 71045; 72100; 72125; 72170; 73502; 76705; 76770; 80048; 80053; 81003; 82550; 83540; 83550; 83605; 83880; 84132; 84484; 85025; 85610; 87040; 93005; 93306; 93970; 94640; 94760; 96361; 96365; 96366; 96367; 96375; 96376; 99291

== ENCOUNTER 2025-03-02 12:56 | Day surgery (SDC) | payer MEDICARE ==
[2025-03-02 13:40] LABS: Mean Platelet Volume 8.9 fL (9.5-12.2); Platelet Count 285 10*3/uL (140-440)
[2025-03-02 13:47] LABS: INR 1.1 (<1.2); Prothrombin Time 11.6 sec (10.0-12.5)
[2025-03-02 13:53] LABS: African American GFR (CKD) 48 (>60 ml/min/1.73 sqM); Non-African American GFR(CKD) 42 (>60 ml/min/1.73 sqM)
[2025-03-02] MEDS: ALBUMIN HUMAN 25% 50 ML in EMPTY BAG 1 BAG IVPB SCH (14:35)
[2025-03-02 15:00] VITALS: RESP 18
[2025-03-02 16:25] VITALS: BP 123/64; PULSE 64
--- NOTE | 2025-03-03 08:24 | US ---
EXAMINATION TYPE: US paracentesis abd w/image DATE OF EXAM: 03/02/2025 CLINICAL HISTORY: 79-year-old male R18.8, other ascites, distention The procedure was discussed with the patient. The risks, complications, benefits, and alternatives we re discussed and any questions were answered. Informed consent was obtained. The patient was placed s upine on the ultrasound table and prepped and draped in the usual sterile fashion. All elements of maximal barrier technique were utilized. Ultrasound was utilized to determine the precise skin entry site along the right lower quadrant. A 5 Maltese One-Step catheter and trocar technique was utilized to access the ascites collection under direct ultrasound guidance. Approximately 5.5 liters of clear, straw-colored fluid was removed. Catheter was removed, hemostasis obtained, and a dressing placed. The patient was stable throughout the procedure and remained stable upon discharge from Department of Radiology. IMPRESSION: Successful therapeutic paracentesis under ultrasound guidance. 5.5 L of fluid removed. [facility], , 03/03/2025 8:22 AM
== END 2025-03-02 15:50 | disposition home or self-care (01) ==
LOC: RADPROMAIN 12:56
PROVIDERS: ATTEND Internal Medicine Gastroenterology
DX: R18.8 Other ascites (principal)
CPT/HCPCS: 82565; 85049; 85610; 36415; 49083; P9047

== ENCOUNTER 2025-03-16 12:53 | Day surgery (SDC) | payer MEDICARE ==
[2025-03-16 13:49] VITALS: RESP 16; TEMP 98.2
[2025-03-16 13:50] LABS: Mean Platelet Volume 9.5 fL (9.5-12.2); Platelet Count 266 10*3/uL (140-440)
[2025-03-16 13:59] LABS: INR 1.2 (<1.2); Prothrombin Time 12.5 sec (10.0-12.5)
[2025-03-16 14:02] LABS: African American GFR (CKD) 49 (>60 ml/min/1.73 sqM); Non-African American GFR(CKD) 42 (>60 ml/min/1.73 sqM)
[2025-03-16] MEDS: ALBUMIN HUMAN 25% 50 ML in EMPTY BAG 1 BAG IVPB SCH (14:21)
[2025-03-16 15:43] VITALS: BP 119/75; PULSE 98
--- NOTE | 2025-03-17 10:13 | US ---
EXAMINATION TYPE: US paracentesis abd w/image DATE OF EXAM: 03/16/2025 CLINICAL HISTORY: Ascites The procedure was discussed with the patient. The risks, complications, benefits, and alternatives we re discussed and any questions were answered. Informed consent was obtained. The patient was placed s upine on the ultrasound table and prepped and draped in the usual sterile fashion. All elements of maximal barrier technique were utilized. Under ultrasound guidance, access into the right lower quadrant was obtained, via the paracentesis catheter system and direct ultrasound guidanc e. Approximately 6 liters of straw-colored fluid was removed. The patient was stable throughout the proc edure and remained stable upon discharge from Department of Radiology. IMPRESSION: Successful therapeutic paracentesis under ultrasound guidance. [facility], , 03/17/2025 10:11 AM
== END 2025-03-16 15:30 | disposition home or self-care (01) ==
LOC: RADPROMAIN 12:53
PROVIDERS: ATTEND Internal Medicine Gastroenterology
DX: R18.8 Other ascites (principal)
CPT/HCPCS: 82565; 85049; 85610; 36415; 49083; P9047

== ENCOUNTER 2025-03-24 21:12 | Emergency (ER) | payer MEDICARE ==
[2025-03-24 21:19] VITALS: RESP 18; TEMP 98.5
--- NOTE | 2025-03-24 21:52 | ED ---
Recheck HPI - General Chief Complaint: Recheck/Abnormal Lab/Rx Stated Complaint: Abnormal Labs Time Seen by Provider: 03/24/25 21:20 Source: patient Mode of arrival: wheelchair - History of Present Illness Initial Comments: This patient is a 79-year-old man who presents to have evaluation related to hyperkalemia. [facility] here. Call this evening telling him that he had to get to the emergency department because some of his electrolytes were off. He states he was told that his potassium was 6.4 and that his sodium was low. Patient does have underlying chronic liver disease. He states that he otherwise feels well and would not have come in. He is more or less at his baseline. No fever or chills. No chest pain, dyspnea, change in urination or bowel movements. He does have leg edema and weeping but states this is a chronic issue. Complaint: abnormal lab -: hour(s) Returns Today for: Called Because of Abnormal Lab/Test Symptoms Since Prior Visit: no new symptoms Context: called for abnormal lab result Associated Symptoms: none - Related Data Home Medications Medication Instructions Recorded Confirmed Furosemide [Lasix] 40 mg PO DAILY 12/05/22 03/16/25 Rivaroxaban [Xarelto] 20 mg PO DAILY 12/05/22 03/16/25 Metoprolol Succinate (ER) [Toprol 25 mg PO DAILY 10/30/23 03/16/25 XL] HYDROcodone/APAP 10-325MG [[place] 1 tab PO BID 01/21/24 03/16/25 10-325] Morphine Sulfate [Morphine Sulfate 15 mg PO BID 07/21/24 03/16/25 ER] Albuterol Sulfate [Albuterol 2 puff PO RT-Q4H PRN 10/13/24 03/16/25 Sulfate Hfa] ALPRAZolam [Xanax] 1 mg PO BID PRN 02/09/25 03/16/25 Famotidine [Pepcid] 20 mg PO BID 02/09/25 03/16/25 Mupirocin 2% Oint [Bactroban 2% 1 applic TOPICAL BID PRN 02/09/25 03/16/25 Oint] Mupirocin Calcium 2% Cream 1 applic TOPICAL BID 02/09/25 03/16/25 [Bactroban 2% Cream] Ondansetron Odt [Zofran ODT] 4 mg PO Q8HR PRN 02/09/25 03/16/25 SILVER sulfADIAZINE Cream 1 applic TOPICAL DAILY 02/09/25 03/16/25 [Silvadene 1% Cream] Spironolactone [Aldactone] 100 mg PO DAILY 02/09/25 03/16/25 Sulfamethox-Tmp 800-160Mg [Bactrim 1 tab PO BID 02/09/25 03/16/25 DS 800-160 mg] Previous Rx's Medication Instructions Recorded Amoxic-Pot Clav 875-125Mg 1 tab PO Q12HR 7 Days #14 tab 02/14/25 [Augmentin 875-125] Midodrine [ProAmatine] 5 mg PO AC-TID 10 Days #30 tab 02/14/25 Sodium Zirconium Cyclosilicate 10 gm PO DAILY #3 packet 03/24/25 [Lokelma] Allergies Allergy/AdvReac Type Severity Reaction Status Date / Time cephalexin [From Keflex] Allergy Rash/Hives Verified 03/24/25 21:18 Iodinated Contrast Media Allergy Vomiting Verified 03/24/25 21:18 Review of Systems ROS Statement: Those systems with pertinent positive or pertinent negative responses have been documented in the HPI. ROS Other: All systems not noted in ROS Statement are negative. Constitutional: Denies: fever, chills, weakness Respiratory: Denies: cough, dyspnea Cardiovascular: Reports: edema (Chronic). Denies: chest pain, palpitations, syncope Gastrointestinal: Denies: abdominal pain, nausea, vomiting, diarrhea Genitourinary: Denies: dysuria, hematuria Musculoskeletal: Denies: back pain Skin: Reports: other (Weeping stasis ulcer, chronic) Neurological: Denies: headache, weakness, numbness Past Medical History Past Medical History: Atrial Fibrillation, Liver Disease, Pneumonia Additional Past Medical History / Comment(s): morbid obese, exposed to agent orange, ascites, back pain, large volume pracentesis weekly History of Any Multi-Drug Resistant Organisms: None Reported Past Surgical History: Hernia Repair Additional Past Surgical History / Comment(s): multi large volume paracentesis, hernia, scrotal surgery, eye implants, liver biopsy, rt shoulder injection for pain Past Anesthesia/Blood Transfusion Reactions: No Reported Reaction Past Psychological History: Anxiety, Panic Disorder, PTSD Smoking Status: Current every day smoker Past Alcohol Use History: None Reported Past Drug Use History: Marijuana - Past Family History Father Family Medical History: Myocardial Infarction (LA) General Exam General appearance: alert, in no apparent distress Head exam: Present: atraumatic, normocephalic Eye exam: Present: normal appearance. Absent: scleral icterus, conjunctival injection ENT exam: Present: normal oropharynx Neck exam: Present: normal inspection Respiratory exam: Present: normal lung sounds bilaterally. Absent: respiratory distress, wheezes, rales, rhonchi, stridor, accessory muscle use Cardiovascular Exam: Present: regular rate, irregular rhythm, normal heart sounds. Absent: systolic murmur, diastolic murmur, rubs, gallop GI/Abdominal exam: Present: soft, distended. Absent: tenderness, guarding, rebound, rigid Extremities exam: Present: normal capillary refill, pedal edema. Absent: calf tenderness Neurological exam: Present: alert Skin exam: Present: warm, dry, intact, normal color. Absent: rash Course Vital Signs 03/24/25 21:15 Temperature 98.5 F Pulse Rate 92 Respiratory 18 Rate Blood Pressure 104/46 O2 Sat by Pulse 95 Oximetry Medical Decision Making - Lab Data Result diagrams: 03/24/25 21:48 Lab Results 03/24/25 Range/Units 21:48 Sodium 124 L (137-145) mmol/L Potassium 6.2 H* (3.5-5.1) mmol/L Chloride 97 L (98-107) mmol/L Carbon Dioxide 21 L (22-30) mmol/L Anion Gap 6 mmol/L BUN 37 H (9-20) mg/dL Creatinine 2.23 H (0.66-1.25) mg/dL Est GFR (CKD-EPI)AfAm 32 (>60 ml/min/1.73 sqM) Est GFR (CKD-EPI)NonAf 27 (>60 ml/min/1.73 sqM) Glucose 107 H (74-99) mg/dL Calcium 8.6 (8.4-10.2) mg/dL - EKG Data -: EKG Interpreted by De EKG shows normal: axis ( normal), intervals (Normal), QRS complexes (Low voltage QRS complex) Rate: normal (Rate 92 bpm) Interpretation: other (Movement is atrial fibrillation with a rate of 92 bpm there is a possible old anteroseptal infarct.) Disposition Clinical Impression: Hyperkalemia Disposition: HOME SELF-CARE Condition: Good Instructions (If sedation given, give patient instructions): Hyperkalemia (ED) Additional Instructions: As we discussed, you must follow-up in 2 to 3 days to have your potassium rechecked. If any of the symptoms that we discussed develop return immediately. If you are not feeling right in any way return immediately. Prescriptions: Sodium Zirconium Cyclosilicate [Lokelma] 10 gm PO DAILY #3 packet Is patient prescribed a controlled substance at d/c from ED?: No Referrals: Kelechi Soriano DO [Primary Care Provider] - 1-2 days
[2025-03-24 22:15] LABS: African American GFR (CKD) 32 (>60 ml/min/1.73 sqM); Anion Gap 6 mmol/L; Blood Urea Nitrogen 37 mg/dL (9-20); Calcium 8.6 mg/dL (8.4-10.2); Carbon Dioxide 21 mmol/L (22-30); Chloride 97 mmol/L (98-107); Glucose 107 mg/dL (74-99); Non-African American GFR(CKD) 27 (>60 ml/min/1.73 sqM); Sodium 124 mmol/L (137-145)
[2025-03-24 22:48] LABS: Potassium 6.2 mmol/L (3.5-5.1)
[2025-03-25] MEDS: SODIUM ZIRCONIUM CYCLOSILICATE 10 GM PACKET PO ONE (00:42)
[2025-03-25 00:49] VITALS: BP 120/77; PULSE 88
== END 2025-03-25 00:49 | disposition home or self-care (01) ==
LOC: EC 21:12
DX: E87.5 Hyperkalemia (principal); F17.200 Nicotine dependence, unspecified, uncomplicated; Z88.1 Allergy status to other antibiotic agents; Z91.041 Radiographic dye allergy status
CPT/HCPCS: 36415; 80048; 99284

== ENCOUNTER 2025-03-30 13:02 | Day surgery (SDC) | payer MEDICARE ==
[2025-03-30 13:54] LABS: Mean Platelet Volume 9.4 fL (9.5-12.2); Platelet Count 253 10*3/uL (140-440)
[2025-03-30 14:10] LABS: African American GFR (CKD) 34 (>60 ml/min/1.73 sqM); Non-African American GFR(CKD) 29 (>60 ml/min/1.73 sqM)
[2025-03-30 14:19] LABS: INR 1.1 (<1.2); Prothrombin Time 11.7 sec (10.0-12.5)
[2025-03-30] MEDS: ALBUMIN HUMAN 25% 50 ML in EMPTY BAG 1 BAG IVPB SCH (14:29)
[2025-03-30 14:39] VITALS: RESP 16; TEMP 97.7
[2025-03-30 15:08] VITALS: BP 111/68; PULSE 90
--- NOTE | 2025-03-30 15:34 | US ---
EXAMINATION TYPE: US paracentesis abd w/image DATE OF EXAM: 03/30/2025 2:35 PM COMPARISON: prior paracentesis. CLINICAL INDICATION:Male, 79 years old with history of ascities; , ascites ATTENDING: Dr. Dante Sharma PROCEDURE: Informed consent was obtained. The risks of the procedure were extensively explained incl uding risk of damage to surrounding bowel with perforation and need for additional procedures. Proced ure was performed in the ultrasound procedure suite. Ultrasound imaging of the abdomen demonstrate as citic fluid. An appropriate access site was localized to the right lower abdomen. Timeout was taken p er protocol. The skin was prepped and draped in the usual sterile fashion and then locally anesthetiz ed with 1% lidocaine. The peritoneal cavity was then accessed via a 5-Albanian one-step needle/cathete r. Approximately 5600 mL of clear straw-colored fluid was obtained. Postprocedural imaging of the a bdomen demonstrate a minimal amount of abdominal fluid. Patient tolerated procedure well without immediate complication. Hemostasis at the procedural site w as obtained with a sterile bandage placed. The patient was monitored in the holding area following th e procedure and was subsequently discharged in stable condition. IMPRESSION: Ultrasound guided paracentesis, with approximately 5600 mL of clear straw-colored fluid drained. No i mmediate complications were evident. [facility], , 03/30/2025 3:31 PM
== END 2025-03-30 15:25 | disposition home or self-care (01) ==
LOC: RADPROMAIN 13:02
PROVIDERS: ATTEND Internal Medicine Gastroenterology
DX: R18.8 Other ascites (principal)
CPT/HCPCS: 82565; 85049; 85610; 36415; 49083; P9047

== ENCOUNTER 2025-03-31 15:11 | Emergency (ER) | payer MEDICARE ==
[2025-03-31 15:42] VITALS: RESP 18
--- NOTE | 2025-03-31 17:12 | ED ---
Extremity Problem HPI - General Source: patient, family, RN notes reviewed Mode of arrival: wheelchair Limitations: no limitations <Melissa De Luna - Last Filed: 03/31/25 19:52> <Laurie Bernard - Last Filed: 03/31/25 23:40> - General Chief complaint: Extremity Problem,Nontraumatic Stated complaint: L Left Issues Time Seen by Provider: 03/31/25 16:23 - History of Present Illness Initial comments: This is a 79-year-old male who presents to the emergency department for lower extremity cellulitis. States that he has been dealing with bilateral lower extremity cellulitis for several months. He has liver failure and gets a paracentesis every other week. Most recently had this done yesterday. He states that from the liver failure his legs tend to swell and weep, contributing to infection. He finished a 10-day course of Bactrim for the cellulitis a couple of days ago. His wound care nurse advised that the infection on the right leg appears much better, however they are concerned that the left leg is getting worse. They have started to notice discolored drainage with a foul odor. Denies any fevers or chills. (Melissa De Luna) - Related Data Home Medications Medication Instructions Recorded Confirmed Furosemide [Lasix] 40 mg PO DAILY 12/05/22 03/30/25 Rivaroxaban [Xarelto] 20 mg PO DAILY 12/05/22 03/30/25 Metoprolol Succinate (ER) [Toprol 25 mg PO DAILY 10/30/23 03/30/25 XL] HYDROcodone/APAP 10-325MG [[place] 1 tab PO BID 01/21/24 03/30/25 10-325] Morphine Sulfate [Morphine Sulfate 15 mg PO BID 07/21/24 03/30/25 ER] Albuterol Sulfate [Albuterol 2 puff PO RT-Q4H PRN 10/13/24 03/30/25 Sulfate Hfa] ALPRAZolam [Xanax] 1 mg PO BID PRN 02/09/25 03/30/25 Famotidine [Pepcid] 20 mg PO BID 02/09/25 03/30/25 Mupirocin 2% Oint [Bactroban 2% 1 applic TOPICAL BID PRN 02/09/25 03/30/25 Oint] Mupirocin Calcium 2% Cream 1 applic TOPICAL BID 02/09/25 03/30/25 [Bactroban 2% Cream] Ondansetron Odt [Zofran ODT] 4 mg PO Q8HR PRN 02/09/25 03/30/25 SILVER sulfADIAZINE Cream 1 applic TOPICAL DAILY 02/09/25 03/30/25 [Silvadene 1% Cream] Spironolactone [Aldactone] 100 mg PO DAILY 02/09/25 03/30/25 Previous Rx's Medication Instructions Recorded Midodrine [ProAmatine] 5 mg PO AC-TID 10 Days #30 tab 02/14/25 Doxycycline [Vibramycin] 100 mg PO BID #20 capsule 03/31/25 Allergies Allergy/AdvReac Type Severity Reaction Status Date / Time cephalexin [From Keflex] Allergy Rash/Hives Verified 03/31/25 15:42 Iodinated Contrast Media Allergy Vomiting Verified 03/31/25 15:42 Review of Systems ROS Other: All systems not noted in ROS Statement are negative. <Melissa De Luna - Last Filed: 03/31/25 19:52> ROS Other: All systems not noted in ROS Statement are negative. <Laurie Bernard - Last Filed: 03/31/25 23:40> ROS Statement: Those systems with pertinent positive or pertinent negative responses have been documented in the HPI. Past Medical History Past Medical History: Atrial Fibrillation, Liver Disease, Pneumonia Additional Past Medical History / Comment(s): morbid obese, exposed to agent orange, ascites, back pain, large volume pracentesis weekly History of Any Multi-Drug Resistant Organisms: None Reported Past Surgical History: Hernia Repair Additional Past Surgical History / Comment(s): multi large volume paracentesis, hernia, scrotal surgery, eye implants, liver biopsy, rt shoulder injection for pain Past Anesthesia/Blood Transfusion Reactions: No Reported Reaction Past Psychological History: Anxiety, Panic Disorder, PTSD Smoking Status: Current every day smoker Past Alcohol Use History: None Reported Past Drug Use History: Marijuana - Past Family History Father Family Medical History: Myocardial Infarction ([place]) <Melissa De Luna - Last Filed: 03/31/25 19:52> General Exam Limitations: no limitations General appearance: alert, in no apparent distress Head exam: Present: atraumatic, normocephalic, normal inspection Respiratory exam: Present: normal lung sounds bilaterally. Absent: respiratory distress, wheezes, rales, rhonchi, stridor Cardiovascular Exam: Present: regular rate, normal rhythm Extremities exam: Present: other (Swelling and erythema to the left lower e xtremity with weeping and active drainage) Neurological exam: Present: alert, oriented X3, CN II-XII intact Psychiatric exam: Present: normal affect, normal mood <Melissa De Luna - Last Filed: 03/31/25 19:52> Course Vital Signs 03/31/25 03/31/25 03/31/25 15:39 19:54 21:40 Temperature 98.1 F 98.0 F 98.4 F Pulse Rate 92 86 84 Respiratory 18 18 18 Rate Blood Pressure 129/69 113/57 115/60 O2 Sat by Pulse 99 98 98 Oximetry Medical Decision Making - Lab Data Result diagrams: 03/31/25 19:36 - Radiology Data Radiology results: report reviewed, image reviewed <Melissa De Luna - Last Filed: 03/31/25 19:52> - Lab Data Result diagrams: 03/31/25 19:36 03/31/25 19:36 <Laurie Bernard - Last Filed: 03/31/25 23:40> - Medical Decision Making This is a 79-year-old male who presents to the emergency department for wounds to the lower extremities. Was pt. sent in by a medical professional or institution? @ -No Did you speak to anyone other than the patient for history? @ -No Did you review nursing and triage notes? @ -Yes, and I agree, it is accurate with regards to the patient's symptoms. Were old charts reviewed? @ -No Differential Diagnosis? @ -Cellulitis, abrasion, abscess, burn, this is not meant to be an all- inclusive list. EKG interpreted by me (3pts min.)? @ -Not obtained X-rays interpreted by me (1pt min.)? @ -X-ray of the left tib-fib obtained. My interpretation identifies soft tissue swelling. CT interpreted by me (1pt min.)? @ -Not obtained U/S interpreted by me (1pt. min.)? @ -Not obtained What testing was considered but not performed? (CT, X-rays, U/S, labs)? Why? @ -None What meds were considered but not given? Why? @ -None Did you discuss the management of the patient with other professionals? @ -No Did you reconcile home meds? @ -No Was smoking cessation discussed for >3mins.? @ -No Was critical care preformed (if so, how long)? @ -No Were there social determinants of health that impacted care today? How? (Homelessness, low income, unemployed, alcoholism, drug addiction, transportation, low edu. Level, literacy, decrease access to med. care, longterm, rehab)? @ -No Was there de-escalation of care discussed even if they declined? (Discuss DNR or withdrawal of care, Hospice)? @ -No What co-morbidities impacted this encounter? (DM, HTN, Smoking, COPD, CAD, Cancer, CVA, Hep., AIDS, mental health diagnosis, sleep apnea, morbid obesity)? @ -Liver disease Was patient admitted / discharged? @ -Lab work demonstrates a hemoglobin of 7.5 which is stable when compared with prior values. Case signed out to Laurie Bernard PA-C, at shift completion pending lab results and disposition. Undiagnosed new problem with uncertain prognosis? @ -None Drug Therapy requiring intensive monitoring for toxicity (Heparin, Nitro, Insulin, Cardizem)? @ -None Were any procedures done? @ -None (Melissa De Luna) I evaluated the patient following signout at shift change. Laboratory studies reviewed, patient has a hemoglobin of 7.5 which is stable to prior. There is no significant leukocytosis. He is hyponatremic with a sodium of 128 which appears to be chronic for the patient. No significant hyperkalemia. Patient has bilateral lower extremity edema. He does have a wound which he follows with wound care 3 days weekly for on his left lower extremity. He denies ill feeling. Denies any fever, chills. I did offer the patient admission although he would prefer to be treated outpatient and I believe this is reasonable at this time. He is understanding agreeable with discharge plan. Case discussed with Dr. Fonseca (Laurie Bernard) - Lab Data Lab Results 03/31/25 03/31/25 03/31/25 Range/Units 19:36 19:36 19:36 WBC 6.54 (4.50-10.00) 10*3/uL RBC 3.46 L (4.40-5.60) 10*6/uL Hgb 7.5 L (13.0-17.0) g/dL Hct 26.0 L (39.6-50.0) % MCV 75.1 L (80.0-97.0) fL MCH 21.7 L (27.0-32.0) pg MCHC 28.8 L (32.0-37.0) g/dL Plt Count 221 (140-440) 10*3/uL MPV 9.5 (9.5-12.2) fL Immature Gran % (Auto) 0.3 % Neutrophils % 66.2 % Lymphocytes % 12.4 % Monocytes % 10.7 % Eosinophils % 9.5 % Basophils % 0.9 % Immature Gran # 0.02 (0.00-0.04) 10*3/uL Neutrophils # 4.33 (1.80-7.70) 10*3/uL Lymphocytes # 0.81 L (0.90-5.00) 10*3/uL Monocytes # 0.70 (0.20-1.00) 10*3/uL Eosinophils # 0.62 H (0.04-0.35) 10*3/uL Basophils # 0.06 (0.00-0.10) 10*3/uL PT 12.7 H (10.0-12.5) sec INR 1.2 H (<1.2) APTT 26.6 (22.0-30.0) sec Sodium 128 L (137-145) mmol/L Potassium 5.0 (3.5-5.1) mmol/L Chloride 98 (98-107) mmol/L Carbon Dioxide 23 (22-30) mmol/L Anion Gap 7 mmol/L BUN 39 H (9-20) mg/dL Creatinine 1.86 H (0.66-1.25) mg/dL Est GFR (CKD-EPI)AfAm 39 (>60 ml/min/1.73 sqM) Est GFR (CKD-EPI)NonAf 34 (>60 ml/min/1.73 sqM) Glucose 90 (74-99) mg/dL Plasma Lactic Acid Lisandro (0.7-2.0) mmol/L Calcium 8.9 (8.4-10.2) mg/dL Total Bilirubin 1.0 (0.2-1.3) mg/dL AST 31 (17-59) U/L ALT 18 (4-49) U/L Alkaline Phosphatase 166 H (38-126) U/L C-Reactive Protein 1.7 H (<1.0) mg/dL Total Protein 6.3 (6.3-8.2) g/dL Albumin 3.3 L (3.5-5.0) g/dL 03/31/25 Range/Units 19:36 WBC (4.50-10.00) 10*3/uL RBC (4.40-5.60) 10*6/uL Hgb (13.0-17.0) g/dL Hct (39.6-50.0) % MCV (80.0-97.0) fL MCH (27.0-32.0) pg MCHC (32.0-37.0) g/dL Plt Count (140-440) 10*3/uL MPV (9.5-12.2) fL Immature Gran % (Auto) % Neutrophils % % Lymphocytes % % Monocytes % % Eosinophils % % Basophils % % Immature Gran # (0.00-0.04) 10*3/uL Neutrophils # (1.80-7.70) 10*3/uL Lymphocytes # (0.90-5.00) 10*3/uL Monocytes # (0.20-1.00) 10*3/uL Eosinophils # (0.04-0.35) 10*3/uL Basophils # (0.00-0.10) 10*3/uL PT (10.0-12.5) sec INR (<1.2) APTT (22.0-30.0) sec Sodium (137-145) mmol/L Potassium (3.5-5.1) mmol/L Chloride (98-107) mmol/L Carbon Dioxide (22-30) mmol/L Anion Gap mmol/L BUN (9-20) mg/dL Creatinine (0.66-1.25) mg/dL Est GFR (CKD-EPI)AfAm (>60 ml/min/1.73 sqM) Est GFR (CKD-EPI)NonAf (>60 ml/min/1.73 sqM) Glucose (74-99) mg/dL Plasma Lactic Acid Lisandro 1.0 (0.7-2.0) mmol/L Calcium (8.4-10.2) mg/dL Total Bilirubin (0.2-1.3) mg/dL AST (17-59) U/L ALT (4-49) U/L Alkaline Phosphatase (38-126) U/L C-Reactive Protein (<1.0) mg/dL Total Protein (6.3-8.2) g/dL Albumin (3.5-5.0) g/dL Disposition <Melissa De Luna - Last Filed: 03/31/25 19:52> Is patient prescribed a controlled substance at d/c from ED?: No <Laurie Bernard - Last Filed: 03/31/25 23:40> Clinical Impression: Cellulitis, leg Disposition: HOME SELF-CARE Condition: Stable Additional Instructions: Please continue with wound care as scheduled. medical operations supervisor your antibiotic and take to completion. Follow-up with your doctor. Return to the emergency department for new or worsening symptoms. Prescriptions: Doxycycline [Vibramycin] 100 mg PO BID #20 capsule Referrals: Kelechi Soriano DO [Primary Care Provider] - 1-2 days
--- NOTE | 2025-03-31 17:18 | XR ---
EXAMINATION TYPE: XR tibia fibula LT DATE OF EXAM: 03/31/2025 5:10 PM COMPARISON: None. CLINICAL INDICATION: Male, 79 years old with history of Leg infection; PHH, pain TECHNIQUE: XR tibia fibula LT; examined in AP and lateral projections. FINDINGS: No acute fracture or dislocation. No definite reniform body. Tibiotalar joint and talar dom e unremarkable. No focal osseous erosion or aggressive periosteal reaction. Soft tissue swelling note d. IMPRESSION: Soft tissue swelling without acute osseous abnormality. [facility], , 03/31/2025 5:15 PM
[2025-03-31 19:50] LABS: Basophils # (A) 0.06 10*3/uL (0.00-0.10); Basophils % (A) 0.9 %; Eosinophils # (A) 0.62 10*3/uL (0.04-0.35); Eosinophils % (A) 9.5 %; HGB 7.5 g/dL (13.0-17.0); Lymphocytes # (A) 0.81 10*3/uL (0.90-5.00); Lymphocytes % (A) 12.4 %; MCH 21.7 pg (27.0-32.0); MCHC 28.8 g/dL (32.0-37.0); MCV 75.1 fL (80.0-97.0); Mean Platelet Volume 9.5 fL (9.5-12.2); Monocytes % (A) 10.7 %; Neutrophils # (A) 4.33 10*3/uL (1.80-7.70); Neutrophils % (A) 66.2 %; Platelet Count 221 10*3/uL (140-440); RBC 3.46 10*6/uL (4.40-5.60); RDW 17.7 % (11.5-14.5); WBC 6.54 10*3/uL (4.50-10.00)
[2025-03-31 19:59] LABS: INR 1.2 (<1.2); Partial Thromboplastin Time 26.6 sec (22.0-30.0); Prothrombin Time 12.7 sec (10.0-12.5)
[2025-03-31 20:01] LABS: ALT 18 U/L (4-49); AST 31 U/L (17-59); African American GFR (CKD) 39 (>60 ml/min/1.73 sqM); Albumin 3.3 g/dL (3.5-5.0); Alkaline Phosphatase 166 U/L (38-126); Anion Gap 7 mmol/L; Blood Urea Nitrogen 39 mg/dL (9-20); C Reactive Protein 1.7 mg/dL (<1.0); Calcium 8.9 mg/dL (8.4-10.2); Carbon Dioxide 23 mmol/L (22-30); Chloride 98 mmol/L (98-107); Glucose 90 mg/dL (74-99); Non-African American GFR(CKD) 34 (>60 ml/min/1.73 sqM); Sodium 128 mmol/L (137-145); Total Protein 6.3 g/dL (6.3-8.2)
[2025-03-31] MEDS: DOXYCYCLINE 100 MG TABLET PO ONE (21:24)
[2025-03-31 21:41] VITALS: BP 115/60; PULSE 84; TEMP 98.4
[2025-04-01 03:31] LABS: Erythrocyte Sedimentation Rate 27 mm/Hr (0-20)
== END 2025-03-31 21:58 | disposition home or self-care (01) ==
LOC: EC 15:11
DX: L03.116 Cellulitis of left lower limb (principal); F17.200 Nicotine dependence, unspecified, uncomplicated; Z88.1 Allergy status to other antibiotic agents; Z91.041 Radiographic dye allergy status
CPT/HCPCS: 36415; 80053; 83605; 85025; 85610; 85652; 85730; 86140; 87070; 87075; 87205; 99283

== ENCOUNTER 2025-05-01 13:10 | Day surgery (SDC) | payer MEDICARE ==
[2025-05-01 14:10] LABS: Platelet Count 270 10*3/uL (140-440)
[2025-05-01 14:22] LABS: African American GFR (CKD) 41 (>60 ml/min/1.73 sqM); INR 1.1 (<1.2); Non-African American GFR(CKD) 35 (>60 ml/min/1.73 sqM); Prothrombin Time 11.7 sec (10.0-12.5)
[2025-05-01] MEDS: ALBUMIN HUMAN 25% 50 ML in EMPTY BAG 1 BAG IVPB SCH (14:30)
[2025-05-01 14:38] VITALS: TEMP 97.8
[2025-05-01 15:22] VITALS: RESP 16
[2025-05-01 15:53] VITALS: BP 109/56; PULSE 74
--- NOTE | 2025-05-02 10:13 | US ---
EXAMINATION TYPE: US paracentesis abd w/image DATE OF EXAM: 05/11/2025 COMPARISON: 04/13/2025 prior paracentesis. CLINICAL INDICATION:Male, 79 years old with history of R18.8 OTHER ASCITES; , ascites ATTENDING: Dr. Zarate PROCEDURE: Informed consent was obtained. The risks of the procedure were extensively explained incl uding risk of damage to surrounding bowel with perforation and need for additional procedures. Proced ure was performed in the ultrasound procedure suite. Ultrasound imaging of the abdomen demonstrate ascitic fluid. An appropriate access site was localized to the right lower abdomen. Timeout was taken per protocol. The skin was prepped and draped in the u sual sterile fashion and then locally anesthetized with 1% lidocaine. The peritoneal cavity was then accessed via a 5-Surinamese one-step needle/catheter. Approximately 8100 mL of clear straw-colored flui d was obtained. Patient tolerated procedure well without immediate complication. Hemostasis at the procedural site w as obtained with a sterile bandage placed. The patient was monitored in the holding area following th e procedure and was subsequently discharged in stable condition. IMPRESSION: Ultrasound guided therapeutic paracentesis, with approximately 8100 mL of clear straw-colored fluid d rained. No immediate complications were evident. [facility], , 05/02/2025 10:11 AM
== END 2025-05-01 16:12 | disposition home or self-care (01) ==
LOC: RADPROMAIN 13:10
PROVIDERS: ATTEND Internal Medicine Gastroenterology
DX: R18.8 Other ascites (principal)
CPT/HCPCS: 82565; 85049; 85610; 36415; 49083; P9047

== ENCOUNTER 2025-05-16 13:02 | Day surgery (SDC) | payer MEDICARE ==
[~2025-05-16 13:02] MED LIST changes: -ALBUMIN HUMAN 25% (12.5gm) 50 ML VIAL ONE; +ALBUMIN HUMAN 25% 50 ML in EMPTY BAG 1 BAG IVPB SCH; -GLUCAGON 1 MG/ML VIAL ONE
[2025-05-16 14:31] VITALS: BP 108/60; PULSE 91; RESP 18; TEMP 98.1
== END 2025-05-16 14:28 | disposition home or self-care (01) ==
LOC: RADPROMAIN 13:02
PROVIDERS: ATTEND Internal Medicine Gastroenterology
DX: Z53.9 Procedure and treatment not carried out, unspecified reason (principal)

== ENCOUNTER 2025-05-19 08:37 | Day surgery (SDC) | payer MEDICARE ==
[2025-05-19 09:14] LABS: Platelet Count 248 10*3/uL (140-440)
[2025-05-19 09:25] VITALS: TEMP 98
[2025-05-19 09:25] LABS: African American GFR (CKD) 46 (>60 ml/min/1.73 sqM); INR 1.1 (<1.2); Non-African American GFR(CKD) 40 (>60 ml/min/1.73 sqM); Prothrombin Time 11.6 sec (10.0-12.5)
[2025-05-19] MEDS: ALBUMIN HUMAN 25% 50 ML in EMPTY BAG 1 BAG IVPB SCH (10:02)
[2025-05-19 10:23] VITALS: RESP 18
--- NOTE | 2025-05-19 11:09 | US ---
EXAMINATION TYPE: US paracentesis abd w/image DATE OF EXAM: 05/19/2025 9:56 AM COMPARISON: prior paracentesis. CLINICAL INDICATION:Male, 79 years old with history of R18.8 OTHER ASCITES; , ascites ATTENDING: Dr. Dante Sharma PROCEDURE: Informed consent was obtained. The risks of the procedure were extensively explained incl uding risk of damage to surrounding bowel with perforation and need for additional procedures. Proced ure was performed in the ultrasound procedure suite. Ultrasound imaging of the abdomen demonstrate as citic fluid. An appropriate access site was localized to the right lower abdomen. Timeout was taken p er protocol. The skin was prepped and draped in the usual sterile fashion and then locally anesthetiz ed with 1% lidocaine. The peritoneal cavity was then accessed via a 5-[place] one-step needle/cathete r. Approximately 7700 mL of clear straw-colored fluid was obtained. Postprocedural imaging of the ab domen demonstrate a minimal amount of abdominal fluid. Patient tolerated procedure well without immediate complication. Hemostasis at the procedural site w as obtained with a sterile bandage placed. The patient was monitored in the holding area following th e procedure and was subsequently discharged in stable condition. IMPRESSION: Ultrasound guided paracentesis, with approximately 7700 mL of clear straw-colored fluid drained. No i mmediate complications were evident. [facility], , 05/19/2025 11:06 AM
[2025-05-19 12:19] VITALS: BP 117/59; PULSE 108
== END 2025-05-19 11:00 | disposition home or self-care (01) ==
LOC: RADPROMAIN 08:37
PROVIDERS: ATTEND Internal Medicine Gastroenterology
DX: R18.8 Other ascites (principal)
CPT/HCPCS: 82565; 85049; 85610; 36415; 49083; P9047

== ENCOUNTER 2025-06-01 13:16 | Day surgery (SDC) | payer MEDICARE ==
[2025-06-01 13:49] LABS: Platelet Count 249 10*3/uL (140-440)
[2025-06-01] MEDS: ALBUMIN HUMAN 25% 50 ML in EMPTY BAG 1 BAG IVPB SCH (13:51)
[2025-06-01 13:58] VITALS: TEMP 98
[2025-06-01 14:00] LABS: INR 1.0 (<1.2); Prothrombin Time 11.5 sec (10.0-12.5)
[2025-06-01 14:02] LABS: African American GFR (CKD) 35 (>60 ml/min/1.73 sqM); Non-African American GFR(CKD) 30 (>60 ml/min/1.73 sqM)
[2025-06-01 15:03] VITALS: RESP 16
[2025-06-01 15:30] VITALS: BP 103/74; PULSE 85
--- NOTE | 2025-06-02 06:51 | US ---
EXAMINATION TYPE: US paracentesis abd w/image DATE OF EXAM: June 02, 2025 COMPARISON: May 19, 2025 prior paracentesis. CLINICAL INDICATION:Male, 79 years old with history of R18.8 OTHER ASCITES; , ascites ATTENDING: Dr. Zarate PROCEDURE: Informed consent was obtained. The risks of the procedure were extensively explained incl uding risk of damage to surrounding bowel with perforation and need for additional procedures. Proced ure was performed in the ultrasound procedure suite. Ultrasound imaging of the abdomen demonstrate ascitic fluid. An appropriate access site was localized to the right lower abdomen. Timeout was taken per protocol. The skin was prepped and draped in the u sual sterile fashion and then locally anesthetized with 1% lidocaine. The peritoneal cavity was then accessed via a 5-[place]amanian one-step needle/catheter. Approximately 08017 mL of clear straw-colored flu id was obtained. Patient tolerated procedure well without immediate complication. Hemostasis at the procedural site w as obtained with a sterile bandage placed. The patient was monitored in the holding area following th e procedure and was subsequently discharged in stable condition. IMPRESSION: Ultrasound guided therapeutic paracentesis, with approximately 07818 mL of clear straw-colored fluid drained. No immediate complications were evident. [facility], Workstation: [facility], 06/02/2025 6:49 AM
== END 2025-06-01 15:35 | disposition home or self-care (01) ==
LOC: RADPROMAIN 13:16
PROVIDERS: ATTEND Internal Medicine Gastroenterology
DX: R18.8 Other ascites (principal)
CPT/HCPCS: 82565; 85049; 85610; 36415; 49083; P9047

== ENCOUNTER 2025-06-08 13:04 | Day surgery (SDC) | payer MEDICARE ==
[2025-06-08 13:37] LABS: Platelet Count 243 10*3/uL (140-440)
[2025-06-08 13:49] LABS: INR 1.0 (<1.2)
[2025-06-08 13:50] LABS: Prothrombin Time 11.3 sec (10.0-12.5)
[2025-06-08 13:52] VITALS: RESP 18; TEMP 98.4
[2025-06-08 13:54] LABS: African American GFR (CKD) 36 (>60 ml/min/1.73 sqM); Non-African American GFR(CKD) 31 (>60 ml/min/1.73 sqM)
[2025-06-08] MEDS: ALBUMIN HUMAN 25% 50 ML in EMPTY BAG 1 BAG IVPB SCH (14:19)
--- NOTE | 2025-06-08 15:14 | US ---
EXAMINATION TYPE: US paracentesis abd w/image DATE OF EXAM: 06/08/2025 2:17 PM COMPARISON: None. Previous Paracentesis CLINICAL INDICATION: Male, 80 years old with history of R18.8 OTHER ASCITES; , ascites TECHNIQUE/FINDINGS: The procedure was discussed with the patient. The risks, complications, benefits, and alternatives we re discussed and any questions were answered. Informed consent was obtained. The patient was placed s upine on the ultrasound table and prepped and draped in the usual sterile fashion. All elements of maximal barrier technique were utilized. Under ultrasound guidance, access into the right lower quadrant was obtained, via the paracentesis catheter system and direct ultrasound guidanc e. Approximately 10.3 liters of straw-colored fluid was removed. The patient was stable throughout the p rocedure and remained stable upon discharge from Department of Radiology. IMPRESSION: Successful paracentesis under ultrasound guidance. [facility], , 06/08/2025 3:11 PM
[2025-06-08 15:40] VITALS: BP 110/54; PULSE 84
== END 2025-06-08 15:25 | disposition home or self-care (01) ==
LOC: RADPROMAIN 13:04
PROVIDERS: ATTEND Internal Medicine Gastroenterology
DX: R18.8 Other ascites (principal)
CPT/HCPCS: 82565; 85049; 85610; 36415; 49083; P9047

== ENCOUNTER 2025-06-15 13:05 | Day surgery (SDC) | payer MEDICARE ==
[2025-06-15 13:36] LABS: Platelet Count 242 10*3/uL (140-440)
[2025-06-15 13:42] VITALS: RESP 12; TEMP 98.7
[2025-06-15 13:52] LABS: African American GFR (CKD) 37 (>60 ml/min/1.73 sqM); Non-African American GFR(CKD) 32 (>60 ml/min/1.73 sqM)
[2025-06-15 13:56] LABS: INR 1.0 (<1.2); Prothrombin Time 11.3 sec (10.0-12.5)
[2025-06-15] MEDS: ALBUMIN HUMAN 25% 50 ML in EMPTY BAG 1 BAG IVPB SCH (14:16)
[2025-06-15 15:16] VITALS: BP 99/59; PULSE 99
--- NOTE | 2025-06-15 15:28 | US ---
EXAMINATION TYPE: US paracentesis abd w/image DATE OF EXAM: 06/15/2025 2:35 PM COMPARISON: prior paracentesis. CLINICAL INDICATION:Male, 80 years old with history of R18.8 OTHER ASCITES; , ascites ATTENDING: Dr. Dante Sharma PROCEDURE: Informed consent was obtained. The risks of the procedure were extensively explained incl uding risk of damage to surrounding bowel with perforation and need for additional procedures. Proced ure was performed in the ultrasound procedure suite. Ultrasound imaging of the abdomen demonstrate as citic fluid. An appropriate access site was localized to the right lower abdomen. Timeout was taken p er protocol. The skin was prepped and draped in the usual sterile fashion and then locally anesthetiz ed with 1% lidocaine. The peritoneal cavity was then accessed via a 5-Tuvaluan one-step needle/cathete r. Approximately 9000 mL of clear straw-colored fluid was obtained. Postprocedural imaging of the ab domen demonstrate a minimal amount of abdominal fluid. Patient tolerated procedure well without immediate complication. Hemostasis at the procedural site w as obtained with a sterile bandage placed. The patient was monitored in the holding area following th e procedure and was subsequently discharged in stable condition. IMPRESSION: Ultrasound guided paracentesis, with approximately 9000 mL of clear straw-colored fluid drained. No i mmediate complications were evident. [facility], , 06/15/2025 3:26 PM
== END 2025-06-15 15:35 | disposition home or self-care (01) ==
LOC: RADPROMAIN 13:05
PROVIDERS: ATTEND Internal Medicine Gastroenterology
DX: R18.8 Other ascites (principal)
CPT/HCPCS: 82565; 85049; 85610; 36415; 49083; P9047

== ENCOUNTER 2025-06-22 13:03 | Day surgery (SDC) | payer MEDICARE ==
[2025-06-22 13:57] LABS: Platelet Count 238 10*3/uL (140-440)
[2025-06-22] MEDS: ALBUMIN HUMAN 25% 50 ML in EMPTY BAG 1 BAG IVPB SCH (14:03)
[2025-06-22 14:12] VITALS: RESP 16; TEMP 98.4
[2025-06-22 14:16] LABS: African American GFR (CKD) 33 (>60 ml/min/1.73 sqM); Non-African American GFR(CKD) 29 (>60 ml/min/1.73 sqM)
[2025-06-22 14:19] LABS: INR 1.0 (<1.2); Prothrombin Time 10.8 sec (10.0-12.5)
[2025-06-22 15:40] VITALS: BP 101/56; PULSE 88
--- NOTE | 2025-06-23 16:23 | US ---
EXAMINATION TYPE: US paracentesis abd w/image DATE OF EXAM: 06/22/2025 CLINICAL HISTORY: 80-year-old male R18.8, other ascites, distention, referred for routine weekly par acentesis The procedure was discussed with the patient. The risks, complications, benefits, and alternatives we re discussed and any questions were answered. Informed consent was obtained. The patient was placed s upine on the ultrasound table and prepped and draped in the usual sterile fashion. All elements of maximal barrier technique were utilized. Ultrasound was utilized to determine the precise skin entry site along the right lower quadrant. A 5 Luxembourger One-Step catheter and trocar technique was utilized to access the ascites collection under direct ultrasound guidance. Approximately 6.5 liters of typical, slightly opaque straw-colored fluid was removed. Catheter was removed, hemostasis obtained, and a dressing placed. The patient was stable throughout the procedure and remained stable upon discharge from Department of Radiology. IMPRESSION: Successful therapeutic paracentesis under ultrasound guidance. 6.5 L of fluid removed. [facility], , 06/23/2025 4:21 PM
== END 2025-06-22 15:30 | disposition home or self-care (01) ==
LOC: RADPROMAIN 13:03
PROVIDERS: ATTEND Internal Medicine Gastroenterology
DX: R18.8 Other ascites (principal)
CPT/HCPCS: 82565; 85049; 85610; 36415; 49083; P9047